=== PATIENT | female | born 1970 | race Caucasian/White ===

== ENCOUNTER 2020-01-29 09:20 | Emergency (ER) | payer MEDICAID, SELFPAY ==
--- NOTE | 2020-01-29 | US_ITS ---
EXAMINATION: US ABDOMEN LIMITED CLINICAL INFORMATION: Right upper quadrant and epigastric pain, rule out cholelithiasis. COMPARISON: Abdominal ultrasound dated 01/20/2019. TECHNIQUE: Real-time imaging of the right upper quadrant abdominal viscera. FINDINGS: PANCREAS: Visualized portions unremarkable. The tail is partially obscured by bowel gas shadowing. LIVER: Diffuse decreased attenuation without focal abnormality. GALLBLADDER: Normal. The gallbladder is physiologically distended without evidence of stones, sludge, polyps, wall thickening or pericholecystic fluid. COMMON BILE DUCT: Normal in caliber measuring 0.2 cm in diameter. RIGHT KIDNEY: 10.7 cm. FREE FLUID: None. IMPRESSION: Hepatic steatosis without focal abnormality or change.
[2020-01-29 09:31] VITALS: BP 114/56; PULSE 78; RESP 16; TEMP 36.6; O2SAT 97; BMI 37.8
[2020-01-29 10:28] LABS: MANUAL DIFF FLAG NO
[2020-01-29 10:29] LABS: Basophils Absolute Auto 0.1 X10*3/uL (0.0-0.2); Basophils Percent Auto 0.7 % (0-2); Eosinophils Absolute Auto 0.1 X10*3/uL (0.0-0.4); Eosinophils Percent Auto 1.3 % (0-4); Hematocrit 43.6 % (37-47); Hemoglobin 13.9 g/dl (12.0-16.0); Imm Gran Abs Auto 0.02 X10*3/uL (0.00-0.03); Imm Gran Pct Auto 0.3 % (0.0-0.4); Lymphocytes Absolute Auto 2.1 X10*3/uL (1.2-4.9); Lymphocytes Percent Auto 29.8 % (20-40); Mean Corpuscular HGB Conc 31.9 g/dl (31.0-35.0); Mean Corpuscular Hemoglobin 30.2 pg (27.0-33.0); Mean Corpuscular Volume 94.8 fL (80-98); Mean Platelet Volume 11.7 fL (9.4-12.3); Monocytes Absolute Auto 0.5 X10*3/uL (0.1-1.2); Monocytes Percent Auto 7.6 % (2-11); Neutrophils Absolute Auto 4.3 X10*3/uL (2.0-8.3); Neutrophils Percent Auto 60.3 % (45-73); Platelet Count 247 X10*3/uL (160-400); Red Cell Distribution Width 13.2 % (11.0-16.0); White Blood Count 7.2 X10*3/uL (4.8-10.8)
--- NOTE | 2020-01-29 10:43 | ED.ABDPAIN ---
HPI - Abdominal Pain General Chief Complaint: Abdominal Pain Stated Complaint: stomach pain Time Seen by Provider: 01/29/20 10:43 Source: patient Mode of arrival: ambulatory Limitations: no limitations History of Present Illness HPI narrative: patient with no significant abdominal history complaining of nausea vomiting for last 3 days with epigastric pain radiating to right upper quadrant no diarrhea no fever no other family member is sick MD elicited complaint: abdominal pain Pertinent past history: none Onset (ago): day(s) (3) Pain Consistency: intermittent Location: epigastric and RUQ Severity: moderate Quality: dull Radiation: RUQ Exacerbating factors: eating Relieving factors: nothing Associated symptoms: nausea and vomiting Related Data Previous Rx's Medication Instructions Recorded ondansetron 4 mg PO Q6-8H PRN #10 tab 01/29/20 pantoprazole [Protonix] 20 mg PO DAILY #20 tab 01/29/20 Allergies Allergy/AdvReac Type Severity Reaction Status Date / Time Penicillins [PENICILLINS] Allergy Unknown Unknown Unverified 01/29/20 10:00 Review of Systems Review of Systems Constitutional : No Weight loss, No Fever, No Chills, No Night Sweats, No Fatigue, No Malaise ENT/Mouth : No Hearing loss, No Ear Pain, No Nasal Congestion, No Sinus Pain, No Hoarseness, No sore throat, No Rhinorrhea, No Swallowing Difficulty Eyes: No Eye Pain, No Swelling, No Redness, No Foreign Body, No Discharge, No Vision Changes Cardiovascular : No Chest Pain, No SOB, No Dyspnea on Exertion, No Orthopnea, No Edema, No Palpitations Respiratory : No Cough, No Sputum, No Wheezing, No Smoke Exposure, No Dyspnea Gastrointestinal : Positive Nausea, Positive Vomiting, neg Diarrhea, positive abdominal Pain, No Hematochezia, No Melena Genitourinary : no irregular bleeding, No Dysuria, No Urinary Frequency, No Hematuria, No Urinary Incontinence, No Urgency, No Flank Pain, No Urinary Flow Changes, No Hesitancy Musculoskeletal : No joint pain, No Myalgias, No Joint Swelling Skin : No Skin Lesions, No rash Neuro : No Weakness, No Numbness, No Paresthesias, No Loss of Consciousness, No Dizziness, No Headache Psych : No Anxiety/Panic, No Depression, No SI/HI/AH/VH, No Social Issues, Heme/Lymph: No Bruising, No Bleeding,No Lymphadenopathy Endocrine : No Polyuria, No Polydipsia, No Temperature Intolerance Yes all other systems are reviewed and are negative Physical Exam Vital Signs and I&O and Narrative: Vital Signs and I&O: Vital Signs Temp 97.7 F 01/29/20 12:00 Pulse 68 01/29/20 12:00 Resp 18 01/29/20 12:00 BP 115/38 L 01/29/20 12:00 Pulse Ox 97 01/29/20 12:00 Intake & Output 01/28/20 01/29/20 01/29/20 18:59 06:59 18:59 Intake Total 1000 / 1000 Balance 1000 / 1000 Weight 96.88 kg Intake: Intake, IV Amoun t 1000 / 1000 0.9 % Sodium C hloride 1,000 ml 1000 / 1000 @ 999 mls/hr I VCONT .Q1H1M [facility] Rx#:[id number] Body Mass Index 37.8 Const: General: cooperative and healthy appearing Nutritional Appearance: average body habitus Orientation/consciousness: oriented to person, oriented to place and oriented to time Limitations: no limitations HENMT: Head: Yes normal to inspection Face and sinus: Yes normal facial exam Eyes: Conjunctivae: conjunctivae normal Sclerae: sclerae normal Resp: Effort & Inspection: normal respiratory effort and able to speak in complete sentences Auscultation: clear to auscultation bilaterally Percussion: percussion normal Cardio: Palpation: normal PMI Rate: regular rate Rhythm: regular rhythm Heart sounds: S1 normal heart sound present and S2 normal heart sound present GI: Inspection: Yes normal to inspection Palpation (GI): Soft to palpation and Tenderness to palpation present (GI) in the epigastrum and in the RUQ Percussion: Yes normal to percussion Auscultation: normal bowel sounds : General: No CVA tenderness Back/Spine/Pelvis: Back: No CVA tenderness Neuro: General: oriented to person, oriented to place and oriented to time Course Course Course Narrative: patient's labs are stable ultrasound is negative for any cholelithiasis. Urine is negative likely gastroenteritis viral will discharge patient home on Zofran MDM - Abdominal Pain Lab Data Result diagrams: 01/29/20 10:24 01/29/20 10:24 Labs: Lab Results 01/29/20 01/29/20 01/29/20 Range/Units 10:24 10:24 10:24 WBC 7.2 (4.8-10.8) X10*3/uL RBC 4.60 (4.20-5.50) X10*6/uL Hgb 13.9 (12.0-16.0) g/dl Hct 43.6 (37-47) % MCV 94.8 (80-98) fL MCH 30.2 (27.0-33.0) pg MCHC 31.9 (31.0-35.0) g/dl RDW 13.2 (11.0-16.0) % Plt Count 247 (160-400) X10*3/uL MPV 11.7 (9.4-12.3) fL Immature Gran % (Auto) 0.3 (0.0-0.4) % Neut % (Auto) 60.3 (45-73) % Lymph % (Auto) 29.8 (20-40) % [place] % (Auto) 7.6 (2-11) % Eos % (Auto) 1.3 (0-4) % Baso % (Auto) 0.7 (0-2) % Neut # (Auto) 4.3 (2.0-8.3) X10*3/uL Lymph # (Auto) 2.1 (1.2-4.9) X10*3/uL [place] # (Auto) 0.5 (0.1-1.2) X10*3/uL Eos # (Auto) 0.1 (0.0-0.4) X10*3/uL Baso # (Auto) 0.1 (0.0-0.2) X10*3/uL Abs Immat Gran (auto) 0.02 (0.00-0.03) X10*3/uL Absolute Nucleated RBC 0.000 (0.0-0.012) X10*3/uL Nucleated RBC % (auto) 0.0 (0.0-0.2) /100WBC Hold Blue Top SEE NOTE Sodium 138 (135-145) mmol/L Potassium 4.8 (3.3-5.1) mmol/l Chloride 103 (96-108) mmol/L Carbon Dioxide 29 (22-29) mmol/L Anion Gap 11 L (12-20) BUN 19 H (9-16) mg/dL Creatinine 1.03 (0.5-1.4) mg/dL Estim Creat Clear Calc 74.8 Estimated GFR 57 Random Glucose 92 (60-115) mg/dL Calcium 9.2 (8.4-10.2) mg/dL Total Bilirubin 0.3 (0.0-1.0) mg/dL Direct Bilirubin < 0.2 (0.0-0.5) mg/dL AST 18 (5-31) U/L ALT 26 (0-31) U/L Alkaline Phosphatase 85 (39-117) U/L Total Protein 7.4 (6.5-8.0) g/dL Albumin 4.4 (3.5-5.0) g/dL Lipase 30 (8-78) U/L Urine Color Urine Appearance Urine pH (5.0-8.0) Ur Specific [place] (1.005-1.025) Urine Protein (NEG-TRACE) MG/DL Urine Glucose (UA) (NEG) MG/DL Urine Ketones (NEG) MG/DL Urine Blood (NEG) Urine Nitrite (NEG) Ur Leukocyte Esterase (NEG) Urine Test (NEGATIVE) 01/29/20 Range/Units 12:45 WBC (4.8-10.8) X10*3/uL RBC (4.20-5.50) X10*6/uL Hgb (12.0-16.0) g/dl Hct (37-47) % MCV (80-98) fL MCH (27.0-33.0) pg MCHC (31.0-35.0) g/dl RDW (11.0-16.0) % Plt Count (160-400) X10*3/uL MPV (9.4-12.3) fL Immature Gran % (Auto) (0.0-0.4) % Neut % (Auto) (45-73) % Lymph % (Auto) (20-40) % [place] % (Auto) (2-11) % Eos % (Auto) (0-4) % Baso % (Auto) (0-2) % Neut # (Auto) (2.0-8.3) X10*3/uL Lymph # (Auto) (1.2-4.9) X10*3/uL [place] # (Auto) (0.1-1.2) X10*3/uL Eos # (Auto) (0.0-0.4) X10*3/uL Baso # (Auto) (0.0-0.2) X10*3/uL Abs Immat Gran (auto) (0.00-0.03) X10*3/uL Absolute Nucleated RBC (0.0-0.012) X10*3/uL Nucleated RBC % (auto) (0.0-0.2) /100WBC Hold Blue Top Sodium (135-145) mmol/L Potassium (3.3-5.1) mmol/l Chloride (96-108) mmol/L Carbon Dioxide (22-29) mmol/L Anion Gap (12-20) BUN (9-16) mg/dL Creatinine (0.5-1.4) mg/dL Estim Creat Clear Calc Estimated GFR Random Glucose (60-115) mg/dL Calcium (8.4-10.2) mg/dL Total Bilirubin (0.0-1.0) mg/dL Direct Bilirubin (0.0-0.5) mg/dL AST (5-31) U/L ALT (0-31) U/L Alkaline Phosphatase (39-117) U/L Total Protein (6.5-8.0) g/dL Albumin (3.5-5.0) g/dL Lipase (8-78) U/L Urine Color YELLOW Urine Appearance CLEAR Urine pH 6.0 (5.0-8.0) Ur Specific [place] >= 1.030 H (1.005-1.025) Urine Protein NEG (NEG-TRACE) MG/DL Urine Glucose (UA) NEG (NEG) MG/DL Urine Ketones NEG (NEG) MG/DL Urine Blood NEG (NEG) Urine Nitrite NEG (NEG) Ur Leukocyte Esterase NEG (NEG) Urine Test NEGATIVE (NEGATIVE) Discharge Plan Discharge Clinical Impression: Gastroenteritis Patient Disposition: Home, Self-Care Instructions: Acute Nausea and Vomiting (ED) Additional Instructions: drink plenty of fluids Prescriptions: New ondansetron 4 mg tablet,disintegrating 4 mg PO Q6-8H PRN (Reason: nausea and vomiting) Qty: 10 RF: 0 pantoprazole [Protonix] 20 mg tablet,delayed release (DR/EC) 20 mg PO DAILY Qty: 20 RF: 0 PMFSH Past Medical History Medical History delivery delivered HTN (hypertension) Migraine Social History Social History Alcohol intake: never Smoking Status: Never smoker Use of substances other than those prescribed or required for medical reasons: No Advance Directives: No Advance Directives Information Provided: Yes
[2020-01-29 10:57] LABS: Alanine Aminotransferase 26 U/L (0-31); Albumin Level 4.4 g/dL (3.5-5.0); Alkaline Phosphatase 85 U/L (39-117); Anion Gap 11 (12-20); Aspartate Amino Transferase 18 U/L (5-31); Bilirubin Direct < 0.2 mg/dL (0.0-0.5); Bilirubin Total 0.3 mg/dL (0.0-1.0); Blood Urea Nitrogen 19 mg/dL (9-16); Calcium 9.2 mg/dL (8.4-10.2); Carbon Dioxide 29 mmol/L (22-29); Chloride 103 mmol/L (96-108); Creatinine Clr Calc Pharmacy 74.8; Estimated Glomerular Filt Rate 57; Glucose Random 92 mg/dL (60-115); Lipase 30 U/L (8-78); Potassium 4.8 mmol/l (3.3-5.1); Sodium 138 mmol/L (135-145); Total Protein 7.4 g/dL (6.5-8.0)
[2020-01-29] MEDS: Morphine Sulfate 4 MG/ML CARTRIDGE IVPUSH (11:06)
[2020-01-29] MEDS: 0.9 % Sodium Chloride 1,000 ML 999 ML IVCONT (11:06)
[2020-01-29] MEDS: ondansetron HCL 4 MG/2 ML VIAL IVPUSH (11:06)
--- NOTE | 2020-01-29 11:31 | PC.NURSE ---
PATIENT A&OX3, C/O 12/03 UPPER ABDOMINAL PAIN, IV FLUIDS STARTED, PT MEDICATED PER ORDER, PT AWARE SHE NEEDS TO PROVIDE URINE SAMPLE AND WILL RING WHEN SHE IS ABLE TO PROVIDE IT, WILL CONTINUE TO MONTIOR
--- NOTE | 2020-01-29 11:33 | PC.NURSE ---
PT TRANSPORTED TO RADIOLOGY FOR US
[2020-01-29 12:00] VITALS: BP 115/38; PULSE 68; RESP 18; TEMP 36.5; O2SAT 97
--- NOTE | 2020-01-29 12:47 | PC.NURSE ---
patient a&ox3, vss, urine obtained, pt reports 11/02 continued abd pain, will continue to monitor
[2020-01-29 13:24] LABS: Glucose Urine UA NEG (NEG); Leukocyte Esterase Urine NEG (NEG); Nitrite Urine NEG (NEG); Specific Gravity - Urine >= 1.030 (1.005-1.025); Urine Blood NEG (NEG); Urine Ketones NEG (NEG); Urine Protein NEG (NEG-TRACE)
[2020-01-29 13:26] LABS: Appearance Urine CLEAR; Color Urine YELLOW
[2020-01-29 13:29] LABS: UPreg QC Valid YES; Urine Pregnancy NEGATIVE (NEGATIVE)
[2020-01-29 14:10] VITALS: BP 117/42; PULSE 66; RESP 18; O2SAT 98
== END 2020-01-29 14:45 | disposition home or self-care (01) ==
PROVIDERS: Emergency Provider Internal Medicine; PCP Family Medicine
DX: K52.9 Noninfective gastroenteritis and colitis, unspecified (principal); I10 Essential (primary) hypertension; Z79.899 Other long term (current) drug therapy
CPT/HCPCS: 36415; 76705; 80053; 80076; 81003; 81025; 83690; 85025; 96361; 96374; 96375; 99284; J2270; J2405

== ENCOUNTER 2020-05-06 08:48 | Emergency (ER) | payer MEDICAID, SELFPAY ==
--- NOTE | 2020-05-06 09:15 | ED_ITS ---
HPI - URI/Sore Throat General Chief Complaint: Upper Respiratory Symptoms Stated Complaint: covid symptoms Time Seen by Provider: 05/06/20 09:00 Source: patient Mode of arrival: ambulatory Limitations: no limitations History of Present Illness HPI Narrative: Two days of nasal congestion/facial pressure and myalgias. No recent travel or sick contacts. States symptoms feel like her seasonal allergies except for the myalgias. No chest pain or shortness of breath. 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 MD elicited complaint: rhinorrhea and nasal congestion Onset (ago): day(s) (2) Description of mucous: clear Exacerbating factors: nothing Relieving factors: nothing Associated symptoms: denies other symptoms Treatments prior to arrival: none Related Data Previous Rx's Medication Instructions Recorded ondansetron 4 mg PO Q6-8H PRN #10 tab 01/29/20 pantoprazole [Protonix] 20 mg PO DAILY #20 tab 01/29/20 cetirizine [Zyrtec] 10 mg PO DAILY PRN #30 tab 05/06/20 Allergies Allergy/AdvReac Type Severity Reaction Status Date / Time Penicillins [PENICILLINS] Allergy Unknown Unknown Unverified 01/29/20 10:00 Review of Systems Review of Systems: Constitutional: No Weight loss, No Fever, No Chills, No Night Sweats, No Fatigue, No Malaise ENT/Mouth: No Hearing loss, No Ear Pain, + Nasal Congestion, No Sinus Pain, No Hoarseness, No sore throat, + Rhinorrhea, No Swallowing Difficulty Eyes: No Eye Pain, No Swelling, No Redness, No Foreign Body, No Discharge, No Vision Changes Cardiovascular: No Chest Pain, No SOB, No Dyspnea on Exertion, No Orthopnea, No Edema, No Palpitations Respiratory: No Cough, No Sputum, No Wheezing, No Smoke Exposure, No Dyspnea Gastrointestinal: No Nausea, No Vomiting, No Diarrhea, No Constipation, No abdominal Pain, No Hematochezia, No Melena Genitourinary: no irregular bleeding, No Dysuria, No Urinary Frequency, No Hematuria, No Urinary Incontinence, No Urgency, No Flank Pain Musculoskeletal: No joint pain, No Myalgias, No Joint Swelling Skin: No Skin Lesions, No rash Neuro: No Weakness, No Numbness, No Paresthesias, No Loss of Consciousness, No Dizziness, No Headache Psych: No Social Issues Heme/Lymph: No Bruising, No Bleeding,No Lymphadenopathy Endocrine: No Polyuria, No Polydipsia, No Temperature Intolerance Yes all other systems are reviewed and are negative [facility] Past Medical History Medical History delivery delivered HTN (hypertension) Migraine Social History Social History Alcohol intake: never Smoking Status: Never smoker Advance Directives: No Advance Directives Information Provided: No Physical Exam Vital Signs: Vital Signs: Reviewed Const: General: cooperative and healthy appearing; No acute distress or intoxicated appearing Nutritional Appearance: average body habitus Orientation/consciousness: patient oriented x3 HENMT: Head: Yes normal to inspection Ears: hearing grossly normal bilaterally General nose exam: Nasal discharge present clear Eyes: General: appearance normal, both eyes and all related structures Visual [place]: normal visual [place] by confrontation Neck: Neck: Yes normal visual inspection, No positive Brudzinski's sign, No positive Kernig's sign and No tender Thyroid: Thyroid normal Chest: Chest palpation & inspection: normal inspection of the chest Resp: Effort & Inspection: normal respiratory effort Cardio: Jugular venous distension: no JVD GI: Inspection: Yes normal to inspection Percussion: Yes normal to percussion Auscultation: normal bowel sounds : General: Yes no CVA tenderness Back/Spine/Pelvis: Back: no CVA tenderness Skin: General skin exam: no rashes or lesions noted Neuro: General: patient oriented x3 Extrem: General: Yes normal to inspection Course Course Course Narrative: Well nontoxic appearing. Cdc/state guidelines provided. Discharge Plan Discharge Clinical Impression: Acute viral syndrome Patient Disposition: Home, Self-Care Instructions: Viral Syndrome (ED) Additional Instructions: Based on your symptoms and history we have sent a COVID-19. Although your RESULT IS PENDING at this time. RESULTS should return within 72 hours. At this time you will be contacted with either NEGATIVE OR POSITIVE results. -Please wait until we contact you for your results. At this time you will be okay for discharge. Please plan for self quarantine for up to 14 days. Do not expose yourself to others. You may not go to work. If testing does come back negative you may return to activities as long as you are no longer having any symptoms for at least 3 days. Please continue to follow cold instructions and wash your hands frequently. You may take Tylenol as directed on the bottle for pain or fever. Patient seen in the emergency department on 05/06/2020 and should be excused from work until negative test results AND until 72 hours without any symptoms AND at least 10 days have passed since symptoms first appeared or since last exposure to COVID-19 positive patient CDC Guidelines for home isolation: - Stay away from others - WEAR A MASK if you are sick AND STAY HOME - Cover your mouth and nose with a tissue when you cough or sneeze. Dispose of tissues in a lined trash can and wash your hands immediately with soap and water for at least 20 seconds. If soap and water are not available, clean hands with alcohol-based hand printing mechanist that contains at least 60% alcohol. - Clean your hands often with soap and water for at least 20 seconds - Avoid touching your eyes, nose and mouth with unwashed hands - Do not share dishes, drinking glasses, cups, eating utensils, towels, or bedding with other people in your home. After using these items, wash them thoroughly with soap and water or put in the swinging cut off saw operator. - Clean high-touch surfaces in your isolation area ( sick room and bathroom) every day; let a caregiver clean and disinfect high-touch surfaces in other areas of the home. Clean the area or item with soap and water or another detergent if it is dirty. Then, use a household disinfectant. - Limit contact with pets and animals: If you must care for a pet, wash your hands before and after interacting with them Prescriptions: New cetirizine [Zyrtec] 10 mg tablet 10 mg PO DAILY PRN (Reason: allergy symptoms) Qty: 30 RF: 0 No Action ondansetron 4 mg tablet,disintegrating 4 mg PO Q6-8H PRN (Reason: nausea and vomiting) Qty: 10 RF: 0 pantoprazole [Protonix] 20 mg tablet,delayed release (DR/EC) 20 mg PO DAILY Qty: 20 RF: 0 Referrals: Halley Hill DO [Primary Care Provider] - 2 weeks (PHONE VISIT ) Stand Alone Forms: Work/School Release
[2020-05-06 09:16] VITALS: BP 133/88; PULSE 106; RESP 16; TEMP 37.7; O2SAT 96; BMI 36.6
== END 2020-05-06 09:36 | disposition home or self-care (01) ==
PROVIDERS: Nurse Practitioner Primary Care; Emergency Provider Emergency Medicine; PCP Family Medicine
DX: U07.1 COVID-19 (principal); I10 Essential (primary) hypertension
CPT/HCPCS: 36415; 99283; U0003

== ENCOUNTER 2020-05-20 16:07 | Outpatient (REF) | payer MEDICAID, SELFPAY ==
--- NOTE | 2020-05-20 16:17 | XR_ITS ---
EXAMINATION: XR CHEST CLINICAL INFORMATION: Dyspnea. History COVID-19. COMPARISON: Chest radiographs 09/02/2013 TECHNIQUE: 2 views of the chest were obtained. FINDINGS: The lungs are clear. There is no hyperinflation, pneumothorax, airspace consolidation, or groundglass opacity. The costophrenic sulci are well-defined. The heart is normal in size. The hilar and mediastinal contours and visualized bony structures are unremarkable. XR/XR chest 2V IMPRESSION: Unremarkable examination.
== END 2020-05-20 16:08 | disposition home or self-care (01) ==
LOC: HO.XRAY 16:07
PROVIDERS: Absent Provider Family Medicine; PCP Family Medicine; Visit Provider Emergency Medicine
DX: R06.00 Dyspnea, unspecified (principal); Z86.16 Personal history of COVID-19
CPT/HCPCS: 71046

== ENCOUNTER 2020-06-01 09:24 | Outpatient (REF) | payer MEDICAID, SELFPAY ==
[2020-06-01 10:25] LABS: Hemoglobin 13.5 g/dl (12.0-16.0); Mean Corpuscular HGB Conc 32.1 g/dl (31.0-35.0); Mean Corpuscular Volume 93.3 fL (80-98); Mean Platelet Volume 12.2 fL (9.4-12.3); Platelet Count 258 X10*3/uL (160-400); White Blood Count 6.6 X10*3/uL (4.8-10.8)
[2020-06-01 10:44] LABS: Anion Gap 14 (12-20); Blood Urea Nitrogen 12 mg/dL (9-16); Calcium 8.8 mg/dL (8.4-10.2); Carbon Dioxide 28 mmol/L (22-29); Chloride 102 mmol/L (96-108); Cholesterol 266 mg/dL; Estimated Glomerular Filt Rate > 60; Glucose Random 99 mg/dL (60-115); HDL Cholesterol 33 mg/dL; LDL Cholesterol Calculated 182 mg/dl; Potassium 4.5 mmol/L (3.3-5.1); Sodium 139 mmol/L (135-145); Triglycerides 255 mg/dL
[2020-06-01 11:07] LABS: Vitamin D 25-OH Total 11.4 ng/mL (>30)
== END 2020-06-01 09:25 | disposition home or self-care (01) ==
LOC: HO.LAB 09:24
PROVIDERS: PCP Family Medicine; Visit Provider Registered Nurse Community Health
DX: Z00.00 Encounter for general adult medical examination without abnormal findings (principal); I10 Essential (primary) hypertension; E78.5 Hyperlipidemia, unspecified; Z86.39 Personal history of other endocrine, nutritional and metabolic disease
CPT/HCPCS: 36415; 80048; 80061; 82306; 85027

== ENCOUNTER 2020-08-15 14:29 | Outpatient (REF) | payer MEDICAID, SELFPAY ==
--- NOTE | ~2020-08-15 | MM_ITS ---
EXAMINATION: MM SCREENING DIGITAL BREAST TOMOSYNTHESIS, BILATERAL CLINICAL INFORMATION: Screening. Asymptomatic. The lifetime risk of breast cancer based on the Tyrer-Cuzick Model is 8%. COMPARISON: Mammography: 01/17/2019, 03/26/2017, 10/25/2015 TECHNIQUE: Digital breast tomosynthesis is performed in both the craniocaudal and mediolateral oblique views along with computer-aided detection (CAD). Synthesized 2D images are generated from the tomosynthesis. FINDINGS: There are scattered areas of fibroglandular density (ACR BI-RADS breast composition Category b). Breast tissue composition borders on predominantly fatty. There are no significant masses, abnormal calcifications, or other abnormalities. The axilla and skin contours are unremarkable. No significant changes. MM/MM tomosynthesis screening BI IMPRESSION: No mammographic evidence of malignancy. ASSESSMENT: BI-RADS 1: Negative RECOMMENDATION: Routine annual mammography screening. This patient's information was entered into a reminder system with a target due date for their next mammogram.
== END 2020-08-15 14:30 | disposition home or self-care (01) ==
LOC: HO.MAMMO 14:29
PROVIDERS: Visit Provider Family Medicine
DX: Z12.31 Encounter for screening mammogram for malignant neoplasm of breast (principal)
CPT/HCPCS: 77063; 77067

== ENCOUNTER 2020-09-05 12:48 | Emergency (ER) | payer MEDICAID, SELFPAY ==
[2020-09-05 12:49] VITALS: BP 142/69; PULSE 80; RESP 16; TEMP 36.2; O2SAT 96; BMI 36.6
--- NOTE | 2020-09-05 13:46 | ED_ITS ---
HPI - General Adult General Chief complaint: Back Pain/Injury Stated complaint: back pain Time Seen by Provider: 09/05/20 13:46 History of Present Illness HPI narrative: Patient complains of 3 days of left-sided back pain radiating to both gluteal areas, no injury no numbness weakness or tingling no incontinence no changes to bowel or bladder Related Data Previous Rx's Medication Instructions Recorded ondansetron 4 mg PO Q6-8H PRN #10 tab 01/29/20 pantoprazole [Protonix] 20 mg PO DAILY #20 tab 01/29/20 cetirizine [Zyrtec] 10 mg PO DAILY PRN #30 tab 05/06/20 cyclobenzaprine 5 mg PO TID PRN #10 tab 09/05/20 ibuprofen 600 mg PO Q6H PRN #20 tab 09/05/20 oxycodone 5 mg PO Q6H PRN #10 tab 09/05/20 Allergies Allergy/AdvReac Type Severity Reaction Status Date / Time Penicillins [PENICILLINS] Allergy Unknown Unknown Unverified 01/29/20 10:00 Review of Systems Review of Systems: Positive for left-sided back pain Negatives are no fever no chills no dizziness no weakness no headache no neck pain no numbness weakness or tingling, no radiation of pain no chest pain no shortness of breath no abdominal pain no nausea or vomiting no incontinence no changes to bowel or bladder nor rash Yes all other systems are reviewed and are negative PMFSH Past Medical History Source: nursing notes reviewed Medical History delivery delivered HTN (hypertension) Migraine Social History Social History Alcohol intake: never Advance Directives: No Advance Directives Information Provided: Yes Patient : No Physical Exam Vital Signs: Vital Signs: Last Vital Signs Temp 97.2 F 09/05/20 12:49 Pulse 80 09/05/20 12:49 Resp 16 09/05/20 12:49 BP 142/69 H 09/05/20 12:49 Pulse Ox 96 09/05/20 12:49 Body Mass Index 36.6 General appearance no acute distress Head is normocephalic atraumatic Neck is supple and nontender Respiratory no acute distress Abdomen is soft nontender The back head left-sided paraspinal tenderness no midline tenderness no CVA tenderness no wounds no redness no deformities no rash on the back The extremities are full range of motion x4 Neuro no gross motor or sensory deficit Course Course Course Narrative: Patient is treated for musculoskeletal back pain and will follow with primary doctor no evidence of any neurologic deficit Medical Decision Making Lab Data Labs: Lab Results 09/05/20 09/05/20 Range/Units 14:51 14:51 Urine Color YELLOW Urine Appearance HAZY Urine pH 5.5 (5.0-8.0) Ur Specific [place] >= 1.030 H (1.005-1.025) Urine Protein NEG (NEG-TRACE) MG/DL Urine Glucose (UA) NEG (NEG) MG/DL Urine Ketones NEG (NEG) MG/DL Urine Blood NEG (NEG) Urine Nitrite NEG (NEG) Ur Leukocyte Esterase NEG (NEG) Urine Test NEGATIVE (NEGATIVE) Discharge Plan Discharge Clinical Impression: Back pain Patient Disposition: Home, Self-Care Additional Instructions: Urine test did not show any infection Pain is probably from inflamed muscles in her back Follow with primary doctor Return any concerns Prescriptions: New oxycodone 5 mg tablet 5 mg PO Q6H PRN (Reason: pain) Qty: 10 RF: 0 cyclobenzaprine 5 mg tablet 5 mg PO TID PRN (Reason: muscle spasm) Qty: 10 RF: 0 ibuprofen 600 mg tablet 600 mg PO Q6H PRN (Reason: pain) Qty: 20 RF: 0 No Action ondansetron 4 mg tablet,disintegrating 4 mg PO Q6-8H PRN (Reason: nausea and vomiting) Qty: 10 RF: 0 pantoprazole [Protonix] 20 mg tablet,delayed release (DR/EC) 20 mg PO DAILY Qty: 20 RF: 0 cetirizine [Zyrtec] 10 mg tablet 10 mg PO DAILY PRN (Reason: allergy symptoms) Qty: 30 RF: 0 Stand Alone Forms: Work/School Release Interventions: ED Discharge Assessment Last Done: 09/05/20 16:10 Discharge Date/Time: 09/05/20 16:10
[2020-09-05 15:26] LABS: Glucose Urine UA NEG (NEG); Leukocyte Esterase Urine NEG (NEG); Nitrite Urine NEG (NEG); PH 5.5 (5.0-8.0); Specific Gravity - Urine >= 1.030 (1.005-1.025); Urine Blood NEG (NEG); Urine Ketones NEG (NEG); Urine Protein NEG (NEG-TRACE)
[2020-09-05 15:29] LABS: Appearance Urine HAZY; Color Urine YELLOW
[2020-09-05 15:31] LABS: UPreg QC Valid YES; Urine Pregnancy NEGATIVE (NEGATIVE)
[2020-09-05] MEDS: Ketorolac Tromethamine 30 MG/ML VIAL IM (16:03)
== END 2020-09-05 16:10 | disposition home or self-care (01) ==
PROVIDERS: Physician Assistant Medical; Emergency Provider Emergency Medicine; PCP Family Medicine
DX: M54.9 Dorsalgia, unspecified (principal); I10 Essential (primary) hypertension
CPT/HCPCS: 81003; 81025; 96372; 99284; J1885

== ENCOUNTER 2020-09-26 09:52 | Outpatient (REF) | payer MEDICAID, SELFPAY ==
--- NOTE | ~2020-09-26 | XR_ITS ---
EXAMINATION: XR LUMBOSACRAL SPINE CLINICAL INFORMATION: Low back pain. COMPARISON: CT scan of the abdomen and pelvis dated 12/17/2011 TECHNIQUE: Three views of the lumbosacral spine. FINDINGS: There is normal lumbar lordosis and spinal alignment. Mild marginal osteophyte formation is seen at L3-4 and L5-S1. There is minimal grade 1 retrolisthesis of L5 relative S1 without interval change. No acute fracture. The soft tissues are unremarkable. XR/XR lumbar spine 2-3V IMPRESSION: Mild degenerative marginal osteophyte formation as detailed above. Minimal grade 1 retrolisthesis at L5-S1 is similar to the 2012 CT scan. No acute abnormality.
--- NOTE | ~2020-09-26 | XR_ITS ---
EXAMINATION: XR HIP, LEFT CLINICAL INFORMATION: Left hip pain. COMPARISON: None TECHNIQUE: Two views of the left hip. FINDINGS: Mild degenerative joint changes are seen with periarticular sclerosis. Pincer femoroacetabular impingement is noted. There is no acute fracture or dislocation. The visualized left hemipelvis is intact. XR/XR hip LT min 2V IMPRESSION: Mild left hip degenerative joint changes and pincer femoroacetabular impingement. No acute abnormality.
--- NOTE | ~2020-09-26 | XR_ITS ---
EXAMINATION: CR X-RAY HAND BILATERAL 3 VIEW CLINICAL INFORMATION: Hand pain. COMPARISON: None TECHNIQUE: 3 views each of the bilateral hands were obtained. FINDINGS: Right: Severe distal interphalangeal degenerative joint changes are seen in the fourth digit with severe joint space narrowing, periarticular sclerosis and subcortical cystic changes. Mild degenerative changes are seen in the remainder the distal interphalangeal joints. There is no acute fracture or dislocation. The soft tissues are unremarkable. Left: Severe distal interphalangeal degenerative joint changes are seen in the fourth and fifth digits with severe joint space narrowing, periarticular sclerosis and subcortical cystic changes. Mild distal interphalangeal degenerative joint changes are seen. There is no acute fracture or dislocation. The soft tissues are unremarkable. XR/XR hand LT min 3V IMPRESSION: Distal interphalangeal degenerative joint changes most consistent with osteoarthritis. The severely affected joints detailed above demonstrate erosive components. No acute abnormality.
--- NOTE | ~2020-09-26 | XR_ITS ---
EXAMINATION: CR X-RAY HAND BILATERAL 3 VIEW CLINICAL INFORMATION: Hand pain. COMPARISON: None TECHNIQUE: 3 views each of the bilateral hands were obtained. FINDINGS: Right: Severe distal interphalangeal degenerative joint changes are seen in the fourth digit with severe joint space narrowing, periarticular sclerosis and subcortical cystic changes. Mild degenerative changes are seen in the remainder the distal interphalangeal joints. There is no acute fracture or dislocation. The soft tissues are unremarkable. Left: Severe distal interphalangeal degenerative joint changes are seen in the fourth and fifth digits with severe joint space narrowing, periarticular sclerosis and subcortical cystic changes. Mild distal interphalangeal degenerative joint changes are seen. There is no acute fracture or dislocation. The soft tissues are unremarkable. XR/XR hand RT min 3V IMPRESSION: Distal interphalangeal degenerative joint changes most consistent with osteoarthritis. The severely affected joints detailed above demonstrate erosive components. No acute abnormality.
== END 2020-09-26 09:53 | disposition home or self-care (01) ==
LOC: HO.XRAY 09:52
PROVIDERS: PCP Family Medicine; Visit Provider Family Medicine
DX: M54.5 Low back pain (principal); M79.644 Pain in right finger(s); M79.645 Pain in left finger(s)
CPT/HCPCS: 72100; 73130; 73502

== ENCOUNTER 2020-12-18 09:31 | Emergency (ER) | payer MEDICAID, SELFPAY ==
[2020-12-18 09:46] VITALS: BP 145/62; PULSE 71; RESP 16; TEMP 36.8; O2SAT 99; BMI 33.3
--- NOTE | 2020-12-18 09:49 | ED_ITS ---
HPI - Eye Problem General Chief complaint: Eye Problems Stated complaint: red itchy eye Time Seen by Provider: 12/18/20 09:49 Source: patient Mode of arrival: ambulatory Limitations: no limitations History of Present Illness HPI Narrative: 50-year-old female is here today for complaining of left eye itchy and burning. Patient reports that she woke up this morning with redness and burning to her left eye. Patient denies any injury. Denies any other symptoms. Patient denies any allergies, not wearing contact lenses. chief complaint: eye pain and eye redness Onset (ago): hour(s) Onset description: awoke with symptoms Duration: intermittent Location: left eye Eye Symptoms: burning and redness Place: home Mechanism: none Severity: mild Related Data Previous Rx's Medication Instructions Recorded ondansetron 4 mg disintegrating 4 mg PO Q6-8H PRN #10 tab 01/29/20 tablet pantoprazole 20 mg tablet,delayed 20 mg PO DAILY #20 tab 01/29/20 release (Protonix) cetirizine 10 mg tablet (Zyrtec) 10 mg PO DAILY PRN #30 tab 05/06/20 cyclobenzaprine 5 mg tablet 5 mg PO TID PRN #10 tab 09/05/20 ibuprofen 600 mg tablet 600 mg PO Q6H PRN #20 tab 09/05/20 oxycodone 5 mg tablet 5 mg PO Q6H PRN #10 tab 09/05/20 cetirizine 10 mg capsule (Zyrtec) 10 mg PO DAILY PRN #20 cap 12/18/20 erythromycin 5 mg/gram (0.5 %) eye 0.5 inch OPHTHALMIC (EYE) QID #1 g 12/18/20 ointment fluticasone propionate 50 1 spray INTRANASAL DAILY #16 g 12/18/20 mcg/actuation nasal spray,suspension (Flonase Allergy Relief) Allergies Allergy/AdvReac Type Severity Reaction Status Date / Time Penicillins [PENICILLINS] Allergy Unknown Unknown Verified 12/18/20 09:46 Review of Systems Review of Systems: Constitutional : No Weight loss, No Fever, No Chills, No Night Sweats, No Fatigue, No Malaise ENT/Mouth : No Hearing loss, No Ear Pain, No Nasal Congestion, No Sinus Pain, No Hoarseness, No sore throat, No Rhinorrhea, No Swallowing Difficulty Eyes: Eye Pain, burning No Swelling, Redness, No Foreign Body, No Discharge, No Vision Changes Cardiovascular : No Chest Pain, No SOB, No Dyspnea on Exertion, No Orthopnea, No Edema, No Palpitations Respiratory : No Cough, No Sputum, No Wheezing, No Smoke Exposure, No Dyspnea Gastrointestinal : No Nausea, No Vomiting, No Diarrhea, No Constipation, No abdominal Pain, No Hematochezia, No Melena Genitourinary : no irregular bleeding, No Dysuria, No Urinary Frequency, No Hematuria, No Urinary Incontinence, No Urgency, No Flank Pain, No Urinary Flow Changes, No Hesitancy Musculoskeletal : No joint pain, No Myalgias, No Joint Swelling Skin : No Skin Lesions, No rash Neuro : No Weakness, No Numbness, No Paresthesias, No Loss of Consciousness, No Dizziness, No Headache Psych : No Anxiety/Panic, No Depression, No SI/HI/AH/VH, No Social Issues, Yes all other systems are reviewed and are negative Eyes: Eyes: Denies photophobia PMFSH Past Medical History Medical History delivery delivered HTN (hypertension) Migraine Social History Social History Alcohol intake: never Advance Directives: No Advance Directives Information Provided: No Physical Exam Vital Signs: Vital Signs: Last Vital Signs Temp 98.2 F 12/18/20 09:46 Pulse 71 12/18/20 09:46 Resp 16 12/18/20 09:46 BP 145/62 H 12/18/20 09:46 Pulse Ox 99 12/18/20 09:46 Body Mass Index 33.3 Const: General: healthy appearing, no acute distress and well developed Nutritional Appearance: well nourished Orientation/consciousness: patient oriented x3 Eyes: General: appearance normal, both eyes and all related structures Alignment and Position: alignment normal Periorbital: periorbital findings normal Eyelids: Yes eyelids normal Conjunctivae: conjunctivae normal (Redness to left) Pupils: Equal, round and reactive pupils present EOM: EOMs intact bilaterally Direct Ophthalmoscopy: normal light reflex, no photophobia, no papilledema and No photophobia Neck: Neck: Yes normal visual inspection, Yes full ROM and Yes trachea midline Thyroid: Thyroid normal Resp: Auscultation: clear to auscultation bilaterally Cardio: Rate: regular rate Rhythm: regular rhythm GI: Inspection: Yes normal to inspection and No distended Palpation (GI): No hepatosplenomegaly present Auscultation: normal bowel sounds Skin: General skin exam: elasticity normal, turgor normal and dry skin Neuro: General: patient oriented x3 Cranial nerves: Yes Equal, round and reactive pupils present Course Course Course Narrative: 50-year-old female woke up this morning with left eye burning and pain. She was rubbing her eye and now her lateral sclera red. Patient denies any vision changes. Denies having any object in her eyes before going to bed last night. Patient is not wearing contact lenses. Will do visual acuity and check for abrasion. Most likely allergic response. Reevaluation(s) Reevaluation #1: Visual acuity 20/20. Left I checked with Wood's lamp, no abrasion will send patient home with erythromycin eye ointment for conjunctivitis. I will send her home with Flonase and Zyrtec. She will follow- up with her PCP. Patient is agreeable to this plan. Discharge Plan Discharge Clinical Impression: Bacterial conjunctivitis Allergic rhinitis Qualifiers: Allergic rhinitis trigger: unspecified Allergic rhinitis seasonality: unspecified Qualified Code(s): J30.9 - Allergic rhinitis, unspecified Patient Disposition: Home, Self-Care Instructions: Allergies (ED), Conjunctivitis (ED) Additional Instructions: You were seen here today for left eye redness itchiness. You have no corneal abrasion. You were giving antibiotic ointment the left on eye. Please follow- up with your PCP in 2-3 days. If your symptoms will get worse or if you experience any additional concerning symptoms he may return to emergency department Prescriptions: New Zyrtec 10 mg capsule 10 mg PO DAILY PRN (Reason: allergy symptoms) Qty: 20 RF: 0 fluticasone propionate [Flonase Allergy Relief] 50 mcg/actuation spray,suspension 1 spray intranasal DAILY Qty: 16 RF: 0 erythromycin 5 mg/gram (0.5 %) ointment 0.5 inch ophthalmic (eye) QID Qty: 1 RF: 0 No Action ondansetron 4 mg tablet,disintegrating 4 mg PO Q6-8H PRN (Reason: nausea and vomiting) Qty: 10 RF: 0 pantoprazole [Protonix] 20 mg tablet,delayed release (DR/EC) 20 mg PO DAILY Qty: 20 RF: 0 oxycodone 5 mg tablet 5 mg PO Q6H PRN (Reason: pain) Qty: 10 RF: 0 cyclobenzaprine 5 mg tablet 5 mg PO TID PRN (Reason: muscle spasm) Qty: 10 RF: 0 ibuprofen 600 mg tablet 600 mg PO Q6H PRN (Reason: pain) Qty: 20 RF: 0 cetirizine [Zyrtec] 10 mg tablet 10 mg PO DAILY PRN (Reason: allergy symptoms) Qty: 30 RF: 0 Referrals: Halley Hill DO [Primary Care Provider] - 2 days Stand Alone Forms: Work/School Release Interventions: ED Discharge Assessment Last Done: 12/18/20 11:10 Discharge Date/Time: 12/18/20 11:10
[2020-12-18] MEDS: Fluorescein Sodium STRIP 1 STRIP EYE-LEFT (09:58)
[2020-12-18] MEDS: Tetracaine HCl/PF 0.5% Oph Sol 4 ML DROPS 1 DROP EYE-LEFT (09:58)
[2020-12-18] MEDS: Erythromycin Base 0.5% Oph Oin 1 GM TUBE 1 CM EYE-LEFT (10:45)
== END 2020-12-18 11:10 | disposition home or self-care (01) ==
PROVIDERS: Emergency Provider Emergency Medicine; PCP Family Medicine
DX: H10.89 Other conjunctivitis (principal); J30.9 Allergic rhinitis, unspecified; H57.12 Ocular pain, left eye; I10 Essential (primary) hypertension; Z79.899 Other long term (current) drug therapy
CPT/HCPCS: 99283; 99284

== ENCOUNTER 2021-11-15 08:47 | Outpatient (REF) | payer MEDICAID, SELFPAY ==
[2021-11-15 09:39] LABS: MANUAL DIFF FLAG NO
[2021-11-15 10:17] LABS: Basophils Absolute Auto 0.1 X10*3/uL (0.0-0.2); Eosinophils Absolute Auto 0.2 X10*3/uL (0.0-0.4); Eosinophils Percent Auto 2.9 % (0-4); Hematocrit 44.7 % (37.0-47.0); Hemoglobin 14.3 g/dl (12.0-16.0); Imm Gran Abs Auto 0.01 X10*3/uL (0.00-0.03); Imm Gran Pct Auto 0.2 % (0.0-0.4); Lymphocytes Absolute Auto 2.2 X10*3/uL (1.2-4.9); Lymphocytes Percent Auto 35.7 % (20-40); Mean Corpuscular Hemoglobin 29.8 pg (27.0-33.0); Mean Corpuscular Volume 93.1 fL (80.0-98.0); Mean Platelet Volume 11.6 fL (9.4-12.3); Monocytes Absolute Auto 0.6 X10*3/uL (0.1-1.2); Monocytes Percent Auto 8.9 % (2-11); Neutrophils Absolute Auto 3.2 x10*3/uL (2.0-8.3); Neutrophils Percent Auto 51.3 % (45-73); Platelet Count 252 X10*3/uL (160-400); Red Cell Distribution Width 14.2 % (11.0-16.0); White Blood Count 6.2 X10*3/uL (4.8-10.8)
[2021-11-15 10:47] LABS: Alanine Aminotransferase 34 U/L (0-31); Albumin Level 4.7 g/dL (3.5-5.0); Alkaline Phosphatase 95 U/L (39-117); Anion Gap 12 (12-20); Aspartate Amino Transferase 22 U/L (5-31); Bilirubin Direct 0.2 mg/dL (0.0-0.5); Bilirubin Total 0.3 mg/dL (0.0-1.0); Blood Urea Nitrogen 15 mg/dL (9-16); Calcium 8.9 mg/dL (8.4-10.2); Carbon Dioxide 29 mmol/L (22-29); Chloride 101 mmol/L (96-108); Cholesterol 265 mg/dL; Estimated Glomerular Filt Rate > 60; Glucose Random 105 mg/dL (60-115); HDL Cholesterol 38 mg/dL; LDL Cholesterol Calculated 180 mg/dl; Potassium 4.7 mmol/L (3.3-5.1); Sodium 137 mmol/L (135-145); Triglycerides 238 mg/dL
[2021-11-15 11:08] LABS: Free T4 (Free Thyroxine) 0.99 ng/dL (0.71-1.85); Thyroid Stimulating Hormone 1.87 uIU/mL (0.32-4.0); Vitamin D 25-OH Total 13.3 ng/mL (>30)
[2021-11-15 11:10] LABS: Estimated Average Glucose 126 mg/dL
[2021-11-17 07:59] LABS: HBsAGNum1 0.22 S/CO (0.00-0.99); Hepatitis B Surface Antigen Negative (Negative)
[2021-11-17 08:00] LABS: ~HepC Num1 0.14 S/CO (0.00-0.79); ~Hepatitis C Antibody Nonreactive (Nonreactive)
[2021-11-18 12:36] LABS: Alpha Fetoprotein 1.5 ng/mL
[2021-11-21 13:13] LABS: RPR Quantitative Non-Reactive (Nonreactive); T.Pallidum Particle Agg Test Non-Reactive (Nonreactive)
== END 2021-11-15 08:48 | disposition home or self-care (01) ==
LOC: HO.LAB 08:47
PROVIDERS: PCP Family Medicine; Visit Provider Family Medicine
DX: Z11.4 Encounter for screening for human immunodeficiency virus [HIV] (principal); Z68.41 Body mass index [BMI] 40.0-44.9, adult
CPT/HCPCS: 36415; 80048; 80061; 80076; 82105; 82306; 83036; 84439; 84443; 85025; 86592; 86701; 86702; 86780; 86803; 87340; 87491; 87591

== ENCOUNTER 2022-01-19 14:03 | Outpatient (REF) | payer MEDICAID, SELFPAY ==
[2022-01-20 06:05] LABS: CT PCR NOT DETECTED (Not Detect.); NG PCR NOT DETECTED (Not Detect.)
[2022-01-20 11:11] LABS: BV Int Neg Control Negative (Negative); BV Int Pos Control Positive (Positive)
== END 2022-01-19 14:04 | disposition home or self-care (01) ==
LOC: HO.LNP 14:03
PROVIDERS: Visit Provider Advanced Practice Midwife
DX: Z11.3 Encounter for screening for infections with a predominantly sexual mode of transmission (principal); N93.9 Abnormal uterine and vaginal bleeding, unspecified; T83.32XA Displacement of intrauterine contraceptive device, initial encounter
CPT/HCPCS: 87480; 87491; 87510; 87591; 87660; 99202

== ENCOUNTER 2022-02-10 10:28 | Emergency (ER) | payer MEDICAID, SELFPAY ==
[2022-02-10 10:34] VITALS: BP 154/89; PULSE 84; RESP 18; TEMP 36.6; O2SAT 98; BMI 38.9
[2022-02-10 11:26] LABS: COVID-19 Test Negative (Negative)
[2022-02-10 11:36] LABS: Strep A Nucleic Acid Negative (Negative)
--- NOTE | 2022-02-10 12:33 | ED_ITS ---
HPI - URI/Sore Throat General Chief Complaint: Upper Respiratory Symptoms Stated Complaint: sore throat, body aches Time Seen by Provider: 02/10/22 11:43 Source: patient Mode of arrival: ambulatory Limitations: no limitations History of Present Illness HPI Narrative: 51-year-old female presents to the emergency department with cough, body aches and pains, sore throat, headache (feels like typical, atraumatic, dull, diffuse 7/10), slight shortness of breath secondary to cough x3 days. Patient tells me that this came on suddenly and has been progressively worsening. She tells me she feels like he has no energy. She reports her daughter at home is sick with similar symptoms. She tells me her throat is burning and her eyes are watering. She denies any difficulties with speech, difficulties controlling secretions. Patient denies chest pain, nausea, vomiting, abdominal pain, dizziness, vision changes, fevers and chills. Related Data Home Medications Medication Instructions Recorded Confirmed lisinopril 5 mg tablet 5 mg PO DAILY 01/19/22 Previous Rx's Medication Instructions Recorded pantoprazole 20 mg tablet,delayed 20 mg PO DAILY #20 tabs 01/29/20 release (Protonix) cyclobenzaprine 5 mg tablet 5 mg PO TID PRN muscle spasm #10 09/05/20 tabs ibuprofen 600 mg tablet 600 mg PO Q6H PRN pain #20 tabs 09/05/20 oxycodone 5 mg tablet 5 mg PO Q6H PRN pain #10 tabs 09/05/20 cetirizine 10 mg capsule (Zyrtec) 10 mg PO DAILY PRN allergy 12/18/20 symptoms #20 caps fluticasone propionate 50 1 spray intranasal DAILY #16 grams 12/18/20 mcg/actuation nasal spray,suspension (Flonase Allergy Relief) prednisone 20 mg tablet 20 mg PO DAILY 5 days #5 tabs 02/10/22 Allergies Allergy/AdvReac Type Severity Reaction Status Date / Time Penicillins [PENICILLINS] Allergy Unknown Unknown Verified 01/19/22 13:24 Review of Systems Review of Systems: Constitutional : No Weight loss, No Fever, No Chills, + Fatigue, + Malaise ENT/Mouth : No sore throat, No Rhinorrhea Eyes: No Eye Pain, No Swelling, No Redness Cardiovascular : No Chest Pain, + SOB, No Dyspnea on Exertion, No Orthopnea, No Edema, No Palpitations Respiratory : + Cough, No Sputum, No Wheezing Gastrointestinal : No Nausea, No Vomiting, No Diarrhea, No Constipation, No abdominal Pain, No Hematochezia, No Melena Genitourinary : No Dysuria, No Urinary Frequency, No Hematuria, Musculoskeletal : No joint pain, + Myalgias, No Joint Swelling Skin : No Skin Lesions, No rash Neuro : No Weakness, No Numbness, No Dizziness, + Headache Psych : No Anxiety/Panic, No Depression All other systems reviewed and are negative Yes all other systems are reviewed and are negative [facility] Past Medical History Attestation statement: The following information was validated with the patient. Source: old records reviewed Medical History delivery delivered HTN (hypertension) Migraine Surgical History Hx of section Social History Social History Alcohol intake: never Patient Tobacco Use Status: Never used Tobacco Advance Directives: No Advance Directives Information Provided: No Physical Exam Vital Signs: Vital Signs: Last Vital Signs Temp 98 F 02/10/22 10:34 Pulse 84 02/10/22 10:34 Resp 18 02/10/22 10:34 BP 154/89 H 02/10/22 10:34 Pulse Ox 98 02/10/22 10:34 O2 Del Method 02/10/22 10:34 BMI result Body Mass Index 38.9 Vital signs stable Appearance: Alert.? Oriented X3.? No acute distress.? Patient speaking in full sentences, no acute distress, controlling secretions well Head: Normocephalic, atraumatic, no step-offs or deformities Eyes: Pupils equal, round and reactive to light.? ENT: Pharynx with slight swelling to bilateral tonsils with overlying erythema, no exudates. Uvula midline. No palpable lymphadenopathy. Bilateral tympanic membranes, ear canals within normal limits. Neck: Normal inspection.? Neck supple.? CVS: Normal heart rate and rhythm.? Pulses normal.? Respiratory: No respiratory distress.? Breath sounds normal.? Abdomen: Soft and nontender.? Skin: Skin warm and dry.? Normal skin color.? Normal skin turgor.? Extremities: No lower extremity edema.? No calf ttp, negative Al[place] Rosa. 5/5 strength to bilateral upper and lower extremities Neuro: Oriented X 3.? No motor deficit.? No sensory deficit. CN 2-12 intact Course Reevaluation(s) Reevaluation #1: COVID and pharyngitis swabs negative. Time: 12:39 Reevaluation #2: Influenza negative. Likely viral infection. At this time patient will be discharged home with syndrome with prednisone for tonsillar swelling. This time comfortable with discharge. Time: 13:15 MDM - URI/Sore Throat MDM Narrative Medical decision making narrative: 1225 51-year-old female presents with upper respiratory symptoms x3 days. Reports recent sick contacts. Physical examination benign History of physical examination likely viral infection. Unlikely PE, pneumonia, stroke, posterior stroke, ICH, peritonsillar abscess, epiglottitis Plan at this time is to give Decadron for swelling of tonsils. Will give Toradol for symptoms. Will obtain viral swabs for COVID, pharyngitis and flu.. Medical Records Attestation: I reviewed the patient's medical records. Lab Data Attestation: I reviewed the patient's lab results. Labs: Lab Results 02/10/22 1022 10 Range/Units 10:39 10:39 12:36 COVID-19 (CLEMENT) Negative (Negative) COVID-19 Clin Com See Note Influenza Type A (GAYATHRI) Negative (Negative) Influenza Type B (GAYATHRI) Negative (Negative) Influenza A & B Note See Note S. pyogenes GrpA GAYATHRI Negative (Negative) Critical Care Time Critical Care Time Critical Care Time: No Discharge Plan Discharge Clinical Impression: Viral infection Patient Disposition: Home, Self-Care Instructions: Viral Syndrome (ED) Additional Instructions: Take your medications as prescribed. If you were prescribed antibiotics today, it is important that you take your medication to their entirety, do not skip any doses, do not finish them early. Follow-up with your primary care provider this week. Return to the emergency department with new or worsening symptoms. Such as fevers, chills, chest pain, shortness of breath, nausea, vomiting, dizziness, headache, vision changes, lethargy In case of emergency call 911 You can take ibuprofen every 6 hours, Tylenol every 4 as needed for pain or discomfort Your flu, COVID, strep were negative. Prescriptions: New prednisone 20 mg tablet 20 mg PO DAILY 5 Days Qty: 5 0RF No Action pantoprazole [Protonix] 20 mg tablet,delayed release (DR/EC) 20 mg PO DAILY Qty: 20 0RF oxycodone 5 mg tablet 5 mg PO Q6H PRN (Reason: pain) Qty: 10 0RF Rx Instructions: Narcotic, no driving for 6 hours after taking, may cause drowsiness cyclobenzaprine 5 mg tablet 5 mg PO TID PRN (Reason: muscle spasm) Qty: 10 0RF Rx Instructions: This medication may cause drowsiness, no driving for 8 hours after taking ibuprofen 600 mg tablet 600 mg PO Q6H PRN (Reason: pain) Qty: 20 0RF Zyrtec 10 mg capsule 10 mg PO DAILY PRN (Reason: allergy symptoms) Qty: 20 0RF fluticasone propionate [Flonase Allergy Relief] 50 mcg/actuation spray,suspension 1 spray intranasal DAILY Qty: 16 0RF Rx Instructions: administer into each nostril lisinopril 5 mg tablet 5 mg PO DAILY Referrals: Halley Hill DO [Primary Care Provider] - 2 days Stand Alone Forms: Work/School Release
[2022-02-10] MEDS: dexAMETHasone sod phosphate 10 MG/ML VIAL IVPUSH (12:46)
[2022-02-10] MEDS: Ketorolac Tromethamine 15 MG/ML VIAL 30 MG IM (12:50)
[2022-02-10 13:08] LABS: Influenza A Negative (Negative); Influenza B2 Negative (Negative)
== END 2022-02-10 13:44 | disposition home or self-care (01) ==
PROVIDERS: Physician Assistant; Emergency Provider Emergency Medicine; PCP Family Medicine
DX: B34.9 Viral infection, unspecified (principal); M79.10 Myalgia, unspecified site; R51.9 Headache, unspecified; R06.02 Shortness of breath; Z20.822 Contact with and (suspected) exposure to COVID-19; Z79.899 Other long term (current) drug therapy
CPT/HCPCS: 87502; 87635; 87651; 96372; 99283; 99284; J1100; J1885

== ENCOUNTER 2022-03-04 15:17 | Outpatient (REF) | payer MEDICAID, SELFPAY ==
--- NOTE | ~2022-03-04 | US_ITS ---
EXAMINATION: US PELVIS CLINICAL INFORMATION: Abnormal uterine bleeding. COMPARISON: 02/17/2016 TECHNIQUE: Ultrasound of the pelvis is performed using both transabdominal and transvaginal transducers along with Doppler. Transvaginal imaging is performed due to inadequate visualization transabdominally. FINDINGS: Uterus: The uterus is anteverted and measures 9.8 x 5.1 x 6.0 cm. The double wall endometrial thickness obscured by IUD which appears centered within the endometrial canal. The uterus is smooth in contour and has normal myometrial echogenicity. Intramural 9 mm fibroid. Adnexa: There is a possible hydrosalpinx versus loculated fluid collection in the left adnexa. Right ovary is not visualized. No large right adnexal mass. Left ovary measures 3.6 x 2.8 x 3.0 cm. 2.5 x 1.9 x 1.9 cm cyst with low level internal echoes. US/US pelvic and transvaginal IMPRESSION: 1. Possible left hydrosalpinx versus loculated fluid collection in the left adnexa. Recommend further evaluation with pelvic MRI. 2. Left ovarian 2.5 cm cyst with low level internal echoes may reflect a hemorrhagic cyst. Recommend follow-up in 6-12 weeks to assess for resolution.
== END 2022-03-04 15:18 | disposition home or self-care (01) ==
LOC: HO.US 15:17
PROVIDERS: Visit Provider Advanced Practice Midwife
DX: N93.9 Abnormal uterine and vaginal bleeding, unspecified (principal)
CPT/HCPCS: 76830; 76856

== ENCOUNTER 2022-04-22 10:17 | Emergency (ER) | payer MEDICAID, SELFPAY ==
[2022-04-22 10:20] VITALS: BP 150/80; PULSE 97; RESP 16; TEMP 37.2; O2SAT 95; BMI 37.9
[2022-04-22 11:03] LABS: MANUAL DIFF FLAG NO
[2022-04-22 11:07] VITALS: BP 145/94; PULSE 96; RESP 20; TEMP 36.9; O2SAT 94
[2022-04-22 11:13] LABS: Appearance Urine Clear; Color Urine Yellow; Glucose Urine UA Negative (Negative); Leukocyte Esterase Urine Negative (Negative); Nitrite Urine Negative (Negative); PH 5.5 (5.0-9.0); Specific Gravity - Urine 1.025 (1.005-1.025); UMIC TRIGGER UACC YES; Urine Blood Small (1+) (Negative); Urine Ketones Negative (Negative); Urine Protein Negative (Neg-Trace)
[2022-04-22 11:14] LABS: Basophils Percent Auto 0.1 % (0-2); Eosinophils Absolute Auto 0.1 X10*3/uL (0.0-0.4); Eosinophils Percent Auto 1.3 % (0-4); Hematocrit 46.8 % (37.0-47.0); Hemoglobin 14.9 g/dl (12.0-16.0); Imm Gran Abs Auto 0.02 X10*3/uL (0.00-0.03); Imm Gran Pct Auto 0.2 % (0.0-0.4); Lymphocytes Absolute Auto 0.8 X10*3/uL (1.2-4.9); Lymphocytes Percent Auto 8.8 % (20-40); Mean Corpuscular HGB Conc 31.8 g/dl (31.0-35.0); Mean Corpuscular Hemoglobin 29.7 pg (27.0-33.0); Mean Corpuscular Volume 93.2 fL (80.0-98.0); Mean Platelet Volume 11.9 fL (9.4-12.3); Monocytes Absolute Auto 0.3 X10*3/uL (0.1-1.2); Monocytes Percent Auto 3.9 % (2-11); Neutrophils Absolute Auto 7.3 x10*3/uL (2.0-8.3); Neutrophils Percent Auto 85.7 % (45-73); Platelet Count 215 X10*3/uL (160-400); Red Blood Count 5.02 X10*6/uL (4.20-5.50); Red Cell Distribution Width 13.6 % (11.0-16.0); White Blood Count 8.6 X10*3/uL (4.8-10.8)
[2022-04-22 11:21] LABS: Bacteria Urine 1+ (None Seen); Hyaline Casts Urine 0-2 /LPF (0-2); WBC Urine 0-5 /HPF (0-5)
[2022-04-22 11:28] LABS: COVID-19 Test Negative (Negative); IDNOW Serial# 16C4AD1C; IDNOW Serial# BCCEAD1C; Influenza A Negative (Negative); Influenza B2 Negative (Negative)
[2022-04-22 11:37] LABS: Alanine Aminotransferase 36 U/L (0-31); Albumin Level 4.6 g/dL (3.5-5.0); Alkaline Phosphatase 96 U/L (39-117); Anion Gap 12 (12-20); Aspartate Amino Transferase 23 U/L (5-31); Bilirubin Total 0.5 mg/dL (0.0-1.0); Blood Urea Nitrogen 17 mg/dL (9-16); Calcium 8.8 mg/dL (8.4-10.2); Carbon Dioxide 29 mmol/L (22-29); Chloride 102 mmol/L (96-108); Creatinine Clr Calc Pharmacy 83.6; Estimated Glomerular Filt Rate > 60; Glucose Random 105 mg/dL (60-115); Lipase 23 U/L (8-78); Potassium 4.5 mmol/L (3.3-5.1); Sodium 138 mmol/L (135-145); Total Protein 7.5 g/dL (6.5-8.0)
--- NOTE | 2022-04-22 11:50 | ED.GENADULT ---
HPI - General Adult General Chief complaint: General Medical Stated complaint: abd pain, headache, body ache Time Seen by Provider: 04/22/22 10:27 Source: patient Mode of arrival: ambulatory History of Present Illness HPI narrative: 51-year-old female who has had chronic epigastric discomfort and states that she has GERD but has run out of omeprazole. She otherwise denies any fever chills, denies any shortness of breath or chest pain and has been able to eat and drink normally and denies any urinary symptoms. Related Data Home Medications Medication Instructions Recorded Confirmed lisinopril 5 mg tablet 5 mg PO DAILY 01/19/22 Previous Rx's Medication Instructions Recorded pantoprazole 20 mg tablet,delayed 20 mg PO DAILY #20 tabs 01/29/20 release (Protonix) cyclobenzaprine 5 mg tablet 5 mg PO TID PRN muscle spasm #10 09/05/20 tabs ibuprofen 600 mg tablet 600 mg PO Q6H PRN pain #20 tabs 09/05/20 oxycodone 5 mg tablet 5 mg PO Q6H PRN pain #10 tabs 09/05/20 cetirizine 10 mg capsule (Zyrtec) 10 mg PO DAILY PRN allergy 12/18/20 symptoms #20 caps fluticasone propionate 50 1 spray intranasal DAILY #16 grams 12/18/20 mcg/actuation nasal spray,suspension (Flonase Allergy Relief) prednisone 20 mg tablet 20 mg PO DAILY 5 days #5 tabs 02/10/22 omeprazole 40 mg capsule,delayed 40 mg PO DAILY #30 caps 04/22/22 release Allergies Allergy/AdvReac Type Severity Reaction Status Date / Time Penicillins [PENICILLINS] Allergy Unknown Unknown Verified 01/19/22 13:24 Review of Systems Review of Systems: Pertinent positives and negatives as stated in HPI. [facility] Past Medical History Source: nursing notes reviewed Medical History delivery delivered HTN (hypertension) Migraine Surgical History Hx of section Social History Social History Alcohol intake: never Patient Tobacco Use Status: Never used Tobacco Advance Directives: No Advance Directives Information Provided: Yes Physical Exam ED Vital Signs: Vital Signs - 24 hr 04/22/22 10:20 04/22/22 11:07 Temperature 99.0 F 98.4 F Pulse Rate 97 96 Respiratory Rate 16 20 Blood Pressure 150/80 H 145/94 H Pulse Oximetry 95 94 Oxygen Delivery Method Room Air Room Air BMI result Body Mass Index 37.9 VITAL SIGNS: Reviewed. GENERAL: Well developed, well nourished, in no acute distress. HEAD: Normocephalic/atraumatic EYES: PERRLA, EOMI EARS: Ext canals without abnormality OROPHARYNX: no oral lesions noted, posterior pharynx clear LUNGS: Normal breath sounds. No adventitious sounds or accessory muscle use. SpO2<94> CARDIOVASCULAR: Regular rate and rhythm without noted murmurs ABDOMEN: Soft, epigastric discomfort without rebound, non-distended with bowel sounds. MUSCULOSKELETAL: No tenderness, deformities, or effusions noted on gross inspection. EXTREMITIES: No cyanosis, clubbing or edema. SKIN: Inspection of the skin reveals no rashes NEUROLOGIC: Alert and oriented x 4. Strength and sensation to light touch were grossly intact x 4. Course Course Course Narrative: On review of investigations, there is no leukocytosis, anemia, chemistries are not significant for renal dysfunction, lipase is within normal limits and viral serology is negative. Patient received a GI cocktail as well as Carafate for symptom improvement, she then asked me for work note and is otherwise discharged home in stable condition with presumptive gastritis and will receive a prescription for omeprazole which she states she has run out of. Medical Decision Making Medical Decision Making [facility] Narrative: 51-year-old female with history of GERD, and presents with epigastric discomfort, headache, body aches started yesterday states that she has had some mild diarrhea that is nonbloody in nature but otherwise reports that her daughter has the flu. Differential Diagnosis Differential Diagnoses: The differential diagnosis associated with the presentation includes Gastritis, GERD, pancreatitis, less likely cholecystitis Lab Data [facility] Lab Attestation statement: I reviewed the patient's lab results. Please see the course Section for discussion. Result Diagrams: 04/22/22 10:58 04/22/22 10:58 Labs: Lab Results 04/22/22 04/22/22 04/22/22 Range/Units 10:58 10:58 10:58 WBC 8.6 (4.8-10.8) X10*3/uL RBC 5.02 (4.20-5.50) X10*6/uL Hgb 14.9 (12.0-16.0) g/dl Hct 46.8 (37.0-47.0) % MCV 93.2 (80.0-98.0) fL MCH 29.7 (27.0-33.0) pg MCHC 31.8 (31.0-35.0) g/dl RDW 13.6 (11.0-16.0) % Plt Count 215 (160-400) X10*3/uL MPV 11.9 (9.4-12.3) fL Immature Gran % (Auto) 0.2 (0.0-0.4) % Neut % (Auto) 85.7 H (45-73) % Lymph % (Auto) 8.8 L (20-40) % Wolfe % (Auto) 3.9 (2-11) % Eos % (Auto) 1.3 (0-4) % Baso % (Auto) 0.1 (0-2) % Lymph # (Auto) 0.8 L (1.2-4.9) X10*3/uL Wolfe # (Auto) 0.3 (0.1-1.2) X10*3/uL Eos # (Auto) 0.1 (0.0-0.4) X10*3/uL Baso # (Auto) 0.0 (0.0-0.2) X10*3/uL Abs Immat Gran (auto) 0.02 (0.00-0.03) X10*3/uL Absolute Neuts (auto) 7.3 (2.0-8.3) x10*3/uL Absolute Nucleated RBC 0.000 (0.0-0.012) X10*3/uL Nucleated RBC % (auto) 0.0 (0.0-0.2) /100WBC Sodium 138 (135-145) mmol/L Potassium 4.5 (3.3-5.1) mmol/L Chloride 102 (96-108) mmol/L Carbon Dioxide 29 (22-29) mmol/L Anion Gap 12 (12-20) BUN 17 H (9-16) mg/dL Creatinine 0.97 (0.5-1.4) mg/dL Estim Creat Clear Calc 83.6 Estimated GFR > 60 Random Glucose 105 (60-115) mg/dL Calcium 8.8 (8.4-10.2) mg/dL Total Bilirubin 0.5 (0.0-1.0) mg/dL AST 23 (5-31) U/L ALT 36 H (0-31) U/L Alkaline Phosphatase 96 (39-117) U/L Total Protein 7.5 (6.5-8.0) g/dL Albumin 4.6 (3.5-5.0) g/dL Lipase 23 (8-78) U/L Urine Color Urine Appearance Urine pH (5.0-9.0) Ur Specific [place] (1.005-1.025) Urine Protein (Neg-Trace) mg/dL Urine Glucose (UA) (Negative) mg/dL Urine Ketones (Negative) mg/dL Urine Blood (Negative) Urine Nitrite (Negative) Ur Leukocyte Esterase (Negative) Urine RBC (0-2) /HPF Urine WBC (0-5) /HPF Ur Squamous Epith Cells (0-2) /HPF Urine Bacteria (None Seen) Hyaline Casts (0-2) /LPF COVID-19 (CLEMENT) (Negative) COVID-19 Clin Com Influenza Type A (GAYATHRI) Negative (Negative) Influenza Type B (GAYATHRI) Negative (Negative) Influenza A & B Note See Note 04/22/22 04/22/22 Range/Units 10:58 10:58 WBC (4.8-10.8) X10*3/uL RBC (4.20-5.50) X10*6/uL Hgb (12.0-16.0) g/dl Hct (37.0-47.0) % MCV (80.0-98.0) fL MCH (27.0-33.0) pg MCHC (31.0-35.0) g/dl RDW (11.0-16.0) % Plt Count (160-400) X10*3/uL MPV (9.4-12.3) fL Immature Gran % (Auto) (0.0-0.4) % Neut % (Auto) (45-73) % Lymph % (Auto) (20-40) % Wolfe % (Auto) (2-11) % Eos % (Auto) (0-4) % Baso % (Auto) (0-2) % Lymph # (Auto) (1.2-4.9) X10*3/uL Wolfe # (Auto) (0.1-1.2) X10*3/uL Eos # (Auto) (0.0-0.4) X10*3/uL Baso # (Auto) (0.0-0.2) X10*3/uL Abs Immat Gran (auto) (0.00-0.03) X10*3/uL Absolute Neuts (auto) (2.0-8.3) x10*3/uL Absolute Nucleated RBC (0.0-0.012) X10*3/uL Nucleated RBC % (auto) (0.0-0.2) /100WBC Sodium (135-145) mmol/L Potassium (3.3-5.1) mmol/L Chloride (96-108) mmol/L Carbon Dioxide (22-29) mmol/L Anion Gap (12-20) BUN (9-16) mg/dL Creatinine (0.5-1.4) mg/dL Estim Creat Clear Calc Estimated GFR Random Glucose (60-115) mg/dL Calcium (8.4-10.2) mg/dL Total Bilirubin (0.0-1.0) mg/dL AST (5-31) U/L ALT (0-31) U/L Alkaline Phosphatase (39-117) U/L Total Protein (6.5-8.0) g/dL Albumin (3.5-5.0) g/dL Lipase (8-78) U/L Urine Color Yellow Urine Appearance Clear Urine pH 5.5 (5.0-9.0) Ur Specific [place] 1.025 (1.005-1.025) Urine Protein Negative (Neg-Trace) mg/dL Urine Glucose (UA) Negative (Negative) mg/dL Urine Ketones Negative (Negative) mg/dL Urine Blood Small (1+) H (Negative) Urine Nitrite Negative (Negative) Ur Leukocyte Esterase Negative (Negative) Urine RBC 3-5 H (0-2) /HPF Urine WBC 0-5 (0-5) /HPF Ur Squamous Epith Cells 6-10 (0-2) /HPF Urine Bacteria 1+ (None Seen) Hyaline Casts 0-2 (0-2) /LPF COVID-19 (CLEMENT) Negative (Negative) COVID-19 Clin Com See Note Influenza Type A (GAYATHRI) (Negative) Influenza Type B (GAYATHRI) (Negative) Influenza A & B Note External Record Review External record reviewed: Prior outpatient labs Chronic Conditions Patient?s care impacted by: Hypertension Discharge Plan Discharge Clinical Impression: Gastritis Patient Disposition: Home, Self-Care Instructions: Gastritis (ED), Diet for Stomach Ulcers and Gastritis (ED), Gastroesophageal Reflux Disease (ED) Additional Instructions: 1. Reanudar todos los medicamentos caseros seg?n lo prescrito. Le recomendamos que limite la cantidad de ibuprofeno/Motrin que usa, ya que esto puede contribuir a yobani s?ntomas actuales. 2. Vesta la nueva receta y derek un seguimiento con saha proveedor de atenci?n primaria en los pr?ximos 2 a 3 d?as. Regrese a la jeny de emergencias si los s?ntomas empeoran. 1. Resume all home medications as prescribed. Recommend that you limit the amount of ibuprofen/Motrin that you use as this may contribute to your current symptoms. 2. Take the new prescription and follow-up with your primary care provider in the next 2-3 days. Return to the ER for worsening symptoms. Prescriptions: New omeprazole 40 mg capsule,delayed release(DR/EC) 40 mg PO DAILY Qty: 30 0RF No Action pantoprazole [Protonix] 20 mg tablet,delayed release (DR/EC) 20 mg PO DAILY Qty: 20 0RF oxycodone 5 mg tablet 5 mg PO Q6H PRN (Reason: pain) Qty: 10 0RF Rx Instructions: Narcotic, no driving for 6 hours after taking, may cause drowsiness cyclobenzaprine 5 mg tablet 5 mg PO TID PRN (Reason: muscle spasm) Qty: 10 0RF Rx Instructions: This medication may cause drowsiness, no driving for 8 hours after taking ibuprofen 600 mg tablet 600 mg PO Q6H PRN (Reason: pain) Qty: 20 0RF Zyrtec 10 mg capsule 10 mg PO DAILY PRN (Reason: allergy symptoms) Qty: 20 0RF fluticasone propionate [Flonase Allergy Relief] 50 mcg/actuation spray,suspension 1 spray intranasal DAILY Qty: 16 0RF Rx Instructions: administer into each nostril prednisone 20 mg tablet 20 mg PO DAILY 5 Days Qty: 5 0RF lisinopril 5 mg tablet 5 mg PO DAILY Referrals: Tita Collier PA [Primary Care Provider] - Stand Alone Forms: Work/School Release Print Language: Mohawk
[2022-04-22] MEDS: Lidocaine HCl Viscous 2 % 15 ML SOLUTION 10 ML MUCOUS MEM (11:58)
[2022-04-22] MEDS: Sucralfate Oral Suspension 1 GM/10 ML ORAL.SUSP PO (11:59)
[2022-04-22] MEDS: Magnesium Hydrox/Alum Hydrox 30 ML ORAL.SUSP PO (11:59)
[2022-04-22 12:00] VITALS: PULSE 90; RESP 18; O2SAT 98
== END 2022-04-22 12:17 | disposition home or self-care (01) ==
PROVIDERS: Emergency Provider Student in an Organized Health Care Education/Training Program; PCP Physician Assistant
DX: K29.70 Gastritis, unspecified, without bleeding (principal); R51.9 Headache, unspecified; M79.10 Myalgia, unspecified site; Z20.822 Contact with and (suspected) exposure to COVID-19; Z79.899 Other long term (current) drug therapy
CPT/HCPCS: 80053; 81001; 83690; 85025; 87502; 87635; 99283

== ENCOUNTER 2022-05-21 12:27 | Outpatient (REF) | payer MEDICAID, SELFPAY ==
--- NOTE | ~2022-05-21 | US_ITS ---
EXAMINATION: US PELVIS CLINICAL INFORMATION: Left ovarian cyst. COMPARISON: 03/04/2022 and 02/17/2016. TECHNIQUE: Ultrasound of the pelvis is performed using both transabdominal and transvaginal transducers along with Doppler. Transvaginal imaging is performed due to inadequate visualization transabdominally. FINDINGS: UTERUS: The uterus is anteverted and measures 11.2 x 4.9 x 5.8 cm. Nabothian cysts are present. IUD is in place. The uterus is smooth in contour and has normal myometrial echogenicity. There is an anterior heterogeneous and hypoechoic circumscribed structure in the body of the uterus representing intramural fibroid measuring 1.0 x 0.5 x 0.8 cm in size and without significant change from prior study. ADNEXA: The right ovary is not identified. There is no pelvic ascites or fluid collection. Left ovary measures 2.7 x 1.7 x 2.5 cm. Volume of 6 mL. Previously noted cyst is not identified. US/US pelvic and transvaginal IMPRESSION: No ovarian cyst or mass appreciated. Stable uterine fibroid. IUD in place.
== END 2022-05-21 12:28 | disposition home or self-care (01) ==
LOC: HO.US 12:27
PROVIDERS: PCP Physician Assistant; Visit Provider Advanced Practice Midwife
DX: N70.11 Chronic salpingitis (principal); N83.202 Unspecified ovarian cyst, left side
CPT/HCPCS: 76830; 76856

== ENCOUNTER 2022-06-04 07:14 | Emergency (ER) | payer MEDICAID, SELFPAY ==
[2022-06-04 07:28] VITALS: BP 142/68; PULSE 102; RESP 18; TEMP 36.9; O2SAT 97
[2022-06-04 07:31] VITALS: BMI 33.3
--- NOTE | 2022-06-04 07:50 | ED.GENADULT ---
HPI - General Adult General Chief complaint: General Medical Stated complaint: pain all over Time Seen by Provider: 06/04/22 07:26 Source: patient Mode of arrival: ambulatory Limitations: no limitations History of Present Illness HPI narrative: With 52-year-old female with history of hypertension presents with total body aches. Symptoms started last night. She describes symptoms as severe. Symptoms are worse with movement. There have been no fevers or chills. However, she has had cough and congestion. She denies any sick contacts. She did take ibuprofen last night but nothing this morning. She did have mild short lived relief. Patient denies any rashes, injuries, falls. Unclear if patient has any sick contacts. Related Data Home Medications Medication Instructions Recorded Confirmed lisinopril 5 mg tablet 5 mg PO DAILY 01/19/22 Previous Rx's Medication Instructions Recorded pantoprazole 20 mg tablet,delayed 20 mg PO DAILY #20 tabs 01/29/20 release (Protonix) cyclobenzaprine 5 mg tablet 5 mg PO TID PRN muscle spasm #10 09/05/20 tabs ibuprofen 600 mg tablet 600 mg PO Q6H PRN pain #20 tabs 09/05/20 oxycodone 5 mg tablet 5 mg PO Q6H PRN pain #10 tabs 09/05/20 cetirizine 10 mg capsule (Zyrtec) 10 mg PO DAILY PRN allergy 12/18/20 symptoms #20 caps fluticasone propionate 50 1 spray intranasal DAILY #16 grams 12/18/20 mcg/actuation nasal spray,suspension (Flonase Allergy Relief) prednisone 20 mg tablet 20 mg PO DAILY 5 days #5 tabs 02/10/22 omeprazole 40 mg capsule,delayed 40 mg PO DAILY #30 caps 04/22/22 release nirmatrelvir 300 mg (150 mg See Rx Instructions PO .COMPLEX 06/04/22 x2)-ritonavir 100 mg tablet,dose #30 ea pack(EUA) (Paxlovid) Allergies Allergy/AdvReac Type Severity Reaction Status Date / Time Penicillins [PENICILLINS] Allergy Unknown Unknown Verified 01/19/22 13:24 Review of Systems Review of Systems: CONSTITUTIONAL: Denies weight loss, fever and chills. HEENT: Denies changes in vision and hearing. RESPIRATORY: Denies SOB + cough. CV: Denies palpitations no CP. GI: Denies abdominal pain, nausea, vomiting and diarrhea. : Denies dysuria and urinary frequency. MSK: + myalgia and no joint pain. SKIN: Denies rash and pruritus. NEUROLOGICAL: Denies headache and syncope. PSYCHIATRIC: Denies recent changes in mood. Denies anxiety and depression. All other ROS are negative unless in HPI PMFSH Past Medical History Medical History delivery delivered HTN (hypertension) Migraine Surgical History Hx of section Social History Social History Alcohol intake: never Patient Tobacco Use Status: Never used Tobacco Smoked in Last 30 Days: No Use of substances other than those prescribed or required for medical reasons: No Advance Directives: No Advance Directives Information Provided: Yes Physical Exam ED Vital Signs: Vital Signs - 24 hr 06/04/22 07:28 Temperature 98.4 F Pulse Rate 102 H Respiratory Rate 18 Blood Pressure 142/68 H Pulse Oximetry 97 Oxygen Delivery Method Room Air BMI result Body Mass Index 33.3 GEN: Well developed, no acute distress, alert, oriented HEENT: Normocephalic, atraumatic, normal external ears, nose appears normal, no oropharyngeal edema or exudates Eyes: Normal to appearance Neck: Supple, no lymphadenopathy Respiratory: Talks in complete sentences, no respiratory distress, clear to auscultation bilaterally Cardiovascular: Regular rate and rhythm, no murmurs rubs or gallops Abdomen: Soft, nontender, nondistended, no guarding, no rebound Back: No CVA tenderness Extremities: No clubbing cyanosis or edema Neurologic: No focal neurologic deficits, cranial nerves 2-12 intact, strength is 5/5 bilaterally, gait normal Skin: No rash Course Course Course Narrative: 52-year-old female presents with total body aches, cough and congestion. Symptoms started last night. Examination, patient was well-appearing. Pulmonary exam is unremarkable. There is no rash or joint swelling. Suspect viral illness. Will provide patient with Toradol intramuscularly. Also will screen for viral serologies. Will re-evaluate patient and likely discharge home. Reevaluation(s) Reevaluation #1: Patient test positive for COVID. Discussed results with the patient. She understands the reasoning for isolation. Will provide a prescription for paxlovid Time: 09:36 Medications Administered Discontinued Medications Generic Name Dose Route Start Last Admin Trade Name Freq PRN Reason Stop Dose Admin Ketorolac Tromethamine 30 mg 06/04/22 07:49 06/04/22 08:20 Ketorolac Tromethamine 30 Mg/Ml Vial IM 06/04/22 07:50 30 mg ONCE ONE Administration Medical Decision Making Medical Decision Making [facility] Narrative: 52-year-old female with total body aches, cough and congestion. Suspect viral illness. Will check for COVID, influenza. Will provide patient with inset analgesics. Will re-evaluate patient. Differential Diagnosis Differential Diagnoses: The differential diagnosis associated with the presentation includes (Viral illness, myalgias, myositis, musculoskeletal pain) Myalgia, COVID Admission/Observation Consideration of admission/observation: Escalation of care including admission/observation considered (Patient well-appearing. Doubt patient will require hospitalization) Lab Data [facility] Lab Attestation statement: I reviewed the patient's lab results. Labs: Lab Results 06/04/22 Range/Units 07:57 Influenza Type A (PCR) NEGATIVE (Negative) Influenza Type B (PCR) NEGATIVE (Negative) RSV RNA Qual (PCR) NEGATIVE (Negative) SARS-CoV-2 RNA (RT-PCR) POSITIVE A (Negative) External Record Review Emergency department visit from 04/22/2022 Chronic Conditions Patient?s care impacted by: Hypertension Discharge Plan Discharge Clinical Impression: Myalgia, COVID Patient Disposition: Home, Self-Care Instructions: Musculoskeletal Pain (ED) Prescriptions: New Paxlovid (EUA) 300 mg (150 mg x 2)-100 mg tablets,dose pack See Rx Instructions .ROUTE .COMPLEX Qty: 30 0RF Rx Instructions: take TWO 150 mg tablets of nirmatrelvir with ONE 100 mg tablet of ritonavir twice daily for 5 days No Action pantoprazole [Protonix] 20 mg tablet,delayed release (DR/EC) 20 mg PO DAILY Qty: 20 0RF oxycodone 5 mg tablet 5 mg PO Q6H PRN (Reason: pain) Qty: 10 0RF Rx Instructions: Narcotic, no driving for 6 hours after taking, may cause drowsiness cyclobenzaprine 5 mg tablet 5 mg PO TID PRN (Reason: muscle spasm) Qty: 10 0RF Rx Instructions: This medication may cause drowsiness, no driving for 8 hours after taking ibuprofen 600 mg tablet 600 mg PO Q6H PRN (Reason: pain) Qty: 20 0RF Zyrtec 10 mg capsule 10 mg PO DAILY PRN (Reason: allergy symptoms) Qty: 20 0RF fluticasone propionate [Flonase Allergy Relief] 50 mcg/actuation spray,suspension 1 spray intranasal DAILY Qty: 16 0RF Rx Instructions: administer into each nostril prednisone 20 mg tablet 20 mg PO DAILY 5 Days Qty: 5 0RF omeprazole 40 mg capsule,delayed release(DR/EC) 40 mg PO DAILY Qty: 30 0RF lisinopril 5 mg tablet 5 mg PO DAILY Referrals: Halley Hill DO [Primary Care Provider] - 5 days Stand Alone Forms: Work/School Release Print Language: Italian
[2022-06-04] MEDS: Ketorolac Tromethamine 30 MG/ML VIAL IM (08:20)
[2022-06-04 08:38] LABS: Influenza A PCR NEGATIVE (Negative); Influenza B PCR NEGATIVE (Negative); Resp Syncy Virus RNA Qual PCR NEGATIVE (Negative); SARS COV2 PCR INHOUSE POSITIVE (Negative)
== END 2022-06-04 10:02 | disposition home or self-care (01) ==
PROVIDERS: Emergency Provider Emergency Medicine; PCP Family Medicine
DX: U07.1 COVID-19 (principal); M79.10 Myalgia, unspecified site; I10 Essential (primary) hypertension; Z79.899 Other long term (current) drug therapy
CPT/HCPCS: 0241U; 96372; 99284; J1885

== ENCOUNTER 2022-06-11 13:38 | Outpatient (REF) | payer MEDICAID, SELFPAY ==
[2022-06-12 21:58] LABS: Follicle Stimulating Hormone 34.2 mIU/mL
== END 2022-06-11 13:39 | disposition home or self-care (01) ==
LOC: HO.LAB 13:38
PROVIDERS: PCP Family Medicine; Visit Provider Advanced Practice Midwife
DX: R23.2 Flushing (principal); Z71.2 Person consulting for explanation of examination or test findings
CPT/HCPCS: 36415; 83001; 99212

== ENCOUNTER → 2022-06-26 13:56 | Outpatient (BNVA) | payer MEDICAID, SELFPAY | PROVIDERS: Visit Provider Advanced Practice Midwife | DX: Z13.89 Encounter for screening for other disorder (principal) ==

== ENCOUNTER → 2022-07-14 12:16 | Outpatient (BNVA) | payer MEDICAID, SELFPAY | PROVIDERS: Visit Provider Advanced Practice Midwife | DX: Z30.432 Encounter for removal of intrauterine contraceptive device (principal); N95.0 Postmenopausal bleeding | CPT/HCPCS: 58100; 58301; 81025; 99212 ==

== ENCOUNTER 2022-08-03 11:03 | Emergency (ER) | payer MEDICAID, SELFPAY ==
--- NOTE | ~2022-08-03 | XR_ITS ---
EXAMINATION: XR CHEST CLINICAL INFORMATION: Right-sided chest pain COMPARISON: Previous chest x-ray most recent April 2020 TECHNIQUE: 2 views of the chest were obtained. FINDINGS: The cardiac and mediastinal contours are stable. The right hemidiaphragm is slightly elevated unchanged from prior exam. The lungs are clear. There is no pleural effusion or pneumothorax. Mild degenerative changes of the spine. XR/XR chest 2V IMPRESSION: No evidence for acute disease in the chest. Slightly elevated right hemidiaphragm similar to previous exams.
--- NOTE | 2022-08-03 11:05 | ECG_ITS ---
Test Reason : chest pain Blood Pressure : / mmHG Vent. Rate : 076 BPM Atrial Rate : 076 BPM P-R Int : 152 ms QRS Dur : 100 ms QT Int : 384 ms P-R-T Axes : 044 042 050 degrees QTc Int : 432 ms Normal sinus rhythm Normal ECG No previous ECGs available Referred By: Ángel Mojica Electronically Signed By:MELINA QUIJANO MD
[2022-08-03 11:28] VITALS: BP 144/81; PULSE 82; RESP 18; TEMP 36.8; O2SAT 97; BMI 36.6
--- NOTE | 2022-08-03 11:33 | ED_ITS ---
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 Patient states that the chest pain radiates into her right arm/shoulder and right neck. Patient denies any dizziness, lightheadedness, abdominal pain, nausea, vomiting, fever, chills, blurry vision, double vision, loss of vision, difficulty breathing, shortness of breath, back pain, night sweats, pain with urination, increased urinary frequency, increased urinary urgency, blood in her urine or stool, syncope or a near syncopal episode, recent trauma or falls, bowel incontinence, bladder incontinence, bowel retention, bladder retention, or any other complaints at this time. <ROGELIO Mcconnell - Last Filed: 08/03/22 14:18> Related Data Home Medications: Home Medications Medication Instructions Recorded Confirmed lisinopril 5 mg tablet 5 mg PO DAILY 01/19/22 levonorgestrel 21 mcg/24 hours (8 intrauterine 06/11/22 yrs) 52 mg intrauterine device (Mirena) Previous Rx's Medication Instructions Recorded pantoprazole 20 mg tablet,delayed 20 mg PO DAILY #20 tabs 01/29/20 release (Protonix) cyclobenzaprine 5 mg tablet 5 mg PO TID PRN muscle spasm #10 09/05/20 tabs ibuprofen 600 mg tablet 600 mg PO Q6H PRN pain #20 tabs 09/05/20 oxycodone 5 mg tablet 5 mg PO Q6H PRN pain #10 tabs 09/05/20 cetirizine 10 mg capsule (Zyrtec) 10 mg PO DAILY PRN allergy 12/18/20 symptoms #20 caps fluticasone propionate 50 1 spray intranasal DAILY #16 grams 12/18/20 mcg/actuation nasal spray,suspension (Flonase Allergy Relief) prednisone 20 mg tablet 20 mg PO DAILY 5 days #5 tabs 02/10/22 omeprazole 40 mg capsule,delayed 40 mg PO DAILY #30 caps 04/22/22 release nirmatrelvir 300 mg (150 mg See Rx Instructions PO .COMPLEX 06/04/22 x2)-ritonavir 100 mg tablet,dose #30 ea pack(EUA) (Paxlovid) cyclobenzaprine 5 mg tablet 5 mg PO TID PRN muscle pain 7 days 08/03/22 #21 tabs <ROGELIO Chávez - Last Filed: 08/03/22 15:54> Allergies/Adverse Reactions: Allergies Allergy/AdvReac Type Severity Reaction Status Date / Time Penicillins [PENICILLINS] Allergy Unknown Unknown Verified 07/14/22 13:21 <ROGELIO Chávez - Last Filed: 08/03/22 15:54> Review of Systems Constitutional: Constitutional: Reports no additional constitutional complaints, Denies chills, Denies fever(s) and Denies night sweats <ROGELIO Mcconnell Last Filed: 08/03/22 14:18> Eyes: Eyes: Reports no additional eye complaints, Denies blurry vision, Denies change in vision, Denies diplopia, Denies eye discharge, Denies loss of vision and Denies eye pain <ROGELIO Mcconnell Last Filed: 08/03/22 14:18> ENT: Denies dizziness and Reports neck pain <ROGELIO Mcconnell Last Filed: 08/03/22 14:18> Cardiovascular: Cardiovascular: Reports no additional cardiovascular complaints, Reports chest pain, Denies lightheadedness, Denies Loss of Consciousness and Denies dyspnea <ROGELIO Mcconnell Last Filed: 08/03/22 14:18> Respiratory: Respiratory: Reports no additional respiratory complaints and Denies dyspnea <ROGELIO Mcconnell Last Filed: 08/03/22 14:18> Gastrointestinal: Gastrointestinal: Reports no additional gastrointestinal complaints, Denies abdominal pain, Denies melena, Denies hematochezia, Denies change in bowel habits and Denies change in stool character <ROGELIO Mcconnell - Last Filed: 08/03/22 14:18> Genitourinary: Genitourinary: Denies hematuria, Denies urinary frequency, Denies dysuria, Denies urinary incontinence, Denies urinary hesitancy and Denies urinary urgency <ROGELIO Mcconnell - Last Filed: 08/03/22 14:18> Musculoskeletal: Musculoskeletal: Reports no additional musculoskeletal complaints, Reports neck pain, Denies numbness and Denies tingling <ROGELIO Mcconnell - Last Filed: 08/03/22 14:18> Neurologic: Denies dizziness, Denies loss of vision, Denies numbness and Denies tingling <ROGELIO Mcconnell - Last Filed: 08/03/22 14:18> Psychiatric: Psychiatric: Reports no additional psychiatric complaints <ROGELIO Mcconnell - Last Filed: 08/03/22 14:18> Endocrine: Endocrine: Reports no additional endocrine complaints <ROGELIO Mcconnell - Last Filed: 08/03/22 14:18> Hematologic/Lymphatic: Hematologic/Lymphatic: Reports no additional hematologic/lymphatic complaints <ROGELIO Mcconnell - Last Filed: 08/03/22 14:18> Allergic/Immunologic: Allergic/Immunologic: Reports no additional allergic/immunologic complaints <ROGELIO Mcconnell - Last Filed: 08/03/22 14:18> PMFSH Past Medical History Attestation statement: The following information was validated with the patient. <ROGELIO Mcconnell - Last Filed: 08/03/22 14:18> Source: old records reviewed and nursing notes reviewed <ROGELIO Mcconnell - Last Filed: 08/03/22 14:18> Medical History: Medical History delivery delivered HTN (hypertension) Migraine <ROGELIO Chávez - Last Filed: 08/03/22 15:54> Surgical History: Surgical History Hx of section <ROGELIO Chávez - Last Filed: 08/03/22 15:54> Social History Social History: Social History Alcohol intake: never Patient Tobacco Use Status: Never used Tobacco Advance Directives: No Advance Directives Information Provided: Yes <ROGELIO Chávez - Last Filed: 08/03/22 15:54> Physical Exam Vital Signs: Vital Signs: Last Vital Signs Temp 98.3 F 08/03/22 11:28 Pulse 82 08/03/22 11:28 Resp 18 08/03/22 11:28 BP 144/81 H 08/03/22 11:28 Pulse Ox 97 08/03/22 11:28 O2 Del Method Room Air 08/03/22 11:28 BMI result Body Mass Index 36.6 <ROGELIO Chávez - Last Filed: 08/03/22 15:54> Vital Signs: Last Vital Signs Temp 98.3 F 08/03/22 11:28 Pulse 82 08/03/22 11:28 Resp 18 08/03/22 11:28 BP 144/81 H 08/03/22 11:28 Pulse Ox 97 08/03/22 11:28 O2 Del Method Room Air 08/03/22 11:28 BMI result Body Mass Index 36.6 <ROGELIO Mcconnell - Last Filed: 08/03/22 14:18> Const: General: cooperative, no acute distress, alert and awake <ROGELIO Mcconnell - Last Filed: 08/03/22 14:18> Nutritional Appearance: well nourished <ROGELIO Mcconnell - Last Filed: 08/03/22 14:18> Orientation/consciousness: patient oriented x3 <ROGELIO Mcconnell - Last Filed: 08/03/22 14:18> Limitations: no limitations <ROGELIO Mcconnell - Last Filed: 08/03/22 14:18> HEENT: Head: Yes normal to inspection and Yes atraumatic <ROGELIO Mcconnell - Last Filed: 08/03/22 14:18> Ears: hearing grossly normal bilaterally and external ears normal <ROGELIO Mcconnell - Last Filed: 08/03/22 14:18> General nose exam: Normal external nose present, no nasal discharge noted and no epistaxis <ROGELIO Mcconnell - Last Filed: 08/03/22 14:18> Face and sinus: Yes normal facial exam, No abrasion and No laceration <An Gradysophie RI - Last Filed: 08/03/22 14:18> Mouth: Normal oral and palatal mucosa present, no drooling and no muffled voice <An Gradysophie [facility] Last Filed: 08/03/22 14:18> Eyes: General: appearance normal, both eyes and all related structures <An Gradysophie RI - Last Filed: 08/03/22 14:18> Periorbital: periorbital findings normal <An Gradysophie [facility] Last Filed: 08/03/22 14:18> Eyelids: Yes eyelids normal <An Gradysophie RI - Last Filed: 08/03/22 14:18> Conjunctivae: conjunctivae normal <An Gradysophie RI - Last Filed: 08/03/22 14:18> Pupils: Equal, round and reactive pupils present <An Gradysophie [facility] Last Filed: 08/03/22 14:18> EOM: EOMs intact bilaterally <An Gradysophie RI - Last Filed: 08/03/22 14:18> Neck: Neck: Yes normal visual inspection, Yes full ROM and Yes no lymphadenopathy <An Gradysophie [facility] Last Filed: 08/03/22 14:18> Chest: Chest palpation & inspection: normal inspection of the chest <An Karla [facility] Last Filed: 08/03/22 14:18> Resp: Effort & Inspection: normal respiratory effort and able to speak in complete sentences <An Karla [facility] Last Filed: 08/03/22 14:18> Auscultation: clear to auscultation bilaterally <An Gradysophie [facility] Last Filed: 08/03/22 14:18> Cardio: Rate: regular rate <An Karla [facility] Last Filed: 08/03/22 14:18> Rhythm: regular rhythm <Andk Gradysophie [facility] Last Filed: 08/03/22 14:18> GI: Inspection: Yes normal to inspection <An Karla [facility] Last Filed: 08/03/22 14:18> Neuro: General: patient oriented x3 and moves all extremities <An Acosta RI - Last Filed: 08/03/22 14:18> Cranial nerves: Yes Equal, round and reactive pupils present <An Acosta RI - Last Filed: 08/03/22 14:18> Cognition (Neuro): normal cognition <An Acosta RI - Last Filed: 08/03/22 14:18> Motor exam (neuro): 5/5 motor strength present throughout <An Acosta RI - Last Filed: 08/03/22 14:18> Sensory Exam: Normal double simultaneous stimulation for sensation <An Acosta RI - Last Filed: 08/03/22 14:18> Coordination: [id number] test normal <An Acosta RI - Last Filed: 08/03/22 14:18> Extrem: General: Yes normal to inspection, Yes full ROM and Yes capillary refill normal <An Acosta RI - Last Filed: 08/03/22 14:18> Psych: Appearance: grossly normal <An Acosta RI - Last Filed: 08/03/22 14:18> Mental Status: mental status grossly normal <An Acosta RI - Last Filed: 08/03/22 14:18> Affect: normal affect <An Acosta RI - Last Filed: 08/03/22 14:18> Attitude: cooperative <An Acosta RI - Last Filed: 08/03/22 14:18> Thought process: Normal thought process present <An Acosta RI - Last Filed: 08/03/22 14:18> Thought content: Normal thought content present <An Acosta RI - Last Filed: 08/03/22 14:18> Insight: Good insight present (Psych) <An Acosta RI - Last Filed: 08/03/22 14:18> Course Course Course Narrative: RME: 52 yoesvin pinto presents to the ED for right sided chest pain with pleurisy since last night. no leg sweling, pitting edema, recent long travel, or recent surgery. Vital signs stable. Labs, EKG, and chest xray ordered <Ángel Mojica RI - Last Filed: 08/03/22 15:54> Medications Administered Discontinued Medications Generic Name Dose Route Start Last Admin Trade Name Freq PRN Reason Stop Dose Admin Cyclobenzaprine HCl 5 mg 08/03/22 13:08 08/03/22 14:16 Cyclobenzaprine Hcl 5 Mg Tablet PO 08/03/22 13:09 5 mg ONCE ONE Administration Ketorolac Tromethamine 15 mg 08/03/22 13:08 08/03/22 14:16 Ketorolac Tromethamine 15 Mg/Ml Vial IM 08/03/22 13:09 15 mg ONCE ONE Administration <ROGELIO Chávez - Last Filed: 08/03/22 15:54> Medications Administered Discontinued Medications Generic Name Dose Route Start Last Admin Trade Name Freq PRN Reason Stop Dose Admin Cyclobenzaprine HCl 5 mg 08/03/22 13:08 08/03/22 14:16 Cyclobenzaprine Hcl 5 Mg Tablet PO 08/03/22 13:09 5 mg ONCE ONE Administration Ketorolac Tromethamine 15 mg 08/03/22 13:08 08/03/22 14:16 Ketorolac Tromethamine 15 Mg/Ml Vial IM 08/03/22 13:09 15 mg ONCE ONE Administration <ROGELIO Mcconnell - Last Filed: 08/03/22 14:18> Medical Decision Making Medical Decision Making MDM Narrative: Patient is a 52 year old assigned female at with no reported medical history presenting to the emergency department today with right sided chest, shoulder, and neck pain. Patient's physical exam was unremarkable. Patient's blood work was unremarkable. Patient's EKG was unremarkable. Patient's chest x- ray showed no acute process. I explained my physical exam findings as well as all test results to the patient. I answered all questions asked by the patient. Patient received IM Toradol and PO Flexeril which she stated helped her symptoms significantly. I stressed the importance of the patient taking her medication as prescribed. I stressed the importance of the patient following up with her primary care provider. I stressed the importance of the patient r eturning to the emergency department immediately if her symptoms were to worsen or if she were to develop any dizziness, shortness of breath, difficulty breathing, chest pain, blurry vision, loss of vision, nausea, vomiting, abdominal pain, fever, chills, back pain, or any other complaints. Patient verbalized agreement and understanding with this treatment plan and discharge. <ROGELIO Mcconnell - Last Filed: 08/03/22 14:18> Differential Diagnosis Differential Diagnoses: The differential diagnosis associated with the presentation includes <ROGELIO Mcconnell - Last Filed: 08/03/22 14:18> musculoskeletal pain <ROGELIO Mcconnell - Last Filed: 08/03/22 14:18> Lab Data MDM Lab Attestation statement: I reviewed the patient's lab results. <ROGELIO Mcconnell - Last Filed: 08/03/22 14:18> Result Diagrams: 08/03/22 12:05 08/03/22 12:05 <ROGELIO Chávez - Last Filed: 08/03/22 15:54> Labs: Lab Results 08/03/22 08/03/22 08/03/22 Range/Units 12:05 12:05 12:05 WBC 6.7 (4.8-10.8) X10*3/uL RBC 4.63 (4.20-5.50) X10*6/uL Hgb 13.8 (12.0-16.0) g/dl Hct 42.7 (37.0-47.0) % MCV 92.2 (80.0-98.0) fL MCH 29.8 (27.0-33.0) pg MCHC 32.3 (31.0-35.0) g/dl RDW 13.7 (11.0-16.0) % Plt Count 231 (160-400) X10*3/uL MPV 11.4 (9.4-12.3) fL Immature Gran % (Auto) 0.3 (0.0-0.4) % Neut % (Auto) 58.9 (45-73) % Lymph % (Auto) 31.5 (20-40) % [place] % (Auto) 7.3 (2-11) % Eos % (Auto) 1.3 (0-4) % Baso % (Auto) 0.7 (0-2) % Lymph # (Auto) 2.1 (1.2-4.9) X10*3/uL [place] # (Auto) 0.5 (0.1-1.2) X10*3/uL Eos # (Auto) 0.1 (0.0-0.4) X10*3/uL Baso # (Auto) 0.1 (0.0-0.2) X10*3/uL Abs Immat Gran (auto) 0.02 (0.00-0.03) X10*3/uL Absolute Neuts (auto) 3.9 (2.0-8.3) x10*3/uL Absolute Nucleated RBC 0.000 (0.0-0.012) X10*3/uL Nucleated RBC % (auto) 0.0 (0.0-0.2) /100WBC PT (10.0-13.1) SEC INR (0.9-1.1) APTT (26.0-36.4) SEC D-Dimer High Sensitivty < 150 NG/ML Sodium 141 (135-145) mmol/L Potassium 4.4 (3.3-5.1) mmol/L Chloride 107 (96-108) mmol/L Carbon Dioxide 28 (22-29) mmol/L Anion Gap 10 L (12-20) BUN 20 H (9-16) mg/dL Creatinine 1.14 (0.5-1.4) mg/dL Estim Creat Clear Calc 69.0 Estimated GFR 50 Random Glucose 92 (60-115) mg/dL Calcium 9.2 (8.4-10.2) mg/dL Total Bilirubin 0.3 (0.0-1.0) mg/dL AST 21 (5-31) U/L ALT 33 H (0-31) U/L Alkaline Phosphatase 96 (39-117) U/L Troponin I High Sens (<3.5-17.0) ng/L Total Protein 7.2 (6.5-8.0) g/dL Albumin 4.5 (3.5-5.0) g/dL Lipase 75 (8-78) U/L 08/03/22 08/03/22 Range/Units 12:05 12:05 WBC (4.8-10.8) X10*3/uL RBC (4.20-5.50) X10*6/uL Hgb (12.0-16.0) g/dl Hct (37.0-47.0) % MCV (80.0-98.0) fL MCH (27.0-33.0) pg MCHC (31.0-35.0) g/dl RDW (11.0-16.0) % Plt Count (160-400) X10*3/uL MPV (9.4-12.3) fL Immature Gran % (Auto) (0.0-0.4) % Neut % (Auto) (45-73) % Lymph % (Auto) (20-40) % [place] % (Auto) (2-11) % Eos % (Auto) (0-4) % Baso % (Auto) (0-2) % Lymph # (Auto) (1.2-4.9) X10*3/uL [place] # (Auto) (0.1-1.2) X10*3/uL Eos # (Auto) (0.0-0.4) X10*3/uL Baso # (Auto) (0.0-0.2) X10*3/uL Abs Immat Gran (auto) (0.00-0.03) X10*3/uL Absolute Neuts (auto) (2.0-8.3) x10*3/uL Absolute Nucleated RBC (0.0-0.012) X10*3/uL Nucleated RBC % (auto) (0.0-0.2) /100WBC PT 11.0 (10.0-13.1) SEC INR 1.0 (0.9-1.1) APTT 30.9 (26.0-36.4) SEC D-Dimer High Sensitivty NG/ML Sodium (135-145) mmol/L Potassium (3.3-5.1) mmol/L Chloride (96-108) mmol/L Carbon Dioxide (22-29) mmol/L Anion Gap (12-20) BUN (9-16) mg/dL Creatinine (0.5-1.4) mg/dL Estim Creat Clear Calc Estimated GFR Random Glucose (60-115) mg/dL Calcium (8.4-10.2) mg/dL Total Bilirubin (0.0-1.0) mg/dL AST (5-31) U/L ALT (0-31) U/L Alkaline Phosphatase (39-117) U/L Troponin I High Sens < 2.7 (<3.5-17.0) ng/L Total Protein (6.5-8.0) g/dL Albumin (3.5-5.0) g/dL Lipase (8-78) U/L <ROGELIO Chávez - Last Filed: 08/03/22 15:54> Lab Results 08/03/22 08/03/22 08/03/22 Range/Units 12:05 12:05 12:05 WBC 6.7 (4.8-10.8) X10*3/uL RBC 4.63 (4.20-5.50) X10*6/uL Hgb 13.8 (12.0-16.0) g/dl Hct 42.7 (37.0-47.0) % MCV 92.2 (80.0-98.0) fL MCH 29.8 (27.0-33.0) pg MCHC 32.3 (31.0-35.0) g/dl RDW 13.7 (11.0-16.0) % Plt Count 231 (160-400) X10*3/uL MPV 11.4 (9.4-12.3) fL Immature Gran % (Auto) 0.3 (0.0-0.4) % Neut % (Auto) 58.9 (45-73) % Lymph % (Auto) 31.5 (20-40) % [place] % (Auto) 7.3 (2-11) % Eos % (Auto) 1.3 (0-4) % Baso % (Auto) 0.7 (0-2) % Lymph # (Auto) 2.1 (1.2-4.9) X10*3/uL [place] # (Auto) 0.5 (0.1-1.2) X10*3/uL Eos # (Auto) 0.1 (0.0-0.4) X10*3/uL Baso # (Auto) 0.1 (0.0-0.2) X10*3/uL Abs Immat Gran (auto) 0.02 (0.00-0.03) X10*3/uL Absolute Neuts (auto) 3.9 (2.0-8.3) x10*3/uL Absolute Nucleated RBC 0.000 (0.0-0.012) X10*3/uL Nucleated RBC % (auto) 0.0 (0.0-0.2) /100WBC PT (10.0-13.1) SEC INR (0.9-1.1) APTT (26.0-36.4) SEC D-Dimer High Sensitivty < 150 NG/ML Sodium 141 (135-145) mmol/L Potassium 4.4 (3.3-5.1) mmol/L Chloride 107 (96-108) mmol/L Carbon Dioxide 28 (22-29) mmol/L Anion Gap 10 L (12-20) BUN 20 H (9-16) mg/dL Creatinine 1.14 (0.5-1.4) mg/dL Estim Creat Clear Calc 69.0 Estimated GFR 50 Random Glucose 92 (60-115) mg/dL Calcium 9.2 (8.4-10.2) mg/dL Total Bilirubin 0.3 (0.0-1.0) mg/dL AST 21 (5-31) U/L ALT 33 H (0-31) U/L Alkaline Phosphatase 96 (39-117) U/L Troponin I High Sens (<3.5-17.0) ng/L Total Protein 7.2 (6.5-8.0) g/dL Albumin 4.5 (3.5-5.0) g/dL Lipase 75 (8-78) U/L 08/03/22 08/03/22 Range/Units 12:05 12:05 WBC (4.8-10.8) X10*3/uL RBC (4.20-5.50) X10*6/uL Hgb (12.0-16.0) g/dl Hct (37.0-47.0) % MCV (80.0-98.0) fL MCH (27.0-33.0) pg MCHC (31.0-35.0) g/dl RDW (11.0-16.0) % Plt Count (160-400) X10*3/uL MPV (9.4-12.3) fL Immature Gran % (Auto) (0.0-0.4) % Neut % (Auto) (45-73) % Lymph % (Auto) (20-40) % [place] % (Auto) (2-11) % Eos % (Auto) (0-4) % Baso % (Auto) (0-2) % Lymph # (Auto) (1.2-4.9) X10*3/uL [place] # (Auto) (0.1-1.2) X10*3/uL Eos # (Auto) (0.0-0.4) X10*3/uL Baso # (Auto) (0.0-0.2) X10*3/uL Abs Immat Gran (auto) (0.00-0.03) X10*3/uL Absolute Neuts (auto) (2.0-8.3) x10*3/uL Absolute Nucleated RBC (0.0-0.012) X10*3/uL Nucleated RBC % (auto) (0.0-0.2) /100WBC PT 11.0 (10.0-13.1) SEC INR 1.0 (0.9-1.1) APTT 30.9 (26.0-36.4) SEC D-Dimer High Sensitivty NG/ML Sodium (135-145) mmol/L Potassium (3.3-5.1) mmol/L Chloride (96-108) mmol/L Carbon Dioxide (22-29) mmol/L Anion Gap (12-20) BUN (9-16) mg/dL Creatinine (0.5-1.4) mg/dL Estim Creat Clear Calc Estimated GFR Random Glucose (60-115) mg/dL Calcium (8.4-10.2) mg/dL Total Bilirubin (0.0-1.0) mg/dL AST (5-31) U/L ALT (0-31) U/L Alkaline Phosphatase (39-117) U/L Troponin I High Sens < 2.7 (<3.5-17.0) ng/L Total Protein (6.5-8.0) g/dL Albumin (3.5-5.0) g/dL Lipase (8-78) U/L <ROGELIO Mcconnell - Last Filed: 08/03/22 14:18> Independent Interpretation I performed an independent interpretation of an: EKG <ROGELIO Mcconnell - Last Filed: 08/03/22 14:18> Interpretation: Vent. Rate: 076 BPM ? ? Atrial Rate: 076 BPM P-R Int: 152 ms? QRS Dur: 100 ms QT Int: 384 ms ? ? ? P-R-T Axes: 044 042 050 degrees QTc Int: 432 ms ? Normal sinus rhythm Normal ECG No previous ECGs available DD/ 1115 <ROGELIO Mcconnell - Last Filed: 08/03/22 14:18> Radiology Impression Radiologist Impression: My interpretation is in agreement with the radiologist's impression of this imaging study. EXAMINATION: XR CHEST CLINICAL INFORMATION: Right-sided chest pain COMPARISON: Previous chest x-ray most recent April 2020 TECHNIQUE: 2 views of the chest were obtained. FINDINGS: The cardiac and mediastinal contours are stable. The right hemidiaphragm is slightly elevated unchanged from prior exam. The lungs are clear. There is no pleural effusion or pneumothorax. Mild degenerative changes of the spine. XR/XR chest 2V IMPRESSION: No evidence for acute disease in the chest. Slightly elevated right hemidiaphragm similar to previous exams. Dictated By: Valentina Lackey MD Signed By: Electronically signed by Valentina Lackey MD 08/03/22 1222 <ROGELIO Mcconnell - Last Filed: 08/03/22 14:18> Discharge Plan Discharge Clinical Impression: Muscle pain <ROGELIO Chávez Last Filed: 08/03/22 15:54> Patient Disposition: Home, Self-Care <ROGELIO Chávez Last Filed: 08/03/22 15:54> Instructions: Musculoskeletal Pain (ED) <ROGELIO Chávez Last Filed: 08/03/22 15:54> Additional Instructions: Follow up with your primary care provider. Return to the emergency department immediately if your symptoms worsen or if you develop any dizziness, shortness of breath, difficulty breathing, chest pain, blurry vision, loss of vision, nausea, vomiting, abdominal pain, fever, chills, back pain, or any other complaints. Alesha un seguimiento con saha proveedor de atenci?n primaria. Regrese al departame nto de emergencias de inmediato si yobani s?ntomas empeoran o si presenta mareos, falta de aire, dificultad para respirar, dolor de pecho, visi?n borrosa, p?rdida de la visi?n, n?useas, v?mitos, dolor abdominal, fiebre, escalofr?os, dolor de espalda o cualquier otras quejas. <ROGELIO Chávez - Last Filed: 08/03/22 15:54> Prescriptions: New cyclobenzaprine 5 mg tablet 5 mg PO TID PRN (Reason: muscle pain) 7 Days Qty: 21 0RF No Action pantoprazole [Protonix] 20 mg tablet,delayed release (DR/EC) 20 mg PO DAILY Qty: 20 0RF oxycodone 5 mg tablet 5 mg PO Q6H PRN (Reason: pain) Qty: 10 0RF Rx Instructions: Narcotic, no driving for 6 hours after taking, may cause drowsiness cyclobenzaprine 5 mg tablet 5 mg PO TID PRN (Reason: muscle spasm) Qty: 10 0RF Rx Instructions: This medication may cause drowsiness, no driving for 8 hours after taking ibuprofen 600 mg tablet 600 mg PO Q6H PRN (Reason: pain) Qty: 20 0RF Zyrtec 10 mg capsule 10 mg PO DAILY PRN (Reason: allergy symptoms) Qty: 20 0RF fluticasone propionate [Flonase Allergy Relief] 50 mcg/actuation spray,suspen cecilia 1 spray intranasal DAILY Qty: 16 0RF Rx Instructions: administer into each nostril prednisone 20 mg tablet 20 mg PO DAILY 5 Days Qty: 5 0RF omeprazole 40 mg capsule,delayed release(DR/EC) 40 mg PO DAILY Qty: 30 0RF Paxlovid (EUA) 300 mg (150 mg x 2)-100 mg tablets,dose pack See Rx Instructions .ROUTE .COMPLEX Qty: 30 0RF Rx Instructions: take TWO 150 mg tablets of nirmatrelvir with ONE 100 mg tablet of ritonavir twice daily for 5 days lisinopril 5 mg tablet 5 mg PO DAILY Mirena 20 mcg/24 hours (8 yrs) 52 mg intrauterine device intrauterine <ROGELIO Chávez - Last Filed: 08/03/22 15:54> Referrals: Halley Hill DO [Primary Care Provider] - <ROGELIO Chávez - Last Filed: 08/03/22 15:54> Stand Alone Forms: Work/School Release <ROGELIO Chávez - Last Filed: 08/03/22 15:54> Interventions: ED Discharge Assessment Last Done: 08/03/22 14:11 <ROGELIO Chávez - Last Filed: 08/03/22 15:54> Discharge Date/Time: 08/03/22 14:20 <ROGELIO Chávez - Last Filed: 08/03/22 15:54> Print Language: Guyanese <ROGELIO Chávez - Last Filed: 08/03/22 15:54>
[2022-08-03 12:08] LABS: MANUAL DIFF FLAG NO
[2022-08-03 12:09] LABS: Basophils Absolute Auto 0.1 X10*3/uL (0.0-0.2); Basophils Percent Auto 0.7 % (0-2); Eosinophils Absolute Auto 0.1 X10*3/uL (0.0-0.4); Eosinophils Percent Auto 1.3 % (0-4); Hematocrit 42.7 % (37.0-47.0); Hemoglobin 13.8 g/dl (12.0-16.0); Imm Gran Abs Auto 0.02 X10*3/uL (0.00-0.03); Imm Gran Pct Auto 0.3 % (0.0-0.4); Lymphocytes Absolute Auto 2.1 X10*3/uL (1.2-4.9); Lymphocytes Percent Auto 31.5 % (20-40); Mean Corpuscular HGB Conc 32.3 g/dl (31.0-35.0); Mean Corpuscular Hemoglobin 29.8 pg (27.0-33.0); Mean Corpuscular Volume 92.2 fL (80.0-98.0); Mean Platelet Volume 11.4 fL (9.4-12.3); Monocytes Absolute Auto 0.5 X10*3/uL (0.1-1.2); Monocytes Percent Auto 7.3 % (2-11); Neutrophils Absolute Auto 3.9 x10*3/uL (2.0-8.3); Neutrophils Percent Auto 58.9 % (45-73); Platelet Count 231 X10*3/uL (160-400); Red Blood Count 4.63 X10*6/uL (4.20-5.50); Red Cell Distribution Width 13.7 % (11.0-16.0); White Blood Count 6.7 X10*3/uL (4.8-10.8)
[2022-08-03 12:18] LABS: D Dimer High Sensitivity < 150 NG/ML; Partial Thromboplastin Time 30.9 SEC (26.0-36.4)
[2022-08-03 12:24] LABS: Alanine Aminotransferase 33 U/L (0-31); Albumin Level 4.5 g/dL (3.5-5.0); Alkaline Phosphatase 96 U/L (39-117); Anion Gap 10 (12-20); Aspartate Amino Transferase 21 U/L (5-31); Bilirubin Total 0.3 mg/dL (0.0-1.0); Blood Urea Nitrogen 20 mg/dL (9-16); Calcium 9.2 mg/dL (8.4-10.2); Carbon Dioxide 28 mmol/L (22-29); Chloride 107 mmol/L (96-108); Estimated Glomerular Filt Rate 50; Glucose Random 92 mg/dL (60-115); Lipase 75 U/L (8-78); Potassium 4.4 mmol/L (3.3-5.1); Sodium 141 mmol/L (135-145); Total Protein 7.2 g/dL (6.5-8.0)
[2022-08-03 12:33] LABS: Troponin-I High Sensitivity < 2.7 ng/L (<3.5-17.0)
[2022-08-03] MEDS: Cyclobenzaprine HCl 5 MG TABLET PO (14:16)
[2022-08-03] MEDS: Ketorolac Tromethamine 15 MG/ML VIAL IM (14:16)
== END 2022-08-03 14:20 | disposition home or self-care (01) ==
PROVIDERS: Physician Assistant; Emergency Provider Emergency Medicine; PCP Family Medicine
DX: R07.89 Other chest pain (principal); M79.10 Myalgia, unspecified site; M79.601 Pain in right arm; Z79.899 Other long term (current) drug therapy
CPT/HCPCS: 36415; 71046; 80053; 83690; 84484; 85025; 85379; 85610; 85730; 93005; 96372; 99283; 99284; J1885

== ENCOUNTER 2022-08-11 12:50 | Outpatient (REF) | payer MEDICAID, SELFPAY ==
--- NOTE | ~2022-08-11 | MM_ITS ---
EXAMINATION: MM SCREENING DIGITAL BREAST TOMOSYNTHESIS, BILATERAL CLINICAL INFORMATION: Screening. Asymptomatic. The lifetime risk of breast cancer based on the Tyrer-Cuzick Model is 7.5%. COMPARISON: Mammography: August 15, 2020 and studies dating back to September 12, 2013 TECHNIQUE: Digital breast tomosynthesis is performed in both the craniocaudal and mediolateral oblique views along with computer-aided detection (CAD). Synthesized 2D images are generated from the tomosynthesis. FINDINGS: There are scattered areas of fibroglandular density (ACR BI-RADS breast composition Category b). There are no significant masses, abnormal calcifications, or other abnormalities. MM/MM tomosynthesis screening BI IMPRESSION: No significant changes from prior exam. ASSESSMENT: BI-RADS 1: Negative RECOMMENDATION: Routine annual mammography screening. This patient's information was entered into a reminder system with a target due date for their next mammogram.
== END 2022-08-11 12:51 | disposition home or self-care (01) ==
LOC: HO.MAMMO 12:50
PROVIDERS: PCP Family Medicine; Visit Provider Advanced Practice Midwife
DX: Z12.31 Encounter for screening mammogram for malignant neoplasm of breast (principal)
CPT/HCPCS: 77063; 77067

== ENCOUNTER 2022-10-07 07:26 | Outpatient (REF) | payer OTHER, SELFPAY ==
--- NOTE | ~2022-10-07 | US_ITS ---
EXAMINATION: US ABDOMEN COMPLETE CLINICAL INFORMATION: Fatty liver. COMPARISON: Ultrasound abdomen limited 01/29/2020. Ultrasound abdomen complete 01/20/2019. TECHNIQUE: Real-time imaging of the abdominal viscera. FINDINGS: PANCREAS: The pancreas appears unremarkable, without masses or ductal dilatation, with the exception of the tail which is obscured by bowel gas. ABDOMINAL AORTA: The proximal, mid, and distal segments are normal in caliber. INFERIOR VENA CAVA: Visualized portions are normal. LIVER: Liver measurements were not obtained; however, it is probably enlarged. The liver contour is normal. There is diffuse increased liver parenchymal echogenicity, consistent with hepatic steatosis. Focal fatty sparing seen adjacent to the gallbladder. No focal hepatic lesion. There is no intrahepatic biliary duct dilatation seen. GALLBLADDER: Normal. The gallbladder is physiologically distended without evidence of stones, sludge, polyps, wall thickening or pericholecystic fluid. COMMON BILE DUCT: Normal in caliber measuring 0.4 cm in diameter. RIGHT KIDNEY: Normal. No hydronephrosis. No renal calculi or focal parenchymal lesions. The kidney measures 10.8 cm in maximum dimension. LEFT KIDNEY: Normal. No hydronephrosis. No renal calculi or focal parenchymal lesions. The kidney measures 10.9 cm in maximum dimension. SPLEEN: Normal. The spleen measures 9.3 cm in maximum dimension. FREE FLUID: None. US/US abdomen complete IMPRESSION: Hepatic steatosis.
== END 2022-10-07 07:27 | disposition home or self-care (01) ==
LOC: HO.US 07:26
PROVIDERS: Visit Provider Family Medicine
DX: K76.0 Fatty (change of) liver, not elsewhere classified (principal)
CPT/HCPCS: 76700

== ENCOUNTER 2022-10-07 08:43 | Outpatient (REF) | payer OTHER, SELFPAY ==
[2022-10-07 09:24] LABS: MANUAL DIFF FLAG NO
[2022-10-07 09:39] LABS: Basophils Absolute Auto 0.1 X10*3/uL (0.0-0.2); Basophils Percent Auto 0.8 % (0-2); Eosinophils Absolute Auto 0.1 X10*3/uL (0.0-0.4); Hematocrit 44.6 % (37.0-47.0); Imm Gran Abs Auto 0.01 X10*3/uL (0.00-0.03); Imm Gran Pct Auto 0.2 % (0.0-0.4); Lymphocytes Absolute Auto 2.1 X10*3/uL (1.2-4.9); Lymphocytes Percent Auto 32.4 % (20-40); Mean Corpuscular HGB Conc 31.4 g/dl (31.0-35.0); Mean Corpuscular Hemoglobin 29.9 pg (27.0-33.0); Mean Corpuscular Volume 95.3 fL (80.0-98.0); Mean Platelet Volume 11.7 fL (9.4-12.3); Monocytes Absolute Auto 0.5 X10*3/uL (0.1-1.2); Monocytes Percent Auto 7.7 % (2-11); Neutrophils Absolute Auto 3.7 x10*3/uL (2.0-8.3); Neutrophils Percent Auto 56.9 % (45-73); Platelet Count 239 X10*3/uL (160-400); Red Blood Count 4.68 X10*6/uL (4.20-5.50); Red Cell Distribution Width 13.9 % (11.0-16.0); White Blood Count 6.5 X10*3/uL (4.8-10.8)
[2022-10-07 09:49] LABS: Estimated Average Glucose 123 mg/dL; Hemoglobin A1c % 5.9 %
[2022-10-07 10:03] LABS: Creatinine Urine 98.48 mg/dL; Microalbum/Creatinine Ratio Ur 10.1 ug/mg cr
[2022-10-07 10:07] LABS: Rheumatoid Factor < 13.0 IU/mL (<15.0)
[2022-10-07 10:15] LABS: Alanine Aminotransferase 33 U/L (0-31); Albumin Level 4.4 g/dL (3.5-5.0); Alkaline Phosphatase 105 U/L (39-117); Anion Gap 11 (12-20); Aspartate Amino Transferase 21 U/L (5-31); Bilirubin Direct 0.1 mg/dL (0.0-0.5); Bilirubin Total 0.3 mg/dL (0.0-1.0); Blood Urea Nitrogen 19 mg/dL (9-16); C Reactive Protein 0.33 mg/dL (< or = 0.50); Carbon Dioxide 28 mmol/L (22-29); Chloride 107 mmol/L (96-108); Cholesterol 233 mg/dL; Estimated Glomerular Filt Rate > 60; Glucose Random 93 mg/dL (60-115); HDL Cholesterol 36 mg/dL; LDL Cholesterol Calculated 158 mg/dl; Potassium 4.8 mmol/L (3.3-5.1); Sodium 141 mmol/L (135-145); Triglycerides 197 mg/dL
[2022-10-07 10:17] LABS: Erythrocyte Sedimentation Rate 7 MM/HR (0-20)
[2022-10-07 10:25] LABS: ~HepC Num1 0.17 S/CO (0.00-0.79); ~Hepatitis C Antibody Nonreactive (Nonreactive)
[2022-10-07 10:30] LABS: Syphilis Screen Nonreactive (Nonreactive)
[2022-10-07 10:33] LABS: Free T4 (Free Thyroxine) 0.86 ng/dL (0.71-1.85); Thyroid Stimulating Hormone 2.62 uIU/mL (0.32-4.0); Vitamin D 25-OH Total 14.9 ng/mL (>30)
[2022-10-07 11:31] LABS: HIV AB/AG Nonreactive (Nonreactive); HIV Num 1 0.06 S/CO (0.00-0.99)
[2022-10-07 12:28] LABS: CT PCR NOT DETECTED (Not Detect.); NG PCR NOT DETECTED (Not Detect.)
[2022-10-13 15:18] LABS: ANA Titer 2 1:40 titer; Anti Nuclear Antibody Pattern Nuclear, Nucleolar; Anti Nuclear Antibody Screen POSITIVE (NEGATIVE); Anti Nuclear Antibody Titer 1:40 titer
[2022-10-15 02:19] LABS: Lyme Abs Screen <0.90 index
== END 2022-10-07 08:44 | disposition home or self-care (01) ==
LOC: HO.LAB 08:43
PROVIDERS: PCP Family Medicine; Visit Provider Family Medicine
DX: I10 Essential (primary) hypertension (principal); M25.50 Pain in unspecified joint
CPT/HCPCS: 0353U; 80048; 80061; 80076; 82043; 82306; 83036; 84439; 84443; 85025; 85652; 86038; 86039; 86140; 86431; 86617; 86618; 86780; 86803; 87389; 87536; 87900

== ENCOUNTER 2022-11-05 13:31 | Outpatient (AMB) | payer OTHER, MEDICAID, SELFPAY ==
[2022-11-05 13:57] VITALS: BP 110/74; BMI 36.3
--- NOTE | 2022-11-05 13:57 | MHC.OFFVIS ---
Intake Vital Signs 11/05/22 13:57 Height 5 ft 5 in Weight 218 lb 4.122 oz BMI 36.3 BP 110/74 Intake Visit Reasons: EMB/IUD Removal/30 min Health Services Manager Required: Yes Channeling Machine Runner Language: Health Services Manager Name: Nila ZAMORANO Information Interpreted: non-clinical & clinical Registered Dental Assistant: Registered Dental Assistant Present (Nila ZAMORANO) Accompanied by: Self / Same As Patient Allergies Penicillins [PENICILLINS] Allergy (Unknown, Verified 11/05/22 13:58) Unknown Is last menstrual period known: Yes Last menstrual period: 02/22/20 Post menopausal: No Patient : No Do you need a note to return to daycare/school/sports/work: Yes (for surgery on wednesday) HPI HPI Comments History of Present Illness Details Presenting referred from [facility] CNM regarding IUD removal an EMB. The patient has been having irregular menstrual cycles and has a Mirena IUD beyond its expiration date. PFSH Medical History delivery delivered HTN (hypertension) Migraine Surgical History Hx of section Social History Alcohol intake: never Patient Tobacco Use Status: Never used Tobacco Female Reproductive History Menstrual Date of last menstrual period: 02/22/20 Total pregnancies: 2 Full term: 2 Review of Systems Card Reports as per HPI and Reports no additional complaints Resp Reports as per HPI and Reports no additional complaints GI Reports as per HPI and Reports no additional complaints Reports as per HPI Physical Exam Vital Signs: Last Vital Signs BP 110/74 11/05/22 13:57 BMI result Body Mass Index 36.3 Const General: cooperative, healthy appearing and comfortable Chest Chest palpation & inspection: normal inspection of the chest and normal palpation of entire chest wall Breast/axilla inspection: normal inspection of the breasts and normal inspection of the axillae Breast/axilla palpation: normal palpation of the breasts, normal palpation of the axillae and no axillary lymphadenopathy Resp Effort & Inspection: normal respiratory effort Auscultation: clear to auscultation bilaterally Percussion: percussion normal Cardio Palpation: normal PMI Rate: regular rate Rhythm: regular rhythm Heart sounds: no murmurs and no rubs Peripheral pulses: Peripheral pulses 2+ throughout GI Inspection: Yes normal to inspection Palpation (GI): Soft to palpation, nontender, no guarding, not rigid and No hepatosplenomegaly present Percussion: Yes normal to percussion Auscultation: normal bowel sounds Rectal Exam - Female: deferred Results AMB Test Urine AMB Test Urine Negative Last Edit by Nila Saldivar CMA on 11/05/22 14:18 Assessment & Plan Assessment & Plan (1) Attempted IUD removal, unsuccessful: Comment: With abnormal uterine bleeding Code(s): Z53.8 - Procedure and treatment not carried out for other reasons; Z97.5 - Presence of (intrauterine) contraceptive device Plan: Attempted IUD removal was unsuccessful, recommended hysteroscopic IUD removal with D&C possible polypectomy/myomectomy. Discussed with the patient the procedure , all benefits and risks including but not limited to inability to complete the procedure , bleeding, infection, possible need for blood transfusion with all its risk ( HIV,syphilis, Hepatitis, anaphylaxis shock, others..), injury to bladder, rectum, possible need for laparoscopy/laparotomy or hysterectomy. The patient verbalized understanding and signed the consent. Instructions given the patient to schedule a 2 week postoperative appointment (2) Abnormal uterine bleeding: Code(s): N93.9 - Abnormal uterine and vaginal bleeding, unspecified Plan: Hysteroscopy IUD removal, D&C possible polypectomy/myomectomy Orders: Orders AMB HCG Urine Test Today Z32.02 - Encounter for test, result negative Coding Level of Care Code Est Pt Level 3 (47258) Diagnoses Attempted IUD removal, unsuccessful Z53.8; Z97.5 Abnormal uterine bleeding N93.9
== END 2022-11-05 14:30 | disposition home or self-care (01) ==
LOC: HO.HWS 13:31
PROVIDERS: PCP Family Medicine; Visit Provider Obstetrics & Gynecology
DX: Z53.8 Procedure and treatment not carried out for other reasons (principal); Z97.5 Presence of (intrauterine) contraceptive device; N93.9 Abnormal uterine and vaginal bleeding, unspecified; Z32.02 Encounter for pregnancy test, result negative
CPT/HCPCS: 99213

== ENCOUNTER → 2022-11-05 13:31 | Outpatient (BNVA) | payer OTHER, SELFPAY | PROVIDERS: PCP Family Medicine; Visit Provider Obstetrics & Gynecology | DX: N93.9 Abnormal uterine and vaginal bleeding, unspecified (principal); Z32.02 Encounter for pregnancy test, result negative; Z97.5 Presence of (intrauterine) contraceptive device | CPT/HCPCS: 81025; 99212 ==

== ENCOUNTER 2022-12-04 06:48 | Day surgery (SDC) | payer OTHER, SELFPAY ==
[2022-12-01 13:44] VITALS: BMI 36.3
--- NOTE | 2022-12-03 08:26 | HO.ANESPROP2 ---
Documented by User: Teresa Brizuela NP 12/03/22 08:26 HPI - Anesthesia Eval Consult details Narrative: 52yo F for D&C Hysteroscopy,poss myomectomy,poss polypectomy,and IUD Removal PMFSH Active Problems Active Problems: All Active Problems (Updated 12/01/22 @ 13:38 by Valarie Zuniga RN) COVID (Acute) Attempted IUD removal, unsuccessful (Acute) Abnormal uterine bleeding (Acute) Past Medical History Medical History delivery delivered History of COVID-19 HTN (hypertension) Migraine Surgical History Surgical History (Updated 12/04/22 @ 08:09 by Bryanna Yee MD) H/O colonoscopy Hx of section Social History Social History Alcohol intake: never Patient Tobacco Use Status: Never used Tobacco Second Hand Smoke Exposure: No Use of substances other than those prescribed or required for medical reasons: No Are you DNR?: No Advance Directives: No Advance Directives Information Provided: Yes Advance Directives on File: No Meds Allergies Allergy/AdvReac Type Severity Reaction Status Date / Time Penicillins [PENICILLINS] Allergy Unknown Unknown Verified 11/05/22 13:58 Home Medications Medication Instructions Recorded Confirmed Last Taken Type lisinopril 5 mg tablet 5 mg PO DAILY 01/19/22 12/01/22 Unknown History levonorgestrel 21 mcg/24 hours (8 intrauterine 06/11/22 Unknown History yrs) 52 mg intrauterine device (Mirena) Exam Exam Date and Time: December 03, 2022 0826 Height,Weight and Vital Signs: Height 5 ft 5 in Weight 98.883 kg Assessment and Plan Assessment Anesthesia Assessment: Chart Reviewed Documented by User: Bryanna Yee MD 12/04/22 08:12 PMFSH Active Problems Active Problems: All Active Problems (Updated 12/01/22 @ 13:38 by Valarie Zuniga RN) COVID (Acute) Attempted IUD removal, unsuccessful (Acute) Abnormal uterine bleeding (Acute) Increased BMI Snores but never tested fir TRAVIS GERD Past Medical History Medical History delivery delivered History of COVID-19 HTN (hypertension) Migraine Family History Family history of problems with anesthesia: No Surgical History Surgical History (Updated 12/04/22 @ 08:09 by Bryanna Yee MD) H/O colonoscopy Hx of section History of Problems with Anesthesia: No Social History Social History Alcohol intake: never Patient Tobacco Use Status: Never used Tobacco Second Hand Smoke Exposure: No Use of substances other than those prescribed or required for medical reasons: No Are you DNR?: No Advance Directives: No Advance Directives Information Provided: Yes Advance Directives on File: No Meds Allergies Allergy/AdvReac Type Severity Reaction Status Date / Time Penicillins [PENICILLINS] Allergy Unknown Unknown Verified 11/05/22 13:58 Home Medications Medication Instructions Recorded Confirmed Last Taken Type lisinopril 5 mg tablet 5 mg PO DAILY 01/19/22 12/01/22 Unknown History levonorgestrel 21 mcg/24 hours (8 intrauterine 06/11/22 Unknown History yrs) 52 mg intrauterine device (Mirena) Exam Height,Weight and Vital Signs: Height 5 ft 5 in Weight 98.883 kg Vital Signs Temp Pulse Resp BP Pulse Ox O2 Del Method 12/04/22 07:22 97.9 F 80 18 136/66 94 Room Air Pertinent Lab Results Pertinent Lab Results: Lab Results 12/04/22 Range/Units 07:00 Urine Test NEGATIVE (NEGATIVE) Airway Mallampati Class: III TM Dist: >3cm Neck ROM: Full Loose/Missing/Broken Teeth: No (Denies broken, loose, missing teeth) Heart: RRR Lungs: CTAB Assessment and Plan Assessment Anesthesia Assessment: Anesthesia Plan Discussed Final Anesthetic Review Family History of Problems with Anesthesia: No History of Problems with Anesthesia: No NPO: Yes ASA Class: III Final Preanesthetic Review: No Changes in Pt Med Stat, Meds/Allgs Chart Reviewed, Consent Obtained/Reviewed and Anes Risks/Benef Reviewed Patient Risk: Intermediate Procedure Risk: Low Assessment/Block/Sedation in SS: Assess/Block/Sedation-SS Anesthetic Plan Anesthetic Plan: GA Disposition: Standard PACU
[2022-12-04 07:16] LABS: UPreg QC Valid YES; Urine Pregnancy NEGATIVE (NEGATIVE)
[2022-12-04 07:22] VITALS: BP 136/66; PULSE 80; RESP 18; TEMP 36.6; O2SAT 94
[2022-12-04] MEDS: Lactated Ringers 1,000 ML 100 ML IVCONT (07:23)
--- NOTE | 2022-12-04 08:55 | P.BOP_ITS ---
Brief Operative Note Date of Service: 12/04/22 Pre-op diagnosis: Lost IUD string Abnormal uterine bleeding Post-op diagnosis: same (IUD in utero, normal endometrial /endocervical cavity) Procedure: Hysteroscopy D&C, Polypectomy, IUD removal Surgeon: Orlando Wilson MD Anesthesia: GLMA Was an Embalmer Assistant used for this Procedure?: No Estimated blood loss (mL): 0 Pathology: other (Endometrial Scrapping. Polyp) Condition: stable Disposition: PACU
--- NOTE | 2022-12-04 08:55 | W.PM.OPN ---
Operative Note Operative Note Date of Service: 12/04/22 Narrative: Preop Diagnosis: Lost IUD string, Abnormal uterine bleeding Operation: Diagnostic Hysteroscopy, Dilataion & Curettage , IUD removal Post Op Diagnosis: IUD in utero, Normal endometrial and endocervical cavity, no evidence of pathology QBL: Minimal Anesthesia: GLMA Surgeon: Orlando Wilson MD Distance Education Director: None Complication: None Pathology: Endometrial Scrapings Procedure: The patient was put in the dorsal lithotomy position, scrubbed, and draped in the usual manner. A sterile speculum was inserted in the patient's vagina. The anterior lip of the cervix was grasped with a single tooth tenaculum. The cervix was dilated up to 5 mm, then the scope was inserted in the patient's uterus. Inspection revealed IUD in utero and normal endocervical & endometrial cavity with no evidence of pathology. Using a hysteroscopic grasper, the IUD was removed with no complication. The scope was then taken out of the uterine cavity , then sharp curetting was carried on with no complications. At the end of the procedure, all instruments were taken out of the patient uterine and vaginal cavity. The single tooth tenaculum was removed and homeostasis was assured using pressure. The patient tolerated the procedure well and was transferred to the PACU in a stable condition.
[2022-12-04 09:04] VITALS: BP 124/73; PULSE 97; RESP 20; TEMP 36.4; O2SAT 95
[2022-12-04 09:09] VITALS: BP 126/70; PULSE 87; RESP 20; O2SAT 96
[2022-12-04 09:14] VITALS: BP 127/70; PULSE 82; RESP 22; O2SAT 95
[2022-12-04 09:19] VITALS: BP 125/68; PULSE 84; RESP 20; O2SAT 97
[2022-12-04 09:34] VITALS: BP 114/67; PULSE 75; RESP 20; TEMP 36.2; O2SAT 93
== END 2022-12-04 10:14 | disposition home or self-care (01) ==
PROVIDERS: PCP Family Medicine; Visit Provider Obstetrics & Gynecology
PROC: 0UDB8ZZ Extraction of Endometrium, Via Natural or Artificial Opening Endoscopic (ICD-10-PCS; CPT 58558; principal; 2022-12-04 08:30)
DX: T83.32XA Displacement of intrauterine contraceptive device, initial encounter (principal); N93.9 Abnormal uterine and vaginal bleeding, unspecified; Y76.8 Miscellaneous obstetric and gynecological devices associated with adverse incidents, not elsewhere classified; Y92.9 Unspecified place or not applicable; I10 Essential (primary) hypertension; G43.909 Migraine, unspecified, not intractable, without status migrainosus; Z79.899 Other long term (current) drug therapy; Z88.0 Allergy status to penicillin
CPT/HCPCS: 58558; 58301; 81025; 88305; J1100; J1885; J2250; J2405; J2765

== ENCOUNTER → 2022-12-04 06:48 | Outpatient (BNV) | payer OTHER, SELFPAY | PROVIDERS: PCP Family Medicine; Visit Provider Obstetrics & Gynecology | DX: T83.32XA Displacement of intrauterine contraceptive device, initial encounter (principal); N93.9 Abnormal uterine and vaginal bleeding, unspecified | CPT/HCPCS: 58301; 58558 ==

== ENCOUNTER 2022-12-15 13:33 | Outpatient (AMB) | payer OTHER, SELFPAY ==
--- NOTE | 2022-12-15 13:05 | A.OFFVIS_ITS ---
Intake Intake Visit Reasons: post op/pls call 2pm Overlock Sewing Machine Operator Required: Yes Overlock Sewing Machine Operator Language: Rubber Compounder Mixer Name: Nila ZAMORANO Information Interpreted: non-clinical & clinical Allergies Penicillins [PENICILLINS] Allergy (Unknown, Verified 12/15/22 13:34) Unknown HPI HPI Comments History of Present Illness Details The patient is presenting post hysteroscopy, IUD removal, D&C no complaints minimal vaginal bleeding no feverishness chills or abdominal pain. The pathology showed the following: Endometrium, curettage: Fragments of endometrium with pseudodecidual change and dystrophic calcifications; few fragments of normal appearing squamous epithelium; no atypia identified. The following workup was done.: H&H= 14/44.6 TSH, free T4, GC and chlamydia were negative. FSH elevated in the menopausal range Co testing was done was negative. Mammogram was BI-RADS 1. Pelvic ultrasound showed the following: UTERUS: The uterus is anteverted and measures 11.2 x 4.9 x 5.8 cm.? Nabothian cysts are present. IUD is in place. The uterus is smooth in contour and has normal myometrial echogenicity. There is an anterior heterogeneous and hypoechoic circumscribed structure in the body of the uterus representing intramural fibroid measuring 1.0 x 0.5 x 0.8 cm in size and without significant change from prior study. ADNEXA: The right ovary is not identified. There is no pelvic ascites or fluid collection. Left ovary measures 2.7 x 1.7 x 2.5 cm. Volume of 6 mL. Previously noted cyst is not identified. [facility] Medical History delivery delivered History of COVID-19 HTN (hypertension) Migraine Surgical History H/O colonoscopy Hx of section Social History Alcohol intake: never Patient Tobacco Use Status: Never used Tobacco Second Hand Smoke Exposure: No Review of Systems Const All systems reviewed & are unremarkable except as noted in HPI and below Reports as per HPI and Reports no additional complaints GI Reports no additional complaints Reports no additional complaints Assessment & Plan Assessment & Plan (1) Abnormal uterine bleeding: Comment: With lost IUD string status post hysteroscopic IUD removal Elevated FSH Code(s): N93.9 - Abnormal uterine and vaginal bleeding, unspecified Plan: Discussed with the patient intraoperative findings, IUD removal hysteroscopically, normal endometrial cavity with no evidence of any pathology. Discussed with the patient the results of the work up done and options of treatment including Lysteda, BCP's, Mirena IUD, endometrial ablation and hysterectomy. All pros, cons, risks and benefits if each option was discussed with the patient and the patient decided to think about it and get back to us. All questions answered the patient verbalized understanding. (2) Uterine myoma: Code(s): D25.9 - Leiomyoma of uterus, unspecified Plan: Discussed with the patient the findings on pelvic ultrasound & the risk of myosarcoma; discussed with the patient the options of treatment including expectant management versus hysterectomy; the pros and cons, risks benefits of each approach were discussed with the patient including the fact that in cases of myosarcoma, surgical treatment can lead to early diagnosis and positively affects the prognosis; after further discussion, the patient decided to proceed with expectant management. Will repeat pelvic ultrasound periodically. Instructions given to patient to call in case any of the following occurs: pressure symptoms, abnormal uterine bleeding, pelvic pain; and to schedule a future office follow-up appointment for reassessment and to order a repeat ultrasound . All questions answered, the patient verbalized understanding and agreed with the plan . I spent a total of 20 minutes reviewing the chart, talking to the patient via video and documenting in the medical record. The Communication with the patient was through Nila Saldivar MA, certified garden center manager. Telehealth Telehealth Location of provider rendering services: practice address Location of patient: other (work) Patient Identification confirmed using: Name, : Yes Telehealth method: video Patient verbally consented to treatment: Yes Patient verbally consented to billing insurance company: Yes Patient informed of any privacy concerns related to visit: Yes Coding Level of Care Code Tele Est Pt Level 3 (93181) Diagnoses Abnormal uterine bleeding N93.9 Uterine myoma D25.9
== END 2022-12-15 15:02 | disposition home or self-care (01) ==
LOC: HO.HWS 13:33
PROVIDERS: PCP Family Medicine; Visit Provider Obstetrics & Gynecology
DX: N93.9 Abnormal uterine and vaginal bleeding, unspecified (principal); D25.9 Leiomyoma of uterus, unspecified
CPT/HCPCS: 99213

== ENCOUNTER → 2022-12-15 13:33 | Outpatient (BNVA) | payer OTHER, SELFPAY | PROVIDERS: PCP Family Medicine; Visit Provider Obstetrics & Gynecology ==

== ENCOUNTER 2023-04-15 11:35 | Outpatient (AMB) | payer OTHER, SELFPAY ==
--- NOTE | 2023-04-15 11:37 | MHC.OFFVIS ---
Intake Vital Signs 04/15/23 11:39 Height 5 ft 5 in Weight 232 lb BMI 38.6 BP 120/70 Intake Visit Reasons: Annual Intake Note: no concerns Revenue Cycle Analyst Required: Yes Revenue Cycle Analyst Language: Steam Bone Press Tender Name: Nila ZAMORANO Information Interpreted: non-clinical & clinical Software Product Specialist: Software Product Specialist Present (Nila ZAMORANO) Accompanied by: Self / Same As Patient Allergies Penicillins [PENICILLINS] Allergy (Unknown, Verified 04/15/23 11:41) Unknown Post menopausal: Yes HPI HPI Comments History of Present Illness Details Presenting for annual exam. No complaints. Last Pap/HPV was negative in 02/11 Last Mammogram was BI-RADS 1 in 08/16 No previous screen Colonoscopy PFSH Medical History History of COVID-19 delivery delivered Migraine HTN (hypertension) Surgical History H/O colonoscopy Hx of section Social History Household Members Other:: daughter Housing: Apartment Alcohol intake: never Patient Tobacco Use Status: Never used Tobacco Second Hand Smoke Exposure: No Current occupational status: employed Current occupation: [employer] Sexually active: No Sexual orientation: Straight/Heterosexual Gender identity: Female Female Reproductive History Menstrual Menopause type: natural Total pregnancies: 3 Full term: 3 Number of Living Children: 3 Date of Mammogram: 08/11/22 Review of Systems Const All systems reviewed & are unremarkable except as noted in HPI and below Card Reports as per HPI Resp Reports as per HPI GI Reports as per HPI and Reports no additional complaints Reports as per HPI Physical Exam Vital Signs: Last Vital Signs BP 120/70 04/15/23 11:39 BMI result Body Mass Index 38.6 Const General: cooperative, healthy appearing and comfortable Chest Chest palpation & inspection: normal inspection of the chest and normal palpation of entire chest wall Breast/axilla inspection: normal inspection of the breasts and normal inspection of the axillae Breast/axilla palpation: normal palpation of the breasts, normal palpation of the axillae and no axillary lymphadenopathy Resp Effort & Inspection: normal respiratory effort Auscultation: clear to auscultation bilaterally Percussion: percussion normal Cardio Palpation: normal PMI Rate: regular rate Rhythm: regular rhythm Heart sounds: no murmurs and no rubs Peripheral pulses: Peripheral pulses 2+ throughout GI Inspection: Yes normal to inspection Palpation (GI): Soft to palpation, nontender, no guarding, not rigid and No hepatosplenomegaly present Percussion: Yes normal to percussion Auscultation: normal bowel sounds Rectal Exam - Female: deferred General: Yes bladder normal to palpation External Female Exam: No lesion Speculum Exam - Vagina: normal appearance of the vagina, normal palpation, normal vaginal discharge and not erythematous Speculum Exam - Cervix: normal appearance of the cervix and normal palpation Bimanual exam- vagina & uterus: normal bimanual exam, normal palpation, uterine size normal, bladder normal to palpation, consistency normal and normal palpation Bimanual Exam- Adnexa, other: normal adnexae, no masses and no tenderness Assessment & Plan Assessment & Plan (1) Well woman exam: Code(s): Z01.419 - Encounter for gynecological examination (general) (routine) without abnormal findings Plan: Co testing not indicated this year. Counseled the patient about the recommended dietary allowance of 1200 mg of Calcium & 600 IU of vitamin D. Instructions given the patient to schedule next screen Mammogram in 08/17. The patient was referred to GI for screening colonoscopy . The patient was instructed to perform monthly self-breast exams and schedule annual exam in a year. All questions answered and the patient verbalized understanding. Orders: Referrals Gastroenterology Referral Z12.11 - Encounter for screening for malignant neoplasm of colon Coding Level of Care Code Est Pt Prev Care 40-64y(37476) Diagnoses Well woman exam Z01.419
[2023-04-15 11:39] VITALS: BP 120/70; BMI 38.6
== END 2023-04-15 11:58 | disposition home or self-care (01) ==
LOC: HO.HWS 11:36
PROVIDERS: PCP Family Medicine; Visit Provider Obstetrics & Gynecology
DX: Z01.419 Encounter for gynecological examination (general) (routine) without abnormal findings (principal)
CPT/HCPCS: 99396

== ENCOUNTER → 2023-04-15 11:35 | Outpatient (BNVA) | payer OTHER, SELFPAY | PROVIDERS: PCP Family Medicine; Visit Provider Obstetrics & Gynecology | DX: Z01.419 Encounter for gynecological examination (general) (routine) without abnormal findings (principal) | CPT/HCPCS: 99396 ==

== ENCOUNTER 2023-04-30 16:25 | Outpatient (REF) | payer SELFPAY ==
[2023-05-03 15:08] LABS: Anti Nuclear Antibody Screen NEGATIVE (NEGATIVE)
== END 2023-04-30 16:26 | disposition home or self-care (01) ==
LOC: HO.LAB 16:25
PROVIDERS: PCP Family Medicine; Visit Provider Family Medicine
DX: M25.50 Pain in unspecified joint (principal)
CPT/HCPCS: 36415; 86038

== ENCOUNTER 2023-05-28 08:26 | Outpatient (REF) | payer OTHER, SELFPAY ==
[2023-05-28 12:26] LABS: Alanine Aminotransferase 47 U/L (0-31); Albumin Level 4.3 g/dL (3.5-5.0); Alkaline Phosphatase 105 U/L (39-117); Anion Gap 12 (12-20); Aspartate Amino Transferase 25 U/L (5-31); Bilirubin Total 0.4 mg/dL (0.0-1.0); Blood Urea Nitrogen 13 mg/dL (9-16); Calcium 8.9 mg/dL (8.4-10.2); Carbon Dioxide 27 mmol/L (22-29); Chloride 103 mmol/L (96-108); Estimated Glomerular Filt Rate > 60; Glucose Random 131 mg/dL (60-115); Lipase 26 U/L (8-78); Potassium 4.2 mmol/L (3.3-5.1); Sodium 138 mmol/L (135-145); Total Protein 7.6 g/dL (6.5-8.0)
== END 2023-05-28 08:27 | disposition home or self-care (01) ==
LOC: HO.HHCL 08:26
PROVIDERS: Visit Provider Student in an Organized Health Care Education/Training Program
DX: R10.13 Epigastric pain (principal); K21.9 Gastro-esophageal reflux disease without esophagitis; K59.1 Functional diarrhea; K59.01 Slow transit constipation; R14.0 Abdominal distension (gaseous)
CPT/HCPCS: 36415; 80053; 83690; 99202

== ENCOUNTER 2023-05-28 13:05 | Outpatient (AMB) | payer OTHER, SELFPAY ==
[2023-05-28 13:15] VITALS: BP 135/62; PULSE 72; BMI 39.3
--- NOTE | 2023-05-28 13:15 | MHC.OFFVIS ---
Intake Vital Signs 05/28/23 13:15 Height 5 ft 5 in Weight 235 lb 14.314 oz BMI 39.3 BP 135/62 Blood Pressure Location Lt brachial Position Sitting Pulse 72 Intake Visit Reasons: Colonoscopy screening Intake Note: Patient presents to in office visit today as a new patient for colonoscopy screening. CC: Patient c/o epigastric pain worst for the last 3 weeks, nausea, vomiting, acid reflux, and heartburn. She sates she had a colonoscopy done in the past but does not recalls when or where. 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 Patient reports symptoms of abdominal bloating, occasional diarrhea then constipation. Nausea and occasional vomiting for almost year or so. Currently taking PPI and H2 rolando. Ultrasound from 2022 did not show any acute processes except for hepatic steatosis. Liver enzymes and lipase normal, however minimally elevated ALT. Patient was sent by PCP for evaluation of symptoms and by her OBGYN for colonoscopy. Patient had diagnostic colonoscopy in 2011 for right lower quadrant pain that was normal. Patient is due to go for colorectal screening due to her age. Denies any melena, hematochezia, unintentional weight loss or ribbon like stools. Denies any family history of CRC. Patient does admit to family history of gastric CA. patient reports postprandial abdominal bloating. Reports that she will have frequent loose stools throughout the day and then will be constipated for couple days. Patient reports occasional epigastric pain with dyspepsia without dysphagia or odynophagia. Currently taking omeprazole in the morning and famotidine twice a day. [facility] Medical History (Updated 05/28/23 @ 14:12 by DEBBIE Vila) GERD (gastroesophageal reflux disease) History of COVID-19 delivery delivered Migraine HTN (hypertension) Surgical History H/O colonoscopy Hx of section Family History Maternal Grandfather Stomach cancer Social History Household Members Other:: daughter Housing: Apartment Alcohol intake: never Patient Tobacco Use Status: Never used Tobacco Second Hand Smoke Exposure: No Current occupational status: employed Current occupation: [employer] Sexual orientation: Straight/Heterosexual Gender identity: Female Review of Systems Const Denies weight gain and Denies weight loss ENT Reports no additional complaints, Denies dysphagia and Denies odynophagia Card Reports no additional complaints Resp Reports no additional complaints GI Reports abdominal pain (Epigastric), Denies belching, Denies melena, Reports bloating, Denies change in bowel habits, Denies dysphagia, Denies excessive flatus, Reports dyspepsia, Reports heartburn, Denies diarrhea, Reports loose stools, Reports nausea, Denies odynophagia and Reports vomiting Reports no additional complaints Musc Reports no additional complaints Neuro Reports no additional complaints Psych Reports no additional complaints Endo Reports no additional complaints Physical Exam Vital Signs: Last Vital Signs Pulse 72 05/28/23 13:15 BP 135/62 05/28/23 13:15 BMI result Body Mass Index 39.3 Const General: healthy appearing, no acute distress and well developed Nutritional Appearance: obese Orientation/consciousness: patient oriented x3 Resp Effort & Inspection: normal respiratory effort, able to speak in complete sentences, no tracheal deviation and symmetric chest movement Auscultation: clear to auscultation bilaterally Cardio Rate: regular rate GI Inspection: Yes normal to inspection, No distended and Yes obesity Palpation (GI): Soft to palpation, not firm, nontender and No hepatosplenomegaly present Auscultation: normal bowel sounds General: Yes no CVA tenderness Back/Spine/Pelvis Back: no CVA tenderness Skin General skin exam: elasticity normal, turgor normal and dry skin Neuro General: patient oriented x3 Psych Appearance: grossly normal Mental Status: mental status grossly normal Assessment & Plan Assessment & Plan (1) GERD (gastroesophageal reflux disease): Code(s): K21.9 - Gastro-esophageal reflux disease without esophagitis Qualifiers: Esophagitis presence: esophagitis presence not specified Qualified Code(s): K21.9 - Gastro-esophageal reflux disease without esophagitis (2) Diarrhea: Code(s): R19.7 - Diarrhea, unspecified Qualifiers: Diarrhea type: functional diarrhea Qualified Code(s): K59.1 - Functional diarrhea (3) Constipation: Code(s): K59.00 - Constipation, unspecified Qualifiers: Constipation type: slow transit constipation Qualified Code(s): K59.01 - Slow transit constipation (4) Postprandial epigastric pain: Code(s): R10.13 - Epigastric pain (5) Abdominal bloating: Code(s): R14.0 - Abdominal distension (gaseous) (6) Dyspepsia: Code(s): R10.13 - Epigastric pain Plan Patient will continue current treatment with H 2 rolando and PPI as she reports that it has been helpful. Discussed with patient avoiding dietary triggers and late night snacking. Staying upright for minimum 3 hours after meals discussed with patient. Will send patient for H pylori testing and will treat empirically if positive. Patient will be sent for upper endoscopy in your future. Patient is currently constipated with occasional loose stools postprandially most likely due to constipation. Incomplete emptying. Will help her bulk stools with fiber and she can use senna in the evening to help her eliminate her bowels better. Will send for vitamin B12, folate, vitamin-D level. Will check CRP, will hold off on ordering fecal calprotectin for now. I believe that her symptoms of postprandial loose stools are related to the food that she eats. We discussed trying low FODMAP diet. List of food recommended as well as list of food to avoid given to patient. I will see patient in 2 months to re-evaluate. We will discuss then upper endoscopy and colonoscopy. Patient is agreeable to this plan and verbalizes understanding of instructions. She was given the opportunity to ask questions and all questions answered. Thank you for allowing me to participate in her care Orders: Orders H pylori Ag Stool Today K21.9 - Gastro-esophageal reflux disease without esophagitis Pancreatic Elastase-1 Today R10.9 - Unspecified abdominal pain Vitamin D 25-OH (D2 and D3) Today E55.9 - Vitamin D deficiency, unspecified TSH reflex Free T4 Today K59.00 - Constipation, unspecified Complete Blood Count no Diff Today K21.9 - Gastro-esophageal reflux disease without esophagitis Vitamin B12 and Folate Today R19.7 - Diarrhea, unspecified Hemoglobin A1c Today E11.9 - Type 2 diabetes mellitus without complications C Reactive Protein Today K58.9 - Irritable bowel syndrome without diarrhea Medications: New methylcellulose (laxative) (Citrucel) 500 mg PO DAILY 30 tabs 2RF K59.00 - Constipation, unspecified sennosides (Natural Senna Laxative) 17.2 mg (2 x 8.6 mg) PO BEDTIME 60 tabs 3RF constipation K59.00 - Constipation, unspecified Coding Level of Care Code New Pt Level 4 (26335) Diagnoses Gastroesophageal reflux disease, unspecified whether esophagitis present K21.9 Esophagitis presence: esophagitis presence not specified Functional diarrhea K59.1 Diarrhea type: functional diarrhea Slow transit constipation K59.01 Constipation type: slow transit constipation Postprandial epigastric pain R10.13 Abdominal bloating R14.0 Dyspepsia R10.13 Time Spent (min) 45 Comment 30 minutes spent with patient and additional 15 minutes spent reviewing her records
== END 2023-05-28 14:23 | disposition home or self-care (01) ==
PROVIDERS: PCP Family Medicine; Visit Provider Nurse Practitioner Family
DX: K21.9 Gastro-esophageal reflux disease without esophagitis (principal); K59.1 Functional diarrhea; K59.01 Slow transit constipation; R10.13 Epigastric pain; R14.0 Abdominal distension (gaseous)
CPT/HCPCS: 99204

== ENCOUNTER 2023-05-28 14:07 | Outpatient (REF) | payer OTHER, SELFPAY ==
[2023-05-28 15:12] LABS: Hematocrit 43.6 % (37.0-47.0); Hemoglobin 14.1 g/dl (12.0-16.0); Mean Corpuscular HGB Conc 32.3 g/dl (31.0-35.0); Mean Corpuscular Hemoglobin 30.6 pg (27.0-33.0); Mean Corpuscular Volume 94.6 fL (80.0-98.0); Mean Platelet Volume 11.9 fL (9.4-12.3); Platelet Count 231 X10*3/uL (160-400); Red Blood Count 4.61 X10*6/uL (4.20-5.50); Red Cell Distribution Width 13.9 % (11.0-16.0); White Blood Count 7.8 X10*3/uL (4.8-10.8)
[2023-05-28 16:03] LABS: Estimated Average Glucose 131 mg/dL; Hemoglobin A1c % 6.2 % (<6.0)
[2023-05-28 16:08] LABS: C Reactive Protein 0.26 mg/dL (< or = 0.50)
[2023-05-28 16:39] LABS: Vitamin B12 306 pg/mL (200-900)
[2023-06-01 14:02] LABS: Vitamin D 25-OH, D2 <4 ng/mL; Vitamin D 25-OH, D3 7 ng/mL; Vitamin D 25-OH, Total 7 ng/mL (30-100)
== END 2023-05-28 14:08 | disposition home or self-care (01) ==
LOC: HO.LAB 14:07
PROVIDERS: PCP Family Medicine; Visit Provider Nurse Practitioner Family
DX: K21.9 Gastro-esophageal reflux disease without esophagitis (principal); R10.13 Epigastric pain; E11.9 Type 2 diabetes mellitus without complications; E55.9 Vitamin D deficiency, unspecified; K58.0 Irritable bowel syndrome with diarrhea; K58.1 Irritable bowel syndrome with constipation
CPT/HCPCS: 36415; 82306; 82607; 82746; 83036; 84443; 85027; 86140

== ENCOUNTER 2023-07-23 12:01 | Outpatient (REF) | payer OTHER, SELFPAY ==
--- NOTE | ~2023-07-23 | XR_ITS ---
EXAMINATION: XR HAND, RIGHT CLINICAL INFORMATION: Polyarthralgia. COMPARISON: Radiographs dated 09/26/2020. TECHNIQUE: PA, lateral, and oblique views of the right hand. FINDINGS: Bony alignment and mineralization are normal. There is moderately severe arthrosis of the interphalangeal joint of the thumb. There is narrowing of the second through fifth distal interphalangeal joints, with peripheral osteophyte formation. There are central erosions of the second and fourth distal interphalangeal joints. There is mild degenerative change of the fifth proximal interphalangeal joint. Minimal degenerative change is seen of the second through fourth metacarpophalangeal joints. There is mild degenerative change of the first carpometacarpal joint. The proximal and distal carpal rows are intact. No fracture or dislocation is seen. There is no focal soft tissue swelling, gas or foreign body. XR/XR hand RT min 3V IMPRESSION: There are arthritic changes of the fingers and first carpometacarpal joint, as detailed. Central erosions of the second and fourth distal interphalangeal joints raise the possibility of erosive osteoarthritis, rheumatoid arthritis, psoriasis, Zelda's syndrome and gout. No fracture or dislocation is seen EXAMINATION: XR HAND, LEFT CLINICAL INFORMATION: Polyarthralgia. COMPARISON: Radiographs dated 09/26/2020. TECHNIQUE: PA, lateral, and oblique views of the left hand. FINDINGS: Bony alignment and mineralization are normal. There is moderate arthrosis of the interphalangeal joint of the thumb. There is moderate to marked arthritic change of the second through fifth distal interphalangeal joints, with central erosions of the second and fifth distal interphalangeal joints. No fracture or dislocation is seen. The proximal and distal carpal rows are intact. No focal soft tissue swelling, gas or foreign body is seen. IMPRESSION: There are arthritic changes of the fingers, as detailed. As with the contralateral side, central erosions of the fourth and fifth distal interphalangeal joints raises the possibility of erosive osteoarthritis, rheumatoid arthritis, psoriasis, Zelda's syndrome and gout. No fracture or dislocation is seen.
--- NOTE | ~2023-07-23 | XR_ITS ---
EXAMINATION: XR FOOT, RIGHT CLINICAL INFORMATION: Heel pain. COMPARISON: None available. TECHNIQUE: AP, lateral, and oblique views of the right foot. FINDINGS: Bony alignment and mineralization are normal. No fracture, dislocation or right ankle joint effusion is seen. Boehler's angle is normal. There are large posterior and plantar calcaneal spurs. There is mild bunionette formation of the fifth metatarsal head. No focal soft tissue swelling, gas or foreign body is seen. XR/XR foot LT min 3V IMPRESSION: 1. No fracture, dislocation or right ankle joint effusion is seen. 2. There are large posterior and plantar calcaneal spurs. EXAMINATION: XR FOOT, LEFT CLINICAL INFORMATION: Heel pain COMPARISON: None available. TECHNIQUE: AP, lateral, and oblique views of the left foot. FINDINGS: Bony alignment and mineralization are normal. No fracture, dislocation or left ankle joint effusion is seen. Boehler's angle is normal. There are large posterior and plantar calcaneal spurs. There is mild bunionette formation of the fifth metatarsal head. No focal soft tissue swelling, gas or foreign body is seen. IMPRESSION: 1. No fracture, dislocation or left ankle joint effusion is seen. 2. There are large posterior and plantar calcaneal spurs. 3. There is mild bunionette formation.
--- NOTE | ~2023-07-23 | XR_ITS ---
EXAMINATION: XR SHOULDER, RIGHT CLINICAL INFORMATION: Pain. COMPARISON: None available. TECHNIQUE: AP external rotation, Grashey, scapular Y, and axillary views of the right shoulder. FINDINGS: The bones and soft tissues are normal. No fracture. Glenohumeral and acromioclavicular alignment is anatomic with normal joint space. No abnormal soft tissue calcifications. XR/XR shoulder RT min 2V IMPRESSION: Normal right shoulder. EXAMINATION: XR SHOULDER, LEFT CLINICAL INFORMATION: Pain. COMPARISON: None available. TECHNIQUE: AP external rotation, Grashey, scapular Y, and axillary views of the left shoulder. FINDINGS: The bones and soft tissues are normal. No fracture. Glenohumeral and acromioclavicular alignment is anatomic with normal joint space. No abnormal soft tissue calcifications. IMPRESSION: Normal left shoulder.
--- NOTE | ~2023-07-23 | XR_ITS ---
EXAMINATION: XR SHOULDER, RIGHT CLINICAL INFORMATION: Pain. COMPARISON: None available. TECHNIQUE: AP external rotation, Grashey, scapular Y, and axillary views of the right shoulder. FINDINGS: The bones and soft tissues are normal. No fracture. Glenohumeral and acromioclavicular alignment is anatomic with normal joint space. No abnormal soft tissue calcifications. XR/XR shoulder LT min 2V IMPRESSION: Normal right shoulder. EXAMINATION: XR SHOULDER, LEFT CLINICAL INFORMATION: Pain. COMPARISON: None available. TECHNIQUE: AP external rotation, Grashey, scapular Y, and axillary views of the left shoulder. FINDINGS: The bones and soft tissues are normal. No fracture. Glenohumeral and acromioclavicular alignment is anatomic with normal joint space. No abnormal soft tissue calcifications. IMPRESSION: Normal left shoulder.
--- NOTE | ~2023-07-23 | XR_ITS ---
EXAMINATION: XR FOOT, RIGHT CLINICAL INFORMATION: Heel pain. COMPARISON: None available. TECHNIQUE: AP, lateral, and oblique views of the right foot. FINDINGS: Bony alignment and mineralization are normal. No fracture, dislocation or right ankle joint effusion is seen. Boehler's angle is normal. There are large posterior and plantar calcaneal spurs. There is mild bunionette formation of the fifth metatarsal head. No focal soft tissue swelling, gas or foreign body is seen. XR/XR foot RT min 3V IMPRESSION: 1. No fracture, dislocation or right ankle joint effusion is seen. 2. There are large posterior and plantar calcaneal spurs. EXAMINATION: XR FOOT, LEFT CLINICAL INFORMATION: Heel pain COMPARISON: None available. TECHNIQUE: AP, lateral, and oblique views of the left foot. FINDINGS: Bony alignment and mineralization are normal. No fracture, dislocation or left ankle joint effusion is seen. Boehler's angle is normal. There are large posterior and plantar calcaneal spurs. There is mild bunionette formation of the fifth metatarsal head. No focal soft tissue swelling, gas or foreign body is seen. IMPRESSION: 1. No fracture, dislocation or left ankle joint effusion is seen. 2. There are large posterior and plantar calcaneal spurs. 3. There is mild bunionette formation.
== END 2023-07-23 12:02 | disposition home or self-care (01) ==
LOC: HO.HHCX 12:01
PROVIDERS: Visit Provider Family Medicine
DX: M25.50 Pain in unspecified joint (principal); M79.671 Pain in right foot; M79.672 Pain in left foot
CPT/HCPCS: 73030; 73130; 73630

== ENCOUNTER 2023-07-28 16:14 | Outpatient (AMB) | payer OTHER, SELFPAY ==
[2023-07-28 16:20] VITALS: BP 131/61; PULSE 84; BMI 39.4
--- NOTE | 2023-07-28 16:20 | MHC.OFFVIS ---
Intake Vital Signs 07/28/23 16:20 Height 5 ft 5 in Weight 237 lb BMI 39.4 BP 131/61 Blood Pressure Location Lt brachial Position Sitting Pulse 84 Intake Visit Reasons: 2 month follow up discuss EGD / Elizabeth Intake Note: Patient returns in 2 month follow up of labs and to discuss EGD and colonoscopy. CC: Patient reports that she was not able to do stool test because she had to go to [place] and forgot to do it. She states that since the Omeprazole was increased to 40 mg epigastric pain has improved. 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 Discussed with patient avoiding dietary triggers and late night snacking. Staying upright for minimum 3 hours after meals discussed with patient. Will send patient for H pylori testing and will treat empirically if positive. Patient will be sent for upper endoscopy in your future. Patient is currently constipated with occasional loose stools postprandially most likely due to constipation. Incomplete emptying. Will help her bulk stools with fiber and she can use senna in the evening to help her eliminate her bowels better. Will send for vitamin B12, folate, vitamin-D level. Will check CRP, will hold off on ordering fecal calprotectin for now. I believe that her symptoms of postprandial loose stools are related to the food that she eats. We discussed trying low FODMAP diet. List of food recommended as well as list of food to avoid given to patient. I will see patient in 2 months to re-evaluate. We will discuss then upper endoscopy and colonoscopy. Patient is agreeable to this plan and verbalizes understanding of instructions. She was given the opportunity to ask questions and all questions answered. ? Thank you for allowing me to participate in her care Orders Orders H pylori Ag Stool Today K21.9 Pancreatic Elastase-1 Today R10.9 Vitamin D 25-OH (D2 and D3) Today E55.9 TSH reflex Free T4 Today K59.00 Complete Blood Count no Diff Today K21.9 Vitamin B12 and Folate Today R19.7 Hemoglobin A1c Today E11.9 C Reactive Protein Today K58.9 Medications New methylcellulose (laxative) (Citrucel) 500 mg PO DAILY 30 tabs 2RF K59.00 sennosides (Natural Senna Laxative) 17.2 mg (2 x 8.6 mg) PO BEDTIME 60 tabs 3RF constipation K59.00 TODAY'S VISIT Patient is here today for follow-up and to discuss lab results. Patient was unable to do stool study as she went to [place] and when she got back she forgot. Patient will do it within the next couple weeks. Patient's lab work was all normal except for very low vitamin-D level. Patient was given weekly regimen for the next 3 months and we will recheck levels again. Patient reports that she has been doing well since she started taking higher dose of omeprazole. Patient reports that she is moving her bowels better. Is taking Citrucel and senna and no longer has constipation or diarrhea. Patient denies melena, hematochezia, unintentional weight loss or ribbon like stools. Patient denies dyspepsia, dysphagia or odynophagia. Patient denies any other GI concerning symptoms. [facility] Medical History GERD (gastroesophageal reflux disease) History of COVID-19 delivery delivered Migraine HTN (hypertension) Surgical History H/O colonoscopy Hx of section Family History Maternal Grandfather Stomach cancer Social History Household Members Other:: daughter Housing: Apartment Alcohol intake: never Patient Tobacco Use Status: Never used Tobacco Second Hand Smoke Exposure: No Current occupational status: employed Current occupation: [employer] Sexual orientation: Straight/Heterosexual Gender identity: Female Review of Systems Const Denies weight gain and Denies weight loss ENT Reports no additional complaints, Denies dysphagia and Denies odynophagia Card Reports no additional complaints Resp Reports no additional complaints GI Denies abdominal pain, Denies belching, Denies melena, Denies bloating, Denies change in bowel habits, Denies dysphagia, Denies excessive flatus, Denies dyspepsia, Denies heartburn, Denies diarrhea, Denies loose stools, Denies nausea, Denies odynophagia and Denies vomiting Reports no additional complaints Musc Reports no additional complaints Neuro Reports no additional complaints Psych Reports no additional complaints Endo Reports no additional complaints Physical Exam Vital Signs: Last Vital Signs Pulse 84 07/28/23 16:20 BP 131/61 07/28/23 16:20 BMI result Body Mass Index 39.4 Const General: healthy appearing and no acute distress Nutritional Appearance: obese Orientation/consciousness: patient oriented x3 Resp Effort & Inspection: normal respiratory effort, able to speak in complete sentences, no tracheal deviation and symmetric chest movement Auscultation: clear to auscultation bilaterally Cardio Rate: regular rate GI Inspection: Yes normal to inspection, No distended and Yes obesity Palpation (GI): Soft to palpation, not firm, nontender and No hepatosplenomegaly present Auscultation: normal bowel sounds General: Yes no CVA tenderness Back/Spine/Pelvis Back: no CVA tenderness Skin General skin exam: elasticity normal, turgor normal and dry skin Neuro General: patient oriented x3 Psych Appearance: grossly normal Mental Status: mental status grossly normal Assessment & Plan Assessment & Plan (1) GERD (gastroesophageal reflux disease): Code(s): K21.9 - Gastro-esophageal reflux disease without esophagitis Qualifiers: Esophagitis presence: esophagitis presence not specified Qualified Code(s): K21.9 - Gastro-esophageal reflux disease without esophagitis (2) Diarrhea: Code(s): R19.7 - Diarrhea, unspecified (3) Constipation: Code(s): K59.00 - Constipation, unspecified (4) Postprandial epigastric pain: Code(s): R10.13 - Epigastric pain (5) Abdominal bloating: Code(s): R14.0 - Abdominal distension (gaseous) (6) Dyspepsia: Code(s): R10.13 - Epigastric pain (7) Hepatic steatosis: Code(s): K76.0 - Fatty (change of) liver, not elsewhere classified (8) Transaminitis: Code(s): R74.01 - Elevation of levels of liver transaminase levels Plan Patient can continue taking omeprazole in the morning and take famotidine at bedtime. Patient can continue taking Citrucel and senna. Transaminitis found on labs from May. Upon reviewing her records ultrasound from September of 2022 show increase echogenicity of the liver possible hepatic steatosis. Will send patient for liver ultrasound with elastography. Discussed with patient low-fat, high-protein diet. Discussed with patient avoiding dietary triggers and late night snacking. Staying upright for minimum 3 hours after meals discussed with patient. Patient will return in 6 weeks so we can discuss going for colonoscopy and possible upper endoscopy. Patient is agreeable to this plan and verbalizes understanding of instructions. She was given the opportunity to ask questions and all questions answered. Thank you for allowing me to participate in her care Orders: Orders US abdomen verdugo w elastography 07/28/23 R74.01 - Elevation of levels of liver transaminase levels Medications: Changed From famotidine 20 mg PO BID To famotidine 20 mg PO BEDTIME 30 tabs 3RF Refilled omeprazole 40 mg PO DAILY 30 caps 3RF methylcellulose (laxative) (Citrucel) 500 mg PO DAILY 30 tabs 2RF K59.00 - Constipation, unspecified Coding Level of Care Code Est Pt Level 4 (38151) Diagnoses Gastroesophageal reflux disease, unspecified whether esophagitis present K21.9 Esophagitis presence: esophagitis presence not specified Diarrhea R19.7 Constipation K59.00 Postprandial epigastric pain R10.13 Abdominal bloating R14.0 Dyspepsia R10.13 Hepatic steatosis K76.0 Transaminitis R74.01 Time Spent (min) 35 Comment 20 minutes spent with patient and additional 15 minutes spent reviewing her records
== END 2023-07-28 16:44 | disposition home or self-care (01) ==
PROVIDERS: PCP Family Medicine; Visit Provider Nurse Practitioner Family
DX: K21.9 Gastro-esophageal reflux disease without esophagitis (principal); R19.7 Diarrhea, unspecified; K59.00 Constipation, unspecified; R10.13 Epigastric pain; R14.0 Abdominal distension (gaseous); K76.0 Fatty (change of) liver, not elsewhere classified; R74.01 Elevation of levels of liver transaminase levels
CPT/HCPCS: 99214

== ENCOUNTER → 2023-07-28 16:14 | Outpatient (BNVA) | payer OTHER, SELFPAY | PROVIDERS: PCP Family Medicine; Visit Provider Nurse Practitioner Family | DX: K21.9 Gastro-esophageal reflux disease without esophagitis (principal); R19.7 Diarrhea, unspecified; K59.00 Constipation, unspecified; R10.13 Epigastric pain; R14.0 Abdominal distension (gaseous); K76.0 Fatty (change of) liver, not elsewhere classified; R74.01 Elevation of levels of liver transaminase levels | CPT/HCPCS: 99212 ==

== ENCOUNTER 2023-08-16 | Outpatient (REF) | payer OTHER, SELFPAY ==
[2023-08-24 15:08] LABS: Pancreatic Elastase-1 >500 mcg/g
== END 2023-08-16 00:01 | disposition home or self-care (01) ==
LOC: HO.LNP
PROVIDERS: Visit Provider Nurse Practitioner Family
DX: R10.9 Unspecified abdominal pain (principal); K21.9 Gastro-esophageal reflux disease without esophagitis
CPT/HCPCS: 82656; 87338

== ENCOUNTER 2023-08-17 09:01 | Outpatient (REF) | payer OTHER, SELFPAY ==
--- NOTE | ~2023-08-17 | US_ITS ---
EXAMINATION: US ABDOMEN LIMITED WITH LIVER ELASTOGRAPHY CLINICAL INFORMATION: Elevated liver transaminases. COMPARISON: None available. TECHNIQUE: Real-time imaging of the abdominal viscera. Noninvasive ultrasound liver fibrosis assessment is performed using Raphael ElastPQ point quantification shear wave elastography (2D-SWE) with a C5-2 MHz transducer. Multiple elastography samples are obtained. FINDINGS: PANCREAS: Normal. The visualized pancreatic head and body are normal in appearance. The remainder of the pancreas is obscured from visualization by the overlying bowel gas. LIVER: The liver is enlarged and hyperechoic, consistent with hepatic steatosis. No focal lesion or intrahepatic biliary duct dilatation. The right lobe measures 20.7 cm in length. The left lobe measures 12.2 cm in length. Portal flow is towards the liver (hepatopetal). Shear wave liver elastography median stiffness is 1.3 m/s (reference: normal median stiffness is 1.3 m/s or less). IQR/median stiffness to assess sampling precision is 0.08 (reference: good quality data set is IQR/median stiffness of 0.15 or less). GALLBLADDER: Normal. The gallbladder is physiologically distended without evidence of stones, sludge, polyps, wall thickening or pericholecystic fluid. COMMON BILE DUCT: Normal in caliber measuring 0.4 cm in diameter. RIGHT KIDNEY: Normal. No hydronephrosis. No renal calculi or focal parenchymal lesions. The kidney measures 10.4 cm in maximum dimension. FREE FLUID: None. US/US abdomen verdugo w elastography IMPRESSION: Liver elastography: In the absence of other known clinical signs, measurements rule out compensated advanced chronic liver disease. If there are known clinical signs, further testing may be needed for confirmation. REFERENCE: Society of Radiologists in Ultrasound Liver Stiffness Thresholds (2020): LIVER STIFFNESS THRESHOLDS: *Liver Stiffness equal or less than 1.3 m/s: High probability of being normal. *Liver Stiffness less than 1.7 m/s: In the absence of other known clinical signs, rules out compensated advanced chronic liver disease. *Liver Stiffness 1.7-2.1 m/s: Suggestive of compensated advanced chronic liver disease but need further test for confirmation. *Liver Stiffness over 2.1 m/s: Rules in compensated advanced chronic liver disease. *Liver Stiffness over 2.4 m/s: Suggestive of clinically significant portal hypertension. QUALITY OF DATA SET: *IQR/Median value equal or less than 0.15 implies a quality data set. *IQR/Median value over 0.15 implies a poor quality data set. SIGNIFICANT CHANGE FROM PRIOR EXAM: Significant change if liver stiffness measurement is 10% or greater from prior exam. OTHER CONSIDERATIONS: The stage of liver fibrosis may be overestimated in the setting of acute hepatitis, liver inflammation, elevated liver function tests, hepatic vascular congestion, obstructive cholestasis, non-fasting state, and infiltrative diseases such as amyloidosis and lymphoma. In some patients with NAFLD, the liver stiffness thresholds for compensated advanced chronic liver disease may be lower. In causes other than viral hepatitis and NAFLD, liver stiffness thresholds are not well established.
== END 2023-08-17 09:02 | disposition home or self-care (01) ==
LOC: HO.US 09:01
PROVIDERS: PCP Family Medicine; Visit Provider Nurse Practitioner Family
DX: R74.01 Elevation of levels of liver transaminase levels (principal); R10.9 Unspecified abdominal pain; K21.9 Gastro-esophageal reflux disease without esophagitis; Z12.31 Encounter for screening mammogram for malignant neoplasm of breast
CPT/HCPCS: 76705; 76981; 77063; 77067

== ENCOUNTER → 2023-08-17 16:15 | Outpatient (BNV) | payer OTHER, SELFPAY | PROVIDERS: PCP Family Medicine; Visit Provider Radiology Diagnostic Radiology | DX: Z12.31 Encounter for screening mammogram for malignant neoplasm of breast (principal) | CPT/HCPCS: 77063; 77067 ==

== ENCOUNTER 2023-09-08 15:02 | Outpatient (AMB) | payer OTHER, SELFPAY ==
--- NOTE | 2023-09-08 15:09 | MHC.OFFVIS ---
Vital Signs 09/08/23 15:11 Height 5 ft 5 in Weight 242 lb 8.136 oz BMI 40.4 BP 128/61 Blood Pressure Location Lt brachial Position Sitting Pulse 81 Intake Visit Reasons: 6 week follow up Intake Note: Annabelle presents in the office as a 6 week follow up. 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 Since she has not started medications she feels the same as she did 6 weeks ago. Collections Manager Required: Yes Collections Manager Name: [id number] Allergies Penicillins [PENICILLINS] Allergy (Unknown, Verified 09/08/23 15:10) Unknown HPI HPI 6 week follow up: Details: LAST VISIT: GERD (gastroesophageal reflux disease) Diarrhea Constipation Postprandial epigastric pain Abdominal bloating Dyspepsia Hepatic steatosis Transaminitis Plan Patient can continue taking omeprazole in the morning and take famotidine at bedtime. Patient can continue taking Citrucel and senna. Transaminitis found on labs from May. Upon reviewing her records ultrasound from September of 2022 show increase echogenicity of the liver possible hepatic steatosis. Will send patient for liver ultrasound with elastography. Discussed with patient low-fat, high-protein diet. Discussed with patient avoiding dietary triggers and late night snacking. Staying upright for minimum 3 hours after meals discussed with patient. Patient will return in 6 weeks so we can discuss going for colonoscopy and possible upper endoscopy. Patient is agreeable to this plan and verbalizes understanding of instructions. She was given the opportunity to ask questions and all questions answered. ? Thank you for allowing me to participate in her care Orders Orders US abdomen verdugo w elastography 07/28/23 R74.01 Medications Changed Changed From famotidine 20 mg PO BID Changed To famotidine 20 mg PO BEDTIME 30 tabs 3RF Refilled omeprazole 40 mg PO DAILY 30 caps 3RF methylcellulose (laxative) (Citrucel) 500 mg PO DAILY 30 tabs 2RF K59.00 TODAY'S VISIT Patient is here today for follow-up. Patient reports that famotidine was not approved by insurance and she was not able to get it. Patient states that she is taking omeprazole, however she continues to have reflux. Patient is trying to avoid dietary triggers. Does not eat late at night. Patient does report that her bowels are better. She is no longer constipated or have diarrhea. Patient denies any melena, hematochezia, unintentional weight loss or ribbon like stools. Patient denies any dyspepsia, dysphagia or odynophagia. Last colonoscopy was done in 2011. Patient reports dyspepsia without dysphagia or odynophagia. Patient reports that she is eating better. Liver enzymes improved. Abdominal ultrasound with elastography shows Liver stiffness 1.3, no lesions, increased echogenicity suggesting hepatic steatosis PFSH Medical History GERD (gastroesophageal reflux disease) History of COVID-19 delivery delivered Migraine HTN (hypertension) Surgical History H/O colonoscopy Hx of section Family History Maternal Grandfather Stomach cancer Social History Household Members Other:: daughter Housing: Apartment Alcohol intake: never Patient Tobacco Use Status: Never used Tobacco Second Hand Smoke Exposure: No Current occupational status: employed Current occupation: [employer] Sexual orientation: Straight/Heterosexual Gender identity: Female Review of Systems Const Denies weight gain and Denies weight loss ENT Reports no additional complaints, Denies dysphagia and Denies odynophagia Card Reports no additional complaints Resp Reports no additional complaints GI Reports abdominal pain (Epigastric), Denies belching, Denies melena, Reports bloating, Denies change in bowel habits, Denies dysphagia, Denies excessive flatus, Reports dyspepsia, Reports heartburn, Denies diarrhea, Denies loose stools, Denies nausea, Denies odynophagia and Denies vomiting Reports no additional complaints Musc Reports no additional complaints Neuro Reports no additional complaints Psych Reports no additional complaints Endo Reports no additional complaints Physical Exam Vital Signs: Last Vital Signs Pulse 81 09/08/23 15:11 BP 128/61 09/08/23 15:11 BMI result Body Mass Index 40.4 Const General: healthy appearing and no acute distress Nutritional Appearance: obese Orientation/consciousness: patient oriented x3 Resp Effort & Inspection: normal respiratory effort, able to speak in complete sentences, no tracheal deviation and symmetric chest movement Auscultation: clear to auscultation bilaterally Cardio Rate: regular rate GI Inspection: Yes normal to inspection, No distended and Yes obesity Palpation (GI): Soft to palpation, not firm, nontender and No hepatosplenomegaly present Auscultation: normal bowel sounds General: Yes no CVA tenderness Back/Spine/Pelvis Back: no CVA tenderness Skin General skin exam: elasticity normal, turgor normal and dry skin Neuro General: patient oriented x3 Psych Appearance: grossly normal Mental Status: mental status grossly normal Results Reviewed Results Reviewed: Laboratory Tests 05/28/23 05/28/23 08/16/23 08:30 14:25 16:16 RBC 4.61 Hgb 14.1 Hct 43.6 Estimat Average Glucose 131 Hemoglobin A1c % 6.2 H Total Bilirubin 0.4 AST 25 ALT 47 H Alkaline Phosphatase 105 C-Reactive Protein 0.26 Vitamin B12 306 Folate 8.0 TSH 2.20 Stool Pancreat Elastase >500 LIVER ELASTOGRAPHY 08/17/2023 FINDINGS: PANCREAS: Normal. The visualized pancreatic head and body are normal in appearance. The remainder of the pancreas is obscured from visualization by the overlying bowel gas. LIVER: The liver is enlarged and hyperechoic, consistent with hepatic steatosis. No focal lesion or intrahepatic biliary duct dilatation. The right lobe measures 20.7 cm in length. The left lobe measures 12.2 cm in length. Portal flow is towards the liver (hepatopetal). Shear wave liver elastography median stiffness is 1.3 m/s (reference: normal median stiffness is 1.3 m/s or less). IQR/median stiffness to assess sampling precision is 0.08 (reference: good quality data set is IQR/median stiffness of 0.15 or less). GALLBLADDER: Normal. The gallbladder is physiologically distended without evidence of stones, sludge, polyps, wall thickening or pericholecystic fluid. COMMON BILE DUCT: Normal in caliber measuring 0.4 cm in diameter. RIGHT KIDNEY: Normal. No hydronephrosis. No renal calculi or focal parenchymal lesions. The kidney measures 10.4 cm in maximum dimension. FREE FLUID: None. US/US abdomen verdugo w elastography IMPRESSION: Liver elastography: In the absence of other known clinical signs, measurements rule out compensated advanced chronic liver disease. If there are known clinical signs, further testing may be needed for confirmation. Assessment & Plan Assessment & Plan (1) GERD (gastroesophageal reflux disease): Code(s): K21.9 - Gastro-esophageal reflux disease without esophagitis Category: Medical Qualifiers: Esophagitis presence: esophagitis presence not specified Qualified Code(s): K21.9 - Gastro-esophageal reflux disease without esophagitis (2) Diarrhea: Code(s): R19.7 - Diarrhea, unspecified Qualifiers: Diarrhea type: functional diarrhea Qualified Code(s): K59.1 - Functional diarrhea (3) Constipation: Code(s): K59.00 - Constipation, unspecified Qualifiers: Constipation type: slow transit constipation Qualified Code(s): K59.01 - Slow transit constipation (4) Postprandial epigastric pain: Code(s): R10.13 - Epigastric pain (5) Abdominal bloating: Code(s): R14.0 - Abdominal distension (gaseous) (6) Dyspepsia: Code(s): R10.13 - Epigastric pain (7) Hepatic steatosis: Code(s): K76.0 - Fatty (change of) liver, not elsewhere classified (8) Transaminitis: Code(s): R74.01 - Elevation of levels of liver transaminase levels (9) Screen for colon cancer: Code(s): Z12.11 - Encounter for screening for malignant neoplasm of colon Plan Will change PPI to esomeprazole, Pepcid 40 mg at bedtime. Avoid dietary triggers and late night snacking. Staying upright for minimum 3 hours after meals discussed with patient. Patient will return in 3 months to discuss colonoscopy. Colonoscopy will be booked, message sent to surgical schedulers to book colonoscopy and upper endoscopy. Patient has been dealing with epigastric pain, acid reflux and dyspepsia for a long time. We will need to evaluate for esophagitis, gastritis, duodenitis, gastric or peptic ulcers, Bain's, H pylori. H pylori stool study was negative. Patient is agreeable to plan of care and verbalizes understanding of instructions. She was given the opportunity to ask questions and all questions answered. Thank you for allowing me to participate in her care Medications: New esomeprazole magnesium (Nexium) 40 mg PO DAILY 30 caps 5RF K21.9 - Gastro-esophageal reflux disease without esophagitis famotidine 40 mg PO BEDTIME 30 tabs 3RF K21.9 - Gastro-esophageal reflux disease without esophagitis cetirizine (Zyrtec) 10 mg PO DAILY 30 caps 1RF allergy symptoms Discontinued sennosides (Natural Senna Laxative) Discontinued Reason: Patient no longer taking 17.2 mg (2 x 8.6 mg) PO BEDTIME 60 tabs 3RF constipation K59.00 - Constipation, unspecified famotidine Discontinued Reason: Doctor's Order 20 mg PO BEDTIME 30 tabs 3RF omeprazole Discontinued Reason: Doctor's Order 40 mg PO DAILY 30 caps 3RF methylcellulose (laxative) (Citrucel) Discontinued Reason: Patient no longer taking 500 mg PO DAILY 30 tabs 2RF K59.00 - Constipation, unspecified Coding Level of Care Code Est Pt Level 4 (79250) Diagnoses Gastroesophageal reflux disease, unspecified whether esophagitis present K21.9 Esophagitis presence: esophagitis presence not specified Functional diarrhea K59.1 Diarrhea type: functional diarrhea Slow transit constipation K59.01 Constipation type: slow transit constipation Postprandial epigastric pain R10.13 Abdominal bloating R14.0 Dyspepsia R10.13 Hepatic steatosis K76.0 Transaminitis R74.01 Screen for colon cancer Z12.11 Time Spent (min) 35 Comment 30 minutes spent with patient and additional 10 minutes spent reviewing her records
[2023-09-08 15:11] VITALS: BP 128/61; PULSE 81; BMI 40.4
== END 2023-09-08 16:05 | disposition home or self-care (01) ==
PROVIDERS: PCP Family Medicine; Visit Provider Nurse Practitioner Family
DX: K21.9 Gastro-esophageal reflux disease without esophagitis (principal); K59.1 Functional diarrhea; K59.01 Slow transit constipation; R10.13 Epigastric pain; R14.0 Abdominal distension (gaseous); K76.0 Fatty (change of) liver, not elsewhere classified; R74.01 Elevation of levels of liver transaminase levels; Z12.11 Encounter for screening for malignant neoplasm of colon
CPT/HCPCS: 99214

== ENCOUNTER → 2023-09-08 15:02 | Outpatient (BNVA) | payer OTHER, SELFPAY | PROVIDERS: PCP Family Medicine; Visit Provider Nurse Practitioner Family | DX: K21.9 Gastro-esophageal reflux disease without esophagitis (principal); K59.1 Functional diarrhea; K59.01 Slow transit constipation; K76.0 Fatty (change of) liver, not elsewhere classified; R14.0 Abdominal distension (gaseous); R10.13 Epigastric pain; R74.01 Elevation of levels of liver transaminase levels; Z12.11 Encounter for screening for malignant neoplasm of colon | CPT/HCPCS: 99212 ==

== ENCOUNTER 2023-10-12 10:25 | Outpatient (REF) | payer OTHER, SELFPAY ==
[2023-10-12 12:00] LABS: Hematocrit 44.8 % (37.0-47.0); Hemoglobin 14.6 g/dl (12.0-16.0); Mean Corpuscular HGB Conc 32.6 g/dl (31.0-35.0); Mean Corpuscular Hemoglobin 30.5 pg (27.0-33.0); Mean Corpuscular Volume 93.7 fL (80.0-98.0); Platelet Count 210 X10*3/uL (160-400); Red Blood Count 4.78 X10*6/uL (4.20-5.50); Red Cell Distribution Width 13.8 % (11.0-16.0); White Blood Count 5.8 X10*3/uL (4.8-10.8)
[2023-10-12 12:44] LABS: Estimated Average Glucose 140 mg/dL; Hemoglobin A1c % 6.5 % (<6.0)
[2023-10-12 12:48] LABS: Creatinine Urine 113.26 mg/dL; Microalbum/Creatinine Ratio Ur 27.3 ug/mg cr (<30)
[2023-10-12 12:57] LABS: Hepatitis A Antibody IgG REACTIVE (Nonreactive); ~Hepatitis A Antibody IgG 1.94 S/CO (0.00-0.99)
[2023-10-12 13:29] LABS: CT PCR NOT DETECTED (Not Detect.); NG PCR NOT DETECTED (Not Detect.)
[2023-10-12 13:50] LABS: Alanine Aminotransferase 81 U/L (0-31); Albumin Level 4.6 g/dL (3.5-5.0); Alkaline Phosphatase 100 U/L (39-117); Anion Gap 13 (12-20); Aspartate Amino Transferase 39 U/L (5-31); Bilirubin Direct 0.1 mg/dL (0.0-0.5); Bilirubin Total 0.4 mg/dL (0.0-1.0); Blood Urea Nitrogen 13 mg/dL (9-16); Calcium 9.2 mg/dL (8.4-10.2); Carbon Dioxide 33 mmol/L (22-29); Chloride 101 mmol/L (96-108); Cholesterol 277 mg/dL (<200); Estimated Glomerular Filt Rate > 60; Glucose Random 108 mg/dL (60-115); HDL Cholesterol 39 mg/dL (>40); LDL Cholesterol Calculated 184 mg/dL (<100); Potassium 3.9 mmol/L (3.3-5.1); Sodium 143 mmol/L (135-145); Total Protein 8.1 g/dL (6.5-8.0); Triglycerides 274 mg/dL (<150)
[2023-10-12 14:09] LABS: Free T4 (Free Thyroxine) 0.86 ng/dL (0.71-1.85); Thyroid Stimulating Hormone 2.91 uIU/mL (0.32-4.0); Vitamin D 25-OH Total 59.5 ng/mL (>30)
[2023-10-13 04:21] LABS: HBc Num1 0.19 S/CO (0.00-0.79); HIV AB/AG Nonreactive (Nonreactive); HIV Num 1 0.05 S/CO (0.00-0.99); Hepatitis B Core Antibody Nonreactive (Nonreactive); Hepatitis B Surface Antigen Negative (Negative); ~HepC Num1 0.16 S/CO (0.00-0.79); ~Hepatitis B Surface Antibody REACTIVE (Nonreactive); ~Hepatitis C Antibody Nonreactive (Nonreactive)
[2023-10-13 12:23] LABS: Alpha Fetoprotein 2.5 ng/mL
[2023-10-13 17:34] LABS: RPR Rapid Plasma Reagin NON-REACTIVE (NON-REACTIVE)
== END 2023-10-12 10:26 | disposition home or self-care (01) ==
LOC: HO.HHCL 10:25
PROVIDERS: Visit Provider Family Medicine
DX: Z00.00 Encounter for general adult medical examination without abnormal findings (principal); I10 Essential (primary) hypertension; E78.5 Hyperlipidemia, unspecified; K76.0 Fatty (change of) liver, not elsewhere classified; K21.9 Gastro-esophageal reflux disease without esophagitis; F33.9 Major depressive disorder, recurrent, unspecified; M25.50 Pain in unspecified joint; M79.641 Pain in right hand; G89.29 Other chronic pain; H54.7 Unspecified visual loss
CPT/HCPCS: 0353U; 36415; 80048; 80061; 80076; 82043; 82105; 82306; 82570; 83036; 84439; 84443; 85027; 86592; 86704; 86706; 86708; 86803; 87340; 87389

== ENCOUNTER 2023-11-04 14:39 | Outpatient (AMB) | payer OTHER, SELFPAY ==
--- NOTE | 2023-11-04 14:43 | A.OFFVIS_ITS ---
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 Hand X-ray done 07/23/23. Pt states she has been having on going pain in her right hand for many months and now her left is beginning to have the same symptoms. She is having burning sensation followed by numbness and tingling. These symptoms are located on the dorsal aspect of both her hands and fingers, occasionally on the volar aspect of her thumbs. She express severe pain with grasping and lifting objects. When she makes a closed fist she expresses pain and occasional popping of her bilateral middle fingers. She has tried acetaminophen but found little to no relief. She does not take NSAIDs due to her liver inflammation. Client Technologies Analyst Required: Yes Client Technologies Analyst Language: Client Technologies Specialist Name: [id number] Allergies Penicillins [PENICILLINS] Allergy (Unknown, Verified 11/04/23 14:55) Unknown HPI Comments Details: Hand x-rays have already shown erosions. Positive DEANGELO. Negative RF. She has upcoming appointment with rheumatology 12/08/2023. Pain comes and goes. It has been worse the last 2 months. Right hand mainly. Fingers get swollen, mainly on IP joints 1st-3rd digits. She also has numbness affecting both hands. No EMG yet. She says she's been formally diagnosed with RA but not on medications. Only taking tylenol and topical. Noted she has gastritis and reflux. She says she cannot take medications due to liver. [facility] Medical History GERD (gastroesophageal reflux disease) History of COVID-19 delivery delivered Migraine HTN (hypertension) Surgical History H/O colonoscopy Hx of section Family History Maternal Grandfather Stomach cancer Social History Household Members Other:: daughter Housing: Apartment Alcohol intake: never Patient Tobacco Use Status: Never used Tobacco Second Hand Smoke Exposure: No Current occupational status: employed Current occupation: [employer] Sexual orientation: Straight/Heterosexual Gender identity: Female Review of Systems Const All systems reviewed & are unremarkable except as noted in HPI and below Physical Exam Constitutional: Patient appears to be in no acute distress, well nourished and well developed. MSK: Joint effusion/swelling noted on right 1st to 3rd digits and left 1st to 2nd digits. Difficulty with flexing fingers due to swelling and pain. Neurological: Neurologic examination of the upper and lower extremities was nonfocal with intact sensation, muscle stretch reflexes and without focal motor deficits . Huerta?s negative bilaterally. Gait is non-antalgic without loss of balance. Results Reviewed Results Reviewed: I independently reviewed the results of the following: Hand x-rays reviewed. Question erosions on IP and MCP joints. Erosions mentioned on hand x-rays back in 2020 as well. Ordering Physician: Halley Hill DO Date of Service: 07/23/23 Procedure(s): XR hand RT min 3V Accession Number(s): [id number] cc: Halley Hill DO~ EXAMINATION: XR HAND, RIGHT CLINICAL INFORMATION: Polyarthralgia. COMPARISON: Radiographs dated 09/26/2020. TECHNIQUE: PA, lateral, and oblique views of the right hand. FINDINGS: Bony alignment and mineralization are normal. There is moderately severe arthrosis of the interphalangeal joint of the thumb. There is narrowing of the second through fifth distal interphalangeal joints, with peripheral osteophyte formation. There are central erosions of the second and fourth distal interphalangeal joints. There is mild degenerative change of the fifth proximal interphalangeal joint. Minimal degenerative change is seen of the second through fourth metacarpophalangeal joints. There is mild degenerative change of the first carpometacarpal joint. The proximal and distal carpal rows are intact. No fracture or dislocation is seen. There is no focal soft tissue swelling, gas or foreign body. XR/XR hand RT min 3V IMPRESSION: There are arthritic changes of the fingers and first carpometacarpal joint, as detailed. Central erosions of the second and fourth distal interphalangeal joints raise the possibility of erosive osteoarthritis, rheumatoid arthritis, psoriasis, Zelda's syndrome and gout. No fracture or dislocation is seen EXAMINATION: XR HAND, LEFT CLINICAL INFORMATION: Polyarthralgia. COMPARISON: Radiographs dated 09/26/2020. TECHNIQUE: PA, lateral, and oblique views of the left hand. FINDINGS: Bony alignment and mineralization are normal. There is moderate arthrosis of the interphalangeal joint of the thumb. There is moderate to marked arthritic change of the second through fifth distal interphalangeal joints, with central erosions of the second and fifth distal interphalangeal joints. No fracture or dislocation is seen. The proximal and distal carpal rows are intact. No focal soft tissue swelling, gas or foreign body is seen. IMPRESSION: There are arthritic changes of the fingers, as detailed. As with the contralateral side, central erosions of the fourth and fifth distal interphalangeal joints raises the possibility of erosive osteoarthritis, rheumatoid arthritis, psoriasis, Zelda's syndrome and gout. No fracture or dislocation is seen. Positive DEANGELO. Negative RF. I reviewed records from the following: PCP Assessment & Plan Assessment & Plan (1) Inflammatory arthritis: Code(s): M19.90 - Unspecified osteoarthritis, unspecified site Category: Medical (2) Numbness in both hands: Code(s): R20.0 - Anesthesia of skin Category: Medical Plan Exam, xray and labs suggest inflammatory arthritis. She is seeing Rheumatology in November. In the meantime, advised compression gloves. Showed her how it would look like, which she can get OTC like [facility]. We will also schedule her for EMG to rule out CTS given hand numbness. Continue diclofenac topical gel. Unable to tolerate oral NSAIDs. Assessment and plan discussed with patient, and patient was agreeable. All questions were answered thoroughly. Michelle Feliciano MD, SAMANTHA Board Certified, [place] [employer] and [employer] (ABPMR) Board Certified, [place] [employer] Electro[employer] (ABEM) Orders: Orders NE electromyogram (EMG) Today M19.90 - Unspecified osteoarthritis, unspecified site, R20.0 - Anesthesia of skin NE nerve conduction velocity Today M19.90 - Unspecified osteoarthritis, unspecified site, R20.0 - Anesthesia of skin Coding Level of Care Code New Pt Level 4 (47455) Diagnoses Inflammatory arthritis M19.90 Numbness in both hands R20.0
== END 2023-11-04 15:15 | disposition home or self-care (01) ==
PROVIDERS: PCP Family Medicine; Visit Provider Physical Medicine & Rehabilitation
DX: M19.90 Unspecified osteoarthritis, unspecified site (principal); R20.0 Anesthesia of skin
CPT/HCPCS: 99204

== ENCOUNTER → 2023-11-04 14:39 | Outpatient (BNVA) | payer OTHER, SELFPAY | PROVIDERS: PCP Family Medicine; Visit Provider Physical Medicine & Rehabilitation | DX: M19.90 Unspecified osteoarthritis, unspecified site (principal); R20.0 Anesthesia of skin | CPT/HCPCS: 99202 ==

== ENCOUNTER 2023-12-10 15:02 | Outpatient (AMB) | payer OTHER, SELFPAY ==
--- NOTE | 2023-12-10 15:12 | MHC.OFFVIS ---
Vital Signs 12/10/23 15:17 Height 5 ft 5 in Weight 238 lb 8.642 oz BMI 39.7 BP 118/58 L Blood Pressure Location Rt brachial Position Sitting Pulse 76 Pulse Source Pulse Oximeter Pulse Oximetry (%) 93 Oxygen Delivery Method Room Air Intake Visit Reasons: 3 month follow up Intake Note: Annabelle presents in office today for a scheduled 3 mos FUV. CC; Pt was rx'd famotidine and nexium at their last visit. No lab orders were placed. Pt is not taking the nexium at this time. Pt reports that the pharmacy would not give her the nexium as it is not covered by her insurance. Pt reports that they have remained stable since their last visit. The famotidine seems to be working OK. Geospatial Image Analyst Required: Yes Geospatial Image Analyst Services: Geospatial Image Analyst Present Geospatial Image Analyst Name: [id number] Lanny Seay Allergies Penicillins [PENICILLINS] Allergy (Unknown, Verified 12/10/23 15:17) Unknown HPI HPI 3 month follow up: Details: LAST VISIT GERD (gastroesophageal reflux disease) Diarrhea Constipation Postprandial epigastric pain Abdominal bloating Dyspepsia Hepatic steatosis Transaminitis Screen for colon cancer Plan Will change PPI to esomeprazole, Pepcid 40 mg at bedtime. Avoid dietary triggers and late night snacking. Staying upright for minimum 3 hours after meals discussed with patient. Patient will return in 3 months to discuss colonoscopy. Colonoscopy will be booked, message sent to surgical schedulers to book colonoscopy and upper endoscopy. Patient has been dealing with epigastric pain, acid reflux and dyspepsia for a long time. We will need to evaluate for esophagitis, gastritis, duodenitis, gastric or peptic ulcers, Bain's, H pylori. H pylori stool study was negative. Patient is agreeable to plan of care and verbalizes understanding of instructions. She was given the opportunity to ask questions and all questions answered. ? Thank you for allowing me to participate in her care Medications New esomeprazole magnesium (Nexium) 40 mg PO DAILY 30 caps 5RF K21.9 famotidine 40 mg PO BEDTIME 30 tabs 3RF K21.9 cetirizine (Zyrtec) 10 mg PO DAILY 30 caps 1RF allergy symptoms Discontinued sennosides (Natural Senna Laxative) Discontinued Reason: Patient no longer taking 17.2 mg (2 x 8.6 mg) PO BEDTIME 60 tabs 3RF constipation K59.00 famotidine Discontinued Reason: Doctor's Order 20 mg PO BEDTIME 30 tabs 3RF omeprazole Discontinued Reason: Doctor's Order 40 mg PO DAILY 30 caps 3RF methylcellulose (laxative) (Citrucel) Discontinued Reason: Patient no longer taking 500 mg PO DAILY 30 tabs 2RF K59.00 TODAY'S VISIT Patient is here today for follow-up and to discuss going for colonoscopy and upper endoscopy. Patient was prescribed Nexium last visit and famotidine. Patient states that insurance did not cover Nexium. She is taking famotidine at bedtime. Patient denies any dyspepsia, dysphagia or odynophagia. Occasional epigastric pain postprandially depending on what she eats and acid reflux. Patient reports that she is moving her bowels well without any issues. Patient denies any issues with anesthesia in the past. No history of sleep apnea. Not on any anticoagulation medication. Patient had abnormal liver enzymes in September. Previously drawn in May AST normal slightly elevated ALT. This time both elevated. Patient had ultrasound with liver elastography done July that showed hepatomegaly with increased echogenicity suggesting hepatic steatosis, liver elastography show stiffness of 1.3 m/s that rules out compensated advanced chronic liver disease [facility] Medical History GERD (gastroesophageal reflux disease) History of COVID-19 delivery delivered Migraine HTN (hypertension) Surgical History H/O colonoscopy Hx of section Family History Maternal Grandfather Stomach cancer Social History Household Members Other:: daughter Housing: Apartment Alcohol intake: never Patient Tobacco Use Status: Never used Tobacco Second Hand Smoke Exposure: No Current occupational status: employed Current occupation: [employer] Sexual orientation: Straight/Heterosexual Gender identity: Female Review of Systems Const Denies weight gain and Denies weight loss ENT Reports no additional complaints, Denies dysphagia and Denies odynophagia Card Reports no additional complaints Resp Reports no additional complaints GI Reports abdominal pain (Epigastric), Denies belching, Denies melena, Reports bloating, Denies change in bowel habits, Denies dysphagia, Denies excessive flatus, Reports dyspepsia, Reports heartburn, Denies diarrhea, Denies loose stools, Denies nausea, Denies odynophagia and Denies vomiting Reports no additional complaints Musc Reports no additional complaints Neuro Reports no additional complaints Psych Reports no additional complaints Endo Reports no additional complaints Physical Exam Vital Signs: Last Vital Signs Pulse 76 12/10/23 15:17 BP 118/58 L 12/10/23 15:17 Pulse Ox 93 12/10/23 15:17 Oxygen Delivery Method Room Air 12/10/23 15:17 BMI result Body Mass Index 39.7 Const General: healthy appearing and no acute distress Nutritional Appearance: obese Orientation/consciousness: patient oriented x3 Resp Effort & Inspection: normal respiratory effort, able to speak in complete sentences, no tracheal deviation and symmetric chest movement Auscultation: clear to auscultation bilaterally Cardio Rate: regular rate GI Inspection: Yes normal to inspection, No distended and Yes obesity Palpation (GI): Soft to palpation, not firm, nontender and No hepatosplenomegaly present Auscultation: normal bowel sounds General: Yes no CVA tenderness Back/Spine/Pelvis Back: no CVA tenderness Skin General skin exam: elasticity normal, turgor normal and dry skin Neuro General: patient oriented x3 Psych Appearance: grossly normal Mental Status: mental status grossly normal Results Reviewed Results Reviewed: Laboratory Tests 05/28/23 10/12/23 08:30 10:33 AST 25 39 H ALT 47 H 81 H Assessment & Plan Assessment & Plan (1) GERD (gastroesophageal reflux disease): Code(s): K21.9 - Gastro-esophageal reflux disease without esophagitis Category: Medical Qualifiers: Esophagitis presence: esophagitis presence not specified Qualified Code(s): K21.9 - Gastro-esophageal reflux disease without esophagitis (2) Diarrhea: Code(s): R19.7 - Diarrhea, unspecified Qualifiers: Diarrhea type: functional diarrhea Qualified Code(s): K59.1 - Functional diarrhea (3) Constipation: Code(s): K59.00 - Constipation, unspecified Qualifiers: Constipation type: slow transit constipation Qualified Code(s): K59.01 - Slow transit constipation (4) Postprandial epigastric pain: Code(s): R10.13 - Epigastric pain (5) Abdominal bloating: Code(s): R14.0 - Abdominal distension (gaseous) (6) Dyspepsia: Code(s): R10.13 - Epigastric pain (7) Hepatic steatosis: Code(s): K76.0 - Fatty (change of) liver, not elsewhere classified (8) Transaminitis: Code(s): R74.01 - Elevation of levels of liver transaminase levels (9) Screen for colon cancer: Code(s): Z12.11 - Encounter for screening for malignant neoplasm of colon Plan What to expect before during and after procedure discussed with patient. Patient has colonoscopy scheduled for February 24. Good bowel prep and clear liquid diet day before procedure discussed with patient. Patient will call our office if she will have any symptoms. Will send her script for pantoprazole as Nexium was not covered. Will repeat liver enzymes. Liver elastography showed back in July of 2023 stiffness of 1.3 m/s which rules out compensated advanced chronic liver disease. Patient is agreeable to this plan and verbalizes understanding of instructions. She was given the opportunity to ask questions and all questions answered. Thank you for allowing me to participate in her care Orders: Orders Liver Panel Today R74.01 - Elevation of levels of liver transaminase levels Medications: New pantoprazole take one tablet half an hour before breakfast 40 mg PO DAILY 30 tabs 2RF K21.9 - Gastro-esophageal reflux disease without esophagitis bisacodyl (Dulcolax (bisacodyl)) take 4 tabs at noon the day before your colonoscopy 20 mg (4 x 5 mg) PO ONCE 1 day 4 tabs 0RF Z12.11 - Encounter for screening for malignant neoplasm of colon polyethylene glycol 3350 (Miralax) As directed by gastroenterology department at [facility] 238 grams PO ONCE 238 grams 0RF Z12.11 - Encounter for screening for malignant neoplasm of colon Coding Level of Care Code Est Pt Level 3 (05507) Diagnoses Gastroesophageal reflux disease, unspecified whether esophagitis present K21.9 Esophagitis presence: esophagitis presence not specified Functional diarrhea K59.1 Diarrhea type: functional diarrhea Slow transit constipation K59.01 Constipation type: slow transit constipation Postprandial epigastric pain R10.13 Abdominal bloating R14.0 Dyspepsia R10.13 Hepatic steatosis K76.0 Transaminitis R74.01 Screen for colon cancer Z12.11 Time Spent (min) 30 Comment 20 minutes spent with patient and additional 10 minutes spent reviewing her records
[2023-12-10 15:17] VITALS: BP 118/58; PULSE 76; O2SAT 93; BMI 39.7
== END 2023-12-10 17:09 | disposition home or self-care (01) ==
PROVIDERS: PCP Family Medicine; Visit Provider Nurse Practitioner Family
DX: K21.9 Gastro-esophageal reflux disease without esophagitis (principal); K59.1 Functional diarrhea; K59.01 Slow transit constipation; R10.13 Epigastric pain; R14.0 Abdominal distension (gaseous); K76.0 Fatty (change of) liver, not elsewhere classified; R74.01 Elevation of levels of liver transaminase levels; Z12.11 Encounter for screening for malignant neoplasm of colon
CPT/HCPCS: 99213

== ENCOUNTER → 2023-12-10 15:02 | Outpatient (BNVA) | payer OTHER, SELFPAY | PROVIDERS: PCP Family Medicine; Visit Provider Nurse Practitioner Family | DX: K59.1 Functional diarrhea (principal); K21.9 Gastro-esophageal reflux disease without esophagitis; K59.01 Slow transit constipation; K76.0 Fatty (change of) liver, not elsewhere classified; R10.13 Epigastric pain; R14.0 Abdominal distension (gaseous); R74.01 Elevation of levels of liver transaminase levels; Z79.899 Other long term (current) drug therapy | CPT/HCPCS: 99212 ==

== ENCOUNTER 2023-12-18 09:03 | Outpatient (REF) | payer OTHER, SELFPAY ==
[2023-12-18 10:30] LABS: Alanine Aminotransferase 56 U/L (0-31); Albumin Level 4.4 g/dL (3.5-5.0); Alkaline Phosphatase 111 U/L (39-117); Aspartate Amino Transferase 28 U/L (5-31); Bilirubin Direct 0.1 mg/dL (0.0-0.5); Bilirubin Total 0.4 mg/dL (0.0-1.0); Cholesterol 255 mg/dL (<200); HDL Cholesterol 35 mg/dL (>40); LDL Cholesterol Calculated 183 mg/dL (<100); Total Protein 7.9 g/dL (6.5-8.0); Triglycerides 188 mg/dL (<150)
== END 2023-12-18 09:04 | disposition home or self-care (01) ==
LOC: HO.LAB 09:03
PROVIDERS: PCP Family Medicine; Referring Provider Nurse Practitioner Family; Visit Provider Family Medicine
DX: E11.9 Type 2 diabetes mellitus without complications (principal); E78.49 Other hyperlipidemia
CPT/HCPCS: 36415; 80061; 80076

== ENCOUNTER 2023-12-24 14:49 | Outpatient (REF) | payer OTHER, SELFPAY ==
--- NOTE | 2023-12-24 14:52 | EMG_ITS ---
Chief complaint: Right wrist and thumb pain Reason for referral: Evaluate for Carpal Tunnel Syndrome Procedure done: Right upper extremity NCS/EMG Precautions and/or limitations: None Kuwaiti speaking, seen with air transport professionals. The limb temperature was monitored continuously and remained between 32-36 degrees C during the performance of the NCS. Nerve Conduction Studies Anti Sensory Summary Table ?Stim Site NR Onset (ms) Norm Onset (ms) Peak (ms) Norm Peak (ms) O-P Amp (?V) Norm O-P Amp Site1 Site2 Delta-0 (ms) Dist (cm) Andrea (m/s) Norm Andrea (m/s) Right Median Anti Sensory (2nd Digit) Wrist ? 2.2 3.4 <3.6 46.9 >10 Wrist 2nd Digit 2.2 14.0 64 Right Radial Anti Sensory (Thumb) Forearm ? 1.5 1.9 <3.1 32.2 Forearm Thumb 1.5 0.0 Right Ulnar Anti Sensory (5th Digit) Wrist ? 2.2 2.7 <3.7 7.5 >15.0 Wrist 5th Digit 2.2 14.0 64 Motor Summary Table ?Stim Site NR Onset (ms) Norm Onset (ms) O-P Amp (mV) Norm O-P Amp iAmp (mV) Amp (1st) (%) Site1 Site2 Delta-0 (ms) Dist (cm) Andrea (m/s) Norm Andrea (m/s) Right Median Motor (Abd Poll Brev) Wrist ? 3.9 <3.9 7.5 >4.5 9.0 100.0 Elbow Wrist 3.5 18.5 53 >45 Elbow ? 7.4 9.9 11.9 132.0 Right Ulnar Motor (Abd Dig Minimi) Wrist ? 2.3 <3.0 10.1 >5 12.4 100.0 B Elbow Wrist 3.4 17.5 51 >45 B Elbow ? 5.7 11.2 13.5 110.9 A Elbow B Elbow 2.1 10.0 48 >45 A Elbow ? 7.8 10.8 13.1 106.9 EMG ?Side Muscle Nerve Root Ins Act Fibs Psw Amp Dur Poly Recrt Int Pat Comment Right 1stDorInt Ulnar C8-T1 Nml Nml Nml Nml Nml 0 Nml Complete Right FlexCarRad Median C6-7 Nml Nml Nml Nml Nml 0 Nml Complete Right Biceps Musculocut C5-6 Nml Nml Nml Nml Nml 0 Nml Complete Right Triceps Radial C6-7-8 Nml Nml Nml Nml Nml 0 Nml Complete Right Deltoid Axillary C5-6 Nml Nml Nml Nml Nml 0 Nml Complete FINDINGS: All motor and sensory nerves tested showed normal latencies, amplitudes and conduction velocities. Concentric needle EMG was performed in selected muscles of the right upper extremity. Study did not reveal signs of electric abnormalities as shown in the table above. IMPRESSION: 1. This is a normal study. 2. There is no electrodiagnostic evidence for median neuropathy, ulnar neuropathy, brachial plexopathy, or cervical radiculopathy. CLINICAL COMMENT: Exam, xray and labs suggest inflammatory arthritis. She is seeing Rheumatology in January. Thank you for your kind referral. Michelle Feliciano MD, SAMANTHA Board Certified, [place] [employer] and Rehabilitation (ABPMR) Board Certified, [place] Board [employer] Electrodiagnostic Medicine (ABEM) [place] [id number] [facility] [facility]
== END 2023-12-24 14:50 | disposition home or self-care (01) ==
LOC: HO.NEURO 14:49
PROVIDERS: PCP Family Medicine; Visit Provider Physical Medicine & Rehabilitation
DX: R20.0 Anesthesia of skin (principal); M19.90 Unspecified osteoarthritis, unspecified site
CPT/HCPCS: 95886; 95909

== ENCOUNTER → 2023-12-24 14:52 | Outpatient (BNV) | payer OTHER, SELFPAY | PROVIDERS: PCP Family Medicine; Visit Provider Physical Medicine & Rehabilitation | DX: M25.531 Pain in right wrist (principal); R20.0 Anesthesia of skin | CPT/HCPCS: 95886; 95909 ==

== ENCOUNTER 2024-05-10 10:33 | Outpatient (AMB) | payer OTHER, SELFPAY ==
--- NOTE | 2024-05-10 10:47 | A.OFFVIS_ITS ---
Vital Signs 05/10/24 10:52 Height 5 ft 5 in Weight 238 lb 12.17 oz BMI 39.7 BP 142/80 H Blood Pressure Location Lt brachial Position Sitting Pulse 83 Pulse Source Pulse Oximeter Pulse Oximetry (%) 94 Oxygen Delivery Method Room Air Intake Visit Reasons: oa Intake Note: Patient presents for OA. Field Installation Technician Required: Yes Field Installation Technician Language: [facility] Counselor Services: Field Installation Technician Present Field Installation Technician Name: Isabella [id number] Information Interpreted: non-clinical & clinical Allergies Penicillins [PENICILLINS] Allergy (Unknown, Verified 05/10/24 10:51) Unknown Medication List - Last Reconciled 05/10/24 by Karen Anne MD acetaminophen ER 650 mg PO Q12H alcohol swabs (Alcohol Prep Pads) 1 pad topical TID atorvastatin 10 mg PO DAILY bisacodyl (Dulcolax (bisacodyl)) 20 mg (4 x 5 mg) PO ONCE 1 day blood sugar diagnostic (FreeStyle Lite Strips) As directed blood-glucose meter (FreeStyle [place] Lite kit) As directed cetirizine (Zyrtec) 10 mg PO DAILY cholecalciferol (vitamin D3) 1,250 mcg PO QWEEK empagliflozin (Jardiance) 10 mg PO DAILY famotidine 40 mg PO BEDTIME fluticasone propionate 50 mcg/actuation (Flonase Allergy Relief) 1 spray intranasal DAILY lancets (TRUEplus Lancets) As directed lisinopril 5 mg PO DAILY pantoprazole 40 mg PO DAILY polyethylene glycol 3350 (Miralax) 238 grams PO ONCE HPI Comments Details: Patient is a 53-year-old morbidly obese female with hyperlipidemia, diabetes and hypertension who presents for evaluation of polyarthralgias. Patient states that for the past 3+ years she has been having pain in her joints. Joints involved: Hands - pain is all day, but worse in the afternoon - associated with swelling, again mostly in the afternoon Other joints affected: Shoulders, Back, Knees, Heel No known family history PFSH Medical History Erosive osteoarthritis of both hands Diabetes Inflammatory arthritis GERD (gastroesophageal reflux disease) Migraine HTN (hypertension) Surgical History Hx of dilation and curettage H/O colonoscopy Hx of section Family History Maternal Grandfather Stomach cancer Social History Household Members Other:: daughter Housing: Apartment Alcohol intake: never Patient Tobacco Use Status: Never used Tobacco Second Hand Smoke Exposure: No Current occupational status: employed Current occupation: [employer] Sexual orientation: Straight/Heterosexual Gender identity: Female Review of Systems Const Details: Review of Systems Constitutional: Denies fever, chills, weight loss ENT: Denies vision changes, eye pain or eye redness, dental caries, dry mouth GI: Denies nausea, vomiting, diarrhea, abdominal pain, change in BM Pulm: Denies SOB, DAWKINS, hemoptysis, wheezing Cards: Denies chest pain, palpitations Skin: Denies Raynaud's, rash, nail changes, photosensitivity, HOSPITAL PHARMACIST: Denies headaches, weakness, paresthesias, recurrent falls MSK: as per HPI All other systems reviewed and are unremarkable except noted above Physical Exam Vital Signs: Last Vital Signs Pulse 83 05/10/24 10:52 BP 142/80 H 05/10/24 10:52 Pulse Ox 94 05/10/24 10:52 Oxygen Delivery Method Room Air 05/10/24 10:52 BMI result Body Mass Index 39.7 Vital signs reviewed Physical Examination CONSTITUITIONAL Patient alert and cooperative. Well appearing and in no apparent painful distress HEENT Conjunctiva and sclera clear. ?Pupils equal round and reactive to light. ?No lymphadenopathy. ? CHEST/RESPIRATORY SYSTEM Normal respiratory effort and able to speak in complete sentences. ?Clear to auscultation bilaterally. ?No crackles, rales, rhonchi, wheezes heard. CARDIAC SYSTEM Regular rate and rhythm. ?S1 and S2 heard no murmurs. ?Radial pulses intact bilaterally MSK Hands: ?Good education faculty member strength bilaterally. Tenderness to palpation of the DIPs. No synovitis noted on examination. Heberden's nodes noted throughout hands. Wrists: ?Full range of motion at the wrists without pain. ?No tenderness to palpation or synovitis noted to the wrists. Elbows: Full range of motion without pain. No tenderness, weakness, swelling, increased warmth or erythema. Shoulders: Slightly decreased active range of motion but full passive range of motion. There was some pain the extreme of her range. No evidence of any swelling. Hips: Full range of motion without pain. Knees: ?Full range of motion. ?No tenderness, swelling, increased warmth or erythema.? Bilateral crepitations. Ankles: Full range of motion. ?No tenderness, swelling, increased warmth or erythema.? Feet: ?Negative squeeze test. ?No tenderness to palpation or swelling of the MTPs. SKIN Skin intact without rashes. Results Reviewed Results Reviewed: Laboratory Tests 10/07/22 04/30/23 10/12/23 09:19 16:34 10:33 WBC 5.8 RBC 4.78 Hgb 14.6 Hct 44.8 ESR 7 Sodium 143 Potassium 3.9 Chloride 101 Carbon Dioxide 33 H BUN 13 Creatinine 0.90 Total Bilirubin Direct Bilirubin AST ALT Alkaline Phosphatase Total Protein 25-OH Vitamin D Total 59.5 DEANGELO Screen NEGATIVE 12/18/23 09:29 WBC RBC Hgb Hct ESR Sodium Potassium Chloride Carbon Dioxide BUN Creatinine Total Bilirubin 0.4 Direct Bilirubin 0.1 AST 28 ALT 56 H Alkaline Phosphatase 111 Total Protein 7.9 25-OH Vitamin D Total DEANGELO Screen XR Right Hand 06/2023 FINDINGS: Bony alignment and mineralization are normal. There is moderately severe arthrosis of the interphalangeal joint of the thumb. There is narrowing of the second through fifth distal interphalangeal joints, with peripheral osteophyte formation. There are central erosions of the second and fourth distal interphalangeal joints. There is mild degenerative change of the fifth proximal interphalangeal joint. Minimal degenerative change is seen of the second through fourth metacarpophalangeal joints. There is mild degenerative change of the first carpometacarpal joint. The proximal and distal carpal rows are intact. No fracture or dislocation is seen. There is no focal soft tissue swelling, gas or foreign body. XR Left Hand 06/2023 FINDINGS: Bony alignment and mineralization are normal. There is moderately severe arthrosis of the interphalangeal joint of the thumb. There is narrowing of the second through fifth distal interphalangeal joints, with peripheral osteophyte formation. There are central erosions of the second and fourth distal interphalangeal joints. There is mild degenerative change of the fifth proximal interphalangeal joint. Minimal degenerative change is seen of the second through fourth metacarpophalangeal joints. There is mild degenerative change of the first carpometacarpal joint. The proximal and distal carpal rows are intact. No fracture or dislocation is seen. There is no focal soft tissue swelling, gas or foreign body. XR Bilateral shoulders 06/2023 FINDINGS: The bones and soft tissues are normal. No fracture. Glenohumeral and acromioclavicular alignment is anatomic with normal joint space. No abnormal soft tissue calcifications. XR Right Foot 06/2023 FINDINGS: Bony alignment and mineralization are normal. No fracture, dislocation or right ankle joint effusion is seen. Boehler's angle is normal. There are large posterior and plantar calcaneal spurs. There is mild bunionette formation of the fifth metatarsal head. No focal soft tissue swelling, gas or foreign body is seen. XR Left Foot 06/2023 FINDINGS: Bony alignment and mineralization are normal. No fracture, dislocation or left ankle joint effusion is seen. Boehler's angle is normal. There are large posterior and plantar calcaneal spurs. There is mild bunionette formation of the fifth metatarsal head. No focal soft tissue swelling, gas or foreign body is seen. Assessment & Plan Assessment & Plan (1) Erosive osteoarthritis of both hands: Code(s): M15.4 - Erosive (osteo)arthritis Category: Medical Plan: #Polyarticular OA with erosive OA of the hands Patient with polyarticular osteoarthritis but most importantly erosive osteoarthritis involving the hands. Erosive osteoarthritis is a very difficult disease to treat as there is no proven therapies to reduce pain and or the destruction. The recommendations are to treat erosive osteoarthritis as regular osteoarthritis and we can consider immunosuppression if things get worse. Because of patient's hypertension and diabetes she is not a good candidate for Prednisone. We will start with topical diclofenac applied to hands and knees up to 4 times a day. There has been data on using Prolia to decrease the erosions in erosive osteoarthritis. I will check a DEXA scan as insurance companies are less likely to approve Prolia (which is currently FDA approved for osteoporosis) without a DEXA scan. I will also start her with Celebrex 200 mg twice a day to see if that will help with her overall pain. Plan - Celebrex 200mg bid - Topical diclofenac gel 4 times a day to knees and hands - DEXA scan looking for osteopenia or osteoporosis - CBC, CMP, ESR, CRP, RF, CCP - RTC 6 months REFERENCES Dia Bobby, Wesley Renteria, Noé Gary?et al.?RANKL blockade for erosive hand osteoarthritis: a randomized placebo-controlled phase 2a trial.?[facility]?30 [phone] (2023). [email or web address] (2) Bilateral shoulder pain: Code(s): M25.511 - Pain in right shoulder; M25.512 - Pain in left shoulder Category: Medical Qualifiers: Chronicity: chronic Qualified Code(s): M25.511 - Pain in right shoulder; M25.512 - Pain in left shoulder; G89.29 - Other chronic pain Plan: #Bilateral shoulder pain No evidence of arthritis involving the shoulder joint or the AC joint on x-rays. Her pain is likely due to rotator cuff tendinopathy. We will send her to physical therapy Plan - PT Plan I spent 45 minutes reviewing the record and labs, taking a history, examining the patient, discussing the treatment plan and documenting in the medical record Orders: Orders Complete Blood Count Auto Diff Today M15.4 - Erosive (osteo)arthritis, M19.90 - Unspecified osteoarthritis, unspecified site Erythrocyte Sedimentation Rate Today M15.4 - Erosive (osteo)arthritis, M19.90 - Unspecified osteoarthritis, unspecified site Cyclic Citrullinated Peptide Today M15.4 - Erosive (osteo)arthritis, M19.90 - Unspecified osteoarthritis, unspecified site Comprehensive Met. Panel Today M15.4 - Erosive (osteo)arthritis, M19.90 - Unspecified osteoarthritis, unspecified site C Reactive Protein Today M15.4 - Erosive (osteo)arthritis, M19.90 - Unspecified osteoarthritis, unspecified site Rheumatoid Factor Today M15.4 - Erosive (osteo)arthritis, M19.90 - Unspecified osteoarthritis, unspecified site XR DEXA axial skeleton Today M81.0 - Age-related osteoporosis without current pathological fracture XR DEXA appendicular skeleton Today M81.0 - Age-related osteoporosis without current pathological fracture PT Evaluation and Treatment Today M25.511 - Pain in right shoulder, M25.512 - Pain in left shoulder Medications: New celecoxib (Celebrex) 200 mg PO BID 90 caps 1RF M15.4 - Erosive (osteo)arthritis diclofenac sodium 1% (Arthritis Pain (diclofenac)) Apply to hands and knees 4 times a day 4 grams topical QID 100 grams 4RF M15.4 - Erosive (osteo)arthritis Coding Level of Care Code New Pt Level 4 (94940) Complex EM visit Add On G2211 Diagnoses Erosive osteoarthritis of both hands M15.4 Chronic pain of both shoulders M25.511; M25.512; G89.29 Chronicity: chronic
[2024-05-10 10:52] VITALS: BP 142/80; PULSE 83; O2SAT 94; BMI 39.7
== END 2024-05-10 11:41 | disposition home or self-care (01) ==
PROVIDERS: PCP Family Medicine; Visit Provider Student in an Organized Health Care Education/Training Program
DX: M15.4 Erosive (osteo)arthritis (principal); M25.511 Pain in right shoulder; M25.512 Pain in left shoulder; G89.29 Other chronic pain
CPT/HCPCS: 99204; G2211

== ENCOUNTER 2024-05-10 11:44 | Outpatient (REF) | payer OTHER, SELFPAY ==
[2024-05-10 12:56] LABS: MANUAL DIFF FLAG NO
[2024-05-10 13:04] LABS: Basophils Absolute Auto 0.1 X10*3/uL (0.0-0.2); Basophils Percent Auto 0.8 % (0-2); Eosinophils Absolute Auto 0.2 X10*3/uL (0.0-0.4); Eosinophils Percent Auto 2.4 % (0-4); Hematocrit 47.5 % (37.0-47.0); Hemoglobin 15.4 g/dl (12.0-16.0); Imm Gran Abs Auto 0.03 X10*3/uL (0.00-0.03); Imm Gran Pct Auto 0.5 % (0.0-0.4); Mean Corpuscular HGB Conc 32.4 g/dl (31.0-35.0); Mean Corpuscular Hemoglobin 30.1 pg (27.0-33.0); Mean Platelet Volume 11.8 fL (9.4-12.3); Monocytes Absolute Auto 0.5 X10*3/uL (0.1-1.2); Monocytes Percent Auto 6.9 % (2-11); Neutrophils Percent Auto 59.4 % (45-73); Platelet Count 204 X10*3/uL (160-400); Red Blood Count 5.11 X10*6/uL (4.20-5.50); Red Cell Distribution Width 13.7 % (11.0-16.0); White Blood Count 6.7 X10*3/uL (4.8-10.8)
[2024-05-10 13:11] LABS: Alanine Aminotransferase 64 U/L (0-31); Albumin Level 4.5 g/dL (3.5-5.0); Alkaline Phosphatase 110 U/L (39-117); Anion Gap 8 (12-20); Aspartate Amino Transferase 33 U/L (5-31); Bilirubin Total 0.3 mg/dL (0.0-1.0); Blood Urea Nitrogen 16 mg/dL (9-16); C Reactive Protein 0.28 mg/dL (< or = 0.50); Calcium 8.5 mg/dL (8.4-10.2); Carbon Dioxide 28 mmol/L (22-29); Chloride 107 mmol/L (96-108); Estimated Glomerular Filt Rate > 60; Glucose Random 111 mg/dL (60-115); Potassium 4.2 mmol/L (3.3-5.1); Sodium 139 mmol/L (135-145); Total Protein 7.8 g/dL (6.5-8.0)
[2024-05-10 13:18] LABS: Rheumatoid Factor < 13.0 IU/mL (<15.0)
[2024-05-10 13:49] LABS: Erythrocyte Sedimentation Rate 5 MM/HR (0-20)
[2024-05-15 15:13] LABS: Cyclic Citrullinated Peptide <16 UNITS
== END 2024-05-10 11:45 | disposition home or self-care (01) ==
LOC: HO.10HDL 11:44
PROVIDERS: Visit Provider Student in an Organized Health Care Education/Training Program
DX: M15.4 Erosive (osteo)arthritis (principal); M19.90 Unspecified osteoarthritis, unspecified site
CPT/HCPCS: 36415; 80053; 85025; 85652; 86140; 86200; 86431; 99202

== ENCOUNTER 2024-06-13 09:54 | Outpatient (REF) | payer OTHER, SELFPAY ==
--- OUTSIDE RECORDS SUMMARY | 2024-06-13 10:40 | XMS_ITS | Clinical Summary ---
Author Organization [employer] Address [address] [facility] [place] [address] Care Team Providers Care Post Office Clerk Name Role Phone Halley Hill DO Primary Care Provider + [phone] Allergies Active Allergy Reactions Criticality Noted Date Comments Penicillins Unknown 09/23/2022 Oxycodone-Acetaminophen Dizziness 09/23/2022 Medications * This document contains information received from the source organization and may not represent a complete record from that organization. cetirizine (ZyrTEC) 10 MG tablet Take 1 tablet (10 mg) by mouth Once per day. 90 tablet 3 024 2024 Active fluticasone (Flonase) 50 MCG/ACT nasal spray SHAKE LIQUID AND USE 2 SPRAYS IN EACH NOSTRIL EVERY DAY 48 g 3 Active naproxen (Naprosyn) 500 MG tablet Take 1 tablet (500 mg) by mouth if needed in the morning and at bedtime for mild pain. 30 tablet 1 024 2024 Active esomeprazole (NexIUM) [address] capsuleIndications: Chronic gastroesophageal reflux disease Take 1 capsule (40 mg) by mouth before breakfast. Do not open capsule. 90 capsule 1 024 2024 Active famotidine (Pepcid) 40 MG tablet Take 1 tablet (40 mg) by mouth at bedtime. 90 tablet 1 024 2024 Active Blood Glucose Monitoring Suppl (MacroSolve [place] Lite) w/Device kit Use to test blood sugar 1 times daily 1 kit Active Alcohol Swabs 70 % pads Use to test blood sugar 1 times daily 100 each Active FREESTYLE LITE test strip Use to test blood sugar 1 times daily 100 each 024 2024 Active Lancets misc Use to test blood sugar 1 times daily 100 each Active empagliflozin (Jardiance) 10 MG Take 1 tablet (10 mg) by mouth Once per day. 90 tablet 3 024 2024 Active atorvastatin (Lipitor) 10 MG tablet Take 1 tablet (10 mg) by mouth at bedtime. 90 tablet 3 024 2024 Active Diclofenac Sodium 1 % gel Apply 2 g topically if needed in the morning, at noon, in the evening, and at bedtime (pain). 150 g 3 Active Blood Pressure Monitoring (Blood Pressure Cuff) misc 1 each Once per day. 1 each Active lisinopril 10 MG tablet Take 1 tablet (10 mg) by mouth Once per day. 30 tablet 025 2025 Active Dulaglutide 0.75 MG/0.5ML solution auto-injectorIndica tions:New onset type 2 diabetes mellitus (CMS/HCC) Inject 0.75 mg under the skin 1 (one) time per week. 2 mL 3 Active acetaminophen (Tylenol 8 Hour) 650 MG ER tablet Take 1 tablet (650 mg) by mouth every 8 (eight) hours if needed for mild pain. Do not crush, chew, or split. 60 tablet 3 Active dulaglutide (Trulicity) 0.75 MG/0.5ML solution pen-injectorIndicat ions:New onset type 2 diabetes mellitus (CMS/HCC) Inject 0.75 mg under the skin 1 (one) time per week. 4 each 024 2024 Discontinued(R eorder (will not trigger notification to Pharmacy)) acetaminophen (Tylenol 8 Hour) 650 MG ER tablet TAKE 1 TABLET BY MOUTH EVERY 8 HOURS NEEDED FOR MILD PAIN, DO NOT BREAK, CRUSH, DISSOLVE OR CHEW 40 tablet 1 024 2024 Discontinued(R eorder (will not trigger notification to Pharmacy)) lisinopril 5 MG tablet Take 2 tablets (10 mg) by mouth Once per day. 180 tablet 3 024 2024 Discontinued(D ose adjustment) Active Problems Problem Noted Date Diagnosed Date Type 2 diabetes mellitus 10/15/2023 Healthcare maintenance 09/22/2023 Assessment & Plan (09/22/2023 1:06 PM EDT): -she declines flu vaccine -she declines COVID vaccine -s/p Tdap Jan 2010 -s/p Td August 2022 -encouraged shingrix vaccine -Hep A/B immune -mammo BIRADS 26 JUL 2023 -pap wnl/HPV neg Jan 2019, repeat scheduled with [facility] -awaiting colonoscopy/EGD with GI -A1c 5.9% September 2022 -STI/HIV screen negative September 2022 Major depression, recurrent, chronic 09/22/2023 Assessment & Plan (09/22/2023 1:06 PM EDT): Mood improved -she denies any SI/HI -she has the number for crisis -she agrees to trial amitriptyline nightly as not yet done -consider addition of SSRI -she declines referral to therapist Polyarthralgia 09/22/2023 Assessment & Plan (03/19/2024 1:15 PM EST): Pt seems appropriate for intermittent FMLA Continue meds as needed for increase in intensity of pain She is aware of other modalities (acupuncture, intra-articular injection), but prefers not to pursue them at this time Assessment & Plan (09/22/2023 1:06 PM EDT): With diffiuse body and joint pain, probable FM -ESR, CRP, RF and Lyme nml September 2022 -DEANGELO positive 1:September, repeat neg APR 2023 -hand XR with arthritic changes with central erosions JUN 2023 -shoulder XR normal JUN 2023 -L-spine XR with mild degenerative changes and minimal grade 1 retrolisthesis September 2020 -hip XR with degenerative joint changes September 2020 -foot XR with large calcaneal spurs JUN 2023 -trial amitriptyline nightly as above, will titrate prn -consider addition of gabapentin -encouraged tylenol and naprosyn prn -encouraged baclofen to help with mm spasm -trial diclofenac gel -strongly encouraged trial acupuncture -she declines referral to PT -will check status of rheum referral Chronic hand pain, right 09/22/2023 Assessment & Plan (09/22/2023 1:06 PM EDT): With persistent discomfort -hand XR with arthritic changes with central erosions JUN 2023 -pain meds as above -referred to ortho for eval Uterine fibroid 06/09/2023 Allergic rhinitis 06/09/2023 Chronic gastroesophageal reflux disease 06/09/19 Assessment & Plan (09/22/2023 1:05 PM EDT): Sx uncontrolled, awaiting EGD -change prilosec to nexium as per GI -inc pepcid to 40 mg nightly -f/u with GI as scheduled, appt NOV 2023 History of COVID-19 09/18/2022 Fatty liver 05/09/2015 Assessment & Plan (09/22/2023 1:05 PM EDT): -abd US with enlarged echogenic liver, no focal lesion JUL 2023 -liver elastography 1.28 JUL 2023 -LFTs stable SEP 2022->repeat with fasting labs -AFP nml OCT 2021->repeat with fasting labs -Hep A/B immune BMI 40.0-44.9, adult 05/09/2015 Irritable bowel syndrome 05/09/2015 Essential hypertension 05/09/2015 Assessment & Plan (09/22/2023 1:05 PM EDT): BP controlled -cont lisinopril daily -Cr, GFR and urine microalbumin nml SEP 2022->repeat prior to next visit -there is nml EKG in chart -referred to optho for eval Assessment & Plan (05/08/2023 7:13 PM EST): Have no take BP med today-advised to be complaint daily w meds and f BP w PCP Elevated fasting glucose 05/09/2015 Dyslipidemia 05/09/2015 Assessment & Plan (09/22/2023 1:05 PM EDT): With low HDL and elevated LDL SEP 2022 -repeat lipids prior to next visit -calculate ASCVD score with next labs Resolved Problems Problem Noted Date Diagnosed Date Resolved Date Epigastric pain 05/08/2023 08/26/2023 Assessment & Plan (05/08/2023 7:11 PM EST): Symptoms are suggestive of gastritis,PUD,gastroenteritis -Abd US 10/07/22 : Hepatic steatosis. The gallbladder is physiologically distended without evidence of stones, sludge, polyps, wall thickening or pericholecystic fluid. -will hold for now on h pylori test given pt is taking PPIs but will fw GI -omeprazole increase to 40 mg in am -30 min before breakfast and famotidine HS prn -trial w peptobismol Q 8 h prn -referred to GI for chronic symptoms -lipase ,chem today -alarm signs and symptoms Acute maxillary sinusitis 09/18/2022 Impacted cerumen 09/24/2017 09/18/2022 Encounters Date Type Department Care Team Description 06/12/2024 Refill [facility] [address] [place] [id number] Halley Hill DO 06/02/2024 11:15 AM EST Office Visit [address] [address] Halley Hill DO Type 2 diabetes mellitus without complication, unspecified whether long term care social worker insulin use (CMS/HCC) (Primary Dx); Other hyperlipidemia; Essential hypertension; Fatty liver; Chronic gastroesophageal reflux disease; Major depression, recurrent, chronic (CMS/HCC); Polyarthralgia; Chronic hand pain, right; Healthcare maintenance; New onset type 2 diabetes mellitus (CMS/HCC) 06/02/2024 Travel 04/25/[address] [address] Halley Hill DO telephone call 03/13/2024 3:30 PM EST Office Visit [address] [id number] Mayra Armando MD Polyarthralgia (Primary Dx) 03/13/2024 Travel from Last 3 Months Immunizations Name Administration Dates Next Due Hep A, Adult 08/19/2010 Hep B, adult 07/18/2012,11/12/2010,08/19/2010 Influenza, IIV3, injectable 01/08/2011, 0 Influenza, Split (incl. nadia fied surface antigen) 01/28/2012 Td (adult), 5 Lf tetanus tox oid, preservative free, adsorbed 09/18/2022 Tdap 02/21/2010 Social History Tobacco Use Types Packs/Day Years Used Date Smoking Tobacco: Never Smokeless Tobacco: Never Tobacco Cessation:Counseling Given: Not Answered Alcohol Use Standard Drinks/Week Comments Never 0 (1 standard drink = 0.6 oz pur e alcohol) Depression Answer Date Recorded Patient Health Questionnaire-9 Score 18 07/23/2023 Patient Health Questionnaire-9 Score 18 07/23/2023 Last PHQ-9: Questionnaire Data Not on file 0 07/23/2023 Housing Stability Answer Date Recorded What is your housing situation today? I have dolores bárbara 09/22/[address] you li ve. Do you have problems with any of the following? Inadequate heat 09/22/2023 Food Insecurity Answer Date Recorded Within the past 12 months, y ou worried that your food would run out before you got money to buy more: Never True 09/22/2023 Within the past 12 months,th e food you bought just didn't last and you didn't have enough money to get more: Never True Transportation Answer Date Recorded In the past 12 months, has l ack of transportation kept you from medical appts, meetings, work or from getting things needed for daily living? No 09/22/2023 Utilities Answer Date Recorded In the past 12 months, has t he electric, gas, oil or water company threatened to shut off services in your home? No 09/22/2023 Depression Answer Date Recorded Patient Health Questionnaire-2 Score 6 07/23/2023 Comments No Sex and Gender Information Value Date Recorded Sex Assigned at Female 02/23/2022 10:21 AM EDT Legal Sex Female 10:21 AM EDT Gender Identity Female 02/23/2022 10:21 AM EDT Sexual Orientation Straight 02/23/2022 10 :21 AM EDT Last Filed Vital Signs Vital Sign Reading Time Taken Comments Blood Pressure 155/82 06/02/2024 12:06 PM EST Pulse 77 06/02/2024 12:06 PM EST Temperature 36.1 ??C (97 ??F) 06/02/2024 12:06 PM EST Respiratory Rate 20 06/02/2024 12:06 PM EST Oxygen Saturation 94% 06/02/2024 12:06 PM EST Inhaled Oxygen Concentration - - Weight 108 kg (237 lb 6.4 oz) 06/02/2024 12:06 P M EST Height 160 cm (5' 3 ) 06/02/2024 12:06 PM EST Body Mass Index 42.05 06/02/2024 12:06 PM EST Plan of Treatment Health Maintenance Due Date Last Done Comments CT Colonography 1972 Colonoscopy 1972 Colorectal Cancer Screening 1972 FIT DNA/Cologuard 1972 FIT 1972 FOBT 1972 Sigmoidoscopy 1972 Diabetes: Foot Exam 1982 Eye Exam 1982 Alcohol/Substance Use Screening 1984 Family Planning (PISQ) 1987 Pneumococcal Vaccine: 50+ Years (1 of 2 - PCV) 1991 Pap Smear 1993 Hepatitis A Vaccines (2 of 2 - Risk 2-dose series) 02/18/2011 08/19/2010 Zoster Vaccines (1 of 2) 2022 COVID-19 Vaccine (3 - season) 2023 10/25/2020, 10/04/2020 Influenza Vaccine (#1) 2023 2, 01/08/2011, 02/21/2010 Depression Monitoring (PHQ-9) 01/23/2024 07/23/2023, 07/23/2023 Cervical Cancer Screening 02/11/2024 HPV/Cotest 02/11/2024 02/10/2019, 02/14/2016 Depression Screening 07/22/2024 07/23/2023, 07/23/19 24 SDOH Screening 09/21/2024 09/22/2023 Diabetes: Urine Protein Screening 10/11/2024 10/12/2023, 10/07/2022 Diabetes: Hemoglobin A1C 11/30/2024 025, 10/12/2023, 05/28/2023, Additional history exists Lipid Panel 12/17/2024 12/18/2023, 09/24, 10/07/2022, Additional history exists Tobacco Screening 06/02/2025 06/02/2024 Mammogram 08/16/2025 08/17/2023, 07/25, 08/15/2020, Additional history exists DTaP/Tdap/Td Vaccines (3 - Td or Tdap) 09/18/2032 09/18/2022, 02/21/2010 RSV Patients and Patients Aged 60 years or older (1 - 1-dose 75+ series) 2047 Hepatitis B Vaccines Completed 07/18/2012, 11/12/2010, 08/19/2010 HIV Screening Completed 10/12/2023, 10/07/2022 Hepatitis C Screening Completed 10/12/2023 , 10/07/2022, 11/15/2021 HIB Vaccines Aged Out No longer eligi ble based on patient's age to complete this topic HPV Vaccines Aged Out No longer eligi ble based on patient's age to complete this topic IPV Vaccines Aged Out No longer eligi ble based on patient's age to complete this topic Meningococcal Vaccine Aged Out No blanche fausto eligible based on patient's age to complete this topic RSV under 20 months Aged Out No longe r eligible based on patient's age to complete this topic Rotavirus Vaccines Aged Out No longer eligible based on patient's age to complete this topic Procedures Procedure Name Priority Date/Time Associated Diagnosis Comments POCT GLYCATED HEMOGLOBIN, TOTAL Routine 06/02/2024 12:08 PM EST Type 2 diabetes mellitus without complication, unspecified whether long term care social worker insulin use ([facility]) POCT GLUCOSE Routine 06/02/2024 12:07 PM EST Type 2 diabetes mellitus without complication, unspecified whether long term care social worker insulin use ([facility]) LIPID PANEL, STANDARD Routine 12/18/2023 9:29 AM EDT New onset type 2 diabetes mellitus (CMS/HCC) Other hyperlipidemia HEPATITIS C AB W/REFL TO HCV RNA, QN, PCR Routine 10/12/2023 10:33 AM EDT Essential hypertension Dyslipidemia Fatty liver Chronic gastroesophageal reflux disease Major depression, recurrent, chronic (CMS/HCC) Polyarthralgia Chronic hand pain, right Decreased visual acuity Healthcare maintenance HIV 1/2 ANTIGEN/ANTIBODY, FOURTH GENERATION W/RFL Routine 10/12/2023 10:33 AM EDT Essential hypertension Dyslipidemia Fatty liver Chronic gastroesophageal reflux disease Major depression, recurrent, chronic (CMS/HCC) Polyarthralgia Chronic hand pain, right Decreased visual acuity Healthcare maintenance ALBUMIN, RANDOM URINE W/CREATININE Routine 10/12/2023 10:03 AM EDT Essential hypertension Dyslipidemia Fatty liver Chronic gastroesophageal reflux disease Major depression, recurrent, chronic (CMS/HCC) Polyarthralgia Chronic hand pain, right Decreased visual acuity Healthcare maintenance BI MAMMOGRAM SCREENING TOMOSYNTHESIS BILATERAL Routine 08/17/2023 3:50 PM EDT ZZZ HISTORICAL HPV E6/E7 RFLX ALESSANDRA 16 / Routine 02/10/2019 12:00 AM EDT from Last 3 Months or Most Recently Relevant to Health Maintenance Results * (ABNORMAL) POCT HGB A1C (06/02/2024 12:08 PM EST) Hemoglobin A1C 6.3(A) 4.0 - 6.0 % QC Media Lot # [id number] Lot# Expiration Date ,026 Blood 06/02/2024 12:0 8 PM EST Halley Hill DO POINT OF CARE TEST ENTER/ANALI T ORDERABLES Final Result * POCT Glucose (06/02/2024 12:07 PM EST) Glucose Blood, POC 85 60 - 200 mg/dL QC Media Lot # [id number] Lot# Expiration Date ,025 Blood Capillary blood specimen / Unknown 06/02/2024 12:07 PM EST Halley Hill DO POINT OF CARE TEST ENTER/ANALI T ORDERABLES Final Result * (ABNORMAL) Lipid Panel, Standard (12/18/2023 9:29 AM EDT) Triglycerides 188(H) <150 mg/dL [facility] Comment:Desirable Triglyceri de: less than 150 mg/dLBorderline High Triglyceride 150-199 mg/dLHigh Triglyceride: 200-499 mg/dLVery High Triglyceride: greater than or equal to 5OO mg/dL Cholesterol 255(H) <200 mg/dL [facility] Comment:Desirable Cholestero l: less than 200 mg/dLBorderline High Cholesterol: 200-239 mg/dLHigh Cholesterol: greater than 239 mg/dL LDL Cholesterol Calculated 183(H) <100 mg/dL [facility] Comment:Desirable LDL: less than 100 mg/dLNear Optimal/Above Optimal LDL: 110- 129 mg/dLBorderline High LDL: 130-159 mg/dLHigh LDL: 160-189 mg/dLVery High LDL: greater than or equal to 190 mg/dL HDL Cholesterol 35(L) >40 mg/dL [facility] Comment:Desirable HDL: great er than 40 mg/dL Note: This HDL assay may give artificially low results in patients with liver disease. Blood Venous blood specimen / Unknown 12/18/2023 9:29 AM EDT 12/18/2023 9:29 AM EDT Halley Hill DO LAB BLOOD ORDERABLES Final R esult [facility] [place] [address] [phone] * Hepatitis C Antibody with Reflex to HCV, RNA, Quantitative, Real-Time PCR (10/12/2023 10:33 AM EDT) Hepatitis C Antibody Nonreactive Nonreactive [facility] Comment:Antibodies to HCV no t detected; does not exclude early acuteHCV infection. Blood Venous blood specimen / Unknown 10/12/2023 10:33 AM EDT 10/12/2023 12:58 PM EDT Halley Hill DO LAB BLOOD ORDERABLES Final R esult Performing Organization Address City/[facility]/ZIP Co de Phone Number [facility] [address] [place] [phone] * HIV-1/2 Antigen and Antibodies, Fourth Generation, with Reflexes (10/12/2023 10:33 AM EDT) HIV AB/AG Nonreactive Nonreactive [facility] Comment:HIV-1 p24 Ag and/or HIV-1/HIV-2 Ab not detected.A test result that is nonreactive does not exclude thepossibility of exposure to or infection with HIV-1 and/orHIV-2. Nonreactive results in this assay for individualswith prior exposure to HIV-1 and/or HIV-2 may be due toantigen and antibody levels that are below the limit ofdetection of this assay.The [facility] HIV Ag/Ab Combo assay result andsupplemental assay results should be interpreted inconjunction with the patient's clinical presentation,history and other laboratory results. If the results areinconsistent with clinical evidence, additional testing issuggested to confirm the result. Blood Venous blood specimen / Unknown 10/12/2023 10:33 AM EDT 10/12/2023 12:58 PM EDT us Halley Jurlance DO LAB BLOOD ORDERABLES Final R esult Performing Organization Address City/[facility]/ZIP Co de Phone Number [facility] [address] [place] [address] [phone] * Albumin, Random Urine W/Creatinine (10/12/2023 10:03 AM EDT) Creatinine, Urine 113.26 mg/dL [facility] Microalbumin Urine 31.0 mg/L H [facility] Microalbum Creatinine Ratio Ur 27.3 <30 ug/mg cr [facility] Comment:Albumin/Creatinine R atio Reference Ranges: Normal: < 30 ug/mg creatinine Microalbuminuria: 30 - 300 ug/mg creatinineClinical Albuminuria: > 300 ug/mg creatinine Urine (Urine, Random) 10/12/2023 10:03 AM EDT 10/12/2023 11:23 AM EDT us Halley Liz DO LAB URINE ORDERABLES Final R esult [facility] [address] [place] [address] [phone] * BI Mammogram Screening Tomosynthesis Bilateral (08/17/2023 3:50 PM EDT) Anatomical Region Laterality Modality Breast Bilateral Mammography 08/17/2023 3:50 PM EDT Narrative 08/28/2023 7:42 AM EDT ? [facility] ?[address] ?[place] [address] ? Mammography Report ? Signed ? Patient: Isaias Esparza,Annabelle I ?MR#: [id number] ?? [id number] ? : 1970 ?Acct:[id number] ? Age/Sex: 53 / F ?ADM Date: 04/23/24 ? Loc: HO.US ? Attending Dr: Angella Arenas HOSPITAL ADMINISTRATOR-BC ? Ordering Physician: Angella Arenas HOSPITAL ADMINISTRATOR-BC ?Results: 1N ?? egative ? Date of Service: 08/17/23 ?Follow Up: 1 Year From Orig ?? inal Mammogram ? Procedure(s): MM tomosynthesis screening BI ?? Accession Number(s): [id number] ? cc: Halley Hill DO; Angella Arenas HOSPITAL ADMINISTRATOR-BC ? EXAMINATION: ?? MM SCREENING DIGITAL BREAST TOMOSYNTHESIS, BILATERAL ? CLINICAL INFORMATION: ? Screening. Asymptomatic. ? COMPARISON: ?? Mammography: This study is compared with prior exams dating back to ?? 2018. ? TECHNIQUE: ?? Digital breast tomosynthesis is performed in both the craniocaudal and ?? mediolateral oblique views along with computer-aided detection (CAD). ?? Synthesized 2D images are generated from the tomosynthesis. ? FINDINGS: ?? There are scattered areas of fibroglandular density (ACR BI-RADS breast ?? composition Category b). ? There are no significant masses, abnormal calcifications, or other ?? abnormalities. ? MM/MM tomosynthesis screening BI ?? IMPRESSION: ?? No mammographic evidence of malignancy. ? ASSESSMENT: ? BI-RADS BI-RADS 1 - Negative ? RECOMMENDATION: ?? Routine annual mammography screening. ? 1 year F/U ? This examination should not preclude the clinical evaluation of a ?? suspicious palpable abnormality. ? This patient's information was entered into a reminder system with a ?? target due date for their next mammogram. ? Dictated By: ?Olga Menendez MD ? Signed By: ?<Electronically signed by Olga Menendez MD in OV> ? 08/28/23737 ? DD/ ? TD/TT: ? Embossing Machine Operator Helper: ? Procedure Note Lyndsey Hernandez - 08/28/[address] [address] Mammography Report Signed Patient: Annabelle Bang [facility]#: [id number] : 1970Acct:[id number] Age/Sex: 53 / FADM Date: 08/17/23 Loc: . Attending Dr: Angella Arenas HOSPITAL ADMINISTRATOR-BC Ordering Physician: Angella Arenas HOSPITAL ADMINISTRATOR-BCResults: 1N egative Date of Service: 08/17/23Follow Up: 1 Year From Orig inal Mammogram Procedure(s): MM tomosynthesis screening BI Accession Number(s): [id number] cc: Halley Hill DO; Angella Arenas HOSPITAL ADMINISTRATOR-BC EXAMINATION: MM SCREENING DIGITAL BREAST TOMOSYNTHESIS, BILATERAL CLINICAL INFORMATION: Screening. Asymptomatic. COMPARISON: Mammography: This study is compared with prior exams dating back to 2019. TECHNIQUE: Digital breast tomosynthesis is performed in both the craniocaudal and mediolateral oblique views along with computer-aided detection (CAD). Synthesized 2D images are generated from the tomosynthesis. FINDINGS: There are scattered areas of fibroglandular density (ACR BI-RADS breast composition Category b). There are no significant masses, abnormal calcifications, or other abnormalities. MM/MM tomosynthesis screening BI IMPRESSION: No mammographic evidence of malignancy. ASSESSMENT: BI-RADS BI-RADS 1 - Negative RECOMMENDATION: Routine annual mammography screening. 1 year F/U This examination should not preclude the clinical evaluation of a suspicious palpable abnormality. This patient's information was entered into a reminder system with a target due date for their next mammogram. Dictated By: Olga Menendez MD Signed By: <Electronically signed by Olga Menendez MD in OV> 08/28/23 0738 DD/ 1550 TD/TT: Embossing Machine Operator Helper: [facility] External Provider IMG BI PROCEDURES Edited Result - Final * HPV E6/E7 RFLX ALESSANDRA 16 18/45 (02/10/2019 12:00 AM EDT) ADDITIONAL TESTING Not indicated () [facility] Comment: Test Performed by Spencer Nunoy, [email or web address] [facility], [address] [place], [place] Tony Abel M.D., Ph.D., Director of Laboratories , [place] [id number] HPV 16 RNA Test not performed [facility] HPV 18/45 RNA Test not performed [facility] HPV mRNA E6/E7 Not Detected NOT DETECTED [facility] Comment: This test was performed using the APTIMA(R) HPV Assay ([employer] This assay detects E6/E7 viral messenger RNA (mRNA) from 14 high-risk HPV types (16,18,31,33,35,39,45,51, 52,56,58,59,66,68). For additional information please refer to: http://education.Process Data Control/faq/GYU582p1 (This link is being provided for informational/ educational purposes only.) The analytical performance characteristics of this assay have been determined by [email or web address] [place], [place]. The modifications have not been cleared or approved by the FDA. This assay has been validated pursuant to the CLIA regulations and is used for clinical purposes. Please note: ??Effective 01/06/2016, HPV testing will be performed using [employer]'s APTIMA test which targets mRNA. Detecting mRNA instead of DNA, as in older methods, offers significant improvements in specificity. 02/10/2019 Halley Hill DO HISTORICAL/NON ORDERABLE LAB S Final Result [facility] [address] from Last 3 Months or Most Recently Relevant to Health Maintenance Insurance [facility] Care Teams Post Office Clerk Relationship Specialty Start Date End Date Halley Hill DO [address] [place] [phone] PCP - General Family Medicine 04/26/18
--- OUTSIDE RECORDS SUMMARY | 2024-06-13 10:40 | XMS_ITS | Encounter Summary ---
Author Organization [employer] Address [address] [facility] 7t [place] [address] Care Team Providers Care System Software Programmer Name Role Phone Halley Hill DO Primary Care Provider + [phone] Reason for Visit * Reason Comments Med Refill Encounter Details Date Type Department Care Team ([facility] st Contact Info) Description 07/26/2023 Refill [facility] [address] [place] [phone] Lillian Dunn MD [address] [place] [address] Epigastric pain Social History Tobacco Use Types Packs/Day Years Used Date Smoking Tobacco: Never Smokeless Tobacco: Never Alcohol Use Standard Drinks/Week Comments Never 0 (1 standard drink = 0.6 oz pur e alcohol) Depression Answer Date Recorded Patient Health Questionnaire-9 Score 18 07/23/2023 Patient Health Questionnaire-9 Score 18 07/23/2023 Last PHQ-9: Questionnaire Data Not on file 0 07/23/2023 Housing Stability Answer Date Recorded What is your housing situation today? I have dolores granger 02/18/[address] you li ve. Do you have problems with any of the following? None of the above 02/18/2023 Food Insecurity Answer Date Recorded Within the past 12 months, y ou worried that your food would run out before you got money to buy more: Never True 02/18/2023 Within the past 12 months,th e food you bought just didn't last and you didn't have enough money to get more: Never True Transportation Answer Date Recorded In the past 12 months, has l ack of transportation kept you from medical appts, meetings, work or from getting things needed for daily living? No 02/18/2023 Utilities Answer Date Recorded In the past 12 months, has t he electric, gas, oil or water company threatened to shut off services in your home? No 02/18/2023 Depression Answer Date Recorded Patient Health Questionnaire-2 Score 6 07/23/2023 Comments Unknown Sex and Gender Information Value Date Recorded Sex Assigned at Female 02/23/2022 10:21 AM EDT Legal Sex Female 10:21 AM EDT Gender Identity Female 02/23/2022 10:21 AM EDT Sexual Orientation Straight 02/23/2022 10 :21 AM EDT documented as of this encounter Plan of Treatment Not on file documented as of this encounter Visit Diagnoses Diagnosis Epigastric pain Abdominal pain, epigastric documented in this encounter Additional Health Concerns Assessment Noted Time PHQ-9 Depression Total Score: 18 024 10:21 AM EDT documented as of this encounter Care Teams System Software Programmer Relationship Specialty Start Date End Date Halley Hill DO [address] [place] [address] PCP - General Family Medicine 04/26/18 documented as of this encounter
--- OUTSIDE RECORDS SUMMARY | 2024-06-13 10:40 | XMS_ITS | Encounter Summary ---
Author Organization [employer] Address [address] [facility] 7t [place] [address] Care Team Providers Care Echocardiographer Name Role Phone Amy Hillfer Primary Care Provider + [phone] Encounter Details Date Type Department Care Team (Latest Contact Info) Description 06/02/2024 Travel Social History Tobacco Use Types Packs/Day Years [...] housing situation today? I have dolores granger 09/22/[address] you li [...] documented as of this encounter Visit Diagnoses Not on filedocumented in this encounter Additional Health Concerns Assessment Noted Time PHQ-9 Depression Total Score: 18 024 10:21 AM EDT documented as of this encounter Care Teams Echocardiographer Relationship Specialty Start Date End Date Halley Hill DO [address] [place] [address] PCP - General Family Medicine 04/26/18 documented as of this encounter
--- OUTSIDE RECORDS SUMMARY | 2024-06-13 10:40 | XMS_ITS | Encounter Summary ---
Author Organization [employer] Address [address] [place] [address] 7 [place] [address] Care Team Providers Care Filenet Architect Name Role Phone Halley Hill DO Primary Care Provider + [phone] Reason for Referral * Medications - Closed Specialty Diagnoses / Procedures Referred By Juvenal t Referred To Contact Diagnoses New onset type 2 diabetes mellitus (CMS/HCC) Halley Hill DO [address] [place] [address] Phone: tel: fax: Referral ID Status Reason Start Date Expiration Date Visits Re quested Visits Authorized [id number] Closed 06/02/2024 06/02/2025 1 1 Reason for Visit * Reason Comments Follow-up A1C/GLU Encounter Details Date Type Department Care Team (Latest Contact Info) Description 06/02/2024 11:15 AM EST Office Visit [facility] [address] [place] [phone] Halley Hill DO [address] [place], [place] [phone] Type 2 diabetes mellitus without complication, unspecified whether long term care administrator insulin use (CMS/HCC) (Primary Dx); Other hyperlipidemia; Essential hypertension; Fatty liver; Chronic gastroesophageal reflux disease; Major depression, recurrent, chronic (CMS/HCC); Polyarthralgia; Chronic hand pain, right; Healthcare maintenance; New onset type 2 diabetes mellitus (CMS/HCC) Social History Tobacco Use Types Packs/Day Years [...] AM EDT documented as of this encounter Last Filed Vital Signs Vital Sign Reading [...] Mass Index 42.05 06/02/2024 12:06 PM EST documented in this encounter Plan of Treatment Not on file documented as of this encounter Procedures Procedure Name Priority Date/Time Associated Diagnosis Comments POCT GLYCATED HEMOGLOBIN, TOTAL Routine 06/02/2024 12:08 PM EST Type 2 diabetes mellitus without complication, unspecified whether long term care administrator insulin use (CMS/[facility]) POCT GLUCOSE Routine 06/02/2024 12:07 PM EST Type 2 diabetes mellitus without complication, unspecified whether senior care insulin use (CMS/[facility]) documented in this encounter Results * (ABNORMAL) POCT HGB A1C (06/02/2024 12:08 PM EST) Hemoglobin A1C 6.3(A) 4.0 - 6.0 % [employer] Lot # [id number] Lot# Expiration Date Blood 06/02/2024 12:0 8 PM EST Halley Hill DO POINT OF CARE TEST ENTER/ANALI T ORDERABLES Final Result * POCT Glucose (06/02/2024 12:07 PM EST) Glucose Blood, POC 85 60 - 200 mg/dL [employer] Lot # [id number] Lot# Expiration Date Blood Capillary blood specimen / Unknown 06/02/2024 12:07 PM EST Halley Hill DO POINT OF CARE TEST ENTER/ANALI T ORDERABLES Final Result documented in this encounter Visit Diagnoses Diagnosis Type 2 diabetes mellitus without complication, unspecified whether long term care administrator insulin use (CMS/HCC)- Primary Other hyperlipidemia Essential hypertension Unspecified essential hypertension Fatty liver Other chronic nonalcoholic liver disease Chronic gastroesophageal reflux disease Major depression, recurrent, chronic (CMS/HCC) Polyarthralgia Pain in joint, multiple sites Chronic hand pain, right Healthcare maintenance New onset type 2 diabetes mellitus (CMS/HCC) documented in this encounter Additional Health Concerns Assessment Noted Time PHQ-9 Depression Total Score: 18 024 10:21 AM EDT documented as of this encounter Care Teams Filenet Architect Relationship Specialty Start Date End Date Halley Hill DO [address] [place] [address] PCP - General Family Medicine 04/26/18 documented as of this encounter
--- OUTSIDE RECORDS SUMMARY | 2024-06-13 10:40 | XMS_ITS | Encounter Summary ---
Author Organization [employer] Address [address] [facility] 7t [place] [address] Care Team Providers Care Cremator Name Role Phone Halley Hill DO Primary Care Provider + [phone] Reason for Visit * Reason Comments Med Refill Encounter Details Date Type Department Care Team ([facility] st Contact Info) Description 06/12/2024 Refill [facility] [address] [place] [address] Halley Hill DO [address] [place], [place] [phone] Social History Tobacco Use Types Packs/Day Years [...] documented as of this encounter Care Teams Cremator Relationship Specialty Start Date End Date Halley Hill DO [address] [place] [id number] PCP - General Family Medicine 04/26/18 documented as of this encounter
--- OUTSIDE RECORDS SUMMARY | 2024-06-13 10:40 | XMS_ITS | Encounter Summary ---
Author Organization [employer] Address [address] [facility] 7t [place] [address] Care Team Providers Care Site Surveyor Name Role Phone Halley Hill DO Primary Care Provider + [phone] Reason for Visit * Reason Comments Med Refill Encounter Details Date Type Department Care Team ([facility] st Contact Info) Description 05/07/[address] [facility] [address] [place] [address] Lillian Dunn MD [address] [place] [address] Epigastric pain Social History Tobacco Use Types Packs/Day Years Used Date Smoking Tobacco: Never Smokeless Tobacco: Never Alcohol Use Standard Drinks/Week Comments Never 0 (1 standard drink = 0.6 oz pur e alcohol) Depression Answer Date Recorded Patient Health Questionnaire-9 Score 16 09/18/2022 Housing Stability Answer Date Recorded What is [...] Date Recorded Patient Health Questionnaire-2 Score 6 09/18/2022 Comments Unknown Sex and Gender Information Value [...] Assessment Noted Time PHQ-9 Depression Total Score: 16 023 10:45 AM EDT documented as of this encounter Care Teams Site Surveyor Relationship Specialty Start Date End Date Halley Hill DO [address] [place] [address] PCP - General Family Medicine 04/26/18 documented as of this encounter
== END 2024-06-13 09:55 | disposition home or self-care (01) ==
LOC: HO.MAMMO 09:54
PROVIDERS: PCP Family Medicine; Visit Provider Student in an Organized Health Care Education/Training Program
DX: M81.0 Age-related osteoporosis without current pathological fracture (principal)
CPT/HCPCS: 77080

== ENCOUNTER → 2024-06-13 10:30 | Outpatient (BNV) | payer OTHER, SELFPAY | PROVIDERS: PCP Family Medicine; Visit Provider Radiology Diagnostic Radiology | DX: E28.39 Other primary ovarian failure (principal) | CPT/HCPCS: 77080 ==

== ENCOUNTER 2024-07-04 14:20 | Outpatient (AMB) | payer OTHER, SELFPAY ==
--- NOTE | 2024-07-04 14:26 | A.OFFVIS_ITS ---
Vital Signs 07/04/24 14:34 Height 5 ft 5 in Weight 240 lb 4.862 oz BMI 40.0 BP 122/56 L Blood Pressure Location Rt brachial Position Sitting Pulse 74 Pulse Source Pulse Oximeter Pulse Oximetry (%) 92 Oxygen Delivery Method Room Air Intake Visit Reasons: 3 month follow R/S from 03/17/24 R/S 06/20/24 Intake Note: ESTABLISHED PATIENT for abd bloating mgmt. LVM via park interpreter regarding labs 06/15. Chief Complaint; Pt denies any GI concerns at this time. Pt is here to discuss upcoming procedures and medications involved. Railroad Construction Director Required: Yes Railroad Construction Director Services: Railroad Construction Director Present Railroad Construction Director Name: Lalo [id number] + GI LM Information Interpreted: clinical only Accompanied by: Self / Same As Patient Allergies Penicillins [PENICILLINS] Allergy (Unknown, Verified 07/04/24 14:34) Unknown HPI HPI 3 month follow R/S from 03/17/24 R/S 06/20/24: Details: LAST VISIT: GERD (gastroesophageal reflux disease) Diarrhea Constipation Postprandial epigastric pain Abdominal bloating Dyspepsia Hepatic steatosis Transaminitis Screen for colon cancer Plan What to expect before during and after procedure discussed with patient. Patient has colonoscopy scheduled for February 24. Good bowel prep and clear liquid diet day before procedure discussed with patient. Patient will call our office if she will have any symptoms. Will send her script for pantoprazole as Nexium was not covered. Will repeat liver enzymes. Liver elastography showed back in July of 2023 stiffness of 1.3 m/s which rules out compensated advanced chronic liver disease. Patient is agreeable to this plan and verbalizes understanding of instructions. She was given the opportunity to ask questions and all questions answered. ? Thank you for allowing me to participate in her care Orders Orders Liver Panel Today R74.01 Medications New pantoprazole take one tablet half an hour before breakfast 40 mg PO DAILY 30 tabs 2RF K21.9 bisacodyl (Dulcolax (bisacodyl)) take 4 tabs at noon the day before your colonoscopy 20 mg (4 x 5 mg) PO ONCE 1 day 4 tabs 0RF Z12.11 polyethylene glycol 3350 (Miralax) As directed by gastroenterology department at [facility] 238 grams PO ONCE 238 grams 0RF Z12.11 TODAY'S VISIT: Patient is here today for follow-up and to discuss going for colonoscopy. Patient reports that she has been feeling better now. She is no longer taking pantoprazole. Occasional acid reflux, however patient reports that that is depending on what she eats. Patient reports that she is trying to eat healthy. Patient no longer is taking any medications except for her blood pressure medication, lisinopril that was increased to 10 mg. Patient denies any dyspepsia, dysphagia or odynophagia. Denies melena, hematochezia, unintentional weight loss or ribbon like stools. Patient reports that she is moving her bowels without any issues. Denies any GI concerning symptoms. [facility] Medical History Bilateral shoulder pain Erosive osteoarthritis of both hands Diabetes Inflammatory arthritis GERD (gastroesophageal reflux disease) Migraine HTN (hypertension) Surgical History Hx of dilation and curettage H/O colonoscopy Hx of section Family History Maternal Grandfather Stomach cancer Social History Household Members Other:: daughter Housing: Apartment Alcohol intake: never Patient Tobacco Use Status: Never used Tobacco Second Hand Smoke Exposure: No Current occupational status: employed Current occupation: [employer] Sexual orientation: Straight/Heterosexual Gender identity: Female Review of Systems Const Denies weight gain and Denies weight loss ENT Reports no additional complaints, Denies dysphagia and Denies odynophagia Card Reports no additional complaints Resp Reports no additional complaints GI Reports abdominal pain (Epigastric, occasional), Denies belching, Denies melena, Reports bloating (occasional), Denies change in bowel habits, Denies dysphagia, Denies excessive flatus, Reports dyspepsia, Denies heartburn, Denies diarrhea, Denies loose stools, Denies nausea, Denies odynophagia and Denies vomiting Reports no additional complaints Musc Reports no additional complaints Neuro Reports no additional complaints Psych Reports no additional complaints Endo Reports no additional complaints Physical Exam Vital Signs: Last Vital Signs Pulse 74 07/04/24 14:34 BP 122/56 L 07/04/24 14:34 Pulse Ox 92 07/04/24 14:34 Oxygen Delivery Method Room Air 07/04/24 14:34 BMI result Body Mass Index 40.0 Const General: healthy appearing and no acute distress Nutritional Appearance: obese Orientation/consciousness: patient oriented x3 Resp Effort & Inspection: normal respiratory effort, able to speak in complete sentences, no tracheal deviation and symmetric chest movement Auscultation: clear to auscultation bilaterally Cardio Rate: regular rate GI Inspection: Yes normal to inspection, No distended and Yes obesity Palpation (GI): Soft to palpation, not firm, nontender and No hepatosplenomegaly present Auscultation: normal bowel sounds General: Yes no CVA tenderness Back/Spine/Pelvis Back: no CVA tenderness Skin General skin exam: elasticity normal, turgor normal and dry skin Neuro General: patient oriented x3 Psych Appearance: grossly normal Mental Status: mental status grossly normal Assessment & Plan Assessment & Plan (1) GERD (gastroesophageal reflux disease): Code(s): K21.9 - Gastro-esophageal reflux disease without esophagitis Category: Medical Qualifiers: Esophagitis presence: esophagitis presence not specified Qualified Code(s): K21.9 - Gastro-esophageal reflux disease without esophagitis (2) Diarrhea: Code(s): R19.7 - Diarrhea, unspecified Qualifiers: Diarrhea type: functional diarrhea Qualified Code(s): K59.1 - Functional diarrhea (3) Constipation: Code(s): K59.00 - Constipation, unspecified Qualifiers: Constipation type: slow transit constipation Qualified Code(s): K59.01 - Slow transit constipation (4) Postprandial epigastric pain: Code(s): R10.13 - Epigastric pain (5) Abdominal bloating: Code(s): R14.0 - Abdominal distension (gaseous) (6) Dyspepsia: Code(s): R10.13 - Epigastric pain (7) Hepatic steatosis: Code(s): K76.0 - Fatty (change of) liver, not elsewhere classified (8) Transaminitis: Code(s): R74.01 - Elevation of levels of liver transaminase levels (9) Screen for colon cancer: Code(s): Z12.11 - Encounter for screening for malignant neoplasm of colon Plan Patient no longer is taking any medications except for occasional Celebrex for pain and lisinopril daily. Patient is not taking Jardiance or anything for cholesterol. She will be following up with her PCP in the next couple weeks and will address her diabetes. Patient is confused she thinks that medication is what caused her liver enzymes to go up. Long discussion with patient about dietary changes and actually keeping her A1c low. Recommend for patient to take Mounjaro. Patient does not have any family or personal history of thyroid disease or thyroid cancer. Discussed with patient the importance of losing weight. What to expect before during and after procedure discussed with patient. Stressed the importance of clear liquid diet and good bowel prep. Patient has an appointment with me after the procedure. Procedure scheduled for July 28. Patient is agreeable to current plan of care and verbalizes understanding of instructions. She was given the opportunity to ask questions and all questions answered. Thank you for allowing me to participate in her care Medications: New bisacodyl (Dulcolax (bisacodyl)) take 4 tabs at noon the day before your colonoscopy 20 mg (4 x 5 mg) PO ONCE 1 day 4 tabs 0RF Z12.11 - Encounter for screening for malignant neoplasm of colon polyethylene glycol 3350 (Miralax) As directed by gastroenterology department at [facility] 238 grams PO ONCE 238 grams 0RF Z12.11 - Encounter for screening for malignant neoplasm of colon Coding Level of Care Code Est Pt Level 4 (68573) Complex EM visit Add On G2211 Diagnoses Gastroesophageal reflux disease, unspecified whether esophagitis present K21.9 Esophagitis presence: esophagitis presence not specified Functional diarrhea K59.1 Diarrhea type: functional diarrhea Slow transit constipation K59.01 Constipation type: slow transit constipation Postprandial epigastric pain R10.13 Abdominal bloating R14.0 Dyspepsia R10.13 Hepatic steatosis K76.0 Transaminitis R74.01 Screen for colon cancer Z12.11 Time Spent (min) 35 Comment 25 minutes spent with patient and additional 10 minutes spent reviewing her records
[2024-07-04 14:34] VITALS: BP 122/56; PULSE 74; O2SAT 92; BMI 40.0
--- OUTSIDE RECORDS SUMMARY | 2024-07-04 17:35 | XMS_ITS | Encounter Summary ---
Author Organization [employer] Address [address] [facility] 7t [place] [address] Care Team Providers Care Bi Developer Name Role Phone Halley Hill DO Primary Care Provider + [phone] Reason for Visit * Reason Comments Med Refill Encounter Details Date Type Department Care Team ([facility] st Contact Info) Description 05/07/2023 Refill [facility] [address] [place] [phone] Lillian Dunn MD [address] [place] [address] Epigastric pain Social History Tobacco Use Types [...] documented as of this encounter Care Teams Bi Developer Relationship Specialty Start Date End Date Halley Hill DO [address] [place] [id number] PCP - General Family Medicine 04/26/18 documented as of this encounter
--- OUTSIDE RECORDS SUMMARY | 2024-07-04 17:35 | XMS_ITS | Clinical Summary ---
Author Organization [employer] Address [address] [facility] 7t [place] [address] Care Team Providers Care Lactation Nurse Name Role Phone Halely Hill DO Primary Care Provider + [phone] Allergies Active Allergy Reactions Criticality Noted Date [...] capsule. 90 capsule 1 024 2024 Active Blood Glucose Monitoring Suppl (FreeStyle [place] Lite) w/Device kit Use to test blood sugar 1 times daily 1 kit Active Alcohol Swabs 70 % pads Use to test blood sugar 1 times daily 100 each 11 Active FREESTYLE LITE test strip Use to test blood sugar 1 times daily 100 each 11 024 2024 Active Lancets misc Use to [...] by mouth Once per day. 30 tablet 11 025 2025 Active Dulaglutide 0.75 MG/0.5ML solution [...] chew, or split. 60 tablet 3 Active famotidine (Pepcid) 40 MG tablet TAKE 1 TABLET BY MOUTH EVERY DAY AT BEDTIME 90 tablet 1 025 Active famotidine (Pepcid) 40 MG tablet Take 1 tablet (40 mg) by mouth at bedtime. 90 tablet 1 024 2024 Discontinued Active Problems Problem Noted Date Diagnosed Date Type 2 diabetes mellitus 10/15/2023 Healthcare maintenance 09/22/2023 Assessment & Plan (09/22/2023 1:06 PM EDT): -she declines flu vaccine -she declines COVID vaccine -s/p Tdap Jan 2010 -s/p Td August 2022 -encouraged shingrix vaccine -Hep A/B immune -mammo BIRADS 26 JUL 2023 -pap wnl/HPV neg Jan 2019, repeat scheduled with [facility] SCIENTIFIC ADVISOR -awaiting colonoscopy/EGD with GI -A1c 5.9% September [...] rhinitis 06/09/2023 Chronic gastroesophageal reflux disease 06/09/19 24 Assessment & Plan (09/22/2023 1:05 PM EDT): [...] is nml EKG in chart -referred to [facility] for eval Assessment & Plan (05/08/2023 7:13 [...] Encounters Date Type Department Care Team Description 06/13/2024 Orders Only [facility] External Provider, [facility] 06/12/2024 Refill [facility] [address] [place], [place] [phone] Halley Hill DO 06/02/2024 11:15 AM EST Office Visit [facility] [address] [place] [address] Halley Hill DO Type 2 diabetes mellitus without complication, unspecified whether emt intermediate insulin use (CMS/[facility]) (Primary Dx); Other hyperlipidemia; Essential hypertension; Fatty liver; Chronic gastroesophageal reflux disease; Major depression, recurrent, chronic (CMS/HCC); Polyarthralgia; Chronic hand pain, right; Healthcare maintenance; New onset type 2 diabetes mellitus (CMS/HCC) 06/02/2024 Travel 04/25/2024 Telephone [facility] [address] [place] [address] Halley Hill DO telephone call from Last 3 Months Immunizations Name Administration [...] Vaccines (1 of 2) 2022 COVID-19 Vaccine ( season) 2023 10/25/2020, 10/04/2020 Influenza Vaccine (#1) 2023 2, 01/08/2011, 02/21/2010 Depression Monitoring (PHQ-9) 01/23/2024 07/23/2023, 07/23/2023 Cervical Cancer Screening 02/11/2024 HPV/Cotest 02/11/2024 02/10/2019, 02/14/2016 Depression Screening 07/22/2024 07/23/2023, 07/23/19 24 SDOH Screening 09/21/2024 09/22/2023 Diabetes: Urine Protein Screening 10/11/2024 10/12/2023, 10/07/2022 Diabetes: Hemoglobin A1C 11/30/202406/02/ 025, 10/12/2023, 05/28/2023, Additional history exists Lipid [...] Procedure Name Priority Date/Time Associated Diagnosis Comments BD DEXA AXIAL Routine 06/13/2024 10:30 AM EST POCT GLYCATED HEMOGLOBIN, TOTAL Routine 06/02/2024 12:08 PM EST Type 2 diabetes mellitus without complication, unspecified whether emt intermediate insulin use (CMS/HCC) POCT GLUCOSE Routine 06/02/2024 12:07 PM EST Type 2 diabetes mellitus without complication, unspecified whether emt intermediate insulin use (CMS/HCC) LIPID PANEL, STANDARD Routine 12/18/2023 9:29 AM [...] ZZZ HISTORICAL HPV E6/E7 RFLX ALESSANDRA 16 18/45 Routine 02/10/2019 12:00 AM EDT from Last 3 Months or Most Recently Relevant to Health Maintenance Results * BD DEXA Axial (06/13/2024 10:30 AM EST) Anatomical Region Laterality Modality Body Radiographic Michelle ging 06/13/2024 10:3 0 AM EST Narrative 06/19/2024 7:04 AM EST ? [facility] [place] ? [address] ?[place] [address] ? Mammography Report ? Signed ? Patient: Beti,Annabelle I ?MR#: [id number] ?? [id number] ? : 1970 ?Acct:[id number] ? Age/Sex: 54 / F ?ADM Date: 02/18/25 ? Loc: HO.MAMMO ? Attending Dr: Karen Anne MD ? Ordering Physician: Karen Anne MD ?Results: ? Date of Service: 02/18/25 ?Follow Up: ? Procedure(s): XR DEXA axial skeleton ?? Accession Number(s): [id number] ? cc: Karen Anne MD; Halley Hill DO ? EXAMINATION: ??DXA BONE DENSITY AXIAL ? HISTORY: ??Estrogen deficiency ? TECHNIQUE: Total-trax Dual energy absorptiometry (DEXA) ?? of the lumbar spine, total left hip, and femoral neck was performed. ? COMPARISON: ??There are no prior studies for comparison. ? FINDINGS: ? The bone mineral density of the lumbar spine is 1.283 with a T-score of ?? 0.9, and a Z-score of 0.2. ? The bone mineral density of the left total hip is 1.233 with a T-score ?? of 1.8, and a Z-score of 1.5. ? The bone mineral density of the left femoral neck is 1.122 with a ?? T-score of 0.6, and a Z-score of 0.7. ? FRACTURE RISK: ?? The FRAX index suggests a risk of major osteoporotic fracture of 1.9%, ?? and of hip fracture 0.0%. ? MM/XR DEXA axial skeleton ?? IMPRESSION: ?? Based on bone mineral density, and according to World Health ?? Organization (WHO) criteria, the diagnosis is consistent with normal ?? bone mineral density. ? All bone density values are in grams per centimeter squared (g/cm2). ?? Statistically, 68% of repeat scans fall within 1 SD (+/- 0.010 g/cm2 ?? for AP spine L1-L4) and 1 SD (+/- 0.012 g/cm2 for femur total) ?? FRAX is a trademark of the [employer]'s ?? [place] for Metabolic Bone Disease, a World Health Organization (WHO) ?? Collaborating Center. ? Electronically signed by: ??Gene Rodriguez MD ??06/19/2024 07:01 AM EST ?? RP ? Dictated By: ?Gene Rodriguez MD ? Signed By: ?<Electronically signed by Gene Rodriguez MD in OV> ?06/19/24 07 ? DD/ 1030 ? TD/TT: 06/13/24 1100 ? Lieutenant Colonel: ? Procedure Note Donotuseinterpreter, Image - 06/19/2024 [place] [facility]'s [address] [place] [address] Mammography Report Signed Patient: Annabelle Bang IMR#: [id number] : 1970Acct:[id number] Age/Sex: 54 / FADM Date: 06/13/24 Loc: HO.MAMMO Attending Dr: Karen Anne MD Ordering Physician: Karen Anneesults: Date of Service: 06/13/24Follow Up: Procedure(s): XR DEXA axial skeleton Accession Number(s): [id number] cc: Karen Anne MD; Halley Hill DO EXAMINATION: DXA BONE DENSITY AXIAL HISTORY: Estrogen deficiency TECHNIQUE: Total-trax Dual energy absorptiometry (DEXA) of the lumbar spine, total left hip, and femoral neck was performed. COMPARISON: There are no prior studies for comparison. FINDINGS: The bone mineral density of the lumbar spine is 1.283 with a T-score of 0.9, and a Z-score of 0.2. The bone mineral density of the left total hip is 1.233 with a T-score of 1.8, and a Z-score of 1.5. The bone mineral density of the left femoral neck is 1.122 with a T-score of 0.6, and a Z-score of 0.7. FRACTURE RISK: The FRAX index suggests a risk of major osteoporotic fracture of 1.9%, and of hip fracture 0.0%. MM/XR DEXA axial skeleton IMPRESSION: Based on bone mineral density, and according to World Health Organization (WHO) criteria, the diagnosis is consistent with normal bone mineral density. All bone density values are in grams per centimeter squared (g/cm2). Statistically, 68% of repeat scans fall within 1 SD (+/- 0.010 g/cm2 for AP spine L1-L4) and 1 SD (+/- 0.012 g/cm2 for femur total) FRAX is a trademark of the [employer]'s [place] for Metabolic Bone Disease, a World Health Organization (WHO) Collaborating Center. Electronically signed by: Gene Rodriguez MD 06/19/2024 07:01 AM EST RP Dictated By: Gene Rodriguez MD Signed By: <Electronically signed by Geen Rodriguez MD in OV> 06/19/24 0701 DD/ 1030 TD/TT: 06/13/24 1100 Lieutenant Colonel: [facility] External Provider IMG DXA PROCEDURES Final Result * (ABNORMAL) POCT HGB A1C (06/02/2024 12:08 PM EST) [facility] Hemoglobin A1C 6.3(A) 4.0 - 6.0 % QC Media Lot # [id number] Lot# Expiration Date , Blood 06/02/2024 12:0 8 PM EST [facility] [place] Kasandrazaki DO POINT OF CARE TEST ENTER/ANALI T ORDERABLES Final Result * POCT Glucose (06/02/2024 12:07 PM EST) [facility] Glucose Blood, POC 85 60 - 200 mg/dL QC Media Lot # [id number] Lot# Expiration Date ,025 Blood Capillary blood specimen / Unknown 06/02/2024 12:07 PM EST [facility] kajeetlance DO POINT OF CARE TEST ENTER/ANALI T ORDERABLES Final Result * (ABNORMAL) Lipid Panel, Standard (12/18/2023 9:29 AM EDT) Triglycerides 188(H) <150 mg/dL [facility] Comment:Desirable Triglyceri de: less than 150 mg/dLBorderline High Triglyceride 150-199 mg/dLHigh Triglyceride: 200-499 mg/dLVery High Triglyceride: greater than or equal to 5OO mg/dL Cholesterol 255(H) <200 mg/dL [facility] Comment:Desirable Cholestero l: less than 200 mg/dLBorderline High Cholesterol: 200-239 mg/dLHigh Cholesterol: greater than 239 mg/dL LDL Cholesterol Calculated 183(H) <100 mg/dL [facility] Comment:Desirable LDL: less than 100 mg/dLNear Optimal/Above Optimal LDL: 110- 129 mg/dLBorderline High LDL: 130-159 mg/dLHigh LDL: 160-189 mg/dLVery High LDL: greater than or equal to 190 mg/dL HDL Cholesterol 35(L) >40 mg/dL [facility] Comment:Desirable HDL: great er than 40 mg/dL Note: This HDL assay may give artificially low results in patients with liver disease. Blood Venous blood specimen / Unknown 12/18/2023 9:29 AM EDT 12/18/2023 9:29 AM EDT Halley Hill DO LAB BLOOD ORDERABLES Final R esult Performing Organization Address City/[facility]/ZIP Co de Phone Number [facility] [address] [place] [phone] * Hepatitis C Antibody with Reflex to HCV, RNA, Quantitative, Real-Time PCR (10/12/2023 10:33 AM EDT) Hepatitis C Antibody Nonreactive Nonreactive [facility] Comment:Antibodies to HCV no t detected; does not exclude early acuteHCV infection. Blood Venous blood specimen / Unknown 10/12/2023 10:33 AM EDT 10/12/2023 12:58 PM EDT Halley Hill DO LAB BLOOD ORDERABLES Final R esult [facility] [address] [place] [phone] * HIV-1/2 Antigen and Antibodies, Fourth Generation, with Reflexes (10/12/2023 10:33 AM EDT) HIV AB/AG Nonreactive Nonreactive [facility] Comment:HIV-1 p24 Ag and/or HIV-1/HIV-2 Ab not detected.A test result that is nonreactive does not exclude thepossibility of exposure to or infection with HIV-1 and/orHIV-2. Nonreactive results in this assay for individualswith prior exposure to HIV-1 and/or HIV-2 may be due toantigen and antibody levels that are below the limit ofdetection of this assay.The [employer] ([employer] HIV Ag/Ab Combo assay result andsupplemental assay results should be interpreted inconjunction with the patient's clinical presentation,history and other laboratory results. If the results areinconsistent with clinical evidence, additional testing issuggested to confirm the result. Blood Venous blood specimen / Unknown 10/12/2023 10:33 AM EDT 10/12/2023 12:58 PM EDT us Halley Hill DO LAB BLOOD ORDERABLES Final R esult [facility] [address] [place] [phone] * Albumin, Random Urine W/Creatinine (10/12/2023 10:03 AM EDT) Creatinine, Urine 113.26 mg/dL [facility] Microalbumin Urine 31.0 mg/L [facility] Microalbum Creatinine Ratio Ur 27.3 <30 ug/mg cr [facility] Comment:Albumin/Creatinine R atio Reference Ranges: Normal: < 30 ug/mg creatinine Microalbuminuria: 30 - 300 ug/mg creatinineClinical Albuminuria: > 300 ug/mg creatinine Urine (Urine, Random) 10/12/2023 10:03 AM EDT 10/12/2023 11:23 AM EDT us Halley Hill DO LAB URINE ORDERABLES Final R esult [facility] [address] [place] [address] [phone] * BI Mammogram Screening Tomosynthesis Bilateral (08/17/2023 3:50 PM EDT) Anatomical Region Laterality Modality Breast Bilateral Mammography 08/17/2023 3:50 PM EDT Narrative 08/28/2023 7:42 AM EDT ? [facility] ?[address] ?[place] [address] ? Mammography Report ? Signed ? Patient: Isaias Esparza,Annabelle I ?MR#: [id number] ?? [id number] ? : 1970 ?Acct:[id number] ? Age/Sex: 53 / F ?ADM Date: 08/17/23 ? Loc: HO.US ? Attending Dr: Angella Arenas MARKETING SALES CONSULTANT-BC ? Ordering Physician: Angella Arenas MARKETING SALES CONSULTANT-BC ?Results: 1N ?? egative ? Date of Service: 08/17/23 ?Follow Up: 1 Year From Orig ?? inal Mammogram ? Procedure(s): MM tomosynthesis screening BI ?? Accession Number(s): [id number] ? cc: Halley Hill DO; Angella Arenas MARKETING SALES CONSULTANT-BC ? EXAMINATION: ?? MM SCREENING DIGITAL BREAST TOMOSYNTHESIS, BILATERAL ? CLINICAL INFORMATION: ? Screening. Asymptomatic. ? COMPARISON: ?? Mammography: This study is compared with prior exams dating back to ?? 2019. ? TECHNIQUE: ?? Digital breast tomosynthesis is [...] by Olga Menendez MD in OV> ? 08/28/23 0738 ? DD/ 1550 ? TD/TT: ? Lieutenant Colonel: ? Procedure Note Mary, Image - 08/28/[address] [address] Mammography Report Signed Patient: Annabelle Bang [facility]#: [id number] : 1970Acct:[id number] Age/Sex: 53 / FADM Date: 08/17/23 Loc: HO. Attending Dr: Angella GOMES-BC Ordering Physician: Angella Arenas-KATHesults: 1N egative Date of Service: 08/17/23Follow Up: 1 Year From Orig ina Mammogram Procedure(s): MM tomosynthesis screening BI Accession Number(s): [id number] cc: Halley Hill DO; Angella Arenas MARKETING SALES CONSULTANT-BC EXAMINATION: MM SCREENING DIGITAL BREAST TOMOSYNTHESIS, BILATERAL [...] in OV> 08/28/23 0738 DD/ 1550 TD/TT: Lieutenant Colonel: [facility] External Provider IMG BI PROCEDURES Edited Result - Final * HPV E6/E7 RFLX ALESSANDRA 16 18/45 (02/10/2019 12:00 AM EDT) ADDITIONAL TESTING Not indicated () [facility] Comment: Test Performed by [facility], [facility], [address] [place] [id number] Tony Abel M.D., Ph.D., Director of Laboratories , [place] [id number] HPV 16 RNA Test not performed [facility] HPV 18/45 RNA Test not performed [facility] HPV mRNA E6/E7 Not Detected NOT DETECTED [facility] Comment: This test was performed using the APTIMA(R) HPV Assay ([employer] This assay detects E6/E7 viral messenger RNA (mRNA) from 14 high-risk HPV types (16,18,31,33,35,39,45,51, 52,56,58,59,66,68). For additional information please refer to: http://AllPlayers.com.[employer]/faq/NVN846s9 (This link is being provided for informational/ educational purposes only.) The analytical performance characteristics of this assay have been determined by [employer] [place], [place]. The modifications have not been cleared or approved by the FDA. This assay has been validated pursuant to the CLIA regulations and is used for clinical purposes. Please note: ??Effective 01/06/2016, HPV testing will be performed using [employer] APTIMA test which targets mRNA. Detecting mRNA instead of DNA, as in older methods, offers significant improvements in specificity. 02/10/2019 us Halley Hill DO HISTORICAL/NON ORDERABLE LAB S Final Result [facility] [address] from Last 3 Months or Most Recently Relevant to Health Maintenance Insurance [facility] Care Teams Lactation Nurse Relationship Specialty Start Date End Date Halley Hill DO [address] [place] [phone] PCP - General Family Medicine 04/26/18
--- OUTSIDE RECORDS SUMMARY | 2024-07-04 17:36 | XMS_ITS | Encounter Summary ---
Author Organization [employer] Address [address] [facility] 7t [place] [address] Care Team Providers Care Fairground Operator Name Role Phone Halley Hill DO Primary Care Provider + [phone] Reason for Visit * Reason Comments Med Refill Encounter Details Date Type Department Care Team ([facility] st Contact Info) Description 06/12/2024 Refill [facility] [address] [place] [address] Halley Hill DO [address] [place], [place] [phone] Social History Tobacco Use Types Packs/Day Years [...] documented as of this encounter Care Teams Fairground Operator Relationship Specialty Start Date End Date Halley Hill DO [address] [place] [phone] PCP - General Family Medicine 04/26/18 documented as of this encounter
--- OUTSIDE RECORDS SUMMARY | 2024-07-04 17:36 | XMS_ITS | Encounter Summary ---
Author Organization [employer] Address [address] [facility] 7t [place] [address] Care Team Providers Care Parquet Floor Layer'S Helper Name Role Phone Halley Hill DO Primary Care Provider + [phone] Reason for Visit * Reason Comments Med Refill Encounter Details Date Type Department Care Team ([facility] st Contact Info) Description 07/26/[address] [facility] [address] [place] [phone] Lillian Dunn MD [address] [place] [address] Epigastric pain Social History Tobacco Use Types [...] documented as of this encounter Care Teams Parquet Floor Layer'S Helper Relationship Specialty Start Date End Date Halley Hill DO [address] [place] [address] PCP - General Family Medicine 04/26/18 documented as of this encounter
--- OUTSIDE RECORDS SUMMARY | 2024-07-04 17:36 | XMS_ITS | Encounter Summary ---
Demographics Address [address] [place] [address] Mobile Phone Home Phone Email Address Preferred Language es Marital Status Single Orthodoxy Affiliation Unknown Race Other Race Ethnic Group or Author Organization [employer] Address [address] [place] [address] Care Team Providers Care Geographic Information Scientist Name Role Phone Halley Hill DO Primary Care Provider + [phone] Encounter Details Date Type Department Care Team (Late st Contact Info) Description 06/13/2024 Orders Only [facility] External Provider, [facility] Social History Tobacco Use Types Packs/Day Years [...] DEXA AXIAL Routine 06/13/2024 10:30 AM EST documented in this encounter Results * BD DEXA Axial (06/13/2024 10:30 AM EST) Anatomical Region Laterality Modality Body Radiographic Michelle ging 06/13/2024 10:3 0 AM EST Narrative 06/19/2024 7:04 AM EST ? [facility] [place] ? [address] ?[place] [address] ? Mammography Report ? Signed ? Patient: Beti,Annabelle I ?MR#: [id number] ?? [id number] ? : 1970 ?Acct:[id number] ? Age/Sex: 54 / F ?ADM Date: 02/18/25 ? Loc: HO.MAMMO ? Attending Dr: Karen Anne MD ? Ordering Physician: Karen Anne MD ?Results: ? Date of Service: 02/18/25 ?Follow Up: ? Procedure(s): XR DEXA axial skeleton ?? Accession Number(s): [id number] ? cc: Karen Anne MD; Halley Hill DO ? EXAMINATION: ??DXA BONE DENSITY AXIAL ? HISTORY: ??Estrogen deficiency ? TECHNIQUE: [email or web address] Dual energy absorptiometry (DEXA) ?? of the [...] the [employer]'s ?? [place] for Metabolic Bone Disease, a World Health Organization (WHO) ?? Collaborating Center. ? Electronically signed by: ??Gene Rodriguez MD ??06/19/2024 07:01 AM EST ?? RP ? Dictated By: ?Gene Rodriguez MD ? Signed By: ?<Electronically signed by Gene Rodriguez MD in OV> ?06/19/24 0701 ? DD/ 1030 ? TD/TT: 06/13/24 1100 ? Charge Account Authorizer: ? Procedure Note Donotuseinterpreter, Image - 06/19/2024 [place] [facility]'s [address] [place], [place] [address] Mammography Report Signed Patient: Annabelle Bang IMR#: [id number] : 1970Acct:[id number] Age/Sex: 54 / FADM Date: 06/13/24 Loc: AURELIO Attending Dr: Karen Anne MD Ordering Physician: Karen Anneesults: Date of Service: 06/13/24Follow Up: Procedure(s): XR DEXA axial skeleton Accession Number(s): [id number] cc: Karen Anne MD; Halley Hill DO EXAMINATION: DXA BONE DENSITY AXIAL HISTORY: Estrogen deficiency TECHNIQUE: [email or web address] Dual energy absorptiometry (DEXA) of the lumbar [...] is a trademark of the [employer]'s [place] for Metabolic Bone Disease, a World Health Organization (WHO) Collaborating Center. Electronically signed by: Gene Rodriguez MD 06/19/2024 07:01 AM EST Dictated By: Gene Rodriguez MD Signed By: <Electronically signed by Gene Rodriguez MD in OV> 06/19/24 0701 DD/ 1030 TD/TT: 06/13/24 1100 Charge Account Authorizer: [facility] External Provider IMG DXA PROCEDURES Final Result documented in this encounter Visit Diagnoses Not on filedocumented in this encounter Additional Health Concerns Assessment Noted Time PHQ-9 Depression Total Score: 18 07/22/ 024 10:21 AM EDT documented as of this encounter Care Teams Geographic Information Scientist Relationship Specialty Start Date End Date Halley Hill DO [address] [place] [phone] PCP - General Family Medicine 04/26/18 documented as of this encounter
== END 2024-07-04 17:19 | disposition home or self-care (01) ==
PROVIDERS: PCP Family Medicine; Visit Provider Nurse Practitioner Family
DX: K21.9 Gastro-esophageal reflux disease without esophagitis (principal); K59.1 Functional diarrhea; K59.01 Slow transit constipation; K76.0 Fatty (change of) liver, not elsewhere classified; R74.01 Elevation of levels of liver transaminase levels; Z12.11 Encounter for screening for malignant neoplasm of colon
CPT/HCPCS: 99214; G2211

== ENCOUNTER → 2024-07-04 14:20 | Outpatient (BNVA) | payer OTHER, SELFPAY | PROVIDERS: PCP Family Medicine; Visit Provider Nurse Practitioner Family | DX: K21.9 Gastro-esophageal reflux disease without esophagitis (principal); K59.1 Functional diarrhea; K59.01 Slow transit constipation; R10.13 Epigastric pain; R14.0 Abdominal distension (gaseous); K76.0 Fatty (change of) liver, not elsewhere classified; R74.01 Elevation of levels of liver transaminase levels; Z12.11 Encounter for screening for malignant neoplasm of colon | CPT/HCPCS: 99212 ==

== ENCOUNTER 2024-07-28 08:10 | Day surgery (SDC) | payer OTHER, SELFPAY ==
[2024-02-23 11:43] VITALS: BMI 39.8
--- NOTE | 2024-07-27 10:19 | P.CONAN_ITS ---
Documented by User: Teresa Brizuela NP 07/27/24 10:20 HPI - Anesthesia Eval Consult details Narrative: 54yo F for Upper Endoscopy and Colonoscopy Anesthesia Pre-Procedure Meds Is the patient on any of the following meds?: GLP1/DPP4 PMFSH Active Problems Active Problems: All Active Problems Bilateral shoulder pain (Acute) Erosive osteoarthritis of both hands (Acute) Numbness in both hands (Acute) Inflammatory arthritis (Acute) Well woman exam (Acute) Uterine myoma (Acute) Abnormal uterine bleeding (Acute) Attempted IUD removal, unsuccessful (Acute) COVID (Acute) GERD (gastroesophageal reflux disease) (Acute) Past Medical History Medical History Bilateral shoulder pain Erosive osteoarthritis of both hands Diabetes Inflammatory arthritis GERD (gastroesophageal reflux disease) Migraine HTN (hypertension) Family History Family History Maternal Grandfather Stomach cancer Family history of problems with anesthesia: No Surgical History Surgical History Hx of dilation and curettage H/O colonoscopy Hx of section History of Problems with Anesthesia: No Social History Social History Household Members Other:: daughter Housing: Apartment Alcohol intake: never Patient Tobacco Use Status: Never used Tobacco Second Hand Smoke Exposure: No Advance Directives: No Advance Directives Information Provided: Yes Current occupational status: employed Current occupation: [employer] Sexual orientation: Straight/Heterosexual Gender identity: Female Meds Allergies Allergy/AdvReac Type Severity Reaction Status Date / Time Penicillins [PENICILLINS] Allergy Unknown Unknown Verified 07/04/24 14:34 Home Medications ?Medication ?Instructions ?Recorded ?Confirmed ?Last Taken ?Type alcohol swabs (Alcohol Prep Pads) 1 pad topical TID 12/10/23 05/10/24 Unknown History blood sugar diagnostic (FreeStyle #10 ea 12/10/23 05/10/24 Unknown History Lite Strips) blood-glucose meter (FreeStyle #1 ea 12/10/23 05/10/24 Unknown History [place] Lite kit) lancets 33 gauge (TRUEplus Lancets) #100 ea 12/10/23 05/10/24 Unknown History celecoxib 200 mg capsule (Celebrex) 200 mg PO BID PRN 07/04/24 Unknown History lisinopril 5 mg tablet 10 mg PO DAILY 07/04/24 Unknown History empagliflozin 10 mg tablet 10 mg PO DAILY 07/27/24 Unknown History (Jardiance) Exam Height,Weight and Vital Signs: Height 5 ft 5 in Weight 108.409 kg Assessment and Plan Assessment Anesthesia Assessment: Chart Reviewed Final Anesthetic Review Family History of Problems with Anesthesia: No History of Problems with Anesthesia: No Documented by User: Bryanna Yee MD 07/28/24 10:15 HPI - Anesthesia Eval Anesthesia Pre-Procedure Meds Is the patient on any of the following meds?: GLP1/DPP4 (Last dose of Jardiance 3 months ago) PMFSH Active Problems Active Problems: All Active Problems Bilateral shoulder pain (Acute) Erosive osteoarthritis of both hands (Acute) Numbness in both hands (Acute) Inflammatory arthritis (Acute) Well woman exam (Acute) Uterine myoma (Acute) Abnormal uterine bleeding (Acute) Attempted IUD removal, unsuccessful (Acute) GERD (gastroesophageal reflux disease) (Acute) Denies TRAVIS Increased BMI 39.2 Breathing heavy- audible. Oatidnt states that she always breathes like this . Sats 92-95% (RA) Past Medical History Medical History Bilateral shoulder pain Erosive osteoarthritis of both hands Diabetes Inflammatory arthritis GERD (gastroesophageal reflux disease) Migraine HTN (hypertension) Family History Family History Maternal Grandfather Stomach cancer Family history of problems with anesthesia: No Surgical History Surgical History Hx of dilation and curettage H/O colonoscopy Hx of section History of Problems with Anesthesia: No Social History Social History Household Members Other:: daughter Housing: Apartment Alcohol intake: never Patient Tobacco Use Status: Never used Tobacco Second Hand Smoke Exposure: No Advance Directives: No Advance Directives Information Provided: Yes Current occupational status: employed Current occupation: [employer] Sexual orientation: Straight/Heterosexual Gender identity: Female Meds Allergies Allergy/AdvReac Type Severity Reaction Status Date / Time Penicillins [PENICILLINS] Allergy Unknown Unknown Verified 07/04/24 14:34 Home Medications ?Medication ?Instructions ?Recorded ?Confirmed ?Last Taken ?Type alcohol swabs (Alcohol Prep Pads) 1 pad topical TID 12/10/23 05/10/24 Unknown History blood sugar diagnostic (FreeStyle #10 ea 12/10/23 05/10/24 Unknown History Lite Strips) blood-glucose meter (FreeStyle #1 ea 12/10/23 05/10/24 Unknown History [place] Lite kit) lancets 33 gauge (TRUEplus Lancets) #100 ea 12/10/23 05/10/24 Unknown History celecoxib 200 mg capsule (Celebrex) 200 mg PO BID PRN 07/04/24 Unknown History lisinopril 5 mg tablet 10 mg PO DAILY 07/04/24 Unknown History empagliflozin 10 mg tablet 10 mg PO DAILY 07/27/24 Unknown History (Jardiance) Exam Height,Weight and Vital Signs: Height 5 ft 5 in Weight 108.409 kg Vital Signs Temp Pulse Resp BP Pulse Ox O2 Del Method 07/28/24 09:32 74 130/83 07/28/24 09:10 97.4 F 79 18 179/80 H 92 Room Air Pertinent Lab Results Pertinent Lab Results: Lab Results 07/28/24 Range/Units 09:36 POC Glucose 103 (60-115) mg/dL Airway Mallampati Class: III TM Dist: >3cm Neck ROM: Full Loose/Missing/Broken Teeth: No (Denies broken, loose, missing teeth) Heart: RRR Lungs: CTAB Assessment and Plan Assessment Anesthesia Assessment: Anesthesia Plan Discussed and Chart Reviewed Final Anesthetic Review Family History of Problems with Anesthesia: No History of Problems with Anesthesia: No NPO: Yes ASA Class: III Final Preanesthetic Review: No Changes in Pt Med Stat, Meds/Allgs Chart Reviewed, Consent Obtained/Reviewed and Anes Risks/Benef Reviewed Patient Risk: Intermediate Procedure Risk: Low Assessment/Block/Sedation in SS: Assess/Block/Sedation-SS Anesthetic Plan Anesthetic Plan: GA and TIVA Disposition: Standard PACU
[2024-07-28 09:02] VITALS: BMI 39.2
[2024-07-28 09:10] VITALS: BP 179/80; PULSE 79; RESP 18; TEMP 36.3; O2SAT 92
[2024-07-28 09:32] VITALS: BP 130/83; PULSE 74
--- NOTE | 2024-07-28 09:38 | MHC.SHP ---
Pre-Procedural Eval Section A - 24 Hr Update-Section A only Date of Service: 07/28/24 Section B - Complete if H&P > 30 days Chief Complaint: screening, gerd,diarrhea,constipation Relevant Family History (Specify if Yes): Yes Relevant Social History: None Present Medications: see Short Stay Collaborative assessment Medical History: Significant History (Bilateral shoulder pain Erosive osteoarthritis of both hands Diabetes Inflammatory arthritis GERD (gastroesophageal reflux disease) Migraine HTN (hypertension)) History of Previous Operations: Relevant previous surgery/procedure and date(s) (Hx of dilation and curettage H/O colonoscopy Hx of section) Allergies: Allergies Allergy/AdvReac Type Severity Reaction Status Date / Time Penicillins [PENICILLINS] Allergy Unknown Unknown Verified 07/04/24 14:34 Review of Systems Sugical H&P ROS: Negative: Constitution, Cardiovascular, Respiratory and Gastrointestinal Exam Surgical H&P Exam: Normal: Heart, Normal: Lungs, Normal: Extremities and Normal: Abdomen Plan Diagnosis/Plan: Unchanged I have reviewed the history and physical and performed a pertinent physical examination on my patient. No changes have occurred unless specified. Time Spent With Patient Time: Total time managing care of this patient today ____ minutes.
[2024-07-28] MEDS: Lactated Ringers 1,000 ML 100 ML IVCONT (09:45)
[2024-07-28 09:52] LABS: Glucose, Whole Blood 103 mg/dL (60-115)
--- NOTE | 2024-07-28 11:51 | HO.OPN-COLON ---
Colonoscopy Operative Note Operative Note Date of Service: 07/28/24 Narrative: FLEXIBLE TRANSORAL UPPER GASTROINTESTINAL ENDOSCOPY WITH BIOPSIES AND COLONOSCOPY TILL ILEOCECAL VALVE WITH BIOPSIES AND SNARE POLYPECTOMY Pre-op diagnosis: Colon cancer screening, GERD Post-op diagnosis: GERD, Gastritis, Gastric erosions, Colon Polyps, Diverticulosis, hemorrhoids Endoscopist:? Isela Henry MD Anesthesia:?MAC UPPER ENDOSCOPY Consent: Indications for the procedure and potential complications of bleeding, perforation, reaction to medications and missed diagnosis were discussed with the patient and informed consent was obtained. Instrument: Olympus GIF H 190 mid size upper endoscope Monitoring: Vital signs and clinical assessment, continuous EKG monitoring, Pulse oximetry, Carbon Dioxide monitoring and blood pressure monitoring were done throughout the procedure. Procedure: The patient was placed in the left lateral decubitis position and pre-procedure medications were administered and a bite block was placed. The endoscope was inserted into the mouth and advanced under direct vision to the third part of duodenum. A careful inspection was made as the upper endoscope was withdrawn including a retroflexed examination of the proximal stomach; Findings and interventions are described below. Findings: Larynx: Normal Esophagus: GE junction at 40 cms. Two 1 cms tongues of possible Bian's - biopsied No esophagitis. Stomach: Moderate diffuse gastric antral erythema - biopsies were obtained from the antrum. Two 1.5 cms erosions (?Healing ulcers) in the antrum - biopsies were obtained Grade 2 flap valve on retroflexed examination of the cardia. Duodenum: Normal bulb and descending duodenum Biopsies were obtained from descending duodenum to check for celiac sprue Intervention: Biopsies as noted above COLONOSCOPY PROCEDURE NOTE Instrument: Olympus PCF H 190 L variable stiffness pediatric colonoscope Monitoring: Vital signs and clinical assessment, intermittent blood pressure monitoring, continuous EKG monitoring, Pulse oximetry and Carbon Dioxide monitoring were done throughout the procedure. Please see anesthesia flowsheet. Colon withdrawl time was 22 minutes. Procedure: The patient was placed in the left lateral decubitis position and pre-procedure medications were administered. After a digital rectal examination of the ano-rectum, the video colonoscope was inserted into the rectum and advanced through the colon to the cecum. The colonoscope was slowly withdrawn in a retrograde panoramic fashion and the colon mucosa was carefully examined including a retroflexed view of the rectum. Findings and interventions are described below. Procedure Difficulty: Colon was long and tortuous and there was spasm and loop formation. Patient was placed in the supine position and LLQ pressure was applied to intubate the ascending colon Cecum was partially visulaized acoss the ICV and appeared normal Findings: Terminal Ileum: Not evaluated Cecum: Partially visualized Ascending Colon: Two 5-6 mm sessile polyps - removed with a cold snare and a cold biopsy. Transverse Colon: Two 7-8 mm sessile polyps - removed with a cold snare Descending Colon: A 3-4 mm sessile polyp - removed with a cold biopsy Moderate diverticulosis Sigmoid Colon: A 6-7 mm sessile polyp - removed with a cold snare. Moderate diverticulosis Rectum: Normal Ano-rectum: Small internal hemorrhoids Colon preparation: Good after some irrigation. Nicolaus Bowel Preparation Scale Right colon; 2 Transverse colon: 2 Left colon; 2 (0 = Unprepared colon segment with mucosa not seen due to solid stool that cannot be cleared. 1 = Portion of mucosa of the colon segment seen, but other areas of the colon segment not well seen due to staining, residual stool and/or opaque liquid. 2 = Minor amount of residual staining, small fragments of stool and/or opaque liquid, but mucosa of colon segment seen well. 3 = Entire mucosa of colon segment seen well with no residual staining, small fragments of stool or opaque liquid) Impression and Post Procedure Diagnosis: Endoscopy Findings: ESOPHAGUS: Two 1 cms tongues of possible Bain's - biopsied STOMACH: Diffuse gastritis and gastric erosions DUODENUM: Normal - biopsied to check for celiac sprue Colonoscopy Findings: Six small polyps were removed Moderate diverticulosis seen in the left colon small hemorrhoids on retroflexed exam. Plan: Pt has a FU appointment on 08/11/24 with Trini Arenas NP Repeat Colonoscopy in 2-3 years if polyps are adenomatous and 10 year if polyps are hyperplastic. (Adult colonoscope and an abdominal binder for future colonoscopies) Above findings were reviewed with the patient and relevant handouts were given and the discharge area. BIOPSIES SHOWED: A. Small bowel, biopsy: Duodenal mucosa with preserved villi and no specific change; no evidence of celiac disease. B. Gastric antrum, biopsy: Gastric antral mucosa with minimal chronic inactive gastritis; negative for intestinal metaplasia and dysplasia. C. Gastric erosion, biopsy: Gastric antral mucosa with minimal chronic inactive gastritis; negative for intestinal metaplasia and dysplasia D. Esophagogastric junction, biopsy: Squamocolumnar mucosa with mild chronic inflammation; no intestinal metaplasia seen on initial levels; negative for dysplasia. E. Colon, ascending, polyps: Sessile serrated lesion/polyp without dysplasia (1 piece, see comment). F. Colon, right, biopsy: Colonic mucosa with no specific change; no evidence of microscopic colitis. G. Colon, transverse, polyps: Sessile serrated lesion/polyps without dysplasia (5 pieces). H. Colon, descending, polyp: Hyperplastic polyp. I. Colon, left, biopsy: Colonic mucosa with minor crypt distortion, otherwise no specific change; no evidence of microscopic colitis. J. Colon, sigmoid, polyp: Consistent with hyperplastic polyp, and fragment of squamocolumnar mucosa without intestinal metaplasia (consistent with contaminant from part D) Patient was placed on the recall list for repeat colonoscopy in 3 years
[2024-07-28 12:01] VITALS: BP 149/93; PULSE 101; RESP 19; TEMP 36.2; O2SAT 98
[2024-07-28 12:16] VITALS: BP 123/62; PULSE 91; RESP 16; TEMP 36.2; O2SAT 98
== END 2024-07-28 12:45 | disposition home or self-care (01) ==
PROVIDERS: PCP Family Medicine; Visit Provider Internal Medicine Gastroenterology
PROC: (CPT 45385; principal; 2024-07-28 10:20)
DX: Z12.11 Encounter for screening for malignant neoplasm of colon (principal); D12.2 Benign neoplasm of ascending colon; D12.3 Benign neoplasm of transverse colon; K63.5 Polyp of colon; K57.30 Diverticulosis of large intestine without perforation or abscess without bleeding; K64.8 Other hemorrhoids; K59.00 Constipation, unspecified; R19.7 Diarrhea, unspecified; K21.9 Gastro-esophageal reflux disease without esophagitis; K29.50 Unspecified chronic gastritis without bleeding; E11.9 Type 2 diabetes mellitus without complications; I10 Essential (primary) hypertension; G43.909 Migraine, unspecified, not intractable, without status migrainosus; M13.80 Other specified arthritis, unspecified site; Z88.0 Allergy status to penicillin
CPT/HCPCS: 45385; 45380; 43239; 82947; 88305; 88313; 88342; J1596; J2003; J2704

== ENCOUNTER → 2024-07-28 08:10 | Outpatient (BNV) | payer OTHER, SELFPAY | PROVIDERS: PCP Family Medicine; Visit Provider Internal Medicine Gastroenterology | DX: D12.2 Benign neoplasm of ascending colon (principal); D12.3 Benign neoplasm of transverse colon; D12.5 Benign neoplasm of sigmoid colon; D12.4 Benign neoplasm of descending colon; K57.90 Diverticulosis of intestine, part unspecified, without perforation or abscess without bleeding; K21.9 Gastro-esophageal reflux disease without esophagitis; K25.3 Acute gastric ulcer without hemorrhage or perforation; K29.70 Gastritis, unspecified, without bleeding | CPT/HCPCS: 43239; 45380; 45385 ==

== ENCOUNTER 2024-08-11 11:33 | Outpatient (AMB) | payer OTHER, SELFPAY ==
--- NOTE | 2024-08-11 11:58 | A.OFFVIS_ITS ---
Vital Signs 08/11/24 11:59 Height 5 ft 5 in Weight 236 lb BMI 39.3 BP 132/62 Blood Pressure Location Rt brachial Position Sitting Pulse 82 Pulse Source Pulse Oximeter Pulse Oximetry (%) 92 Oxygen Delivery Method Room Air Intake Visit Reasons: s/p egd/colon Intake Note: ESTABLISHED PATIENT for s/p duo w/ RM. Chief Complaint; C/O intermittent RUQ pain and bloating. Pt denies any concerns regarding fecal abn. No additional GI sx mentioned at this time. 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 Chemical Dependency Attendant Required: Yes Chemical Dependency Attendant Services: Chemical Dependency Attendant Present Chemical Dependency Attendant Name: [facility] [place] [id number] Information Interpreted: clinical only Accompanied by: Self / Same As Patient Allergies Penicillins [PENICILLINS] Allergy (Unknown, Verified 08/11/24 11:59) Unknown HPI HPI s/p egd/colon: Details: LAST VISIT GERD (gastroesophageal reflux disease) Diarrhea Constipation Postprandial epigastric pain Abdominal bloating Dyspepsia Hepatic steatosis Transaminitis Screen for colon cancer Plan Patient no longer is taking any medications except for occasional Celebrex for pain and lisinopril daily. Patient is not taking Jardiance or anything for cholesterol. She will be following up with her PCP in the next couple weeks and will address her diabetes. Patient is confused she thinks that medication is what caused her liver enzymes to go up. Long discussion with patient about dietary changes and actually keeping her A1c low. Recommend for patient to take Mounjaro. Patient does not have any family or personal history of thyroid disease or thyroid cancer. Discussed with patient the importance of losing weight. What to expect before during and after procedure discussed with patient. Stressed the importance of clear liquid diet and good bowel prep. Patient has an appointment with me after the procedure. Procedure scheduled for July 28. Patient is agreeable to current plan of care and verbalizes understanding of instructions. She was given the opportunity to ask questions and all questions answered. ? Thank you for allowing me to participate in her care Medications New bisacodyl (Dulcolax (bisacodyl)) take 4 tabs at noon the day before your colonoscopy 20 mg (4 x 5 mg) PO ONCE 1 day 4 tabs 0RF Z12.11 polyethylene glycol 3350 (Miralax) As directed by gastroenterology department at [facility] 238 grams PO ONCE 238 grams 0RF Z12.11 ENDOSCOPY AND COLONOSCOPY Findings: Larynx: Normal Esophagus: GE junction at 40 cms. Two 1 cms tongues of possible Bain's - biopsied No esophagitis. Stomach: Moderate diffuse gastric antral erythema - biopsies were obtained from the antrum. Two 1.5 cms erosions (?Healing ulcers) in the antrum - biopsies were obtained Grade 2 flap valve on retroflexed examination of the cardia. Duodenum: Normal bulb and descending duodenum Biopsies were obtained from descending duodenum to check for celiac sprue Intervention: Biopsies as noted above COLONOSCOPY PROCEDURE NOTE Instrument: Olympus PCF H 190 L variable stiffness pediatric colonoscope Monitoring: Vital signs and clinical assessment, intermittent blood pressure monitoring, continuous EKG monitoring, Pulse oximetry and Carbon Dioxide monitoring were done throughout the procedure. Please see anesthesia flowsheet. Colon withdrawl time was 22 minutes. Procedure: The patient was placed in the left lateral decubitis position and pre-procedure medications were administered. After a digital rectal examination of the ano-rectum, the video colonoscope was inserted into the rectum and advanced through the colon to the cecum. The colonoscope was slowly withdrawn in a retrograde panoramic fashion and the colon mucosa was carefully examined including a retroflexed view of the rectum. Findings and interventions are described below. Procedure Difficulty: Colon was long and tortuous and there was spasm and loop formation. Patient was placed in the supine position and LLQ pressure was applied to intubate the ascending colon Cecum was partially visulaized acoss the ICV and appeared normal Findings: Terminal Ileum: Not evaluated Cecum: Partially visualized Ascending Colon: Two 5-6 mm sessile polyps - removed with a cold snare and a cold biopsy. Transverse Colon: Two 7-8 mm sessile polyps - removed with a cold snare Descending Colon: A 3-4 mm sessile polyp - removed with a cold biopsy Moderate diverticulosis Sigmoid Colon: A 6-7 mm sessile polyp - removed with a cold snare. Moderate diverticulosis Rectum: Normal Ano-rectum: Small internal hemorrhoids Colon preparation: Good after some irrigation. [place] Bowel Preparation Scale Right colon; 2 Transverse colon: 2 Left colon; 2 (0 = Unprepared colon segment with mucosa not seen due to solid stool that cannot be cleared. 1 = Portion of mucosa of the colon segment seen, but other areas of the colon segment not well seen due to staining, residual stool and/or opaque liquid. 2 = Minor amount of residual staining, small fragments of stool and/or opaque liquid, but mucosa of colon segment seen well. 3 = Entire mucosa of colon segment seen well with no residual staining, small fragments of stool or opaque liquid) Impression and Post Procedure Diagnosis: Endoscopy Findings: ESOPHAGUS: STOMACH: DUODENUM: Colonoscopy Findings: Six small polyps were removed Moderate diverticulosis seen in the left colon small hemorrhoids on retroflexed exam. Plan: Repeat Colonoscopy in 2-3 years if polyps are adenomatous and 10 year if polyps are hyperplastic. (Adult colonoscope and an abdominal binder for future colonoscopies) PATHOLOGY ADDENDUM REPORT Addendum Addendum #1 Immunostains for H. pylori on B and C are negative. Additional level with AB/PAS on D is negative for intestinal metaplasia. Controls stain appropriately. Additional tissue levels on E show a single sessile serrated lesion/polyp without dysplasia, and multiple pieces of colonic mucosa with no specific change; no adenomatous dysplasia seen. Electronically Signed By: Susanna Villafana 08/02/24 1810 Diagnosis A. Small bowel, biopsy: Duodenal mucosa with preserved villi and no specific change; no evidence of celiac disease. B. Gastric antrum, biopsy: Gastric antral mucosa with minimal chronic inactive gastritis; negative for intestinal metaplasia and dysplasia. C. Gastric erosion, biopsy: Gastric antral mucosa with minimal chronic inactive gastritis; negative for intestinal metaplasia and dysplasia D. Esophagogastric junction, biopsy: Squamocolumnar mucosa with mild chronic inflammation; no intestinal metaplasia seen on initial levels; negative for dysplasia. E. Colon, ascending, polyps: Sessile serrated lesion/polyp without dysplasia (1 piece, see comment). F. Colon, right, biopsy: Colonic mucosa with no specific change; no evidence of microscopic colitis. G. Colon, transverse, polyps: Sessile serrated lesion/polyps without dysplasia (5 pieces). H. Colon, descending, polyp: Hyperplastic polyp. I. Colon, left, biopsy: Colonic mucosa with minor crypt distortion, otherwise no specific change; no evidence of microscopic colitis. J. Colon, sigmoid, polyp: Consistent with hyperplastic polyp, and fragment of squamocolumnar mucosa without intestinal metaplasia (consistent with contaminant from part D TODAY'S VISIT Patient is here today for follow-up and to discuss upper endoscopy and colonoscopy results. Patient denies any ill effects from the prep, anesthesia or procedure itself. Patient reports that she has been doing fairly well. Occasional postprandial epigastric pain and bloating depending on what she eats. Patient is waiting for PCP to start her on mounjaro. Patient is trying to avoid dietary triggers, trying to eat healthier. Denies dyspepsia, dysphagia or odynophagia. Patient denies melena, hematochezia. Patient otherwise reports to be feeling well. Denies melena, hematochezia, unintentional weight loss or ribbon like stools. Colonoscopy in 2-3 years, sooner on as needed basis. Both colonoscopy and endoscopy results and biopsy results discussed with patient. [facility] Medical History Bilateral shoulder pain Erosive osteoarthritis of both hands Diabetes Inflammatory arthritis GERD (gastroesophageal reflux disease) Migraine HTN (hypertension) Surgical History Hx of dilation and curettage H/O colonoscopy Hx of section Family History Maternal Grandfather Stomach cancer Social History Household Members Other:: daughter Housing: Apartment Alcohol intake: never Patient Tobacco Use Status: Never used Tobacco Second Hand Smoke Exposure: No Current occupational status: employed Current occupation: [employer] Sexual orientation: Straight/Heterosexual Gender identity: Female Review of Systems Const Denies weight gain and Denies weight loss ENT Reports no additional complaints, Denies dysphagia and Denies odynophagia Card Reports no additional complaints Resp Reports no additional complaints GI Reports abdominal pain (Epigastric, occasional), Denies belching, Denies melena, Reports bloating (occasional), Denies change in bowel habits, Denies dysphagia, Denies excessive flatus, Reports dyspepsia, Denies heartburn, Denies diarrhea, Denies loose stools, Denies nausea, Denies odynophagia and Denies vomiting Reports no additional complaints Musc Reports no additional complaints Neuro Reports no additional complaints Psych Reports no additional complaints Endo Reports no additional complaints Physical Exam Vital Signs: Last Vital Signs Pulse 82 08/11/24 11:59 BP 132/62 08/11/24 11:59 Pulse Ox 92 08/11/24 11:59 Oxygen Delivery Method Room Air 08/11/24 11:59 BMI result Body Mass Index 39.3 Const General: healthy appearing and no acute distress Nutritional Appearance: obese Orientation/consciousness: patient oriented x3 Resp Effort & Inspection: normal respiratory effort, able to speak in complete sentences, no tracheal deviation and symmetric chest movement Auscultation: clear to auscultation bilaterally Cardio Rate: regular rate GI Inspection: Yes normal to inspection, No distended and Yes obesity Palpation (GI): Soft to palpation, not firm, nontender and No hepatosplenomegaly present Auscultation: normal bowel sounds General: Yes no CVA tenderness Back/Spine/Pelvis Back: no CVA tenderness Skin General skin exam: elasticity normal, turgor normal and dry skin Neuro General: patient oriented x3 Psych Appearance: grossly normal Mental Status: mental status grossly normal Assessment & Plan Assessment & Plan (1) GERD (gastroesophageal reflux disease): Code(s): K21.9 - Gastro-esophageal reflux disease without esophagitis Category: Medical Qualifiers: Esophagitis presence: esophagitis presence not specified Qualified Code(s): K21.9 - Gastro-esophageal reflux disease without esophagitis (2) Status post colonoscopy: Code(s): Z98.890 - Other specified postprocedural states (3) Diverticulosis: Code(s): K57.90 - Diverticulosis of intestine, part unspecified, without perforation or abscess without bleeding (4) Postprandial abdominal bloating: Code(s): R14.0 - Abdominal distension (gaseous) Plan Currently not on any PPI. Patient would like to avoid and try with food changes. Avoid dietary triggers a late night snacking. Staying upright for min imal 3 hours after meals discussed with patient. Patient was encouraged to increase fiber in her diet. Moderate diverticulosis in the left side of her colon. Colonoscopy in 2-3 years, sooner if clinically necessary. Occasional postprandial abdominal bloating. Patient will take Senokot as needed. Follow- up in the office in 6 months, sooner on as needed basis. She is agreeable to this plan and verbalizes understanding of instructions. She was given the opportunity to ask questions and all questions answered. Thank you for allowing me to participate in her care Medications: New simethicone 125 mg PO BID-QID PRN 120 caps 3RF abdominal distention K21.9 - Gastro-esophageal reflux disease without esophagitis Coding Level of Care Code Est Pt Level 3 (62386) Diagnoses Gastroesophageal reflux disease, unspecified whether esophagitis present K21.9 Esophagitis presence: esophagitis presence not specified Status post colonoscopy Z98.890 Diverticulosis K57.90 Postprandial abdominal bloating R14.0 Time Spent (min) 30 Comment 20 minutes spent with patient and additional 10 minutes spent reviewing her records
[2024-08-11 11:59] VITALS: BP 132/62; PULSE 82; O2SAT 92; BMI 39.3
--- OUTSIDE RECORDS SUMMARY | 2024-08-11 12:41 | XMS_ITS | Clinical Summary ---
Author Organization [employer] Address [address] [facility] [address] [place] [address] Care Team Providers Care Pipelines Manager Name Role Phone Liz Halley AGOSTO Primary Care Provider + [phone] Allergies Active Allergy Reactions Criticality Noted Date Comments Penicillins Unknown 09/23/2022 Oxycodone-Acetaminophen Dizziness 09/23/2022 Medications * This document contains information received from the source organization and may not represent a complete record from that organization. cetirizine (ZyrTEC) 10 MG tablet Take 1 tablet (10 mg) by mouth Once per day. 90 tablet 3 09/22/19 24 025 Active fluticasone (Flonase) 50 MCG/ACT nasal spray SHAKE LIQUID AND USE 2 SPRAYS IN EACH NOSTRIL EVERY DAY 48 g 3 09/22/19 24 Active naproxen (Naprosyn) 500 MG tablet Take 1 tablet (500 mg) by mouth if needed in the morning and at bedtime for mild pain. 30 tablet 1 09/22/19 24 025 Active esomeprazole (NexIUM) [address] capsuleIndications:C hronic gastroesophageal reflux disease Take 1 capsule (40 mg) by mouth before breakfast. Do not open capsule. 90 capsule 1 09/22/19 24 025 Active Blood Glucose Monitoring Suppl (FreeStyle Hart Lite) w/Device kit Use to test blood sugar 1 times daily 1 kit 10/15/19 24 Active Alcohol Swabs 70 % pads Use to test blood sugar 1 times daily 100 each 11 10/15/19 24 Active FREESTYLE LITE test strip Use to test blood sugar 1 times daily 100 each 11 10/15/19 24 025 Active Lancets misc Use to test blood sugar 1 times daily 100 each 10/15/19 24 Active empagliflozin (Jardiance) 10 MG Take 1 tablet (10 mg) by mouth Once per day. 90 tablet 3 03/13/20 24 025 Active atorvastatin (Lipitor) 10 MG tablet Take 1 tablet (10 mg) by mouth at bedtime. 90 tablet 3 03/13/20 24 025 Active Diclofenac Sodium 1 % gel Apply 2 g topically if needed in the morning, at noon, in the evening, and at bedtime (pain). 150 g 3 03/13/20 24 Active Blood Pressure Monitoring (Blood Pressure Cuff) misc 1 each Once per day. 1 each 03/13/20 24 Active lisinopril 10 MG tablet Take 1 tablet (10 mg) by mouth Once per day. 30 tablet 11 06/02/19 25 026 Active Dulaglutide 0.75 MG/0.5ML solution auto-injectorIndicat ions:New onset type 2 diabetes mellitus (CMS/HCC) Inject 0.75 mg under the skin 1 (one) time per week. 2 mL 3 06/02/19 25 Active acetaminophen (Tylenol 8 Hour) 650 MG ER tablet Take 1 tablet (650 mg) by mouth every 8 (eight) hours if needed for mild pain. Do not crush, chew, or split. 60 tablet 3 06/02/19 25 Active famotidine (Pepcid) 40 MG tablet TAKE 1 TABLET BY MOUTH EVERY DAY AT BEDTIME 90 tablet 1 06/13/19 25 Active Active Problems Problem Noted Date Diagnosed Date Type 2 diabetes mellitus 10/15/2023 Healthcare maintenance 09/22/2023 Assessment & Plan (09/22/2023 1:06 PM EDT): -she declines flu vaccine -she declines COVID vaccine -s/p Tdap Jan 2010 -s/p Td August 2022 -encouraged shingrix vaccine -Hep A/B immune -mammo BIRADS 26 JUL 2023 -pap wnl/HPV neg Jan 2019, repeat scheduled with [facility] -awaiting colonoscopy/EGD with GI -A1c 5.9% September [...] is nml EKG in chart -referred to [facility] for eval Assessment & Plan [...] Encounters Date Type Department Care Team Description 07/28/2024 Orders Only GENERIC EXTERNAL DATA DEPARTMENT Provider, Generic External Data 07/21/2024 Telephone [facility] MEDICINE [address] [place] [phone] Halley Hill DO Prior Authorization ([facility] Request: Trjuloi) 06/13/2024 Orders Only [facility] External Provider, [facility] 06/12/2024 Refill [facility] [address] [place] [address] Halley Hill DO 06/02/2024 11:15 AM EST Office Visit [address] [address] Halley Hill DO Type 2 diabetes mellitus without complication, unspecified whether fdc insulin use (CMS/[facility]) (Primary Dx); Other hyperlipidemia; Essential hypertension; Fatty liver; Chronic gastroesophageal reflux disease; Major depression, recurrent, chronic (CMS/HCC); Polyarthralgia; Chronic hand pain, right; Healthcare maintenance; New onset type 2 diabetes mellitus (CMS/HCC) 06/02/2024 Travel from Last 3 Months Immunizations Name [...] 06/02/2024 12:06 PM EST Plan of Treatment Upcoming Encounters Date Type Department Care Team (Late st Contact Info) Description 09/12/2024 3:15 PM EDT Office Visit [facility] OPTOMETRY [address] [place] [address] Sofy Bautista, OD [address] [place] [address] Health Maintenance Due Date Last Done Comments [...] (1 of 2) 2022 COVID-19 Vaccine ( - season) 2023 10/25/2020, 10/04/2020 Influenza Vaccine (#1) 2023 2, 01/08/2011, 02/21/2010 Depression Monitoring 01/23/2024 07/23/2023, 024 Cervical Cancer Screening 02/11/2024 HPV/Cotest 02/11/2024 02/10/2019, [...] topic Meningococcal Vaccine Aged Out No blanche fausot eligible based on patient's age to complete this topic RSV under 20 months Aged Out No longe r eligible based on patient's age to complete this topic Rotavirus Vaccines Aged Out No longer eligible based on patient's age to complete this topic Procedures Procedure Name Priority Date/Time Associated Diagnosis Comments HEMATOXYLIN AND EOSIN STAIN Routine 07/28/2024 11:11 AM EDT GLUCOSE, WHOLE BLOOD Routine 07/28/2024 9:36 AM EDT BD DEXA AXIAL Routine 06/13/2024 10:30 AM EST POCT GLYCATED HEMOGLOBIN, TOTAL Routine 06/02/2024 12:08 PM EST Type 2 diabetes mellitus without complication, unspecified whether fdc insulin use (CMS/HCC) POCT GLUCOSE Routine 06/02/2024 12:07 PM EST Type 2 diabetes mellitus without complication, unspecified whether fdc insulin use (CMS/HCC) LIPID PANEL, STANDARD Routine [...] TOMOSYNTHESIS BILATERAL Routine 08/17/2023 3:50 PM EDT NO HISTORICAL HPV E6/E7 RFLX ALESSANDRA 16 18/45 Routine 02/10/2019 12:00 AM EDT from Last 3 Months or Most Recently Relevant to Health Maintenance Results * Hematoxylin and Eosin Stain (07/28/2024 11:11 AM EDT) 07/28/2024 11:1 1 AM EDT 07/28/2024 12:24 PM EDT [facility] - 08/02/2024 6:46 PM EDT ----- ------- Name: Annabelle Bang I ?Age/Sex: 54/F ? : 1970 Unit#: [id number] ?? Attend Dr: Isela Henry MD ?Re07/28/24 ?Status: DEP SDC ? Location: HO.SSS ?Disch: ? ----- ------- SPEC : [id number] ? RECD: 07/28/24-4 ? STATUS: ??SOUT ? REQ NUM: [id number] ? ANA: 07/28/24-1111 ? SUBM DR: Isela Henry MD ? ENTERED: ??07/28/24-1236 ?SP TYPE: Surgical ? OTHR DR: Halley Hill DO ? ORDERED: ??HE Stain/30, Gross Micro L4/10, IHC/2, Special st. 2, H. pylori/2, AB/PAS ?Addendum Addendum ??1 ?Entered: 08/02/24-4 Immunostains for H. pylori on B and C are negative. ?? Additional level with AB/PAS on D is negative for intestinal metaplasia. ??Controls stain appropriately. ??Additional tissue levels on E show a single sessile serrated lesion/polyp without dysplasia, and multiple pieces of colonic mucosa with no specific change; no adenomatous dysplasia seen. Addendum Signed (signature on file) Susanna Broderick 08/02/24 1846 ? ----- ------- ? Diagnosis ?? A. ??Small bowel, biopsy: ??Duodenal mucosa with preserved villi and no specific change; no ?? evidence of celiac disease. ? B. ??Gastric antrum, biopsy: ??Gastric antral mucosa with minimal chronic inactive ?? gastritis; negative for intestinal metaplasia and dysplasia. ? C. ??Gastric erosion, biopsy: ??Gastric antral mucosa with minimal chronic inactive ?? gastritis; negative for intestinal metaplasia and dysplasia ? D. ??Esophagogastric junction, biopsy: ??Squamocolumnar mucosa with mild chronic ?? inflammation; no intestinal metaplasia seen on initial levels; negative for dysplasia. ? E. ??Colon, ascending, polyps: Sessile serrated lesion/polyp without dysplasia (1 piece, ?? see comment). ? F. ??Colon, right, biopsy: ??Colonic mucosa with no specific change; no evidence of ?? microscopic colitis. ? G. ??Colon, transverse, polyps: ??Sessile serrated lesion/polyps without dysplasia (5 ?? pieces). ? H. ??Colon, descending, polyp: ??Hyperplastic polyp. ? I. ??Colon, left, biopsy: ??Colonic mucosa with minor crypt distortion, otherwise no ?? specific change; no evidence of microscopic colitis. ? J. ??Colon, sigmoid, polyp: ??Consistent with hyperplastic polyp, and fragment of ? CONTINUED ON NEXT PAGE ----- ------- Name: Annabelle Bang I ?Age/Sex: 54/F ? : 1970 Unit#: [id number] ?? Attend Dr: Isela Henry MD ?Re07/28/24 ?Status: DEP SDC ? Location: HO.SSS ?Disch: ? ----- ------- SPEC : [id number] ? RECD: 07/28/24-1223 ? STATUS: ??SOUT ? REQ NUM: [id number] ? ANA: 07/28/24-1111 ? SUBM DR: Isela Henry MD ? ENTERED: ??07/28/24-1236 ?SP TYPE: Surgical ? OTHR DR: Halley Hill DO ? ORDERED: ??HE Stain/30, Gross Micro L4/10, IHC/2, Special st. 2, H. pylori/2, AB/PAS ? Diagnosis ?(Continued) ?? squamocolumnar mucosa without intestinal metaplasia (consistent with contaminant from ?? part D). ? Comment: ?? (B and C): ??Immunostains for H. pylori pending; addendum to follow. ?? (D): ??Additional level with AB/PAS stain pending; addendum to follow. ?? (E): ??Additional tissue levels pending; addendum to follow. ?Clinical History Pre-Op Dx: ??GERD Post-Op Dx: GERD, gastritis, colon polyps, diverticulosis, hemorrhoids ?Microscopic Description Microscopic sections reviewed. ? Material Received ?? A. Small bowel bx's r/o celiac disease ?? B. Gastric antrum r/o h.Pylori ?? C. Gastric erosion bx's ?? D. EG junction r/o Bain's ?? E. Ascending colon polyps ?? F. Right sided colon bx r/o microscopic colitis ?? G. Transverse colon polyps ?? H. Descending colon polyp ?? I. Left colon bx's r/o microscopic colitis ?? J. Sigmoid polyp ? Gross Description Received in 10 parts. A. Received in formalin labeled ?small bowel biopsies R/0 celiac disease? are 2 fragments of pink white soft tissue measuring 0.4 and 0.4 cm in greatest dimension which are wrapped in lens paper and entirely submitted for microscopic examination, 2 pieces in cassette A. B. Received in formalin labeled ?gastric antrum R/0 H pylori? is a fragment of dimas-white soft tissue measuring 0.4 cm in greatest dimension which is wrapped in lens paper and entirely submitted for microscopic examination, 1 piece in cassette B. C. ??Received in formalin labeled ?gastric erosion biopsies? are 2 fragments of pink white ? CONTINUED ON NEXT PAGE ----- ------- Name: Annabelle Bang I ?Age/Sex: 54/F ? : 1970 Unit#: [id number] ?? Attend Dr: Isela Henry MD ?Re07/28/24 ?Status: DEP SDC ? Location: HO.SSS ?Disch: ? ----- ------- SPEC : [id number] ? RECD: 07/28/24-1224 ? STATUS: ??SOUT ? REQ NUM: [id number] ? ANA: 07/28/24-1111 ? SUBM DR: Isela Henry MD ? ENTERED: ??07/28/24-6 ?SP TYPE: Surgical ? OTHR : Halley Hill DO ? ORDERED: ??HE Stain/30, Gross Micro L4/10, IHC/2, Special st. 2, H. pylori/2, AB/PAS ? Gross Description ?(Continued) soft tissue measuring 0.4 and 0.5 cm in greatest dimension which are wrapped in lens paper and entirely submitted for microscopic examination, 2 pieces in cassette C. D. ??Received in formalin labeled ?EG junction biopsies R/0 Bain's? are 3 fragments of pink white soft tissue measuring 0.3-0.4 cm in greatest dimension which are wrapped in lens paper and entirely submitted for microscopic examination, 3 pieces in cassette D. E. Received in formalin labeled ?ascending colon polyps? are 4 fragments of dimas-white soft tissue measuring 0.1-0.5 cm in greatest dimension which are wrapped in lens paper and entirely submitted for microscopic examination, 4 pieces in cassette E. F. Received in formalin labeled ?right sided colon biopsy? are 3 fragments of pink white soft tissue measuring 0.2-0.3 cm in greatest dimension which are wrapped in lens paper and entirely submitted for microscopic examination, 3 pieces in cassette F. G. ??Received in formalin labeled ?transverse colon polyps? are 5 fragments of pink white soft tissue measuring 0.4-0.6 cm in greatest dimension which are wrapped in lens paper and entirely submitted for microscopic examination, 5 pieces in cassette G. H. Received in formalin labeled ?descending colon polyp? are 2 fragments of dimas-white soft tissue measuring 0.2 and 0.3 cm in greatest dimension which are wrapped in lens paper and entirely submitted for microscopic examination, 2 pieces in cassette H. I. Received in formalin labeled ?left colon biopsies R/0 microscopic colitis? are 2 fragments of pink white soft tissue measuring 0.2 and 0.3 cm in greatest dimension which are wrapped in lens paper and entirely submitted for microscopic examination, 2 pieces in cassette eye. J. ??Received in formalin labeled ?sigmoid polyp? is a fragment of red-pink soft tissue measuring 0.6 cm in greatest dimension which is wrapped in lens paper and entirely submitted for microscopic examination, 1 piece in cassette J. ([facility]) Special studies ordered and performed: Immunostain for H. pylori on B1 and C1; AB/PAS stain on D1. Copies To: ?? Halley Hill DO ?? [facility] ?? [address] [facility] ?? [place] [address] ?? [phone] ? CONTINUED ON NEXT PAGE ----- ------- Name: Annabelle Bang I ?Age/Sex: 54/F ? : 1970 Unit#: [id number] ?? Attend Dr: Isela Henry MD ?Re07/28/24 ?Status: DEP SDC ? Location: HO.SSS ?Disch: ? ----- ------- SPEC : [id number] ? RECD: 07/28/24-4 ? STATUS: ??SOUT ? REQ NUM: [id number] ? ANA: 07/28/24-1111 ? SUBM DR: Isela Henry MD ? ENTERED: ??07/28/24-1236 ?SP TYPE: Surgical ? OTHR DR: Halley Hill DO ? ORDERED: ??HE Stain/30, Gross Micro L4/10, IHC/2, Special st. 2, H. pylori/2, AB/PAS ? Copies To: ??(Continued) ?? Isela Henry MD ?? [facility] ?? [address] ?? [place] [address] ?? [phone] ----- ------- Signed (signature on file) Susanna Villafana 07/31/241832 ? ----- ------- ? END OF REPORT ? us Generic External Data Provider LAB BLOOD ORDERAB LES Final Result Performing Organization Address [facility] de Phone Number [facility] [address] [place] [address] [phone] * Glucose, Whole Blood (07/28/2024 9:36 AM EDT) Glucose, Whole Blood 103 60 - 115 mg/dL [facility] Comment:METER #: [id number] 07/28/2024 9:36 AM EDT 07/28/2024 9:51 AM EDT us Generic External Data Provider LAB BLOOD ORDERAB LES Final Result Performing Organization Address [facility] de Phone Number [facility] [address] [place] [address] [phone] * BD DEXA Axial (06/13/2024 10:30 AM EST) Anatomical Region Laterality Modality Body Radiographic Michelle ging 06/13/2024 10:3 0 AM EST Narrative 06/19/2024 7:04 AM EST ? [facility] [place] ? [address] ?[place] [address] ? Mammography Report ? Signed ? Patient: Beti,Annabelle I ?MR#: [id number] ?? [id number] ? : 1970 ?Acct:[id number] ? Age/Sex: 54 / F ?ADM Date: 02/18/25 ? Loc: HO.MAMMO ? Attending Dr: Karen Anne MD ? Ordering Physician: Karen Anne MD ?Results: ? Date of Service: 06/13/24 ?Follow Up: ? Procedure(s): XR DEXA axial skeleton ?? Accession Number(s): [id number] ? cc: Karen Anne MD; Halley Hill DO ? EXAMINATION: ??DXA BONE DENSITY AXIAL ? HISTORY: ??Estrogen deficiency ? TECHNIQUE: RoleStar Dual energy absorptiometry (DEXA) ?? of the [...] is a trademark of the [employer]'s ?? [place] for Metabolic Bone Disease, a World Health Organization (WHO) ?? Collaborating Center. ? Electronically signed by: ??Gene Rodriguez MD ??06/19/2024 07:01 AM EST ?? RP ? Dictated By: ?Gene Rodriguez MD ? Signed By: ?<Electronically signed by Gene Rodriguez MD in OV> ?06/19/24 0701 ? DD/ 1030 ? TD/TT: 06/13/24 1100 ? Spark Plug Tester: ? Procedure Note Donvalente, Image - 06/19/2024 [facility] [address] [place] [address] Mammography Report Signed Patient: Annabelle Bang IMR#: [id number] : 1970Acct:[id number] Age/Sex: 54 / FADM Date: 06/13/24 Loc: JAN.VIOLETAO Attending Dr: Karen Anne MD Ordering Physician: Karen Anneesults: Date of Service: 06/13/24Follow Up: Procedure(s): XR DEXA axial skeleton Accession Number(s): [id number] cc: Karen Anne MD; Halley Hill DO EXAMINATION: DXA BONE DENSITY AXIAL HISTORY: Estrogen deficiency TECHNIQUE: RoleStar Dual energy absorptiometry (DEXA) of the lumbar [...] the [employer] [place] [facility] Metabolic [employer] Disease, a World Health Organization (WHO) Collaborating Center. Electronically signed by: Gene Rodriguez MD 06/19/2024 07:01 AM EST RP Dictated By: Gene Rodriguez MD Signed By: <Electronically signed by Gene Rodriguez MD in OV> 06/19/24 0701 DD/ 1030 TD/TT: 06/13/24 1100 Spark Plug Tester: [facility] External Provider IMG DXA PROCEDURES Final Result * (ABNORMAL) POCT HGB A1C (06/02/2024 12:08 PM EST) [facility] Hemoglobin A1C 6.3(A) 4.0 - 6.0 % QC Media Lot # [id number] Lot# Expiration Date Blood 06/02/2024 12:0 8 PM EST Halley Hill DO POINT OF CARE TEST ENTER/ANALI T ORDERABLES Final Result * POCT Glucose (06/02/2024 12:07 PM EST) Glucose Blood, POC 85 60 - 200 mg/dL QC Media Lot # [id number] Lot# Expiration Date 026,045 Blood Capillary blood specimen / Unknown 06/02/2024 12:07 PM EST Halley Hill DO POINT OF CARE TEST ENTER/ANALI T ORDERABLES Final Result * (ABNORMAL) Lipid Panel, Standard (12/18/2023 9:29 AM EDT) Triglycerides 188(H) <150 mg/dL [facility] Comment:Desirable Triglyceri de: less than 150 mg/dLBorderline High Triglyceride 150-199 mg/dLHigh Triglyceride: 200-499 mg/dLVery High Triglyceride: greater than or equal to 5OO mg/dL Cholesterol 255(H) <200 mg/dL [facility] Comment:Desirable Cholestero l: less than 200 mg/dLBorderline High Cholesterol: 200-239 mg/dLHigh Cholesterol: greater than 239 mg/dL LDL Cholesterol Calculated 183(H) <100 mg/dL [facility] Comment:Desirable LDL: less than 100 mg/dLNear Optimal/Above Optimal LDL: 110- 129 mg/dLBorderline High LDL: 130-159 mg/dLHigh LDL: 160-189 mg/dLVery High LDL: greater than or equal to 190 mg/dL HDL Cholesterol 35(L) >40 mg/dL [facility] Comment:Desirable HDL: great er than 40 mg/dL Note: This HDL assay may give artificially low results in patients with liver disease. Blood Venous blood specimen / Unknown 12/18/2023 9:29 AM EDT 12/18/2023 9:29 AM EDT Halley Hill DO LAB BLOOD ORDERABLES Final R esult [facility] [address] [place] [phone] * Hepatitis C Antibody with Reflex to HCV, RNA, Quantitative, Real-Time PCR (10/12/2023 10:33 AM EDT) Hepatitis C Antibody Nonreactive Nonreactive [facility] Comment:Antibodies to HCV no t detected; does not exclude early acuteHCV infection. Blood Venous blood specimen / Unknown 10/12/2023 10:33 AM EDT 10/12/2023 12:58 PM EDT Halley Hill DO LAB BLOOD ORDERABLES Final R esult Performing Organization Address City/[facility]/ZIP Co de Phone Number [facility] [address] [place] [address] [phone] * HIV-1/2 Antigen and Antibodies, Fourth Generation, with Reflexes (10/12/2023 10:33 AM EDT) HIV AB/AG Nonreactive Nonreactive [facility] Comment:HIV-1 p24 Ag and/or HIV-1/HIV-2 Ab not detected.A test result that is nonreactive does not exclude thepossibility of exposure to or infection with HIV-1 and/orHIV-2. Nonreactive results in this assay for individualswith prior exposure to HIV-1 and/or HIV-2 may be due toantigen and antibody levels that are below the limit ofdetection of this assay.The [employer] HIV Ag/Ab Combo assay result andsupplemental assay results should be interpreted inconjunction with the patient's clinical presentation,history and other laboratory results. If the results areinconsistent with clinical evidence, additional testing issuggested to confirm the result. Blood Venous blood specimen / Unknown 10/12/2023 10:33 AM EDT 10/12/2023 12:58 PM EDT us Halley Hill DO LAB BLOOD ORDERABLES Final R esult Performing Organization Address City/[facility]/ZIP Co de Phone Number [facility] [address] [place] [address] [phone] * Albumin, Random Urine W/Creatinine (10/12/2023 10:03 AM EDT) Creatinine, Urine 113.26 mg/dL [facility] Microalbumin Urine 31.0 mg/L [facility] Microalbum Creatinine Ratio Ur 27.3 <30 ug/mg cr [facility] Comment:Albumin/Creatinine R atio Reference Ranges: Normal: < 30 ug/mg creatinine Microalbuminuria: 30 - 300 ug/mg creatinineClinical Albuminuria: > 300 ug/mg creatinine Urine (Urine, Random) 10/12/2023 10:03 AM EDT 10/12/2023 11:23 AM EDT us Halley Hill DO LAB URINE ORDERABLES Final R esult Performing Organization Address [facility]/State/ZIP Co de Phone Number [facility] [address] [place] [address] [phone] * BI Mammogram Screening Tomosynthesis Bilateral (08/17/2023 3:50 PM EDT) Anatomical Region Laterality Modality Breast Bilateral Mammography 08/17/2023 3:50 PM EDT Narrative 08/28/2023 7:42 AM EDT ? [facility] ?[address] ?[place] [address] ? Mammography Report ? Signed ? Patient: Beti,Annabelle I ?MR#: [id number] ?? [id number] ? : 1970 ?Acct:[id number] ? Age/Sex: 53 / F ?ADM Date: 04/23/24 ? Loc: HO.US ? Attending Dr: Angella Arenas PSYCHOSOCIAL REHABILITATION COUNSELOR-BC ? Ordering Physician: Angella Arenas PSYCHOSOCIAL REHABILITATION COUNSELOR-BC ?Results: 1N ?? egative ? Date of Service: 08/17/23 ?Follow Up: 1 Year From Orig ?? inal Mammogram ? Procedure(s): MM tomosynthesis screening BI ?? Accession Number(s): [id number] ? cc: Halley Hill DO; Angella Arenas PSYCHOSOCIAL REHABILITATION COUNSELOR-BC ? EXAMINATION: ?? MM SCREENING DIGITAL BREAST [...] by Olga Menendez MD in OV> ? 08/28/2338 ? DD/ ? TD/TT: ? Spark Plug Tester: ? Procedure Note Mary, Image - 08/28/[address] [address] Mammography Report Signed Patient: Annabelle Bang IMR#: [id number] : 1970Acct:[id number] Age/Sex: 53 / FADM Date: 08/17/23 Loc: . Attending Dr: Angella Arenas PSYCHOSOCIAL REHABILITATION COUNSELOR-BC Ordering Physician: Angella Arenas PSYCHOSOCIAL REHABILITATION COUNSELOR-BCResults: 1N egative Date of Service: 08/17/23Follow Up: 1 Year From Orig inal Mammogram Procedure(s): MM tomosynthesis screening BI Accession Number(s): [id number] cc: Halley Hill DO; Angella Arenas PSYCHOSOCIAL REHABILITATION COUNSELOR-BC EXAMINATION: MM SCREENING DIGITAL BREAST TOMOSYNTHESIS, BILATERAL [...] in OV> 08/28/23 0738 DD/ 1550 TD/TT: Spark Plug Tester: [facility] External Provider IMG BI PROCEDURES Edited Result - Final * HPV E6/E7 RFLX ALESSANDRA 16 18/45 (02/10/2019 12:00 AM EDT) ADDITIONAL TESTING Not indicated () [facility] Comment: Test Performed by [facility], [facility] [address] [place], [address] [place], [place] Tony Abel M.D., Ph.D., Director of Laboratories , [place] [id number] HPV 16 RNA Test not performed [facility] HPV 18/45 RNA Test not performed [facility] HPV mRNA E6/E7 Not Detected NOT DETECTED [facility] Comment: This test was performed using the APTIMA(R) HPV Assay ([employer] This assay detects E6/E7 viral messenger RNA (mRNA) from 14 high-risk HPV types (16,18,31,33,35,39,45,51, 52,56,58,59,66,68). For additional information please refer to: http://education.ncyclo/faq/OYY463u4 (This link is being provided for informational/ educational purposes only.) The analytical performance characteristics of this assay have been determined by [employer] [place], [place]. The modifications have not been cleared or approved by the FDA. This assay has been validated pursuant to the CLIA regulations and is used for clinical purposes. Please note: ??Effective 01/06/2016, HPV testing will be performed using [employer]'s APTIMA test which targets mRNA. Detecting mRNA instead of DNA, as in older methods, offers significant improvements in specificity. 02/10/2019 us Halley Hill DO HISTORICAL/NON ORDERABLE LAB S Final Result [facility] [address] from Last 3 Months or Most Recently Relevant to Health Maintenance Insurance [facility] Care Teams Pipelines Manager Relationship Specialty Start Date End Date Halley Hill DO [address] [place] [address] PCP - General Family Medicine 04/26/18
--- OUTSIDE RECORDS SUMMARY | 2024-08-11 12:41 | XMS_ITS | Encounter Summary ---
Author Organization [employer] Address 75 [facility] 7t [place] [address] Care Team Providers Care Sugarcane Research Technician Name Role Phone Halley Hill DO Primary Care Provider + [phone] Reason for Visit * Reason Comments Med Refill Encounter Details Date Type Department Care Team ([facility] st Contact Info) Description 07/26/[address] [facility] [address] [place] [phone] Lillian Dunn MD [address] [place] [address] Epigastric pain Social History Tobacco Use Types [...] as of this encounter Plan of Treatment Upcoming Encounters Date Type Department Care Team (Late st Contact Info) Description 09/12/2024 3:15 PM EDT Office Visit [facility] [address] [place], [place] [phone] Sofy Bautista, OD [address] [place] [address] documented as of this encounter Visit Diagnoses Diagnosis Epigastric pain Abdominal pain, epigastric documented in this encounter Additional Health Concerns Assessment Noted Time PHQ-9 Depression Total Score: 18 024 10:21 AM EDT documented as of this encounter Care Teams Sugarcane Research Technician Relationship Specialty Start Date End Date Halley Hill DO [address] [place] [address] PCP - General Family Medicine 04/26/18 documented as of this encounter
--- OUTSIDE RECORDS SUMMARY | 2024-08-11 12:41 | XMS_ITS | Encounter Summary ---
Author Organization [employer] Address 75 [facility] 7t [place] [address] Care Team Providers Care Senior Research Project Manager Name Role Phone Halley Hill DO Primary Care Provider + [phone] Reason for Visit * Reason Comments Med Refill Encounter Details Date Type Department Care Team ([facility] st Contact Info) Description 05/07/2023 Refill [facility] [address] [place] [phone] Lillian Dunn MD [address] [place] [address] Epigastric pain Social History Tobacco Use Types [...] Description 09/12/2024 3:15 PM EDT Office Visit [facility] [address] [place] [address] Sofy Bautista, OD [address] [place] [address] documented as of this encounter Visit Diagnoses Diagnosis Epigastric pain Abdominal pain, epigastric documented in this encounter Additional Health Concerns Assessment Noted Time PHQ-9 Depression Total Score: 16 023 10:45 AM EDT documented as of this encounter Care Teams Senior Research Project Manager Relationship Specialty Start Date End Date Halley Hill DO [address] [place] [phone] PCP - General Family Medicine 04/26/18 documented as of this encounter
== END 2024-08-11 12:32 | disposition home or self-care (01) ==
LOC: HO.HGI 11:34
PROVIDERS: PCP Family Medicine; Visit Provider Nurse Practitioner Family
DX: K21.9 Gastro-esophageal reflux disease without esophagitis (principal); Z98.890 Other specified postprocedural states; K57.90 Diverticulosis of intestine, part unspecified, without perforation or abscess without bleeding; R14.0 Abdominal distension (gaseous)
CPT/HCPCS: 99213

== ENCOUNTER → 2024-08-11 11:33 | Outpatient (BNVA) | payer OTHER, SELFPAY | PROVIDERS: PCP Family Medicine; Visit Provider Nurse Practitioner Family | DX: K21.9 Gastro-esophageal reflux disease without esophagitis (principal); Z98.890 Other specified postprocedural states | CPT/HCPCS: 99212 ==

== ENCOUNTER 2024-08-22 14:56 | Outpatient (REF) | payer OTHER, SELFPAY ==
--- OUTSIDE RECORDS SUMMARY | 2024-08-22 18:09 | XMS_ITS | Encounter Summary ---
Author Organization [employer] Address 75 [facility] 7t [place] [address] Care Team Providers Care Mesh Worker Name Role Phone Halley Hill DO Primary Care Provider + [phone] Reason for Visit * Reason Comments Med Refill Encounter Details Date Type Department Care Team ([facility] st Contact Info) Description 05/07/2023 Refill [facility] [address] [place] [phone] Lillian Dunn MD [address] [place] [address] Epigastric pain Social History Tobacco Use Types [...] Description 09/12/2024 3:15 PM EDT Office Visit [facility] [address] [place] [address] Sofy Bautista, OD [address] [place] [address] documented as of this encounter Visit Diagnoses Diagnosis Epigastric pain Abdominal pain, epigastric documented in this encounter Additional Health Concerns Assessment Noted Time PHQ-9 Depression Total Score: 16 023 10:45 AM EDT documented as of this encounter Care Teams Mesh Worker Relationship Specialty Start Date End Date Halley Hill DO [address] [place] [phone] PCP - General Family Medicine 04/26/18 documented as of this encounter
--- OUTSIDE RECORDS SUMMARY | 2024-08-22 18:09 | XMS_ITS | Encounter Summary ---
Author Organization [employer] Address 75 [facility] 7t [place] [address] Care Team Providers Care Diamond Broker Name Role Phone Halley Hill DO Primary Care Provider + [phone] Reason for Visit * Reason Comments Med Refill Encounter Details Date Type Department Care Team ([facility] st Contact Info) Description 07/26/2023 Refill [facility] [address] [place] [phone] Lillian Dunn MD [address] [place] [address] Epigastric pain Social History Tobacco Use Types [...] Description 09/12/2024 3:15 PM EDT Office Visit [facility] [address] [place], [place] [phone] Sofy Bautista, OD [address] [place] [address] documented as of this encounter Visit Diagnoses Diagnosis Epigastric pain Abdominal pain, epigastric documented in this encounter Additional Health Concerns Assessment Noted Time PHQ-9 Depression Total Score: 18 024 10:21 AM EDT documented as of this encounter Care Teams Diamond Broker Relationship Specialty Start Date End Date Halley Hill DO [address] [place] [address] PCP - General Family Medicine 04/26/18 documented as of this encounter
--- OUTSIDE RECORDS SUMMARY | 2024-08-22 18:09 | XMS_ITS | Clinical Summary ---
Author Organization [employer] Address 75 [facility] 7t [place] [address] Care Team Providers Care Acting Section Chief Name Role Phone Liz Halley AGOSTO Primary Care Provider + [phone] Allergies Active Allergy Reactions Criticality Noted Date [...] 025 Active Blood Glucose Monitoring Suppl (FreeStyle Vernon Lite) w/Device kit Use to test blood [...] wnl/HPV neg Jan 2019, repeat scheduled with [facility] MEDICAL RECORDS COORDINATOR -awaiting colonoscopy/EGD with GI -A1c 5.9% September [...] is nml EKG in chart -ref[facility] to [facility] Assessment & Plan (05/08/2023 7:13 [...] DEPARTMENT Provider, Generic External Data 07/21/2024 Telephone [facility] [address] [place] [phone] Halley Hill DO Prior Authorization [facility] Request: Trjulio) 06/13/2024 Orders Only [facility] External Provider, [facility] 06/12/2024 Refill [facility] [address] [place] [address] Halley Hill DO 06/02/2024 11:15 AM EST Office Visit [address] [address] Halley Hill DO Type 2 diabetes mellitus without complication, unspecified whether usp insulin use (CMS/[facility]) (Primary Dx); Other hyperlipidemia; Essential hypertension; Fatty [...] Description 09/12/2024 3:15 PM EDT Office Visit [facility] [address] [place] [address] Sofy Bautista, OD [address] [place] [address] Health Maintenance Due Date Last Done Comments [...] 2 diabetes mellitus without complication, unspecified whether usp insulin use (CMS/HCC) POCT GLUCOSE Routine 06/02/2024 12:07 PM EST Type 2 diabetes mellitus without complication, unspecified whether usp insulin use (CMS/HCC) LIPID PANEL, STANDARD Routine [...] 1 AM EDT 07/28/2024 12:24 PM EDT [facility] - 08/02/2024 6:46 PM EDT ----- ------- Name: Annabelle Bang I ?Age/Sex: 54/F ? : 1970 Unit#: [id number] ?? Attend Dr: Isela Henry MD ?Re07/28/24 ?Status: DEP SDC ? Location: HO.SSS ?Disch: ? ----- ------- SPEC : [id number] ? RECD: 07/28/24-4 ? STATUS: ??SOUT ? REQ NUM: [id number] ? ANA: 07/28/24-1111 ? SUBM DR: Isela Henry MD ? ENTERED: ??07/28/24-1236 ?SP TYPE: Surgical ? OTHR DR: Halley Hill DO ? ORDERED: ??HE Stain/30, Gross Micro L4/10, IHC/2, Special st. 2, H. pylori/2, AB/PAS ?Addendum Addendum ??1 ?Entered: 08/02/24-9 Immunostains for H. pylori on B and [...] I ?Age/Sex: 54/F ? : 1970 Unit#: [id number] ?? Attend Dr: Isela Henry MD ?Re07/28/24 ?Status: DEP SDC ? Location: HO.SSS ?Disch: ? ----- ------- SPEC : [id number] ? RECD: 07/28/24-1223 ? STATUS: ??SOUT ? REQ NUM: [id number] ? ANA: 07/28/24-1111 ? SUBM DR: Isela Henry MD ? ENTERED: ??07/28/24-1236 ?SP TYPE: Surgical ? OTHR DR: Hlaley Hill DO ? ORDERED: ??HE Stain/30, Gross [...] I ?Age/Sex: 54/F ? : 1970 Unit#: [id number] ?? Attend Dr: Isela Henry MD ?Re07/28/24 ?Status: DEP SDC ? Location: HO.SSS ?Disch: ? ----- ------- SPEC : [id number] ? RECD: 07/28/24-1224 ? STATUS: ??SOUT ? REQ NUM: [id number] ? ANA: 07/28/24-1111 ? SUBM DR: Isela [...] microscopic examination, 1 piece in cassette J. ([facility]) Special studies ordered and performed: Immunostain for H. pylori on B1 and C1; AB/PAS stain on D1. Copies To: ?? Halley Hill DO ?? [facility] ?? [address] [facility] ?? [place] [address] ?? [phone] ? CONTINUED ON NEXT PAGE ----- ------- Name: Annabelle Bang I ?Age/Sex: 54/F ? : 1970 Unit#: [id number] ?? Attend Dr: Isela Henry MD ?Re07/28/24 ?Status: DEP SDC ? Location: HO.SSS ?Disch: ? ----- ------- SPEC : [id number] ? RECD: 07/28/24-4 ? STATUS: ??SOUT ? REQ NUM: [id number] ? ANA: 07/28/24-1111 ? SUBM DR: Isela Henry MD ? ENTERED: ??07/28/24-1236 ?SP TYPE: Surgical ? OTHR DR: Halley Hill DO ? ORDERED: ??HE Stain/30, Gross Micro L4/10, IHC/2, Special st. 2, H. pylori/2, AB/PAS ? Copies To: ??(Continued) ?? Isela Henry MD ?? [facility] ?? [address] ?? [place] [address] ?? [phone] ----- ------- Signed (signature on file) Susanna Villafana 07/31/241832 ? ----- ------- ? END OF REPORT ? us Generic External Data Provider LAB BLOOD ORDERAB LES Final Result Performing Organization Address [facility] de Phone Number [facility] [address] [place] [address] [phone] * Glucose, Whole Blood (07/28/2024 9:36 AM EDT) Glucose, Whole Blood 103 60 - 115 mg/dL [facility] Comment:METER #: [id number] 07/28/2024 9:36 AM EDT 07/28/2024 9:51 AM EDT us Generic External Data Provider LAB BLOOD ORDERAB LES Final Result Performing Organization Address [facility] de Phone Number [facility] [address] [place] [address] [phone] * BD DEXA Axial (06/13/2024 10:30 AM EST) Anatomical Region Laterality Modality Body Radiographic Michelle ging 06/13/2024 10:3 0 AM EST Narrative 06/19/2024 7:04 AM EST ? [facility] ? [address] [facility] ?[place] [address] ? Mammography Report ? Signed ? Patient: Beti,Annabelle I ?MR#: [id number] ?? [id number] ? : 1970 ?Acct:[id number] ? Age/Sex: 54 / F ?ADM Date: 02/18/25 ? Loc: HO.MAMMO ? Attending Dr: Karen Anne MD ? Ordering Physician: Karen Anne MD ?Results: ? Date of Service: 06/13/24 ?Follow Up: ? Procedure(s): XR DEXA axial skeleton ?? Accession Number(s): [id number] ? cc: Karen Anne MD; Halley Hill DO ? EXAMINATION: ??DXA BONE DENSITY AXIAL ? HISTORY: ??Estrogen deficiency ? TECHNIQUE: OpVista Dual energy absorptiometry (DEXA) ?? of the [...] is a trademark of the [employer]'s ?? [place] for Metabolic Bone Disease, a World Health Organization (WHO) ?? Collaborating Center. ? Electronically signed by: ??Gene Rodriguez MD ??06/19/2024 07:01 AM EST ?? RP ? Dictated By: ?Gene Rodriguez MD ? Signed By: ?<Electronically signed by Gene Rodriguez MD in OV> ?06/19/24 0701 ? DD/ 1030 ? TD/TT: 06/13/24 1100 ? Integrated Circuit Ic Layout Designer: ? Procedure Note Donvalente, Image - 06/19/2024 [facility] [address] [place] [address] Mammography Report Signed Patient: Annabelle Bang IMR#: [id number] : 1970Acct:[id number] Age/Sex: 54 / FADM Date: 06/13/24 Loc: JAN.VIOLETAO Attending Dr: Karen Anne MD Ordering Physician: Karen Anneesults: Date of Service: 06/13/24Follow Up: Procedure(s): XR DEXA axial skeleton Accession Number(s): [id number] cc: Karen Anne MD; Halley Hill DO EXAMINATION: DXA BONE DENSITY AXIAL HISTORY: Estrogen deficiency TECHNIQUE: OpVista Dual energy absorptiometry (DEXA) of the lumbar [...] the [employer] [place] for Metabolic Bone Disease, a World Health Organization (WHO) Collaborating Center. Electronically signed by: Gene Rodriguez MD 06/19/2024 07:01 AM EST RP Dictated By: Gene Rodriguez MD Signed By: <Electronically signed by Gene Rodriguez MD in OV> 06/19/24 0701 DD/ 1030 TD/TT: 06/13/24 1100 Integrated Circuit Ic Layout Designer: [facility] External Provider IMG DXA PROCEDURES Final Result * (ABNORMAL) POCT HGB A1C (06/02/2024 12:08 PM EST) [facility] Hemoglobin A1C 6.3(A) 4.0 - 6.0 % QC Media Lot # [id number] Lot# Expiration Date Blood 06/02/2024 12:0 8 PM EST Halley Hill DO POINT OF CARE TEST ENTER/ANALI T ORDERABLES Final Result * POCT Glucose (06/02/2024 12:07 PM EST) Glucose Blood, POC 85 60 - 200 mg/dL QC Media Lot # [id number] Lot# Expiration Date 065,200 Blood Capillary blood specimen / Unknown 06/02/2024 12:07 PM EST Halley Hill DO POINT OF CARE TEST ENTER/ANALI T ORDERABLES Final Result * (ABNORMAL) Lipid Panel, Standard (12/18/2023 9:29 AM EDT) Triglycerides 188(H) <150 mg/dL [facility] Comment:Desirable Triglyceri de: less than 150 mg/dLBorderline High Triglyceride 150-199 mg/dLHigh Triglyceride: 200-499 mg/dLVery High Triglyceride: greater than or equal to 5OO mg/dL Cholesterol 255(H) <200 mg/dL [facility] Comment:Desirable Cholestero l: less than 200 mg/dLBorderline High Cholesterol: 200-239 mg/dLHigh Cholesterol: greater than 239 mg/dL LDL Cholesterol Calculated 183(H) <100 mg/dL [facility] Comment:Desirable LDL: less than 100 mg/dLNear Optimal/Above Optimal LDL: 110- 129 mg/dLBorderline High LDL: 130-159 mg/dLHigh LDL: 160-189 mg/dLVery High LDL: greater than or equal to 190 mg/dL HDL Cholesterol 35(L) >40 mg/dL [facility] Comment:Desirable HDL: great er than 40 mg/dL Note: This HDL assay may give artificially low results in patients with liver disease. Blood Venous blood specimen / Unknown 12/18/2023 9:29 AM EDT 12/18/2023 9:29 AM EDT Halley Hill DO LAB BLOOD ORDERABLES Final R esult [facility] [address] [place] [phone] * Hepatitis C Antibody with Reflex to HCV, RNA, Quantitative, Real-Time PCR (10/12/2023 10:33 AM EDT) Hepatitis C Antibody Nonreactive Nonreactive [facility] Comment:Antibodies to HCV no t detected; does not exclude early acuteHCV infection. Blood Venous blood specimen / Unknown 10/12/2023 10:33 AM EDT 10/12/2023 12:58 PM EDT Halley Hill DO LAB BLOOD ORDERABLES Final R esult Performing Organization Address City/[facility]/ZIP Co de Phone Number [facility] [address] [place] [address] [phone] * HIV-1/2 Antigen and Antibodies, Fourth Generation, with Reflexes (10/12/2023 10:33 AM EDT) HIV AB/AG Nonreactive Nonreactive [facility] Comment:HIV-1 p24 Ag and/or HIV-1/HIV-2 Ab not detected.A test result that is nonreactive does not exclude thepossibility of exposure to or infection with HIV-1 and/orHIV-2. Nonreactive results in this assay for individualswith prior exposure to HIV-1 and/or HIV-2 may be due toantigen and antibody levels that are below the limit ofdetection of this assay.The [employer] HIV Ag/Ab Combo assay result andsupplemental assay results should be interpreted inconjunction with the patient's clinical presentation,history and other laboratory results. If the results areinconsistent with clinical evidence, additional testing issuggested to confirm the result. Blood Venous blood specimen / Unknown 10/12/2023 10:33 AM EDT 10/12/2023 12:58 PM EDT us Halley Hill DO LAB BLOOD ORDERABLES Final R esult Performing Organization Address City/[facility]/ZIP Co de Phone Number [facility] [address] [place] [address] [phone] * Albumin, Random Urine W/Creatinine (10/12/2023 10:03 AM EDT) Creatinine, Urine 113.26 mg/dL [facility] Microalbumin Urine 31.0 mg/L [facility] Microalbum Creatinine Ratio Ur 27.3 <30 ug/mg cr [facility] Comment:Albumin/Creatinine R atio Reference Ranges: Normal: < 30 ug/mg creatinine Microalbuminuria: 30 - 300 ug/mg creatinineClinical Albuminuria: > 300 ug/mg creatinine Urine (Urine, Random) 10/12/2023 10:03 AM EDT 10/12/2023 11:23 AM EDT us Halley Hill DO LAB URINE ORDERABLES Final R esult Performing Organization Address [facility]/State/ZIP Co de Phone Number [facility] [address] [place] [address] [phone] * BI Mammogram Screening Tomosynthesis Bilateral (08/17/2023 3:50 PM EDT) Anatomical Region Laterality Modality Breast Bilateral Mammography 08/17/2023 3:50 PM EDT Narrative 08/28/2023 7:42 AM EDT ? [facility] ?[address] ?[place] [address] ? Mammography Report ? Signed ? Patient: Beti,Annabelle I ?MR#: [id number] ?? [id number] ? : 1970 ?Acct:[id number] ? Age/Sex: 53 / F ?ADM Date: 04/23/24 ? Loc: HO.US ? Attending Dr: Angella Arenas MANUFACTURING ASSEMBLER-BC ? Ordering Physician: Angella Arenas MANUFACTURING ASSEMBLER-BC ?Results: 1N ?? egative ? Date of Service: 08/17/23 ?Follow Up: 1 Year From Orig ?? inal Mammogram ? Procedure(s): MM tomosynthesis screening BI ?? Accession Number(s): [id number] ? cc: Halley Hill DO; Angella Arenas MANUFACTURING ASSEMBLER-BC ? EXAMINATION: ?? MM SCREENING DIGITAL BREAST [...] ? 08/28/2338 ? DD/ ? TD/TT: ? Integrated Circuit Ic Layout Designer: ? Procedure Note Mary, Image - 08/28/[address] [address] Mammography Report Signed Patient: Annabelle Bang IMR#: [id number] : 1970Acct:[id number] Age/Sex: 53 / FADM Date: 08/17/23 Loc: . Attending Dr: Angella Arenas MANUFACTURING ASSEMBLER-BC Ordering Physician: Angella Arenas MANUFACTURING ASSEMBLER-BCResults: 1N egative Date of Service: 08/17/23Follow Up: 1 Year From Orig inal Mammogram Procedure(s): MM tomosynthesis screening BI Accession Number(s): [id number] cc: Halley Hill DO; Angella Arenas MANUFACTURING ASSEMBLER-BC EXAMINATION: MM SCREENING DIGITAL BREAST TOMOSYNTHESIS, BILATERAL [...] in OV> 08/28/23 0738 DD/ 1550 TD/TT: Integrated Circuit Ic Layout Designer: [facility] External Provider IMG BI PROCEDURES Edited Result - Final * HPV E6/E7 RFLX ALESSANDRA 16 18/45 (02/10/2019 12:00 AM EDT) ADDITIONAL TESTING Not indicated () [facility] Comment: Test Performed by [employer] [place], [address] [place], [place] Tony Abel M.D., Ph.D., Director of Laboratories , [place] [id number] HPV 16 RNA Test not performed [facility] HPV 18/45 RNA Test not performed [facility] HPV mRNA E6/E7 Not Detected NOT DETECTED [facility] Comment: This test was performed using the APTIMA(R) HPV Assay ([employer] This assay detects E6/E7 viral messenger RNA (mRNA) from 14 high-risk HPV types (16,18,31,33,35,39,45,51, 52,56,58,59,66,68). For additional information please refer to: http://education.Vaultive/faq/JYE072f1 (This link is being provided for informational/ educational purposes only.) The analytical performance characteristics of this assay have been determined by [employer] [place], [place]. The modifications have not been cleared or approved by the FDA. This assay has been validated pursuant to the CLIA regulations and is used for clinical purposes. Please note: ??Effective 01/06/2016, HPV testing will be performed using [employer] APTIMA test which targets mRNA. Detecting mRNA instead of DNA, as in older methods, offers significant improvements in specificity. 02/10/2019 us Halley Hill DO HISTORICAL/NON ORDERABLE LAB S Final Result [facility] [address] from Last 3 Months or Most Recently Relevant to Health Maintenance Insurance [facility] Care Teams Acting Section Chief Relationship Specialty Start Date End Date Halley Hill DO [address] [place] [address] PCP - General Family Medicine 04/26/18
== END 2024-08-22 14:57 | disposition home or self-care (01) ==
LOC: HO.MAMMO 14:56
PROVIDERS: PCP Family Medicine; Visit Provider Family Medicine
DX: Z12.31 Encounter for screening mammogram for malignant neoplasm of breast (principal)
CPT/HCPCS: 77063; 77067

== ENCOUNTER → 2024-08-22 15:15 | Outpatient (BNV) | payer OTHER, SELFPAY | PROVIDERS: PCP Family Medicine; Visit Provider Internal Medicine | DX: Z12.31 Encounter for screening mammogram for malignant neoplasm of breast (principal) | CPT/HCPCS: 77063; 77067 ==

== ENCOUNTER 2024-09-27 11:09 | Emergency (ER) | payer OTHER, SELFPAY ==
--- NOTE | ~2024-09-27 | XR_ITS ---
EXAMINATION: XR KNEE, RIGHT CLINICAL INFORMATION: atraumatic Right knee pain COMPARISON: None available. TECHNIQUE: Four views of the right knee. FINDINGS: There is no joint effusion. There is mild narrowing of the medial and lateral joint spaces. There are no osteophytes. There are small enthesophytes at superior pole patella. XR/XR knee RT 4V IMPRESSION: Mild degenerative changes with mild narrowing of the medial and lateral joint space. Electronically signed by: William Carrizales MD 09/27/2024 01:00 PM EDT
[2024-09-27 11:17] VITALS: BP 146/79; PULSE 88; RESP 20; TEMP 36.4; O2SAT 91; BMI 42.3
--- NOTE | 2024-09-27 11:18 | ED_ITS ---
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 No blunt injury or trauma. She reports the pain began while ascending stairs 2 days ago, pain worsened yesterday. Does not recall hearing a crack or pop in the knee. Has been trialing Advil at home which temporary relieves the pain. Denies numbness/tingling/weakness of the right lower extremity. Denies any difficulty ambulating. Related Data Home Medications ?Medication ?Instructions ?Recorded ?Confirmed alcohol swabs (Alcohol Prep Pads) 1 pad topical TID 12/10/23 05/10/24 blood sugar diagnostic (FreeStyle #10 ea 12/10/23 05/10/24 Lite Strips) blood-glucose meter (FreeStyle #1 ea 12/10/23 05/10/24 [place] Lite kit) lancets 33 gauge (TRUEplus Lancets) #100 ea 12/10/23 05/10/24 celecoxib 200 mg capsule (Celebrex) 200 mg PO BID PRN 07/04/24 lisinopril 5 mg tablet 10 mg PO DAILY 07/04/24 dulaglutide 0.75 mg/0.5 mL 0.75 mg subcut QWEEK 08/11/24 subcutaneous pen injector ([facility]) Previous Rx's ?Medication ?Instructions ?Recorded cholecalciferol (vitamin D3) 1,250 1,250 mcg PO QWEEK #13 caps 06/01/23 mcg (50,000 unit) capsule diclofenac sodium 1 % topical gel 4 g topical QID #100 grams 05/10/24 (Arthritis Pain (diclofenac)) simethicone 125 mg capsule 125 mg PO BID-QID PRN abdominal 08/11/24 distention #120 caps diclofenac sodium 1 % topical gel 4 g topical QID PRN pain (scale 09/27/24 score 7-10) #100 grams Allergies Allergy/AdvReac Type Severity Reaction Status Date / Time Penicillins [PENICILLINS] Allergy Unknown Unknown Verified 09/27/24 11:18 Review of Systems Review of Systems: Constitutional: No fever, chills, fatigue, night sweats, weight changes ENT/Mouth: No ear pain, hearing loss, nasal congestion, sinus pain, rhinorrhea, sore throat Eyes: No eye pain, swelling, redness, vision changes, discharge Cardio: No chest pain, palpitations, DAWKINS, orthopnea, peripheral edema Pulm: No SOB, cough, sputum, wheezing, dyspnea, hemoptysis GI: No nausea, vomiting, hematemesis, abdominal pain, diarrhea, constipation, hematochezia, melena : No irregular bleeding, dysuria, frequency, urgency, hesitancy, hematuria, flank pain, urinary flow changes, urinary incontinence or retention MSK: No back pain, neck pain, joint pain, myalgias, +R knee pain Skin: No lesions, rashes Neuro: No weakness, numbness, paresthesias, LOC, dizziness, headache Psych: No anxiety/panic, depression, SI/HI, AH/VH All other systems reviewed and are negative. COUNTS INCLUDE 234 BEDS AT THE [facility] Past Medical History Attestation statement: The following information was validated with the patient. Source: old records reviewed and nursing notes reviewed Medical History Bilateral shoulder pain Erosive osteoarthritis of both hands Diabetes Inflammatory arthritis GERD (gastroesophageal reflux disease) Migraine HTN (hypertension) Surgical History Hx of dilation and curettage H/O colonoscopy Hx of section Family History Family History Maternal Grandfather Stomach cancer Social History Social History Household Members Other:: daughter Housing: Apartment Alcohol intake: never Patient Tobacco Use Status: Never used Tobacco Second Hand Smoke Exposure: No Advance Directives: No Advance Directives Information Provided: Yes Current occupational status: employed Current occupation: [employer] Sexual orientation: Straight/Heterosexual Gender identity: Female Physical Exam Vital Signs: Vital Signs: Last Vital Signs Temp 97.8 F 09/27/24 13:36 Pulse 81 09/27/24 13:36 Resp 18 09/27/24 13:36 BP 136/68 09/27/24 13:36 Pulse Ox 93 09/27/24 13:36 O2 Del Method Room Air 09/27/24 13:36 BMI result Body Mass Index 42.3 Hypertensive, vitals otherwise WNL General: Well appearing, in no acute distress. Skin: Warm, dry, intact. No rashes or lesions. Head: Normocephalic, atraumatic. Back: No midline spinous or paraspinal tenderness. No step off deformity. Ext: +no noted swelling or deformity to right knee. No overlying erythema. Full ROM intact to right knee with minimal pain induced on flexion of right knee. Tender to palpation over anterior aspect without palpable deformity, warmth or crepitus. No calf tenderness. 2+DP pulse intact. Ambulating with slight limping gait Neuro: AOx3. Normal speech. Course Course Course Narrative: X-ray right knee showing degenerative changes consistent with osteoarthritis. Treated with Toradol in the ED today. Will send diclofenac cream to pharmacy. I do not feel as though any additional imaging is warranted at this time. Advised to follow up with PCP. Patient has remained stable throughout ED visit today. Discussed worrisome signs and symptoms and when to return to the ED. All questions answered at this time. Patient is agreeable with disposition and stable for discharge. Medications Administered Discontinued Medications Generic Name Dose Route Start Last Admin Trade Name Freq PRN Reason Stop Dose Admin Ketorolac Tromethamine 30 mg 09/27/24 13:10 09/27/24 13:15 Ketorolac Tromethamine 30 Mg/Ml Vial IM 09/27/24 13:11 30 mg ONCE ONE Administration Medical Decision Making Medical Decision Making [facility] Narrative: 54-year-old Amharic-speaking female with PMHX significant for OA, GERD, DM presents to the ED today for evaluation of atraumatic right knee pain x2 days. vital signs stable, afebrile. she is well appearing and in NAD. on exam, no noted swelling or deformity to right knee. No overlying erythema. Full ROM intact to right knee with minimal pain induced on flexion of right knee. Tender to palpation over anterior aspect without palpable deformity, warmth or crepitus. No calf tenderness. 2+DP pulse intact. Ambulating with slight limping gait Differential diagnosis includes MSK sprain/strain, arthritis, fracture, contusion, tendonitis, bursitis. No concern for ligament or tendon injury. Unlik jea-npierre DVT or Larios's cyst. Presentation not consistent with gout, pseudogout. Unlikely neurovascular compromise, threat to limb, compartment syndrome. Plan for x-rays, pain control and re-evaluation. Differential Diagnosis Differential Diagnoses: The differential diagnosis associated with the presentation includes As above Admission/Observation Not indicated Independent Interpretation I performed an independent interpretation of an: Plain X-Ray Interpretation: X-ray right knee without fracture or dislocation Radiology Impression Discussion of test interpretation with radiology: I have reviewed the radiologist's reading. Radiologist Impression: Date of Service: 09/27/24 Procedure(s): XR knee RT 4V Accession Number(s): [id number] cc: Halley Hill DO; Alberta Anne~ EXAMINATION: XR KNEE, RIGHT CLINICAL INFORMATION: atraumatic Right knee pain COMPARISON: None available. TECHNIQUE: Four views of the right knee. FINDINGS: There is no joint effusion. There is mild narrowing of the medial and lateral joint spaces. There are no osteophytes. There are small enthesophytes at superior pole patella. XR/XR knee RT 4V IMPRESSION: Mild degenerative changes with mild narrowing of the medial and lateral joint space. Electronically signed by: William Carrizales MD 09/27/2024 01:00 PM EDT External Record Review External record reviewed: Inpatient record Prescription Management I considered prescription management with: Other (Diclofenac gel) Chronic Conditions Patient?s care impacted by: Diabetes and Other (OA) Social Determinants Patient?s care significantly limited by Social Determinants of Health including: Other Social Determinant of Health Critical Care Time Critical Care Time Critical Care Time: No Discharge Plan Discharge Clinical Impression: Osteoarthritis of right knee Patient Disposition: Home, Self-Care Instructions: Osteoarthritis (ED) Additional Instructions: You were evaluated in the ED todya for right knee pain. Your xray shows findings consistent with osteoarthritis. See home care instructions. I recommend you take 600mg ibuprofen every 6 hours or Tylenol 650mg every 6 hours as needed for pain. If needed, you can alternate these medications so that you take one medication every 3 hours. For example, at noon take ibuprofen, then at 3pm take Tylenol, then at 6pm take ibuprofen. I am sending diclofenac gel to your pharmacy. Apply this to your knee as needed for pain. Follow up with your PCP. Return to the ED with new or worsening symptoms. Prescriptions: New diclofenac sodium 1 % gel 4 g topical QID PRN (Reason: pain (scale score 7-10)) Qty: 100 0RF Rx Instructions: apply to single knee, ankle, foot; for foot includes sole/toes/top of foot No Action cholecalciferol (vitamin D3) 1,250 mcg (50,000 unit) capsule 1,250 mcg PO QWEEK Qty: 13 0RF lisinopril 5 mg tablet 10 mg PO DAILY (DME) lancets [TRUEplus Lancets] 33 gauge misc See Rx Instructions .ROUTE .MEDSUPPLY Qty: 100 Rx Instructions: As directed alcohol swabs [Alcohol Prep Pads] Pads, Medicated 1 pad topical TID (DME) FreeStyle Lite Strips Strip See Rx Instructions .ROUTE .MEDSUPPLY Qty: 10 Rx Instructions: As directed (DME) blood-glucose meter [FreeStyle [place]ite] Kit See Rx Instructions .ROUTE DAILY Qty: 1 Rx Instructions: As directed Trulicity 0.75 mg/0.5 mL pen injector 0.75 mg subcut QWEEK simethicone 125 mg capsule 125 mg PO BID-QID PRN (Reason: abdominal distention) Qty: 120 3RF diclofenac sodium [Arthritis Pain (diclofenac)] 1 % gel 4 g topical QID Qty: 100 4RF Rx Instructions: Apply to hands and knees 4 times a day celecoxib [Celebrex] 200 mg capsule 200 mg PO BID PRN Referrals: Halley Hill DO [Primary Care Provider] - Stand Alone Forms: Work/School Release Interventions: ED Discharge Assessment Last Done: 09/27/24 13:36 Discharge Date/Time: 09/27/24 13:41 Print Language: Amharic
[2024-09-27 12:42] VITALS: BP 136/68; PULSE 81; RESP 18; TEMP 36.6; O2SAT 93
--- OUTSIDE RECORDS SUMMARY | 2024-09-27 12:44 | XMS_ITS | Clinical Summary ---
Author Organization [employer] Address [address] [place] [address] Care Team Providers Care Auto Damage Insurance Appraiser Name Role Phone Halley Hill DO Primary Care Provider + [phone] Allergies Active Allergy Reactions Criticality Noted Date Comments Penicillins Unknown 09/23/2022 Oxycodone-Acetaminophen Dizziness 09/23/2022 Medications * This document contains information received from the source organization and may not represent a complete record from that organization. cetirizine (ZyrTEC) 10 MG tablet Take 1 tablet (10 mg) by mouth Once per day. 90 tablet 3 09/22/19 24 Active fluticasone (Flonase) 50 MCG/ACT nasal spray SHAKE LIQUID AND USE 2 SPRAYS IN EACH NOSTRIL EVERY DAY 48 g 3 09/22/19 24 Active esomeprazole (NexIUM) [address] capsuleIndications:C hronic gastroesophageal reflux disease Take 1 capsule (40 mg) by mouth before breakfast. Do not open capsule. 90 capsule 1 09/22/19 24 Active Blood Glucose Monitoring Suppl (FreeStyle Logan Lite) w/Device kit Use to test blood sugar 1 times daily 1 kit 10/15/19 24 Active Alcohol Swabs 70 % pads Use to test blood sugar 1 times daily 100 each 10/15/19 24 Active FREESTYLE LITE test strip Use to test blood sugar 1 times daily 100 each 10/15/19 24 025 Active Lancets misc Use [...] at bedtime (pain). 150 g 3 03/13/20 Active Blood Pressure Monitoring (Blood Pressure Cuff) [...] BEDTIME 90 tablet 1 06/13/19 25 Active naproxen (Naprosyn) 500 MG tablet Take 1 tablet (500 mg) by mouth if needed in the morning and at bedtime for mild pain. 30 tablet 1 09/22/19 24 025 Active Problems Problem Noted Date Diagnosed Date Type 2 diabetes mellitus 10/15/2023 Healthcare maintenance 09/22/2023 Assessment & Plan (09/22/2023 1:06 PM EDT): -she declines flu vaccine -she declines COVID vaccine -s/p Tdap Jan 2010 -s/p Td August 2022 -encouraged shingrix vaccine -Hep A/B immune -mammo BIRADS 26 JUL 2023 -pap wnl/HPV neg Jan 2019, repeat scheduled with [facility] -awaiting colonoscopy/EGD with GI -A1c 5.9% [...] is nml EKG in chart -referred to [facility] for eval Assessment & Plan (05/08/2023 7:13 [...] Encounters Date Type Department Care Team Description 09/12/2024 3:15 PM EDT Office Visit [facility] OPTOMETRY [address] [place] [address] Sofy Bautista, MARIAJOSE Type 2 diabetes mellitus without ophthalmic manifestations (CMS/HCC) (Primary Dx); Optic nerve atrophy, bilateral; Presbyopia 09/12/2024 Travel 07/28/2024 Orders Only GENERIC EXTERNAL DATA DEPARTMENT Provider, Generic External Data 07/21/2024 Telephone [facility] MEDICINE [address] [place], [place] [phone] Halley Hill DO Prior Authorization ([facility] Request: Trulicity) from Last 3 Months Immunizations Immunization Administration Dates Next Due Hep A, Adult 08/19/2010 Hep B, adult 07/18/2012,11/12/2010,08/19/2010 Influenza, IIV3, injectable 01/08/2011, 0 Influenza, Split (incl. nadia fied surface antigen) 01/28/2012 Td (adult), 5 Lf tetanus tox oid, preservative free, adsorbed 09/18/2022 Tdap 02/21/2010 Family History Medical History Relation Name Comments Diabetes Mother Relation Name Status Comments Mother Social History Tobacco Use Types Packs/Day Years [...] Care Team (Late st Contact Info) Description 11/10/2024 3:30 PM EDT Office Visit [facility] OPTOMETRY [address] [place] [address] Sofy Bautista, OD [address] [place] [address] Health Maintenance Due Date Last Done Comments CT Colonography 1972 Colonoscopy 1972 Colorectal Cancer Screening 1972 FIT DNA/Cologuard 1972 FIT 1972 FOBT 1972 Sigmoidoscopy 1972 Disability Screening 1972 Diabetes: Foot Exam 1982 Alcohol/Substance Use Screening 1984 Family Planning (PISQ) 1987 Pneumococcal Vaccine: 50+ Years (1 of 2 - PCV) 1991 Pap Smear 1993 Hepatitis A Vaccines (2 of 2 - Risk 2-dose series) 02/18/2011 08/19/2010 Zoster Vaccines (1 of 2) 2022 COVID-19 Vaccine ( - season) 2023 10/25/2020, 10/04/2020 Depression Monitoring 01/23/2024 07/23/2023, 024 Cervical Cancer Screening 02/11/2024 HPV/Cotest 02/11/2024 02/10/2019, 02/14/2016 SDOH Screening 09/21/2024 09/22/2023 Diabetes: Urine Protein Screening 10/11/2024 10/12/2023, 10/07/2022 Diabetes: Hemoglobin A1C 11/30/2024 025, 10/12/2023, 05/28/2023, Additional history exists Lipid Panel 12/17/2024 12/18/2023, 09/24, 10/07/2022, Additional history exists Influenza Vaccine (Season Ended) 2024 01/28/2012, 01/08/2011, 02/21/2010 Mammogram 08/22/2025 08/22/2024, 07/26, 08/11/2022, Additional history exists Tobacco Screening 09/12/2025 09/12/2024 Eye Exam 09/12/2026 09/12/2024, 08/25, 09/12/2024, Additional history exists DTaP/Tdap/Td Vaccines (3 - [...] patient's age to complete this topic Meningococcal B Vaccine Aged Out No l onger eligible based on patient's age to complete [...] Procedure Name Priority Date/Time Associated Diagnosis Comments OCT, OPTIC NERVE - OU - BOTH EYES Routine 09/12/2024 3:55 PM EDT Optic nerve atrophy, bilateral BI MAMMOGRAM SCREENING TOMOSYNTHESIS BILATERAL Routine 08/22/2024 3:00 PM EDT HEMATOXYLIN AND EOSIN STAIN Routine 07/28/2024 11:11 AM EDT GLUCOSE, WHOLE BLOOD Routine 07/28/2024 9:36 AM EDT POCT GLYCATED HEMOGLOBIN, TOTAL Routine 06/02/2024 12:08 PM EST Type 2 diabetes mellitus without complication, unspecified whether 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 insulin use (CMS/HCC) LIPID PANEL, STANDARD Routine [...] pain, right Decreased visual acuity Healthcare maintenance ZZZ HISTORICAL HPV E6/E7 RFLX ALESSANDRA 16 18/45 Routine 02/10/2019 12:00 AM EDT from Last 3 Months or Most Recently Relevant to Health Maintenance Results * OCT, Optic Nerve - OU - Both Eyes (09/12/2024 3:55 PM EDT) Ana Yanica, OD - 09/12/2024 3:55 PM EDT OCT RNFL/GCL INTERPRETATION Reliability: OD: SS 54 - good quality image OS: SS 47 - good quality image Measurements RNFL: Avg RNFL thickness OD: ??73 microns OS: ??67 microns Test findings RNFL: RNFL OD: Thin inferior quadrant, borderline thin superior and nasal quadrants. Baseline. RNFL OS: Thin superior and inferior quadrants, borderline thin nasal quadrants. Baseline. Test findings GCL: GCL OD: Diffusely thin especially nasally, inferiorly and temporally. Baseline. GCL OS: Diffusely thin especially superiorly, temporally and inferiorly. Baseline. Impression and Plan: Optic nerve pallor both eyes (OU) with sectoral RNFL thinning and diffuse ganglion cell layer (GCL) thinning. RTC for VF us Sofy Bautista OD OPHTH TOMOGRAPHY Final Result * BI Mammogram Screening Tomosynthesis Bilateral (08/22/2024 3:00 PM EDT) Anatomical Region Laterality Modality Breast Bilateral Mammography 08/22/2024 3:00 PM EDT Narrative 08/27/2024 7:11 PM EDT ? [facility] ? [address] ?[place] [address] ?[phone] ? Mammography Report ? Signed ? Patient: Beti,Annabelle I ?MR#: [id number] ?? [id number] ? : 1970 ?Acct:[id number] ? Age/Sex: 54 / F ?ADM Date: 08/22/24 ? Loc: HO.MAMMO ? Attending Dr: Halley Hill DO ? Ordering Physician: Halley Hill DO ?Results: 1N ?? egative ? Date of Service: 08/22/24 ?Follow Up: 1 Year From Orig ?? inal Mammogram ? Procedure(s): MM tomosynthesis screening BI ?? Accession Number(s): [id number] ? cc: Halley Hill DO ? EXAMINATION: ?? MM SCREENING DIGITAL BREAST TOMOSYNTHESIS, BILATERAL ? CLINICAL INFORMATION: ? Screening. Asymptomatic. ? COMPARISON: ?? Mammography: Comparison is made with available priors ? TECHNIQUE: ?? Digital breast mammography with tomosynthesis is performed in both the ?? craniocaudal and mediolateral oblique views along with computer-aided ?? detection (CAD). ? FINDINGS: ?? There are scattered areas [...] due date for their next mammogram. ? Electronically signed by: ??Chantel Mehta DO ??08/27/2024 07:07 PM EDT ? Dictated By: ?Chantel Mehta DO ? Signed By: ?<Electronically signed by Chantel Mehta, DO in OV> ? 08/27/241906 ? DD/ 1500 ? TD/TT: 08/22/24 1515 ? Elderly Companion: ? Procedure Note Mary, Lyndsey - 08/27/2024 [place] [facility] [address] [place] [address] Mammography Report Signed Patient: Annabelle Bang IMR#: [id number] : 1970Acct:[id number] Age/Sex: 54 / FADM Date: 08/22/24 Loc: HO.MAMMO Attending Dr: Halley Hill DO Ordering Physician: Halley Hillults: 1N egative Date of Service: 08/22/24Follow Up: 1 Year From Orig inal Mammogram Procedure(s): MM tomosynthesis screening BI Accession Number(s): [id number] cc: Halley Hill DO EXAMINATION: MM SCREENING DIGITAL BREAST TOMOSYNTHESIS, BILATERAL CLINICAL INFORMATION: Screening. Asymptomatic. COMPARISON: Mammography: Comparison is made with available priors TECHNIQUE: Digital breast mammography with tomosynthesis is performed in both the craniocaudal and mediolateral oblique views along with computer-aided detection (CAD). FINDINGS: There are scattered areas of fibroglandular [...] target due date for their next mammogram. Electronically signed by: Chantel eMhta DO 08/27/2024 07:07 PM EDT Dictated By: Chantel Mehta DO Signed By: <Electronically signed by Chantel Mehta DO in OV> 08/27/24 1907 DD/ 1500 TD/TT: 08/22/24 1515 Elderly Companion: us Halley Hill DO IMG BI PROCEDURES Edited Res ult - Final * Hematoxylin and Eosin Stain (07/28/2024 11:11 AM EDT) 07/28/2024 11:1 1 AM EDT 07/28/2024 12:24 PM EDT [facility] - 08/02/2024 6:46 PM EDT ----- ------- Name: Annabelle Bang I ?Age/Sex: 54/F ? : 1970 Unit#: [id number] ?? Attend Dr: Isela Henry MD ?Re07/28/24 ?Status: DEP [facility] ? Location: HO.SSS ?Disch: ? ----- ------- SPEC : [id number] ? RECD: 07/28/24-1223 ? STATUS: ??SOUT ? REQ NUM: [id number] ? ANA: 07/28/24-1111 ? SUBM DR: Isela Henry MD ? ENTERED: ??07/28/24-1236 ?SP TYPE: Surgical ? OTHR DR: Halley Hill DO ? ORDERED: ??HE Stain/30, Gross Micro L4/10, IHC/2, Special st. 2, H. pylori/2, AB/PAS ?Addendum Addendum ??1 ?Entered: 08/02/24 Immunostains for H. pylori on B and C are negative. ?? Additional level with AB/PAS on D is negative for intestinal metaplasia. ??Controls stain appropriately. ??Additional tissue levels on E show a single sessile serrated lesion/polyp without dysplasia, and multiple pieces of colonic mucosa with no specific change; no adenomatous dysplasia seen. Addendum Signed (signature on file) Susanna Villafana 08/02/241845 ? ----- ------- ? Diagnosis ?? A. [...] I ?Age/Sex: 54/F ? : 1970 Unit#: [id number] ?? Attend Dr: Isela Henry MD ?Re07/28/24 ?Status: DEP SDC ? Location: HO.SSS ?Disch: ? ----- ------- SPEC : [id number] ? RECD: 07/28/24-1224 ? STATUS: ??SOUT ? REQ NUM: [id number] ? ANA: 07/28/24-1111 ? SUBM DR: Isela [...] I ?Age/Sex: 54/F ? : 1970 Unit#: [id number] ?? Attend Dr: Isela Henry MD ?Re07/28/24 ?Status: DEP SDC ? Location: HO.SSS ?Disch: ? ----- ------- SPEC : [id number] ? RECD: 07/28/24-1224 ? STATUS: ??SOUT ? REQ NUM: [id number] ? ANA: 07/28/24-1111 ? SUBM DR: Isela Henry MD ? ENTERED: ??07/28/24-1236 ?SP TYPE: Surgical ? OTHR DR: aHlley Hill DO ? ORDERED: ??HE Stain/30, Gross [...] microscopic examination, 1 piece in cassette J. ([facility]) Special studies ordered and performed: Immunostain for H. pylori on B1 and C1; AB/PAS stain on D1. Copies To: ?? Halley Hill DO ?? [facility] ?? [address] [facility] ?? [place] [address] ?? [phone] ? CONTINUED ON NEXT PAGE ----- ------- Name: Annabelle Bang I ?Age/Sex: 54/F ? : 1970 Unit#: [id number] ?? Attend Dr: Isela Henry MD ?Re07/28/24 ?Status: DEP SDC ? Location: HO.SSS ?Disch: ? ----- ------- SPEC : [id number] ? RECD: 07/28/24-4 ? STATUS: ??SOUT ? REQ NUM: [id number] ? ANA: 07/28/24-1111 ? SUBM DR: Isela Henry MD ? ENTERED: ??07/28/24-1236 ?SP TYPE: Surgical ? OTHR DR: Halley Hill DO ? ORDERED: ??HE Stain/30, Gross Micro L4/10, IHC/2, Special st. 2, H. pylori/2, AB/PAS ? Copies To: ??(Continued) ?? Isela Henry MD ?? [facility] ?? [address] ?? [place] [address] ?? [phone] ----- ------- Signed (signature on file) Susanna Villafana 07/31/241832 ? ----- ------- ? END OF REPORT ? us Generic External Data Provider LAB BLOOD ORDERAB LES Final Result [facility] [address] [facility] [place] [address] [phone] * Glucose, Whole Blood (07/28/2024 9:36 AM EDT) Glucose, Whole Blood 103 60 - 115 mg/dL [facility] Comment:METER #: [id number] 07/28/2024 9:36 AM EDT 07/28/2024 9:51 AM EDT us Generic External Data Provider LAB BLOOD ORDERAB LES Final Result [facility] [address] [place] [address] [phone] * (ABNORMAL) POCT HGB A1C (06/02/2024 12:08 PM EST) Hemoglobin A1C 6.3(A) 4.0 - 6.0 % QC Media Lot # [id number] Lot# Expiration Date Blood 06/02/2024 12:0 8 PM EST Halley Hill DO POINT OF CARE TEST ENTER/ANALI T ORDERABLES Final Result * (ABNORMAL) Lipid Panel, Standard (12/18/2023 9:29 AM EDT) Triglycerides 188(H) <150 mg/dL [facility] Comment:Desirable Triglyceri de: less than 150 mg/dLBorderline High Triglyceride 150-199 mg/dLHigh Triglyceride: 200-499 mg/dLVery High Triglyceride: greater than or equal to 5OO mg/dL Cholesterol 255(H) <200 mg/dL [facility] Comment:Desirable Cholestero l: less than 200 mg/dLBorderline High Cholesterol: 200-239 mg/dLHigh Cholesterol: greater than 239 mg/dL LDL Cholesterol Calculated 183(H) <100 mg/dL [facility] Comment:Desirable LDL: less than 100 mg/dLNear Optimal/Above Optimal LDL: 110- 129 mg/dLBorderline High LDL: 130-159 mg/dLHigh LDL: 160-189 mg/dLVery High LDL: greater than or equal to 190 mg/dL HDL Cholesterol 35(L) >40 mg/dL [facility] Comment:Desirable HDL: great er than 40 mg/dL Note: This HDL assay may give artificially low results in patients with liver disease. Blood Venous blood specimen / Unknown 12/18/2023 9:29 AM EDT 12/18/2023 9:29 AM EDT Halley Hill LAB BLOOD ORDERABLES Final R esult Performing Organization Address [facility]/ZIP Co de Phone Number [facility] [address] [place] [address] [phone] * Hepatitis C Antibody with Reflex to HCV, RNA, Quantitative, Real-Time PCR (10/12/2023 10:33 AM EDT) Hepatitis C Antibody Nonreactive Nonreactive [facility] Comment:Antibodies to HCV no t detected; does not exclude early acuteHCV infection. Blood Venous blood specimen / Unknown 10/12/2023 10:33 AM EDT 10/12/2023 12:58 PM EDT [facility] BLOOD ORDERABLES Final R esult Performing Organization Address [facility] Co de Phone Number [facility] [address] [place] [phone] * HIV-1/2 Antigen and Antibodies, Fourth Generation, with Reflexes (10/12/2023 10:33 AM EDT) HIV AB/AG Nonreactive Nonreactive [facility] Comment:HIV-1 p24 Ag and/or HIV-1/HIV-2 Ab not detected.A test result that is nonreactive does not exclude thepossibility of exposure to or infection with HIV-1 and/orHIV-2. Nonreactive results in this assay for individualswith prior exposure to HIV-1 and/or HIV-2 may be due toantigen and antibody levels that are below the limit ofdetection of this assay.The [employer] HIV Ag/Ab Combo assay result andsupplemental assay results should be interpreted inconjunction with the patient's clinical presentation,history and other laboratory results. If the results areinconsistent with clinical evidence, additional testing issuggested to confirm the result. Blood Venous blood specimen / Unknown 10/12/2023 10:33 AM EDT 10/12/2023 12:58 PM EDT Halley Hill DO LAB BLOOD ORDERABLES Final R esult Performing Organization Address [facility] Co de Phone Number [facility] [address] [place] [phone] * Albumin, Random Urine W/Creatinine (10/12/2023 10:03 AM EDT) Creatinine, Urine 113.26 mg/dL [facility] Microalbumin Urine 31.0 mg/L [facility] Microalbum Creatinine Ratio Ur 27.3 <30 ug/mg cr [facility] Comment:Albumin/Creatinine R atio Reference Ranges: Normal: < 30 ug/mg creatinine Microalbuminuria: 30 - 300 ug/mg creatinineClinical Albuminuria: > 300 ug/mg creatinine Urine (Urine, Random) 10/12/2023 10:03 AM EDT 10/12/2023 11:23 AM EDT Halley Hill DO LAB URINE ORDERABLES Final R esult Performing Organization Address [facility] Co de Phone Number [facility] [address] [place] [phone] * HPV E6/E7 RFLX ALESSANDRA 16 18/45 (02/10/2019 12:00 AM EDT) ADDITIONAL TESTING Not indicated () [facility] Comment: Test Performed by [employer], [employer] [facility], [address] [place] [address] Tony Abel M.D., Ph.D., Director of Laboratories , [facility] [id number] HPV 16 RNA Test not performed [facility] HPV 18/45 RNA Test not performed [facility] HPV mRNA E6/E7 Not Detected NOT DETECTED [facility] Comment: This test was performed using the APTIMA(R) HPV Assay ([employer] This assay detects E6/E7 viral messenger RNA (mRNA) from 14 high-risk HPV types (16,18,31,33,35,39,45,51, 52,56,58,59,66,68). For additional information please refer to: http://education.Eqiancheng.com.Property Owl/faq/PRH246l9 (This link is being provided for informational/ educational purposes only.) The analytical performance characteristics of this assay have been determined by [employer], [place]. The modifications have not been cleared or approved by the FDA. This assay has been validated pursuant to the CLIA regulations and is used for clinical purposes. Please note: ??Effective 01/06/2016, HPV testing will be performed using [employer]'s APTIMA test which targets mRNA. Detecting mRNA instead of DNA, as in older methods, offers significant improvements in specificity. 02/10/2019 us Halley Hill DO HISTORICAL/NON ORDERABLE LAB S Final Result [facility] [address] from Last 3 Months or Most Recently Relevant to Health Maintenance Insurance [facility] * Guarantor: Annabelle Bang I Account Type Relation to Patient Date of Phone Billing Address Personal/Family Self [address] Care Teams Auto Damage Insurance Appraiser Relationship Specialty Start Date End Date Halley Hill DO [address] [place] [address] PCP - General Family Medicine 04/26/18
[2024-09-27] MEDS: Ketorolac Tromethamine 30 MG/ML VIAL IM (13:15)
[2024-09-27 13:36] VITALS: BP 136/68; PULSE 81; RESP 18; TEMP 36.6; O2SAT 93
== END 2024-09-27 13:41 | disposition home or self-care (01) ==
PROVIDERS: Emergency Provider Emergency Medicine Emergency Medical Services; PCP Family Medicine
DX: M17.11 Unilateral primary osteoarthritis, right knee (principal); M25.561 Pain in right knee; E11.9 Type 2 diabetes mellitus without complications; K21.9 Gastro-esophageal reflux disease without esophagitis; I10 Essential (primary) hypertension; Z79.899 Other long term (current) drug therapy
CPT/HCPCS: 73564; 96372; 99283; 99284; J1885

== ENCOUNTER → 2024-09-27 11:21 | Outpatient (BNV) | payer OTHER, SELFPAY | PROVIDERS: Emergency Provider Emergency Medicine Emergency Medical Services; PCP Family Medicine; Visit Provider Radiology Diagnostic Radiology | DX: M17.11 Unilateral primary osteoarthritis, right knee (principal) | CPT/HCPCS: 73564 ==

== ENCOUNTER 2024-11-08 10:40 | Outpatient (AMB) | payer OTHER, SELFPAY ==
--- OUTSIDE RECORDS SUMMARY | 2024-11-08 11:21 | XMS_ITS | Clinical Summary ---
Author Organization [employer] Address [address] [place] [address] Care Team Providers Care Meter Mechanic Name Role Phone Halley Hill DO Primary Care Provider + [phone] Allergies Active Allergy Reactions Criticality Noted Date Comments Penicillins Unknown 09/23/2022 Oxycodone-Acetaminophen Dizziness 09/23/2022 Medications * This document contains information received from the source organization and may not represent a complete record from that organization. esomeprazole (NexIUM) [address] capsuleIndications: Chronic gastroesophageal reflux disease Take 1 capsule (40 mg) by mouth before breakfast. Do not open capsule. 90 capsule 1 Active Blood Glucose Monitoring Suppl (FreeStyle Bethesda Lite) w/Device kit Use to test blood sugar 1 times daily 1 kit Active Alcohol Swabs 70 % pads Use to test blood sugar 1 times daily 100 each 11 Active Lancets misc Use to test blood sugar 1 times daily 100 each 11 Active empagliflozin (Jardiance) 10 MG Take 1 [...] each Once per day. 1 each Active Dulaglutide 0.75 MG/0.5ML solution auto-injectorIndica tions:New [...] EVERY DAY AT BEDTIME 90 tablet 1 Active fluticasone (Flonase) 50 MCG/ACT nasal spray INSTILL 2 SPRAYS IN EACH NOSTRIL ONCE DAILY, SHAKE GENTLY 48 g Active cetirizine (ZyrTEC) 10 MG tablet TAKE 1 TABLET BY MOUTH EVERY DAY 90 tablet Active lisinopril 5 MG tabletIndications:E ssential hypertension Take 1 tablet (5 mg) by mouth Once per day. Take 1 tab po daily with 2.5mg lisinopril dose for total of 7.5mg 30 tablet 2025 Active lisinopril 2.5 MG tabletIndications:E ssential hypertension Take 1 tab po daily with 5mg lisinopril dose for total of 7.5mg 30 tablet Active cetirizine (ZyrTEC) 10 MG tablet Take 1 tablet (10 mg) by mouth Once per day. 90 tablet 024 2024 Discontinued fluticasone (Flonase) 50 MCG/ACT nasal spray SHAKE LIQUID AND USE 2 SPRAYS IN EACH NOSTRIL EVERY DAY 48 g 2024 Discontinued FREESTYLE LITE test strip Use to test blood sugar 1 times daily 100 each 024 2024 lisinopril 10 MG tablet Take 1 tablet (10 mg) by mouth Once per day. 30 tablet 11 02/07/2 025 07/03/ 2025 Discontinued(D ose adjustment) Active Problems Problem Noted Date Diagnosed Date Type 2 diabetes mellitus 10/15/2023 Healthcare maintenance 09/22/2023 Assessment & Plan (09/22/2023 1:06 PM EDT): -she declines flu vaccine -she declines COVID vaccine -s/p Tdap Jan 2010 -s/p Td August 2022 -encouraged shingrix vaccine -Hep A/B immune -mammo BIRADS 26 JUL 2023 -pap wnl/HPV neg Jan 2019, repeat scheduled with [facility] -awaiting colonoscopy/EGD with GI -A1c 5.9% September [...] 05/09/2015 Essential hypertension 05/09/2015 Assessment & Plan (10/26/2024 2:29 PM EDT): BP at goal in clinic today. On Lisinopril 10mg and reports dizziness. Pt notes hx of elevated BP with 5mg and pt reports dizziness with 10mg. Recommended trying 5mg and additional 2.5mg Lisinopril Daily. Pt agrees to try this. -prescribed 5mg + 2.5mg Lisinopril, daily. 10/25/24 -Referred to [facility] with our [facility] 10/25/24 -ER precautions discussed. -Seek medical attention for worsening symptoms. Orders: lisinopril 5 MG tablet; Take 1 tablet (5 mg) by mouth Once per day. Take 1 tab po daily with 2.5mg lisinopril dose for total of 7.5mg lisinopril 2.5 MG tablet; Take 1 tab po daily with 5mg lisinopril dose for total of 7.5mg Referral to Pharmacy MTM Assessment & Plan (09/22/2023 1:05 PM EDT): BP controlled -cont lisinopril daily -Cr, GFR and urine microalbumin nml SEP 2022->repeat prior to next visit -there is nml EKG in chart -referred to opt for eval Assessment & Plan (05/08/2023 7:13 [...] Encounters Date Type Department Care Team Description 10/26/2024 1:40 PM EDT Office Visit [facility] [address] [place] [phone] Zoya Berg MD Essential hypertension (Primary Dx) 10/26/2024 Telephone [facility] [address] [place] [address] Halley Hill DO Nurse Triage 10/13/2024 Refill [facility] [address] [place] [address] Halley Hill DO 10/03/2024 Telephone [facility] [address] [place] [address] Deepti Addison, RN provider out 10/02/2024 Telephone [facility] [address] [place] [address] Halley Hill, Chart Prep 09/29/2024 Telephone [facility] [address] [place] [address] Halley Hill DO Nurse Triage 09/27/2024 Orders Only [facility] External Provider, [facility] 09/12/2024 3:15 PM EDT Office Visit [facility] [address] [place] [address] Sofy Bautista, OD Type 2 diabetes mellitus without ophthalmic manifestations (CMS/HCC) (Primary Dx); Optic nerve atrophy, bilateral; Presbyopia 09/12/2024 Travel from Last 3 Months Immunizations Immunization Administration [...] Sign Reading Time Taken Comments Blood Pressure 136/63 10/26/2024 2:06 PM EDT Pulse 71 10/26/2024 2:06 PM EDT Temperature 36.9 C (98.5 F) 10/26/2024 2:06 PM EDT Respiratory Rate 18 10/26/2024 2:06 PM EDT Oxygen Saturation 93% 10/26/2024 2:06 PM EDT Inhaled Oxygen Concentration - - Weight 109 kg (240 lb) 10/26/2024 2:06 PM EDT Height 160 cm (5' 3 ) 06/02/2024 12:06 PM EST Body Mass Index 42.51 06/02/2024 12:06 PM EST Plan of Treatment Upcoming Encounters Date Type Department Care Team (Late st Contact Info) Description 11/10/2024 3:30 PM EDT Office Visit [facility] [address] [place] [address] Sofy Bautista, OD [address] [place] [address] Health Maintenance Due Date Last Done Comments [...] COVID-19 Vaccine ( season) 2023 10/25/2020, 10/04/2020 Depression Monitoring 01/23/2024 07/23/2023, 024 Cervical Cancer Screening 02/11/2024 HPV/Cotest 02/11/2024 02/10/2019, 02/14/2016 SDOH Screening 09/21/2024 09/22/2023 Diabetes: Urine Protein Screening 10/11/2024 10/12/2023, 10/07/2022 Diabetes: Hemoglobin A1C 11/30/2024 025, 10/12/2023, 05/28/2023, Additional history exists Lipid Panel 12/17/2024 12/18/2023, 09/24, 10/07/2022, Additional history exists Influenza Vaccine (#1) 2024 2, 01/08/2011, 02/21/2010 Mammogram 08/22/2025 08/22/2024, 07/26, 08/11/2022, Additional history exists Tobacco Screening 10/26/2025 10/26/2024 Eye Exam 09/12/2026 09/12/2024, 08/25, 09/12/2024, Additional [...] Procedure Name Priority Date/Time Associated Diagnosis Comments XR KNEE 4+ VIEWS RIGHT Routine 09/27/2024 11:21 AM EDT OCT, OPTIC NERVE - OU - BOTH EYES Routine 09/12/2024 3:55 PM EDT Optic nerve atrophy, bilateral BI MAMMOGRAM SCREENING TOMOSYNTHESIS BILATERAL Routine 08/22/2024 3:00 PM EDT POCT GLYCATED HEMOGLOBIN, TOTAL Routine 06/02/2024 12:08 PM EST Type 2 diabetes mellitus without complication, unspecified whether mcc insulin use (CMS/HCC) LIPID PANEL, STANDARD Routine [...] ZZZ HISTORICAL HPV E6/E7 RFLX ALESSANDRA 16 Routine 02/10/2019 12:00 AM EDT from Last 3 Months or Most Recently Relevant to Health Maintenance Results * XR Knee 4+ Views Right (09/27/2024 11:21 AM EDT) Anatomical Region Laterality Modality Lower Extremities, Knee Right Radiogra psychiatric Imaging 09/27/2024 11:2 1 AM EDT Narrative 09/27/2024 1:02 PM EDT [place] [address] XRay Report Signed Patient: Annabelle Bang I MR#: [id number] : 1970 Acct:[id number] Age/Sex: 54 / F ADM Date: 09/27/24 Loc: HO.ED Attending Dr: Ordering Physician: Alberta Anne Date of Service: 09/27/24 Procedure(s): XR knee RT 4V Accession Number(s): [id number] cc: Halley Hill DO; Alberta Anne EXAMINATION: XR KNEE, RIGHT CLINICAL INFORMATION: atraumatic Right knee pain COMPARISON: None available. TECHNIQUE: Four views of the right knee. FINDINGS: There is no joint effusion. There is mild narrowing of the medial and lateral joint spaces. There are no osteophytes. There are small enthesophytes at superior pole patella. XR/XR knee RT 4V IMPRESSION: Mild degenerative changes with mild narrowing of the medial and lateral joint space. Electronically signed by: William Carrizales MD 09/27/2024 01:00 PM EDT RP Dictated By: William Carrizales MD Signed By: <Electronically signed by William Carrizales MD in OV> 09/27/24 1300 DD/ 1121 TD/TT: 09/27/24 1132 Gandy Dancer: Procedure Note Donotuseinterpreter, Image - 09/27/2024 [place] [address] XRay Report Signed Patient: Annabelle Bang IMR#: [id number] : 1970Acct:[id number] Age/Sex: 54 / FADM Date: 09/27/24 Loc: .ED Attending Dr: Ordering Physician: Alberta Anne Date of Service: 09/27/24 Procedure(s): XR knee RT 4V Accession Number(s): [id number] cc: Halley Hill DO; Alberta Anne EXAMINATION: XR KNEE, RIGHT CLINICAL INFORMATION: atraumatic Right knee pain COMPARISON: None available. TECHNIQUE: Four views of the right knee. FINDINGS: There is no joint effusion. There is mild narrowing of the medial and lateral joint spaces. There are no osteophytes. There are small enthesophytes at superior pole patella. XR/XR knee RT 4V IMPRESSION: Mild degenerative changes with mild narrowing of the medial and lateral joint space. Electronically signed by: Willaim Carrizales MD 09/27/2024 01:00 PM EDT RP Dictated By: William Carrizales MD Signed By: <Electronically signed by William Carrizales MD in OV> 09/27/24 1300 DD/ 1121 TD/TT: 09/27/24 1132 Gandy Dancer: us [facility] External Provider IMG XR PROCEDURES Final Result * OCT, Optic Nerve - OU - Both Eyes (09/12/2024 3:55 PM EDT) Sofy Yan, OD - 09/12/2024 3:55 PM EDT OCT RNFL/GCL INTERPRETATION Reliability: OD: SS 54 - good quality image OS: SS 47 - good quality image Measurements RNFL: Avg RNFL thickness OD: 73 microns OS: 67 microns Test findings RNFL: RNFL OD: Thin [...] cell layer (GCL) thinning. RTC for VF Sofy Bautista OD OPHTH TOMOGRAPHY Final Result * BI Mammogram Screening Tomosynthesis Bilateral (08/22/2024 3:00 PM EDT) Anatomical Region Laterality Modality Breast Bilateral Mammography 08/22/2024 3:00 PM EDT Narrative 08/27/2024 7:11 PM EDT [address] [place] [address] Mammography Report Signed Patient: Annabelle Bang I MR#: [id number] : 1970 Acct:[id number] Age/Sex: 54 / F ADM Date: 08/22/24 Loc: HO.MAMMO Attending Dr: Halley Hill DO Ordering Physician: Halley Hill DO Results: 1N egative Date of Service: 08/22/24 Follow Up: 1 Year From Orig inal Mammogram Procedure(s): MM tomosynthesis screening BI Accession Number(s): [id number] cc: Halley Hill DO EXAMINATION: MM SCREENING [...] their next mammogram. Electronically signed by: Chantel Mehta DO 08/27/2024 07:07 PM EDT RP Dictated By: Chantel Mehta DO Signed By: <Electronically signed by Chantel Mehta DO in OV> 08/27/24 1907 DD/ 1500 TD/TT: 08/22/24 1515 Gandy Dancer: Procedure Note Donotuseinterpreter, Image - 08/27/20[facility] [address] [place] [address] Mammography Report Signed Patient: Annabelle Bang IMR#: [id number] : 1970Acct:[id number] Age/Sex: 54 / FADM Date: 08/22/24 Loc: MAMMO Attending Dr: Halley Hill DO Ordering Physician: Halley Hill DOResults: 1N egative Date of Service: 08/22/24Follow Up: 1 Year From Orig ina Mammogram Procedure(s): MM tomosynthesis screening BI Accession Number(s): [id number] cc: Halley Hill DO EXAMINATION: MM SCREENING [...] their next mammogram. Electronically signed by: Chantel Mehta DO 08/27/2024 07:07 PM EDT RP Dictated By: Chantel Mehta DO Signed By: <Electronically signed by Chantel Mehta DO in OV> 08/27/24 1907 DD/ 1500 TD/TT: 08/22/24 1515 Gandy Dancer: Halley Hill DO IMG BI PROCEDURES Edited Res ult - Final * (ABNORMAL) POCT HGB A1C (06/02/2024 12:08 PM EST) Hemoglobin A1C 6.3(A) 4.0 - 6.0 % QC Media Lot # [id number] Lot# Expiration Date Blood 06/02/2024 12:0 8 PM EST Halley Hill DO POINT OF CARE TEST ENTER/ANALI T ORDERABLES Final Result * (ABNORMAL) Lipid Panel, Standard (12/18/2023 9:29 AM EDT) Triglycerides 188(H) <150 mg/dL [facility] Comment:Desirable Triglyceri de: less than 150 mg/dLBorderline High Triglyceride 150-199 mg/dLHigh Triglyceride: 200-499 mg/dLVery High Triglyceride: greater than or equal to 5OO mg/dL Cholesterol 255(H) <200 mg/dL [facility] Comment:Desirable Cholestero l: less than 200 mg/dLBorderline High Cholesterol: 200-239 mg/dLHigh Cholesterol: greater than 239 mg/dL LDL Cholesterol Calculated 183(H) <100 mg/dL [facility] Comment:Desirable LDL: less than 100 mg/dLNear Optimal/Above Optimal LDL: 110- 129 mg/dLBorderline High LDL: 130-159 mg/dLHigh LDL: 160-189 mg/dLVery High LDL: greater than or equal to 190 mg/dL HDL Cholesterol 35(L) >40 mg/dL [facility] Comment:Desirable HDL: great er than 40 mg/dL Note: This HDL assay may give artificially low results in patients with liver disease. Blood Venous blood specimen / Unknown 12/18/2023 9:29 AM EDT 12/18/2023 9:29 AM EDT Halley Hill LAB BLOOD ORDERABLES Final R esult Performing Organization Address [facility]/ZIP Co de Phone Number [facility] [address] [place] [phone] * Hepatitis C Antibody with Reflex to HCV, RNA, Quantitative, Real-Time PCR (10/12/2023 10:33 AM EDT) Hepatitis C Antibody Nonreactive Nonreactive [facility] Comment:Antibodies to HCV no t detected; does not exclude early acuteHCV infection. Blood Venous blood specimen / Unknown 10/12/2023 10:33 AM EDT 10/12/2023 12:58 PM EDT Halley Hill LAB BLOOD ORDERABLES Final R esult Performing Organization Address [facility]/ZIP Co de Phone Number [facility] [address] [place] [address] [phone] * HIV-1/2 Antigen and Antibodies, Fourth Generation, with Reflexes (10/12/2023 10:33 AM EDT) HIV AB/AG Nonreactive Nonreactive [facility] Comment:HIV-1 p24 Ag and/or HIV-1/HIV-2 Ab not detected.A test result that is nonreactive does not exclude thepossibility of exposure to or infection with HIV-1 and/orHIV-2. Nonreactive results in this assay for individualswith prior exposure to HIV-1 and/or HIV-2 may be due toantigen and antibody levels that are below the limit ofdetection of this assay.The [employer] HIV Ag/Ab Combo assay result andsupplemental assay results should be interpreted inconjunction with the patient's clinical presentation,history and other laboratory results. If the results areinconsistent with clinical evidence, additional testing issuggested to confirm the result. Blood Venous blood specimen / Unknown 10/12/2023 10:33 AM EDT 10/12/2023 12:58 PM EDT us Halley Hill DO LAB BLOOD ORDERABLES Final R esult Performing Organization Address City/[facility]/ZIP Co de Phone Number [facility] [address] [place] [phone] * Albumin, Random Urine W/Creatinine (10/12/2023 10:03 AM EDT) Creatinine, Urine 113.26 mg/dL [facility] Microalbumin Urine 31.0 mg/L [facility] Microalbum Creatinine Ratio Ur 27.3 <30 ug/mg cr [facility] Comment:Albumin/Creatinine R atio Reference Ranges: Normal: < 30 ug/mg creatinine Microalbuminuria: 30 - 300 ug/mg creatinineClinical Albuminuria: > 300 ug/mg creatinine Urine (Urine, Random) 10/12/2023 10:03 AM EDT 10/12/2023 11:23 AM EDT us Halley Hill DO LAB URINE ORDERABLES Final R esult Performing Organization Address City/[facility]/ZIP Co de Phone Number [facility] [address] [place] [phone] * HPV E6/E7 RFLX ALESSANDRA 16 18/45 (02/10/2019 12:00 AM EDT) ADDITIONAL TESTING Not indicated () [facility] Comment: Test Performed by [facility], [employer] [place], [address] [place], [place] Tony Abel M.D., Ph.D., Director of Laboratories , [place] [id number] HPV 16 RNA Test not performed [facility] HPV 18/45 RNA Test not performed [facility] HPV mRNA E6/E7 Not Detected NOT DETECTED [facility] Comment: This test was performed using the APTIMA(R) HPV Assay ([employer] This assay detects E6/E7 viral messenger RNA (mRNA) from 14 high-risk HPV types (16,18,31,33,35,39,45,51, 52,56,58,59,66,68). For additional information please refer to: http://education.evOLED.[employer]/faq/HPA924p9 (This link is being provided for informational/ educational purposes only.) The analytical performance characteristics of this assay have been determined by [employer] [place], [place]. The modifications have not been cleared or approved by the FDA. This assay has been validated pursuant to the CLIA regulations and is used for clinical purposes. Please note: Effective 01/06/2016, HPV testing will be performed using [employer] APTIMA test which targets mRNA. Detecting mRNA instead of DNA, as in older methods, offers significant improvements in specificity. 02/10/2019 us Halley Hill DO HISTORICAL/NON ORDERABLE LAB S Final Result [facility] [address] from Last 3 Months or Most Recently Relevant to Health Maintenance Insurance [employer] [facility] [place] 2 Care Teams Meter Mechanic Relationship Specialty Start Date End Date Halley Hill DO [address] [place] [address] PCP - General Family Medicine 04/26/18
--- NOTE | 2024-11-08 11:35 | A.OFFVIS_ITS ---
Vital Signs 11/08/24 11:42 Height 5 ft 3 in Weight 236 lb 5.369 oz BMI 41.9 BP 142/100 H Blood Pressure Location Lt brachial Position Sitting Pulse 75 Pulse Source Pulse Oximeter Pulse Oximetry (%) 95 Oxygen Delivery Method Room Air Intake Visit Reasons: oa Intake Note: Patient presents for OA follow up. Clay Structure Builder And Servicer Required: Yes Clay Structure Builder And Servicer Language: Student Success Advisor Services: Clay Structure Builder And Servicer Present Clay Structure Builder And Servicer Name: Preston [id number] Information Interpreted: non-clinical & clinical Allergies Penicillins (PENICILLINS) Allergy (Unknown, Verified 11/08/24 11:39) Unknown Medication List - Last Reconciled 11/08/24 by Karen Anne MD alcohol swabs (Alcohol Prep Pads) 1 pad topical TID blood sugar diagnostic (FreeStyle Lite Strips) As directed blood-glucose meter (FreeStyle [place] Lite kit) As directed celecoxib (Celebrex) 200 mg PO BID PRN cholecalciferol (vitamin D3) 1,250 mcg PO QWEEK diclofenac sodium 1% 4 grams topical QID PRN dulaglutide (Trulicity) 0.75 mg subcut QWEEK lancets (TRUEplus Lancets) As directed lisinopril 7.5 mg PO DAILY simethicone 125 mg PO BID-QID PRN HPI Comments Details: Patient is a 53-year-old morbidly obese female with hyperlipidemia, diabetes and hypertension and erosive OA here today for follow up Interval History: Patient last seen 04/2024 with me. - establishing care for the evaluation and management of polyarticular joint pain - Diagnosed with erosive OA and started on celebrex Since then, - did not start the celebrex out of concern for GI upset - Given another medication from her primary, patient unsure of the name Today - Complaining of bilateral knee pain and bilateral 1st CMC joint pain Rheumatologic History: Erosive OA Initial history: Patient states that for the past 3+ years she has been having pain in her joints. Joints involved: Hands - pain is all day, but worse in the afternoon - associated with swelling, again mostly in the afternoon Other joints affected: Shoulders, Back, Knees, Heel No known family history Current Rheumatology Medication(s): Celebrex 200mg bid (did not start) [facility] Medical History Bilateral shoulder pain Erosive osteoarthritis of both hands Diabetes Inflammatory arthritis GERD (gastroesophageal reflux disease) Migraine HTN (hypertension) Surgical History Hx of dilation and curettage H/O colonoscopy Hx of section Family History Maternal Grandfather Stomach cancer Social History Household Members Other:: daughter Housing: Apartment Alcohol intake: never Patient Tobacco Use Status: Never used Tobacco Second Hand Smoke Exposure: No Current occupational status: employed Current occupation: [employer] Sexual orientation: Straight/Heterosexual Gender identity: Female Review of Systems Const Details: Review of Systems Constitutional: Denies fever, chills, weight loss ENT: Denies vision changes, eye pain or eye redness, dental caries, dry mouth GI: Denies nausea, vomiting, diarrhea, abdominal pain, change in BM Pulm: Denies SOB, DAWKINS, hemoptysis, wheezing Cards: Denies chest pain, palpitations Skin: Denies Raynaud's, rash, nail changes, photosensitivity, CRAFT DEMONSTRATOR: Denies headaches, weakness, paresthesias, recurrent falls MSK: as per HPI All other systems reviewed and are unremarkable except noted above Physical Exam Vital Signs: Last Vital Signs Pulse 75 11/08/24 11:42 BP 142/100 H 11/08/24 11:42 Pulse Ox 95 11/08/24 11:42 Oxygen Delivery Method Room Air 11/08/24 11:42 BMI result Body Mass Index 41.9 Vital signs reviewed Physical Examination CONSTITUITIONAL Patient alert and cooperative. Well appearing and in no apparent painful distress HEENT Conjunctiva and sclera clear. ?Pupils equal round and reactive to light. ?No lymphadenopathy. ? CHEST/RESPIRATORY SYSTEM Normal respiratory effort and able to speak in complete sentences. ?Clear to auscultation bilaterally. ?No crackles, rales, rhonchi, wheezes heard. CARDIAC SYSTEM Regular rate and rhythm. ?S1 and S2 heard no murmurs. ?Radial pulses intact bilaterally MSK Hands: ?Good securities counselor strength bilaterally. Tenderness to palpation of the DIPs. No synovitis noted on examination. Heberden's nodes noted throughout hands. Wrists: ?Full range of motion at the wrists without pain. ?No tenderness to palpation or synovitis noted to the wrists. Elbows: Full range of motion without pain. No tenderness, weakness, swelling, increased warmth or erythema. Shoulders: Slightly decreased active range of motion but full passive range of motion. There was some pain the extreme of her range. No evidence of any swelling. Knees: ?Full range of motion. ?No swelling, increased warmth or erythema.? Bilateral crepitations. TTP of the joint line bilaterally Ankles: Full range of motion. ?No tenderness, swelling, increased warmth or erythema.? Feet: ?Negative squeeze test. ?No tenderness to palpation or swelling of the MTPs. SKIN Skin intact without rashes. Office Procedures AMB Joint Injection/Aspiration Joint Injection/Aspiration Details: Procedure was explained to the patient and informed consent was obtained. ? Risks associated with the procedure were discussed with the patient including but not limited to bleeding, infection, drug reactions and reactions to the topical anesthetic. Patient made aware of signs to look out for infectious complications. The area of interest was identified and confirmed with patient. ?This was subsequently cleaned with chlorhexidine x3. ? The area was then anesthetized using ethyl chloride spray. 40 mg Kenalog with 1 cc 1% lidocaine was injected without issue. ?Minimal to no bleeding. ?Patient tolerated procedure. Primary Site: right knee Prep: site was prepped using aseptic technique and ethochloride spray was applied Injected: 40 mg of, Kenalog, with 1 mL of and 1% plain lidocaine Approach Used: anterior Procedure: The patient tolerated the procedure well Coding 54063 - Large joint Procedure code (CPT) selection complete AMB Joint Injection/Aspiration Joint Injection/Aspiration Details: Procedure was explained to the patient and informed consent was obtained. ? Risks associated with the procedure were discussed with the patient including but not limited to bleeding, infection, drug reactions and reactions to the topical anesthetic. Patient made aware of signs to look out for infectious complications. The area of interest was identified and confirmed with patient. ?This was subsequently cleaned with chlorhexidine x3. ? The area was then anesthetized using ethyl chloride spray. 40 mg Kenalog with 1 cc 1% lidocaine was injected without issue. ?Minimal to no bleeding. ?Patient tolerated procedure. Primary Site: left knee Prep: site was prepped using aseptic technique and ethochloride spray was applied Injected: 40 mg of, Kenalog, with 1 mL of, 1% plain lidocaine and in the joint Approach Used: anterior Procedure: The patient tolerated the procedure well Coding 07252 - Large joint Procedure code (CPT) selection complete Office Meds lidocaine (PF) 10 mg/mL (1 %) injection solution Performing Provider: Karen Anne MD Performing Location: [facility] Administered by: Karen Anne MD on 11/08/24 12:55 Dose Route Admin Location Dispensed Lot Number Expiration Date [facility] [employer] 1 mL Infiltration right knee 2 mL [id number] 08/24/26 95883-533-59 FR [employer] Total Dispensed Waste 2 mL 50 % Kenalog 40 mg/mL suspension for injection Performing Provider: Karen Anne MD Performing Location: [facility] Administered by: Karen Anne MD on 11/08/24 12:55 Dose Route Admin Location Dispensed Lot Number Expiration Date [facility] [employer] 40 mg intra-articular right knee 1 mL [id number] 10/24/25 [address]- 1 [employer] Total Dispensed Waste 1 mL 0 % lidocaine (PF) 10 mg/mL (1 %) injection solution Performing Provider: Karen Anne MD Performing Location: [facility] Administered by: Karen Anne MD on 11/08/24 12:55 Dose Route Admin Location Dispensed Lot Number Expiration Date [place] [employer] 1 mL Infiltration left knee 2 mL [id number] 08/24/26 93807-788-45 [employer] Total Dispensed Waste 2 mL 50 % Kenalog 40 mg/mL suspension for injection Performing Provider: Karen Anne MD Performing Location: [facility] Administered by: Karen Anne MD on 11/08/24 12:55 Dose Route Admin Location Dispensed Lot Number Expiration Date [facility] [employer] 40 mg intra-articular left knee 1 mL [id number] 10/24/25 [address]- 1 [employer] Total Dispensed Waste 1 mL 0 % Results Reviewed Results Reviewed: Laboratory Tests 05/10/24 11:48 WBC 6.7 RBC 5.11 Hgb 15.4 Hct 47.5 H Plt Count 204 ESR 5 Sodium 139 Potassium 4.2 Chloride 107 Carbon Dioxide 28 BUN 16 Creatinine 0.79 AST 33 H ALT 64 H C-Reactive Protein 0.28 XR Right Hand 06/2023 FINDINGS: Bony alignment and mineralization are normal. There is moderately severe arthrosis of the interphalangeal joint of the thumb. There is narrowing of the second through fifth distal interphalangeal joints, with peripheral osteophyte formation. There are central erosions of the second and fourth distal interphalangeal joints. There is mild degenerative change of the fifth proximal interphalangeal joint. Minimal degenerative change is seen of the second through fourth metacarpophalangeal joints. There is mild degenerative change of the first carpometacarpal joint. The proximal and distal carpal rows are intact. No fracture or dislocation is seen. There is no focal soft tissue swelling, gas or foreign body. XR Left Hand 06/2023 FINDINGS: Bony alignment and mineralization are normal. There is moderately severe arthrosis of the interphalangeal joint of the thumb. There is narrowing of the second through fifth distal interphalangeal joints, with peripheral osteophyte formation. There are central erosions of the second and fourth distal interphalangeal joints. There is mild degenerative change of the fifth proximal interphalangeal joint. Minimal degenerative change is seen of the second through fourth metacarpophalangeal joints. There is mild degenerative change of the first carpometacarpal joint. The proximal and distal carpal rows are intact. No fracture or dislocation is seen. There is no focal soft tissue swelling, gas or foreign body. XR Bilateral shoulders 06/2023 FINDINGS: The bones and soft tissues are normal. No fracture. Glenohumeral and acromioclavicular alignment is anatomic with normal joint space. No abnormal soft tissue calcifications. XR Right Foot 06/2023 FINDINGS: Bony alignment and mineralization are normal. No fracture, dislocation or right ankle joint effusion is seen. Boehler's angle is normal. There are large posterior and plantar calcaneal spurs. There is mild bunionette formation of the fifth metatarsal head. No focal soft tissue swelling, gas or foreign body is seen. XR Left Foot 06/2023 FINDINGS: Bony alignment and mineralization are normal. No fracture, dislocation or left ankle joint effusion is seen. Boehler's angle is normal. There are large posterior and plantar calcaneal spurs. There is mild bunionette formation of the fifth metatarsal head. No focal soft tissue swelling, gas or foreign body is seen. Assessment & Plan Assessment & Plan (1) Erosive osteoarthritis of both hands: Code(s): M15.4 - Erosive (osteo)arthritis Category: Medical Plan: #Polyarticular OA with erosive OA of the hands Patient is a 54 y.o. female with polyarticular osteoarthritis but most importantly erosive osteoarthritis involving the hands. Erosive osteoarthritis is a very difficult disease to treat as there is no proven therapies to reduce pain and or the destruction. The recommendations are to treat erosive osteoarthritis as regular osteoarthritis and we can consider immunosuppression if things get worse. Because of patient's hypertension and diabetes she is not a good candidate for Prednisone. DEXA scan normal and so will likely not meet criteria for Prolia Will hold off on further NSAIDs PO given her concern for GI upset Continue topical diclofenac, prescribed by primary Plan - Topical diclofenac 1% qid (prescribed by PCP) - RTC 6 months (2) Primary osteoarthritis of both knees: Code(s): M17.0 - Bilateral primary osteoarthritis of knee Plan: #Bilateral knee OA S/p steroid injection bilaterally Plan I spent 20 minutes reviewing the record and labs, taking a history, examining the patient, discussing the treatment plan and documenting in the medical record Orders: Orders AMB Joint Injection/Aspiration Today M17.0 - Bilateral primary osteoarthritis of knee AMB Joint Injection/Aspiration Today M17.0 - Bilateral primary osteoarthritis of knee Medications: Discontinued diclofenac sodium 1% (Arthritis Pain (diclofenac)) Apply to hands and knees 4 times a day Discontinued Reason: Doctor's Order 4 grams topical QID 100 grams 4RF M1 5.4 - Erosive (osteo)arthritis Coding Level of Care Code Est Pt Level 3 (22818) Complex EM visit Add On G2211 Diagnoses Erosive osteoarthritis of both hands M15.4 Primary osteoarthritis of both knees M17.0 CPT Codes Coding - 32904 Large joint: 18051 - Large joint ([id number]) Coding - 06502 Large joint: 16820 - Large joint ([id number])
[2024-11-08 11:42] VITALS: BP 142/100; PULSE 75; O2SAT 95; BMI 41.9
== END 2024-11-08 12:30 | disposition home or self-care (01) ==
LOC: HO.RHE 10:41
PROVIDERS: PCP Family Medicine; Visit Provider Student in an Organized Health Care Education/Training Program
DX: M15.4 Erosive (osteo)arthritis (principal); M17.0 Bilateral primary osteoarthritis of knee
CPT/HCPCS: 20610; 99213

== ENCOUNTER → 2024-11-08 10:40 | Outpatient (BNVA) | payer OTHER, SELFPAY | PROVIDERS: PCP Family Medicine; Visit Provider Student in an Organized Health Care Education/Training Program | DX: M17.0 Bilateral primary osteoarthritis of knee (principal); M15.4 Erosive (osteo)arthritis | CPT/HCPCS: 20610; 99212; J2003; J3300 ==

== ENCOUNTER 2024-12-13 12:58 | Outpatient (AMB) | payer OTHER, SELFPAY ==
--- NOTE | 2024-12-13 13:39 | MHC.OFFVIS ---
Vital Signs 12/13/24 13:41 Height 5 ft 3 in Weight 226 lb BMI 40.0 BP 130/80 Intake Visit Reasons: PMB Telemarketer Supervisor Required: Yes Telemarketer Supervisor Language: Retail Delivery Driver Services: Telemarketer Supervisor Present (in person) Telemarketer Supervisor Name: Nila ZAMORANO Information Interpreted: non-clinical & clinical Butter Wrapper: Butter Wrapper Present (Nila ZAMORANO) Accompanied by: Self / Same As Patient Allergies Penicillins (PENICILLINS) Allergy (Unknown, Verified 12/13/24 13:43) Unknown Post menopausal: Yes HPI Comments Details: Presenting complaining of an episode of vaginal bleeding after year and a half of amenorrhea. No other associated symptoms Last co testing in 02/11 was negative Last screening mammogram in 08/18 was BI-RADS 1 PFS Medical History Bilateral shoulder pain Erosive osteoarthritis of both hands Diabetes Inflammatory arthritis GERD (gastroesophageal reflux disease) Migraine HTN (hypertension) Surgical History Hx of dilation and curettage H/O colonoscopy Hx of section Family History Maternal Grandfather Stomach cancer Social History Household Members Other:: daughter Housing: Apartment Alcohol intake: never Patient Tobacco Use Status: Never used Tobacco Second Hand Smoke Exposure: No Current occupational status: employed Current occupation: [employer] Sexual orientation: Straight/Heterosexual Gender identity: Female Review of Systems Const All systems reviewed & are unremarkable except as noted in HPI and below Physical Exam Vital Signs: Last Vital Signs BP 130/80 12/13/24 13:41 BMI result Body Mass Index 40.0 General: Yes no CVA tenderness External Female Exam: normal external appearance and normal appearance of the urethra Speculum Exam - Vagina: normal appearance of the vagina, normal palpation, no lesions and no masses Speculum Exam - Cervix: normal appearance of the cervix, normal palpation, no lesions, no masses and nontender Bimanual exam- vagina & uterus: normal bimanual exam, normal palpation, uterine size normal, normal palpation, uterine shape normal, No Cervical tenderness present and non-tender Bimanual Exam- Adnexa, other: normal adnexae Back/Spine/Pelvis Back: no CVA tenderness Assessment & Plan Assessment & Plan (1) Postmenopausal bleeding: Code(s): N95.0 - Postmenopausal bleeding Category: Medical Plan: Discussed with the patient the differential diagnosis of post menopausal bleeding with normal pelvic exam including but not limited to, endometrial hyperplasia, cancer, polyps and other causes; co testing done, recommended ultrasound to measure the endometrial stripe; discussed with the patient that if the endometrial thickness is 4 mm or less the negative predictive value of endometrial pathology is 99%, otherwise If endometrial thickness is more than 4 mm will proceed with endometrial sampling versus hysteroscopy D&C polypectomy depending on the ultrasound findings. Instructed the patient to schedule an ultrasound with a follow-up appointment in 2 weeks. All questions answered, the patient verbalized understanding and agreed with the plan. This note was generated with a voice recognition program. Some errors may have been overlooked during the review of this note. Sometimes these errors may affect the content or meaning of a given sentence. Orders: Orders US pelvic and transvaginal Today N95.0 - Postmenopausal bleeding Coding Level of Care Code Est Pt Level 3 (17737) Diagnoses Postmenopausal bleeding N95.0
[2024-12-13 13:41] VITALS: BP 130/80; BMI 40.0
--- OUTSIDE RECORDS SUMMARY | 2024-12-13 13:50 | XMS_ITS | Clinical Summary ---
Author Organization [employer] Address [address] [facility] [address] [place] [address] Care Team Providers Care Anchorer Name Role Phone Halley Hill DO Primary Care Provider + [phone] Allergies Active Allergy Reactions Criticality Noted Date Comments Penicillins Unknown 09/23/2022 Oxycodone-Acetaminophen Dizziness 09/23/2022 Medications * This document contains information received from the source organization and may not represent a complete record from that organization. esomeprazole (NexIUM) [address] capsuleIndications:C hronic gastroesophageal reflux disease Take 1 capsule (40 mg) by mouth before breakfast. Do not open capsule. 90 capsule 1 09/22/19 24 Active Blood Glucose Monitoring Suppl (FreeStyle [place] Lite) w/Device kit Use to test blood sugar 1 times daily 1 kit 10/15/19 Active Alcohol Swabs 70 % pads Use to test blood sugar 1 times daily 100 each 11 10/15/19 24 Active Lancets misc Use to test blood [...] per day. 1 each 03/13/20 24 Active Dulaglutide 0.75 MG/0.5ML solution auto-injectorIndicat ions:New [...] BEDTIME 90 tablet 1 06/13/19 25 Active fluticasone (Flonase) 50 MCG/ACT nasal spray INSTILL 2 SPRAYS IN EACH NOSTRIL ONCE DAILY, SHAKE GENTLY 48 g 3 10/14/19 25 Active cetirizine (ZyrTEC) 10 MG tablet TAKE 1 TABLET BY MOUTH EVERY DAY 90 tablet 3 10/14/19 25 Active lisinopril 5 MG tabletIndications:Es sential hypertension Take 1 tablet (5 mg) by mouth Once per day. Take 1 tab po daily with 2.5mg lisinopril dose for total of 7.5mg 30 tablet 10/27/19 25 026 Active lisinopril 2.5 MG tabletIndications:Es sential hypertension Take 1 tab po daily with 5mg lisinopril dose for total of 7.5mg 30 tablet 10/27/19 25 Active Active Problems Problem Noted Date Diagnosed Date Type 2 diabetes mellitus 10/15/2023 Healthcare maintenance 09/22/2023 Assessment & Plan (09/22/2023 1:06 PM EDT): -she declines flu vaccine -she declines COVID vaccine -s/p Tdap Jan 2010 -s/p Td August 2022 -encouraged shingrix vaccine -Hep A/B immune -mammo BIRADS 26 JUL 2023 -pap wnl/HPV neg Jan 2019, repeat scheduled with [facility] -awaiting colonoscopy/EGD with GI -A1c 5.9% September [...] Collaborative Drug Therapy Managment Program with our PharmDREJI 10/25/24 -ER precautions discussed. -Seek medical attention [...] is nml EKG in chart -referred to [facility] for eval Assessment & Plan (05/08/2023 [...] Encounters Date Type Department Care Team Description 11/27/2024 Telephone [facility] [address] [place] [address] Halley Hill DO 11/10/2024 Telephone [facility] [address] [place] [address] Sofy Bautista OD 10/26/2024 1:40 PM EDT Office Visit [facility] [address] [place] [address] Zoya Berg MD Essential hypertension (Primary Dx) 10/26/2024 Telephone [facility] [address] [place] [address] Halley Hill DO Nurse Triage 10/13/2024 Refill [facility] [address] [place] [address] Halley Hill DO 10/03/2024 Telephone [facility] [address] [place] [address] Deepti Addison, CHANEL provider out 10/02/2024 Telephone [facility] [address] [place], [place] [phone] Halley Hill DO Chart Prep 09/29/2024 Telephone [facility] [address] [place] [address] Halley Hill DO Nurse Triage 09/27/2024 Orders Only [facility] External Provider, [facility] 09/12/2024 3:15 PM EDT Office Visit [facility] [address] [place] [address] Lily Sofy, OD Type 2 diabetes mellitus without ophthalmic [...] is your housing situation today? I have doloresradha granger 09/22/[address] you [...] Vaccine (3 - season) 2023 10/25/2020, 10/04/2020 Depression Monitoring [...] 2 diabetes mellitus without complication, unspecified whether jail insulin use (CMS/HCC) LIPID PANEL, STANDARD Routine [...] Laterality Modality Lower Extremities, Knee Right Radiogra phic Imaging 09/27/2024 11:2 1 AM EDT Narrative 09/27/2024 1:02 PM EDT [address] [address] XRay Report Signed Patient: Annabelle Bang I MR#: [id number] : 1970 Acct:[id number] Age/Sex: 54 / F ADM Date: 09/27/24 Loc: HO.ED Attending Dr: Ordering Physician: Alberta Anne Date of Service: 09/27/24 Procedure(s): XR knee RT 4V Accession Number(s): [id number] cc: Halley Hill DO; Alberta Anne EXAMINATION: [...] William Carrizales MD 09/27/2024 01:00 PM EDT Dictated By: William Carrizales MD Signed By: <Electronically signed by William Carrizales MD in OV> 09/27/24 1300 DD/ 1121 TD/TT: 09/27/24 1132 Guide Foreign Tour: Procedure Note Donotuseinterpreter, Image - 09/27/[address] [address] XRay Report Signed Patient: Annabelle Bang#: [id number] : 1970Acct:[id number] Age/Sex: 54 / FADM Date: 09/27/24 Loc: HO.ED Attending Dr: Ordering Physician: Alberta Anne Date of Service: 09/27/24 Procedure(s): XR knee RT 4V Accession Number(s): [id number] cc: Halley Hill DO; Alberta Anne EXAMINATION: [...] William Carrizales MD 09/27/2024 01:00 PM EDT Dictated By: William Carrizales MD Signed By: <Electronically signed by William Carrizales MD in OV> 09/27/24 1300 DD/ 1121 TD/TT: 09/27/24 1132 Guide Foreign Tour: [facility] External Provider IMG XR PROCEDURES Final Result * OCT, Optic Nerve - OU - Both Eyes (09/12/2024 3:55 PM EDT) Narrative Sofy Bautista, OD - 09/12/2024 3:55 PM EDT OCT [...] PM EDT Narrative 08/27/2024 7:11 PM EDT [facility] [address] [place], [place] [address] Mammography Report Signed Patient: Annabelle Bang I MR#: [id number] : 1970 Acct:[id number] Age/Sex: 54 / F ADM Date: 08/22/24 Loc: HO.MAMMO Attending Dr: Halley Hill DO Ordering Physician: Halley Hill DO Results: 1N egative Date of Service: 08/22/24 Follow Up: 1 Year From [facility] Mammogram Procedure(s): MM tomosynthesis screening BI Accession Number(s): [id number] cc: Halley Hill DO EXAMINATION: MM SCREENING [...] Chantel Mehta DO 08/27/2024 07:07 PM EDT Dictated By: Chantel Mehta DO Signed By: <Electronically signed by Chantel Mehta DO in OV> 08/27/24 1907 DD/ 1500 TD/TT: 08/22/24 1515 Guide Foreign Tour: Procedure Note Donotrobyninterpreter, Image - 08/27/[facility] [address] [place] [address] Mammography Report Signed Patient: Annabelle Bang [facility]#: [id number] : 1970Acct:[id number] Age/Sex: 54 / FADM Date: 08/22/24 Loc: HO.MAMMO Attending Dr: Halley Hill DO Ordering Physician: Halley Hillults: 1N egative Date of Service: 08/22/24Follow Up: 1 Year From Orig inal Mammogram Procedure(s): MM tomosynthesis screening BI Accession Number(s): [id number] cc: Halley Hill DO EXAMINATION: MM SCREENING [...] 08/27/24 1907 DD/ 1500 TD/TT: 08/22/24 1515 Guide Foreign Tour: Halley Hill DO IMG BI PROCEDURES Edited Res ult - Final * (ABNORMAL) POCT HGB A1C (06/02/2024 12:08 PM EST) Hemoglobin A1C 6.3(A) 4.0 - 6.0 % QC Media Lot # [id number] Lot# Expiration Date [id number] Blood 06/02/2024 12:0 8 PM EST Halley Hill DO POINT OF CARE TEST ENTER/ANALI T ORDERABLES Final Result * (ABNORMAL) Lipid Panel, Standard (12/18/2023 9:29 AM EDT) Triglycerides 188(H) <150 mg/dL [facility] Comment:Desirable Triglyceri de: less than 150 mg/dLBorderline High Triglyceride 150-199 mg/dLHigh Triglyceride: 200-499 mg/dLVery High Triglyceride: greater than or equal to 5OO mg/dL Cholesterol 255(H) <200 mg/dL [facility] Comment:Desirable Cholestero l: less than 200 mg/dLBorderline High Cholesterol: 200-239 mg/dLHigh Cholesterol: greater than 239 mg/dL LDL Cholesterol Calculated 183(H) <100 mg/dL [facility] Comment:Desirable LDL: less than 100 mg/dLNear Optimal/Above Optimal LDL: 110- 129 mg/dLBorderline High LDL: 130-159 mg/dLHigh LDL: 160-189 mg/dLVery High LDL: greater than or equal to 190 mg/dL HDL Cholesterol 35(L) >40 mg/dL [facility] Comment:Desirable HDL: great er than 40 mg/dL Note: This HDL assay may give artificially low results in patients with liver disease. Blood Venous blood specimen / Unknown 12/18/2023 9:29 AM EDT 12/18/2023 9:29 AM EDT Halley Hill LAB BLOOD ORDERABLES Final R esult Performing Organization Address City/[facility]/ZIP Co de Phone Number [facility] [address] [place] [phone] * Hepatitis C Antibody with Reflex to HCV, RNA, Quantitative, Real-Time PCR (10/12/2023 10:33 AM EDT) Hepatitis C Antibody Nonreactive Nonreactive [facility] Comment:Antibodies to HCV no t detected; does not exclude early acuteHCV infection. Blood Venous blood specimen / Unknown 10/12/2023 10:33 AM EDT 10/12/2023 12:58 PM EDT Halley Hill DO LAB BLOOD ORDERABLES Final R [facility] Performing Organization Address [facility] Co de Phone Number [facility] [address] [place] [phone] * HIV-1/2 Antigen and Antibodies, Fourth Generation, with Reflexes (10/12/2023 10:33 AM EDT) HIV AB/AG Nonreactive Nonreactive [facility] Comment:HIV-1 p24 Ag and/or HIV-1/HIV-2 Ab not detected.A test result that is nonreactive does not exclude thepossibility of exposure to or infection with HIV-1 and/orHIV-2. Nonreactive results in this assay for individualswith prior exposure to HIV-1 and/or HIV-2 may be due toantigen and antibody levels that are below the limit ofdetection of this assay.The Mod[employer] HIV Ag/Ab Combo assay result andsupplemental assay results should be interpreted inconjunction with the patient's clinical presentation,history and other laboratory results. If the results areinconsistent with clinical evidence, additional testing issuggested to confirm the result. Blood Venous blood specimen / Unknown 10/12/2023 10:33 AM EDT 10/12/2023 12:58 PM EDT Halley Hill DO LAB BLOOD ORDERABLES Final R esult Performing Organization Address [facility] Co de Phone Number [facility] [address] [place] [phone] * Albumin, Random Urine W/Creatinine (10/12/2023 10:03 AM EDT) Creatinine, Urine 113.26 mg/dL [facility] Microalbumin Urine 31.0 mg/L [facility] Microalbum Creatinine Ratio Ur 27.3 <30 ug/mg cr [facility] Comment:Albumin/Creatinine R atio Reference Ranges: Normal: < 30 ug/mg creatinine Microalbuminuria: 30 - 300 ug/mg creatinineClinical Albuminuria: > 300 ug/mg creatinine Urine (Urine, Random) 10/12/2023 10:03 AM EDT 10/12/2023 11:23 AM EDT Halley Liz DO LAB URINE ORDERABLES Final R esult Performing Organization Address [facility] Co de Phone Number [facility] [address] [place] [phone] * HPV E6/E7 RFLX ALESSANDRA 16 18/45 (02/10/2019 12:00 AM EDT) ADDITIONAL TESTING Not indicated () [facility] Comment: Test Performed by [employer], [employer] [facility], [address] [place] [address] Tony Abel M.D., Ph.D., Director of Laboratories , [place] [id number] HPV 16 RNA Test not performed [facility] HPV 18/45 RNA Test not performed [facility] HPV mRNA E6/E7 Not Detected NOT DETECTED [facility] Comment: This test was performed using the APTIMA(R) HPV Assay ([employer] This assay detects E6/E7 viral messenger RNA (mRNA) from 14 high-risk HPV types (16,18,31,33,35,39,45,51, 52,56,58,59,66,68). For additional information please refer to: http://education.[employer]/faq/NVH569o2 (This link is being provided for informational/ educational purposes only.) The analytical performance characteristics of this assay have been determined by [employer] [place], [place]. The modifications have not been cleared or approved by the FDA. This assay has been validated pursuant to the CLIA regulations and is used for clinical purposes. Please note: Effective 01/06/2016, HPV testing will be performed using [employer]'s APTIMA test which targets mRNA. Detecting mRNA instead of DNA, as in older methods, offers significant improvements in specificity. 02/10/2019 us Halley Hill DO HISTORICAL/NON ORDERABLE LAB S Final Result [facility] Anywhere [address] from Last 3 Months or Most Recently Relevant to Health Maintenance Insurance [facility] 2 Care Teams Anchorer Relationship Specialty Start Date End Date Halley Hill DO [address] [place] [phone] PCP - General Family Medicine 04/26/18
== END 2024-12-13 14:13 | disposition home or self-care (01) ==
PROVIDERS: PCP Family Medicine; Visit Provider Obstetrics & Gynecology
DX: N95.0 Postmenopausal bleeding (principal)
CPT/HCPCS: 99213

== ENCOUNTER 2024-12-13 12:58 | Outpatient (REF) | payer OTHER, SELFPAY | END 2024-12-13 12:59 | disposition home or self-care (01) | LOC: HO.LNP 12:58 | PROVIDERS: PCP Family Medicine; Visit Provider Obstetrics & Gynecology | DX: N93.9 Abnormal uterine and vaginal bleeding, unspecified (principal); Z11.51 Encounter for screening for human papillomavirus (HPV) | CPT/HCPCS: 87626; 88175; 99212 ==

== ENCOUNTER 2024-12-27 08:00 | Outpatient (REF) | payer OTHER, SELFPAY ==
--- NOTE | ~2024-12-27 | US_ITS ---
EXAMINATION: US PELVIS CLINICAL INFORMATION: Postmenopausal bleeding. COMPARISON: May 21, 2022 reporting a 1 cm uterine fibroid.. TECHNIQUE: Ultrasound of the pelvis is performed using both transabdominal and transvaginal transducers along with Doppler. Transvaginal imaging is performed due to inadequate visualization transabdominally. FINDINGS: Uterus: The uterus is anteversion flexion and measures 9 x 5 x 6 cm. Cervix is closed with small nabothian cysts. The double wall endometrial thickness is 2 mm. Heterogeneous morphology of the uterine parenchyma. There is a 1.3 cm ovoid shaped heterogeneous hypoechoic nodule in the posterior body of the myometrium. Adnexa: The right ovary is not identified.. The left ovary is identified with flow on color Doppler interrogation. No free fluid in the cul-de-sac. Left ovary measures 2 x 2 x 2 cm. Volume: 3.2 cc. No gross solid or cystic lesion. US/US pelvic and transvaginal IMPRESSION: 1.3 cm uterine fibroid. Normal endometrial stripe, 2 mm. Right ovary is not identified. Left ovary is normal. Electronically signed by: Hema Duenas MD 12/27/2024 09:41 AM EDT
== END 2024-12-27 08:01 | disposition home or self-care (01) ==
LOC: HO.US 08:00
PROVIDERS: PCP Family Medicine; Visit Provider Obstetrics & Gynecology
DX: N95.0 Postmenopausal bleeding (principal)
CPT/HCPCS: 76830; 76856

== ENCOUNTER → 2024-12-27 08:02 | Outpatient (BNV) | payer OTHER, SELFPAY | PROVIDERS: PCP Family Medicine; Visit Provider Radiology Diagnostic Radiology | DX: N95.0 Postmenopausal bleeding (principal) | CPT/HCPCS: 76830; 76856 ==

== ENCOUNTER 2025-01-03 08:26 | Outpatient (AMB) | payer OTHER, SELFPAY ==
--- NOTE | 2025-01-03 09:29 | A.OFFVIS_ITS ---
Vital Signs 01/03/25 09:30 Height 5 ft 3 in Weight 226 lb BMI 40.0 BP 120/74 Intake Visit Reasons: ultrasound results Java Application Developer Required: Yes Java Application Developer Language: Sr. Strategic Sourcing Manager Services: Java Application Developer Present (in person) Java Application Developer Name: Nila ZAMORANO Information Interpreted: non-clinical & clinical Protector Plate Attacher: Protector Plate Attacher Present Accompanied by: Self / Same As Patient Allergies Penicillins (PENICILLINS) Allergy (Unknown, Verified 01/03/25 09:32) Unknown HPI Comments Details: Presenting for pelvic ultrasound follow-up regarding postmenopausal bleeding. Pelvic ultrasound showed the following: Uterus: The uterus is anteversion flexion and measures 9 x 5 x 6 cm. Cervix is closed with small nabothian cysts. The double wall endometrial thickness is 2 mm. Heterogeneous morphology of the uterine parenchyma. There is a 1.3 cm ovoid shaped heterogeneous hypoechoic nodule in the posterior body of the myometrium. Adnexa: The right ovary is not identified.. The left ovary is identified with flow on color Doppler interrogation. No free fluid in the cul-de-sac. Left ovary measures 2 x 2 x 2 cm. Volume: 3.2 cc. No gross solid or cystic lesion. US/US pelvic and transvaginal IMPRESSION: 1.3 cm uterine fibroid. Normal endometrial stripe, 2 mm. Right ovary is not identified. Left ovary is normal. [facility] Medical History Bilateral shoulder pain Erosive osteoarthritis of both hands Diabetes Inflammatory arthritis GERD (gastroesophageal reflux disease) Migraine HTN (hypertension) Surgical History Hx of dilation and curettage H/O colonoscopy Hx of section Family History Maternal Grandfather Stomach cancer Social History Household Members Other:: daughter Housing: Apartment Alcohol intake: never Patient Tobacco Use Status: Never used Tobacco Second Hand Smoke Exposure: No Current occupational status: employed Current occupation: [employer] Sexual orientation: Straight/Heterosexual Gender identity: Female Review of Systems Const All systems reviewed & are unremarkable except as noted in HPI and below Reports as per HPI and Reports no additional complaints GI Reports no additional complaints Reports no additional complaints Physical Exam Vital Signs: Last Vital Signs BP 120/74 01/03/25 09:30 BMI result Body Mass Index 40.0 Assessment & Plan Assessment & Plan (1) Postmenopausal bleeding: Code(s): N95.0 - Postmenopausal bleeding Category: Medical Plan: Discussed with the patient the results of the pelvic ultrasound showing an endometrial stripe thickness of 3 mm. Explained to the patient with an endometrial stripe of 4 mm &/or less, there is a high negative predictive value in detecting endometrial pathology including endometrial hyperplasia, polyps or malignancy. Therefore, there is no indication for endometrial sampling. Discussed with the patient the sensitivity, specificity, and positive and the negative predictive value of using ultrasound in detecting endometrial pathology. The patient was instructed to call if bleeding recurs, will proceed with endometrial sampling out endometrial pathology. All questions were answered and the patient verbalized understanding and agreed with the plan. (2) Uterine myoma: Code(s): D25.9 - Leiomyoma of uterus, unspecified Category: Medical Plan: Discussed with the patient the findings on pelvic ultrasound & the risk of myosarcoma; in addition reviewed with the patient that malignancy and pre malignancy cannot be ruled out without hysterectomy for pathological evaluation ; furthermore, explained to the patient the limitation of pelvic ultrasound and endometrial biopsy in the setting. Discussed with the patient the options of treatment including expectant man agement versus hysterectomy; the pros and cons, risks benefits of each approach were discussed with the patient including the fact that in cases of myosarcoma, surgical treatment can lead to early diagnosis and positively affects the prognosis; after further discussion, the patient decided to proceed with expectant management. Will repeat pelvic ultrasound periodically. Instructions given to patient to call in case any of the following occurs: pressure symptoms, abnormal uterine bleeding, pelvic pain; and to schedule a twelve months pelvic ultrasound (order placed) and a follow-up appointment . All questions answered, the patient verbalized understanding and agreed with the plan . Orders: Orders US pelvic and transvaginal 1 Year D25.9 - Leiomyoma of uterus, unspecified Coding Level of Care Code Est Pt Level 3 (37201) Diagnoses Postmenopausal bleeding N95.0 Uterine myoma D25.9
[2025-01-03 09:30] VITALS: BP 120/74; BMI 40.0
== END 2025-01-03 10:06 | disposition home or self-care (01) ==
LOC: HO.HWS 08:27
PROVIDERS: PCP Family Medicine; Visit Provider Obstetrics & Gynecology
DX: N95.0 Postmenopausal bleeding (principal); D25.9 Leiomyoma of uterus, unspecified
CPT/HCPCS: 99213

== ENCOUNTER → 2025-01-03 08:26 | Outpatient (BNVA) | payer OTHER, SELFPAY | PROVIDERS: PCP Family Medicine; Visit Provider Obstetrics & Gynecology | DX: N95.0 Postmenopausal bleeding (principal); D25.9 Leiomyoma of uterus, unspecified | CPT/HCPCS: 99212 ==

== ENCOUNTER 2025-02-09 11:15 | Outpatient (REF) | payer OTHER, SELFPAY ==
--- NOTE | ~2025-02-09 | XR_ITS ---
EXAMINATION: XR CHEST CLINICAL INFORMATION: cough x 2 mos COMPARISON: Previous chest x-ray July 2022 TECHNIQUE: 2 views of the chest were obtained. FINDINGS: Slightly elevated right hemidiaphragm similar to previous exam. Lungs are clear. No pleural effusion or pneumothorax. Cardiac and mediastinal contours are stable. Degenerative changes of the spine. XR/XR chest 2V IMPRESSION: No evidence for acute disease in the chest. Electronically signed by: Valentina Lackey MD 02/09/2025 12:45 PM EDT
--- NOTE | ~2025-02-09 | XR_ITS ---
EXAMINATION: XR ELBOW, LEFT CLINICAL INFORMATION: L lateral elbow pain and tenderness COMPARISON: None available. TECHNIQUE: AP, lateral, and oblique views of the left elbow. FINDINGS: The bones and soft tissues are normal. No fracture or joint effusion. Alignment is anatomic. Joint spaces are maintained. XR/XR elbow LT min 3V IMPRESSION: Normal left elbow. Electronically signed by: Valentina Lackey MD 02/09/2025 12:47 PM EDT
--- OUTSIDE RECORDS SUMMARY | 2025-02-09 10:00 | XMS_ITS | Encounter Summary ---
Author Organization [employer] Address [address] [place] [address] [place] [address] Care Team Providers Care Beverage Specialist Name Role Phone Halley Hill DO Primary Care Provider + [phone] Reason for Referral * PFT (Routine) - Authorized Specialty Diagnoses / Procedures Referred By Contac t Referred To Contact Diagnoses Subacute cough Procedures Pulmonary Function Test Halley Hill DO [address] [place] [address] Phone: tel: fax: [address] Phone: tel: fax: Referral ID Status Reason Start Date Expiration Date V isits Requested Visits Authorized [id number] Authorized 02/09/2025 02/09/2026 1 1 Encounter Details Date Type Department Care Team (Latest Contact Info) Description 02/09/2025 10:00 AM EDT Office Visit [facility] [address] [place], [place] [phone] Halley Hill DO [address], [place] [phone] Type 2 diabetes mellitus without complications, unspecified whether salvage determiner insulin use (HCC) (Primary Dx); Essential hypertension; Other hyperlipidemia; Fatty liver; Chronic gastroesophageal reflux disease; Major depression, recurrent, chronic (CMS/HCC); Polyarthralgia; Left elbow pain; Subacute cough; Healthcare maintenance Social History Tobacco Use Types Packs/Day Years Used Date Smoking Tobacco: Never Smokeless Tobacco: Never Alcohol Use Standard Drinks/Week Comments Never 0 (1 standard drink = 0.6 oz pur e alcohol) Depression Answer Date Recorded Patient Health Questionnaire-9 Score 16 02/09/2025 Patient Health Questionnaire-9 Score 16 02/09/2025 Last PHQ-9: Questionnaire Data Not on file 1 Housing Stability Answer Date Recorded What is [...] Date Recorded Patient Health Questionnaire-2 Score 6 02/09/2025 Comments No Sex and Gender Information Value Date Recorded Sex Assigned at Female 02/23/2022 10:21 AM EDT Legal Sex Female 10:21 AM EDT Gender Identity Female 02/23/2022 10:21 AM EDT Sexual Orientation Straight 02/23/2022 10 :21 AM EDT documented as of this encounter Last Filed Vital Signs Vital Sign Reading Time Taken Comments Blood Pressure 132/80 02/09/2025 10:07 AM EDT Pulse 82 02/09/2025 10:07 AM EDT Temperature 36.9 C (98.4 F) 02/09/2025 10:07 AM EDT Respiratory Rate 19 02/09/2025 10:07 AM EDT Oxygen Saturation 97% 02/09/2025 10:07 AM EDT Inhaled Oxygen Concentration - - Weight 104 kg (230 lb) 02/09/2025 10:07 AM EDT Height 160 cm (5' 3 ) 02/09/2025 10:07 AM EDT Body Mass Index 40.74 02/09/2025 10:07 AM EDT documented in this encounter Functional Status * Over the past 2 weeks, how often have you been bothered by any of the following problems? Question Answer Date of Assessment Author Patient Health Questionnaire -2 Score 6 02/09/2025 10:13 AM EDT Maryanne Fair MA * Little interest or pleasure in doing things Answer Date of Assessment Author Nearly every day 02/09/2025 10:13 AM EDT Maryanne Fair MA * Feeling down, depressed, or hopeless Answer Date of Assessment Author Nearly every day 02/09/2025 10:13 AM ASHT Maryanne Fair MA * Trouble falling or staying asleep, or sleeping too much Answer Date of Assessment Author Not at all 02/09/2025 10:13 AM Maryanne Huber MA * Feeling tired or having little energy Answer Date of Assessment Author More than half the days 02/09/2025 10:13 AM ASHT Maryanne Fair MA * Poor appetite or overeating Answer Date of Assessment Author Nearly every day 02/09/2025 10:13 AM Maryanne Huber MA * Feeling bad about yourself - or that you are a failure or have let yourself or your family down Answer Date of Assessment Author Nearly every day 02/09/2025 10:13 AM Maryanne Huber MA * Trouble concentrating on things, such as reading the newspaper or watching television Answer Date of Assessment Author Not at all 02/09/2025 10:13 AM Maryanne Huber MA * Moving or speaking so slowly that other people could have noticed? Or the opposite - being so fidgety or restless that you have been moving around a lot more than usual. Answer Date of Assessment Author More than half the days 02/09/2025 10:13 AM Maryanne Huber MA * Thoughts that you would be better off or hurting yourself in some way Answer Date of Assessment Author Not at all 02/09/2025 10:13 AM ASHT Maryanne Fair MA * Patient Health Questionnaire-9 Score Answer Date of Assessment Author 16 02/09/2025 10:13 AM EDT Maryanne Fair MA * How difficult have these problems made it for you to do your work, take care of things at home, or get along with other people? Answer Date of Assessment Author Somewhat difficult 02/09/2025 10:13 AM EDT Maryanne Pratt MA * Over the last 2 weeks, how often have you been bothered by any of the following problems? Question Answer Date of Assessment Author Feeling nervous, anxious, or on edge 0 02/09/2025 10:15 AM EDT Maryanne Fair MA Not being able to stop or co ntrol worrying 2 02/09/2025 10:15 AM Maryanne Huber MA Worrying too much about diff erent things 3 02/09/2025 10:15 AM ASHT Maryanne Fair MA Trouble relaxing 3 02/09/2025 10:15 AM ASHT Maryanne Fair MA Being so restless that it is hard to sit still 1 02/09/2025 10:15 AM Maryanne Huber MA Becoming easily annoyed or irritable 2 02/09/2025 10:15 AM Maryanne Huber MA Feeling afraid as if somethi ng awful might happen 1 02/09/2025 10:15 AM Maryanne Huber MA DEBBIE-7 Total Score 12 02/09/2025 10:15 AM Maryanne Huber MA documented as of this encounter Plan of Treatment Scheduled Orders Name Type Priority Associated Diagnoses Orde r Schedule Pulmonary Function Test PFT Routine Subacute cough Expected: 02/09/2025, Expires: 08/10/2025 T4, Free Lab Routine Type 2 diabetes mellitus without complications, unspecified whether salvage determiner insulin use (HCC) Other hyperlipidemia Fatty liver Chronic gastroesophageal reflux disease Major depression, recurrent, chronic (CMS/HCC) Polyarthralgia Healthcare maintenance Subacute cough Left elbow pain Expected: 02/09/2025 (Approximate), Expires: 02/09/2026 Vitamin D, 25-Hydroxy, Total, Immunoassay Lab Routine Type 2 diabetes mellitus without complications, unspecified whether salvage determiner insulin use (HCC) Other hyperlipidemia Fatty liver Chronic gastroesophageal reflux disease Major depression, recurrent, chronic (CMS/HCC) Polyarthralgia Healthcare maintenance Subacute cough Left elbow pain Expected: 02/09/2025 (Approximate), Expires: 02/09/2026 Lipid Panel, Standard Lab Routine Type 2 diabetes mellitus without complications, unspecified whether salvage determiner insulin use (HCC) Other hyperlipidemia Fatty liver Chronic gastroesophageal reflux disease Major depression, recurrent, chronic (CMS/HCC) Polyarthralgia Healthcare maintenance Subacute cough Left elbow pain Expected: 02/09/2025 (Approximate), Expires: 02/09/2026 TSH Lab Routine Type 2 diabetes mellitus without complications, unspecified whether salvage determiner insulin use (HCC) Other hyperlipidemia Fatty liver Chronic gastroesophageal reflux disease Major depression, recurrent, chronic (CMS/HCC) Polyarthralgia Healthcare maintenance Subacute cough Left elbow pain Expected: 02/09/2025 (Approximate), Expires: 02/09/2026 Hepatic Function Panel Lab Routine Type 2 diabetes mellitus without complications, unspecified whether mcc insulin use (HCC) Other hyperlipidemia Fatty liver Chronic gastroesophageal reflux disease Major depression, recurrent, chronic (CMS/HCC) Polyarthralgia Healthcare maintenance Subacute cough Left elbow pain Expected: 02/09/2025 (Approximate), Expires: 02/09/2026 Hemoglobin A1c Lab Routine Type 2 diabetes mellitus without complications, unspecified whether salvage determiner insulin use (HCC) Other hyperlipidemia Fatty liver Chronic gastroesophageal reflux disease Major depression, recurrent, chronic (CMS/HCC) Polyarthralgia Healthcare maintenance Subacute cough Left elbow pain Expected: 02/09/2025 (Approximate), Expires: 02/09/2026 Basic Metabolic Panel Lab Routine Type 2 diabetes mellitus without complications, unspecified whether mcc insulin use (HCC) Other hyperlipidemia Fatty liver Chronic gastroesophageal reflux disease Major depression, recurrent, chronic (CMS/HCC) Polyarthralgia Healthcare maintenance Subacute cough Left elbow pain Expected: 02/09/2025 (Approximate), Expires: 02/09/2026 CBC Lab Routine Type 2 diabetes mellitus without complications, unspecified whether mcc insulin use (HCC) Other hyperlipidemia Fatty liver Chronic gastroesophageal reflux disease Major depression, recurrent, chronic (CMS/HCC) Polyarthralgia Healthcare maintenance Subacute cough Left elbow pain Expected: 02/09/2025, Expires: 02/09/2026 Albumin, Random Urine W/Creatinine Lab Routine Type 2 diabetes mellitus without complications, unspecified whether salvage determiner insulin use (HCC) Other hyperlipidemia Fatty liver Chronic gastroesophageal reflux disease Major depression, recurrent, chronic (CMS/HCC) Polyarthralgia Healthcare maintenance Subacute cough Left elbow pain Expected: 02/09/2025 (Approximate), Expires: 02/09/2026 Chlamydia/N. Gonorrhoeae RNA, TMA, Urogenitial Microbiology Routine Type 2 diabetes mellitus without complications, unspecified whether mcc insulin use (HCC) Other hyperlipidemia Fatty liver Chronic gastroesophageal reflux disease Major depression, recurrent, chronic (CMS/HCC) Polyarthralgia Healthcare maintenance Subacute cough Left elbow pain Ordered: 02/09/2025 HIV-1/2 Antigen and Antibodies, Fourth Generation, with Reflexes Lab Routine Type 2 diabetes mellitus without complications, unspecified whether mcc insulin use (HCC) Other hyperlipidemia Fatty liver Chronic gastroesophageal reflux disease Major depression, recurrent, chronic (CMS/HCC) Polyarthralgia Healthcare maintenance Subacute cough Left elbow pain Expected: 02/09/2025 (Approximate), Expires: 02/09/2026 Hepatitis C Antibody with Reflex to HCV, RNA, Quantitative, Real-Time PCR Lab Routine Type 2 diabetes mellitus without complications, unspecified whether mcc insulin use (HCC) Other hyperlipidemia Fatty liver Chronic gastroesophageal reflux disease Major depression, recurrent, chronic (CMS/HCC) Polyarthralgia Healthcare maintenance Subacute cough Left elbow pain Expected: 02/09/2025, Expires: 02/09/2026 RPR (Monitor) with Reflex to Titer Lab Routine Type 2 diabetes mellitus without complications, unspecified whether mcc insulin use (HCC) Other hyperlipidemia Fatty liver Chronic gastroesophageal reflux disease Major depression, recurrent, chronic (CMS/HCC) Polyarthralgia Healthcare maintenance Subacute cough Left elbow pain Expected: 02/09/2025, Expires: 02/09/2026 Alpha-Fetoprotein, Tumor Marker Lab Routine Type 2 diabetes mellitus without complications, unspecified whether mcc insulin use (HCC) Other hyperlipidemia Fatty liver Chronic gastroesophageal reflux disease Major depression, recurrent, chronic (CMS/HCC) Polyarthralgia Healthcare maintenance Subacute cough Left elbow pain Expected: 02/09/2025 (Approximate), Expires: 02/09/2026 documented as of this encounter Procedures Procedure Name Priority Date/Time Associated Diagnosis Comments XR ELBOW 3+ VIEWS LEFT Routine 02/09/2025 12:30 PM EDT Left elbow pain XR CHEST 2 VIEWS Urgent 02/09/2025 12:0 0 PM EDT Subacute cough POCT GLYCATED HEMOGLOBIN, TOTAL Routine 02/09/2025 10:20 AM EDT Type 2 diabetes mellitus without complications, unspecified whether mcc insulin use (HCC) POCT GLUCOSE Routine 02/09/2025 10:18 AM EDT Type 2 diabetes mellitus without complications, unspecified whether mcc insulin use (HCC) documented in this encounter Results * XR Elbow 3+ Views Left (02/09/2025 12:30 PM EDT) Anatomical Region Laterality Modality Upper Extremities, Elbow Left Radiogr aphic Imaging 02/09/2025 12:3 0 PM EDT Narrative 02/09/2025 12:49 PM EDT [address] [address] XRay Report Signed Patient: Annabelle Bang I MR#: [id number] : 1970 Acct:[id number] Age/Sex: 54 / F ADM Date: 02/09/25 Loc: [facility] Attending Dr: Halley Hill DO Ordering Physician: Halley Hill DO Date of Service: 02/09/25 Procedure(s): XR elbow LT min 3V Accession Number(s): [id number] cc: Halley Hill DO Reason for Exam: L lateral elbow pain and tenderness EXAMINATION: XR ELBOW, LEFT CLINICAL INFORMATION: L lateral elbow pain and tenderness COMPARISON: None available. TECHNIQUE: AP, lateral, and oblique views of the left elbow. FINDINGS: The bones and soft tissues are normal. No fracture or joint effusion. Alignment is anatomic. Joint spaces are maintained. XR/XR elbow LT min 3V IMPRESSION: Normal left elbow. Electronically signed by: Valentina Lackey MD 02/09/2025 12:47 PM EDT RP Dictated By: Valentina Lackey MD Signed By: <Electronically signed by Valentina Lackey MD in OV> 02/09/25 1247 DD/ 1230 TD/TT: 02/09/251234 Thermostat Mechanic: KAROLINA Procedure Note Donotuseinterpreter, Image - 02/09/[address] [address] XRay Report Signed Patient: Annabelle Bang [facility]#: [id number] : 1970Acct:[id number] Age/Sex: 54 / FADM Date: 02/09/25 [facility]: Halley Hill DO Ordering Physician: Halley Hill DO Date of Service: 02/09/25 Procedure(s): XR elbow LT min 3V Accession Number(s): [id number] cc: Halley Hill DO Reason for Exam: L lateral elbow pain and tenderness EXAMINATION: XR ELBOW, LEFT CLINICAL INFORMATION: L lateral elbow pain and tenderness COMPARISON: None available. TECHNIQUE: AP, lateral, and oblique views of the left elbow. FINDINGS: The bones and soft tissues are normal. No fracture or joint effusion. Alignment is anatomic. Joint spaces are maintained. XR/XR elbow LT min 3V IMPRESSION: Normal left elbow. Electronically signed by: Valentina Lackey MD 02/09/2025 12:47 PM EDT RP Dictated By: Valentina Lackey MD Signed By: <Electronically signed by Valentina Lackey MD in OV> 02/09/25 1247 DD/ 1230 TD/TT: 02/09/251234 Thermostat Mechanic: KAROLINA Halley Hill DO IMG XR PROCEDURES Final Resu lt * XR Chest 2 Views (02/09/2025 12:00 PM EDT) Anatomical Region Laterality Modality Chest Radiographic Michelle ging 02/09/2025 12:0 0 PM EDT Narrative 02/09/2025 12:48 PM EDT [address] [address] XRay Report Signed Patient: Annabelle Bang I MR#: [id number] : 1970 Acct:[id number] Age/Sex: 54 / F ADM Date: 02/09/25 Loc: [facility] Attending Dr: Halley Hill DO Ordering Physician: Halley Hill DO Date of Service: 02/09/25 Procedure(s): XR chest 2V Accession Number(s): [id number] cc: Halley Hill DO Reason for Exam: cough x 2 mos EXAMINATION: XR CHEST CLINICAL INFORMATION: cough x 2 mos COMPARISON: Previous chest x-ray July 2022 TECHNIQUE: 2 views of the chest were obtained. FINDINGS: Slightly elevated right hemidiaphragm similar to previous exam. Lungs are clear. No pleural effusion or pneumothorax. Cardiac and mediastinal contours are stable. Degenerative changes of the spine. XR/XR chest 2V IMPRESSION: No evidence for acute disease in the chest. Electronically signed by: Valentina Lackey MD 02/09/2025 12:45 PM EDT Dictated By: Valentina Lackey MD Signed By: <Electronically signed by Valentina Lackey MD in OV> 02/09/25 1245 DD/ 1200 TD/TT: 02/09/25 1235 Thermostat Mechanic: KAROLINA Procedure Note Donotuseinterpreter, Image - 02/09/[address] [address] XRay Report Signed Patient: Annabelle Bang IMR#: [id number] : 1970Acct:[id number] Age/Sex: 54 / FADM Date: 02/09/25 Loc: [facility] Attending Dr: Halley Hill DO Ordering Physician: Halley Hill DO Date of Service: 02/09/25 Procedure(s): XR chest 2V Accession Number(s): [id number] cc: Halley Hill DO Reason for Exam: cough x 2 mos EXAMINATION: XR CHEST CLINICAL INFORMATION: cough x 2 mos COMPARISON: Previous chest x-ray July 2022 TECHNIQUE: 2 views of the chest were obtained. FINDINGS: Slightly elevated right hemidiaphragm similar to previous exam. Lungs are clear. No pleural effusion or pneumothorax. Cardiac and mediastinal contours are stable. Degenerative changes of the spine. XR/XR chest 2V IMPRESSION: No evidence for acute disease in the chest. Electronically signed by: Valentina Lackey MD 02/09/2025 12:45 PM EDT RP Dictated By: Valentina Lackey MD Signed By: <Electronically signed by Valentina Lackey MD in OV> 02/09/25 1245 DD/ 1200 TD/TT: 02/09/25 1235 Thermostat Mechanic: KAROLINA Halley Hill DO IMG XR PROCEDURES Final Resu lt * POCT Hgb A1c (02/09/2025 10:20 AM EDT) Hemoglobin A1C 5.6 4.0 - 5.7 % QC Media Lot # [id number] Lot# Expiration Date [id number] Blood 02/09/2025 10:2 0 AM EDT Halley Hill DO POINT OF CARE TEST ENTER/ANALI T ORDERABLES Final Result * POCT Glucose (02/09/2025 10:18 AM EDT) Glucose Blood, POC 95 60 - 200 mg/dL QC Media Lot # [id number] Lot# Expiration Date [id number] Blood Capillary blood specimen / Unknown 02/09/2025 10:18 AM EDT Halley Hill DO POINT OF CARE TEST ENTER/ANALI T ORDERABLES Final Result documented in this encounter Visit Diagnoses Diagnosis Type 2 diabetes mellitus without complications, unspecified whether salvage determiner insulin use (HCC)- Primary Essential hypertension Unspecified essential hypertension Other hyperlipidemia Fatty liver Other chronic nonalcoholic liver disease Chronic gastroesophageal reflux disease Major depression, recurrent, chronic (CMS/HCC) Polyarthralgia Pain in joint, multiple sites Left elbow pain Pain in joint, upper arm Subacute cough Healthcare maintenance documented in this encounter Additional Health Concerns Assessment Noted Time PHQ-9 Depression Total Score: 16 02/09/ 025 10:13 AM EDT documented as of this encounter Care Teams Beverage Specialist Relationship Specialty Start Date End Date Halley Hill DO [address] [place] [place] [id number] PCP - General Family Medicine 04/26/18 documented as of this encounter
--- OUTSIDE RECORDS SUMMARY | 2025-02-09 14:03 | XMS_ITS | Clinical Summary ---
Author Organization [employer] Address [address] [facility] [address] [place] [address] Care Team Providers Care Cloth Cutting Inspector Name Role Phone Halley Hill DO Primary Care Provider [phone] Allergies Active Allergy Reactions Criticality Noted Date Comments Penicillins Unknown 09/23/2022 Oxycodone-Acetaminophen Dizziness 09/23/2022 Medications * This document contains information received from the source organization and may not represent a complete record from that organization. Blood Glucose Monitoring Suppl (ZetaRx BiosciencesStyle Ridgely Lite) w/Device kit Use to test blood sugar 1 times daily 1 kit 024 Active Alcohol Swabs 70 % pads Use to test blood sugar 1 times daily 100 each 11 024 Active Lancets misc Use to test blood sugar 1 times daily 100 each 11 024 Active Blood Pressure Monitoring (Blood Pressure Cuff) misc 1 each Once per day. 1 each 024 Active acetaminophen (Tylenol 8 Hour) 650 MG ER tablet Take 1 tablet (650 mg) by mouth every 8 (eight) hours if needed for mild pain. Do not crush, chew, or split. 60 tablet 3 025 Active fluticasone (Flonase) 50 MCG/ACT nasal spray INSTILL 2 SPRAYS IN EACH NOSTRIL ONCE DAILY, SHAKE GENTLY 48 g 3 025 Active cetirizine (ZyrTEC) 10 MG tablet TAKE 1 TABLET BY MOUTH EVERY DAY 90 tablet 3 025 Active lisinopril 5 MG tabletIndications: Essential hypertension Take 1 tablet (5 mg) by mouth Once per day. Take 1 tab po daily with 2.5mg lisinopril dose for total of 7.5mg 30 tablet 10/26 Active lisinopril 2.5 MG tabletIndications: Essential hypertension Take 1 tab po daily with 5mg lisinopril dose for total of 7.5mg 30 tablet 11 Active Trulicity 0.75 MG/0.5ML solution auto-injectorIndic ations:New onset type 2 diabetes mellitus (HCC) INJECT ONE PEN (=0.75MG) SUBCUTANEOUSLY ONCE A WEEK DIRECTED 2 mL 3 Active predniSONE (Deltasone) 20 MG tablet Take 1 tablet (20 mg) by mouth 2 times daily for 5 days. 10 tablet 02/14 Active omeprazole OTC (PriLOSEC OTC) 20 MG EC tablet Take 1 tablet (20 mg) by mouth before breakfast. Do not crush, chew, or split. 90 tablet 3 02/09 Active naproxen (Naprosyn) 500 MG tablet Take 1 tablet (500 mg) by mouth if needed in the morning and at bedtime for mild pain. 40 tablet 1 02/09 Active baclofen (Lioresal) 10 MG tablet Take 1 tablet (10 mg) by mouth if needed in the morning, at noon, and at bedtime for muscle spasms. 60 tablet 1 04/10 Active Diclofenac Sodium 1 % gel Apply 2 g topically if needed in the morning, at noon, in the evening, and at bedtime (pain). 150 g 3 Active atorvastatin (Lipitor) 10 MG tablet Take 1 tablet (10 mg) by mouth at bedtime. 90 tablet 3 02/09 Active albuterol 108 (90 Base) MCG/ACT inhaler Inhale 2 puffs every 4 (four) hours if needed for wheezing or shortness of breath. 18 g 02/09 Active benzonatate (Tessalon Perles) 100 MG capsule Take 1 capsule (100 mg) by mouth if needed in the morning, at noon, and at bedtime for cough for up to 10 days. Do not crush or chew. 30 capsule 025 02/19 Active Spacer/Aero-Holdin g Chambers (AeroChamber MV) inhaler Use as instructed with albuterol MDI 1 each 025 02/09 Active esomeprazole (NexIUM) [address] capsuleIndications :Chronic gastroesophageal reflux disease Take 1 capsule (40 mg) by mouth before breakfast. Do not open capsule. 90 capsule 1 024 02/09 Discontinued empagliflozin (Jardiance) 10 MG Take 1 tablet (10 mg) by mouth Once per day. 90 tablet 3 024 02/09 Discontinued atorvastatin (Lipitor) 10 MG tablet Take 1 tablet (10 mg) by mouth at bedtime. 90 tablet 3 024 02/09 Discontinued( Reorder (will not trigger notification to Pharmacy)) Diclofenac Sodium 1 % gel Apply 2 g topically if needed in the morning, at noon, in the evening, and at bedtime (pain). 150 g 3 024 02/09 Discontinued( Reorder (will not trigger notification to Pharmacy)) Dulaglutide 0.75 MG/0.5ML solution auto-injectorIndic ations:New onset type 2 diabetes mellitus (HCC) Inject 0.75 mg under the skin 1 (one) time per week. 2 mL 3 025 02/06 Discontinued famotidine (Pepcid) 40 MG tablet TAKE 1 TABLET BY MOUTH EVERY DAY AT BEDTIME 90 tablet 1 025 02/09 Discontinued Active Problems Problem Noted Date Diagnosed Date Type 2 diabetes mellitus 10/15/2023 Healthcare maintenance 09/22/2023 Assessment & Plan (09/22/2023 1:06 PM EDT): -she declines flu vaccine -she declines COVID vaccine -s/p Tdap Jan 2010 -s/p Td August 2022 -encouraged shingrix vaccine -Hep A/B immune -mammo BIRADS 26 JUL 2023 -pap wnl/HPV neg Jan 2019, repeat scheduled with [facility] -awaiting colonoscopy/EGD with GI -A1c 5.9% September [...] labs -Hep A/B immune BMI 40.0-44.9, adult (CMS/HCC) 05/09/2015 Irritable bowel syndrome 05/09/2015 Essential hypertension [...] nml EKG in chart -referred to [facility] for eval Assessment & Plan (05/08/2023 [...] Encounters Date Type Department Care Team Description 02/09/2025 10:00 AM EDT Office Visit [facility] [address] [place] [phone] Halley Hill DO Type 2 diabetes mellitus without complications, unspecified whether fci insulin use (HCC) (Primary Dx); Essential hypertension; Other hyperlipidemia; Fatty liver; Chronic gastroesophageal reflux disease; Major depression, recurrent, chronic (CMS/HCC); Polyarthralgia; Left elbow pain; Subacute cough; Healthcare maintenance 02/09/2025 Travel 02/06/2025 Refill [facility] [address] [place] [address] Halley Hill DO New onset type 2 diabetes mellitus (HCC) 02/01/2025 Telephone [facility] [address] [place] [phone] Halley Hill DO Chart Prep 01/26/2025 Telephone [facility] [address] [place] [address] Halley Hill DO 12/13/2024 Orders Only GENERIC EXTERNAL DATA DEPARTMENT Provider, Generic External Data 11/27/2024 Telephone [facility] [address] [place] [phone] Halley Hill DO 11/10/2024 Telephone [facility] [address] [place], [place] [phone] Sofy Bautista OD from Last 3 Months Immunizations Immunization Administration [...] Mass Index 40.74 02/09/2025 10:07 AM EDT Plan of Treatment Health Maintenance Due Date Last Done Comments CT Colonography 1972 Colonoscopy 1972 Colorectal Cancer Screening 1972 FIT DNA/Cologuard 1972 FIT 1972 FOBT 1972 Sigmoidoscopy 1972 Disability Screening 1972 Diabetes: Foot Exam 1982 Family Planning (PISQ) 1987 Pneumococcal Vaccine: 50+ Years (1 of 2 - PCV) 1991 Hepatitis A Vaccines (2 of 2 - Risk 2-dose series) 02/18/2011 08/19/2010 Zoster Vaccines (1 of 2) 2022 SDOH Screening 09/21/2024 09/22/2023 Diabetes: Urine Protein Screening 10/11/2024 10/12/2023, 10/07/2022 Lipid Panel 12/17/2024 12/18/2023, 09/24, 10/07/2022, Additional history exists COVID-19 Vaccine ( season) 2024 10/25/2020, 10/04/2020 Influenza Vaccine (#1) 2024 2, 01/08/2011, 02/21/2010 Depression Monitoring 08/10/2025 02/09/2025, 025 Diabetes: Hemoglobin A1C 08/10/2025 025, 06/02/2024, 10/12/2023, Additional history exists Mammogram 08/22/2025 08/22/2024, 07/26, 08/11/2022, Additional history exists Alcohol/Substance Use Screening 02/09/2026 02/09/2025 Tobacco Screening 02/09/2026 02/09/2025 Eye Exam 09/12/2026 09/12/2024, 08/25, 09/12/2024, Additional history exists Pap Smear 12/14/2027 12/13/2024 Cervical Cancer Screening 12/13/2029 HPV/Cotest 12/13/2029 12/13/2024, 01/24, 02/14/2016 DTaP/Tdap/Td Vaccines (3 - Td or Tdap) [...] 2 diabetes mellitus without complications, unspecified whether fci insulin use (HCC) POCT GLUCOSE Routine 02/09/2025 10:18 AM EDT Type 2 diabetes mellitus without complications, unspecified whether terminal system operator insulin use (HCC) US PELVIS TRANSVAGINAL Routine 12/27/2024 8:28 AM EDT PAP SMEAR Routine 12/13/2024 2:25 PM EDT HPV DNA, LOW/HIGH RISK Routine 12/13/2024 2:25 PM EDT BI MAMMOGRAM SCREENING TOMOSYNTHESIS BILATERAL Routine 08/22/2024 3:00 PM EDT LIPID PANEL, STANDARD Routine 12/18/2023 9:29 AM [...] pain, right Decreased visual acuity Healthcare maintenance from Last 3 Months or Most Recently Relevant to Health Maintenance Results * XR Elbow 3+ Views Left (02/09/2025 12:30 PM EDT) Anatomical Region Laterality Modality Upper Extremities, Elbow Left Radiogr aphic Imaging 02/09/2025 12:3 0 PM EDT Narrative 02/09/2025 12:49 PM EDT [address] [address] XRay Report Signed Patient: Annabelle Bang I MR#: [id number] : 1970 Acct:[id number] Age/Sex: 54 / F ADM Date: 02/09/25 Loc: HO.HHCX Attending Dr: Halley Hill DO Ordering Physician: Halley Hill DO Date of Service: 02/09/25 Procedure(s): XR elbow LT min 3V Accession Number(s): [id number] cc: Halley Hill DO Reason for Exam: [...] Valentina Lackey MD 02/09/2025 12:47 PM EDT Dictated By: Valentina Lackey MD Signed By: <Electronically signed by Valentina Lackey MD in OV> 02/09/25 1247 DD/ 1230 TD/TT: 02/09/25 1235 Staff Radiographer: KAROLINA Procedure Note Donotuseinterpreter, Image - 02/09/[address] [address] XRay Report Signed Patient: Annabelle Bang IMR#: [id number] : 1970Acct:[id number] Age/Sex: 54 / FADM Date: 02/09/25 [facility]: Halley Hill DO Ordering Physician: Halley Hill DO Date of Service: 02/09/25 Procedure(s): XR elbow LT min 3V Accession Number(s): [id number] cc: Halley Hill DO Reason for Exam: [...] Valentina Lackey MD 02/09/2025 12:47 PM EDT Dictated By: Valentina Lackey MD Signed By: <Electronically signed by Valentina Lackey MD in OV> 02/09/25 1247 DD/ 1230 TD/TT: 02/09/25 1235 Staff Radiographer: KAROLINA us Halley Hill DO IMG XR PROCEDURES Final Resu lt * XR Chest 2 Views (02/09/2025 12:00 PM EDT) Anatomical Region Laterality Modality Chest Radiographic Michelle ging 02/09/2025 12:0 0 PM EDT Narrative 02/09/2025 12:48 PM EDT [address] [address] XRay Report Signed Patient: Annabelle Bang I MR#: [id number] : 1970 Acct:[id number] Age/Sex: 54 / F ADM Date: 02/09/25 Loc: PETRAX Attending Dr: Halley Hill DO Ordering Physician: Halley Hill DO Date of Service: 02/09/25 Procedure(s): XR chest 2V Accession Number(s): [id number] cc: Halley Hill DO Reason for Exam: [...] 02/09/25 1245 DD/ 1200 TD/TT: 02/09/25 1235 Staff Radiographer: KAROLINA Procedure Note Donotuseinterpreter, Image - 02/09/2025 [place] [address] XRay Report Signed Patient: Annabelle Bang IMR#: [id number] : 1970Acct:[id number] Age/Sex: 54 / FADM Date: 02/09/25 Loc: MELANY Attending Dr: Halley Hill DO Ordering Physician: Halley Hill DO Date of Service: 02/09/25 Procedure(s): XR chest 2V Accession Number(s): [id number] cc: Halley Hill DO Reason for Exam: [...] 02/09/25 1245 DD/ 1200 TD/TT: 02/09/25 1235 Staff Radiographer: KAROLINA Halley Liz DO IMG XR PROCEDURES Final Resu lt * POCT Hgb A1c (02/09/2025 10:20 AM EDT) Hemoglobin A1C 5.6 4.0 - 5.7 % QC Media Lot # [id number] Lot# Expiration Date 5,027 Blood 02/09/2025 10:2 0 AM EDT Halley Hill DO POINT OF CARE TEST ENTER/ANALI T ORDERABLES Final Result * POCT Glucose (02/09/2025 10:18 AM EDT) Glucose Blood, POC 95 60 - 200 mg/dL QC Media Lot # [id number] Lot# Expiration Date 3,026 Blood Capillary blood specimen / Unknown 02/09/2025 10:18 AM EDT Halley Hill DO POINT OF CARE TEST ENTER/ANALI T ORDERABLES Final Result * US Pelvis Transvaginal (12/27/2024 8:28 AM EDT) Anatomical Region Laterality Modality Pelvis Ultrasound 12/27/2024 8:28 AM EDT Narrative 12/27/2024 9:44 AM EDT [address] [address] Ultrasound Report Signed Patient: Annabelle Bang I MR#: [id number] : 1970 Acct:[id number] Age/Sex: 54 / F ADM Date: 12/27/24 Loc: HO.US Attending Dr: Orlando Wilson MD Ordering Physician: Orlando Wilson MD Date of Service: 12/27/24 Procedure(s): US pelvic and transvaginal Accession Number(s): [id number] cc: Halley Hill DO; Orlando Wilson MD Reason for Exam: N95.0 - Postmenopausal bleeding EXAMINATION: US PELVIS CLINICAL INFORMATION: Postmenopausal bleeding. COMPARISON: May 21, 2022 reporting a 1 cm uterine fibroid.. TECHNIQUE: Ultrasound of the pelvis is performed using both transabdominal and transvaginal transducers along with Doppler. Transvaginal imaging is performed due to inadequate visualization transabdominally. FINDINGS: Uterus: The uterus is anteversion flexion and measures 9 x 5 x 6 cm. Cervix is closed with small nabothian cysts. The double wall endometrial thickness is 2 mm. Heterogeneous morphology of the uterine parenchyma. There is a 1.3 cm ovoid shaped heterogeneous hypoechoic nodule in the posterior body of the myometrium. Adnexa: The right ovary is not identified.. The left ovary is identified with flow on color Doppler interrogation. No free fluid in the cul-de-sac. Left ovary measures 2 x 2 x 2 cm. Volume: 3.2 cc. No gross solid or cystic lesion. US/US pelvic and transvaginal IMPRESSION: 1.3 cm uterine fibroid. Normal endometrial stripe, 2 mm. Right ovary is not identified. Left ovary is normal. Electronically signed by: Hema Duenas MD 12/27/2024 09:41 AM EDT Dictated By: Hema Ambrosio MD Signed By: <Electronically signed by Hema Esparza MD in OV> 12/27/2441 DD/ 7 TD/TT: 12/27/24904 Staff Radiographer: Procedure Note Donotuseinterpreter, Image - 12/27/[address] [address] Ultrasound Report Signed Patient: Annabelle Bang [facility]#: [id number] : 1970Acct:[id number] Age/Sex: 54 / FADM Date: 12/27/24 Loc: HO.US Attending Dr: Orlando Wilson MD Ordering Physician: Orlando Wilson MD Date of Service: 12/27/24 Procedure(s): US pelvic and transvaginal Accession Number(s): [id number] cc: Halley Hill DO; Orlando Wilson MD Reason for Exam: N95.0 - Postmenopausal bleeding EXAMINATION: US PELVIS CLINICAL INFORMATION: Postmenopausal bleeding. COMPARISON: May 21, 2022 reporting a 1 cm uterine fibroid.. TECHNIQUE: Ultrasound of the pelvis is performed using both transabdominal and transvaginal transducers along with Doppler. Transvaginal imaging is performed due to inadequate visualization transabdominally. FINDINGS: Uterus: The uterus is anteversion flexion and measures 9 x 5 x 6 cm. Cervix is closed with small nabothian cysts. The double wall endometrial thickness is 2 mm. Heterogeneous morphology of the uterine parenchyma. There is a 1.3 cm ovoid shaped heterogeneous hypoechoic nodule in the posterior body of the myometrium. Adnexa: The right ovary is not identified.. The left ovary is identified with flow on color Doppler interrogation. No free fluid in the cul-de-sac. Left ovary measures 2 x 2 x 2 cm. Volume: 3.2 cc. No gross solid or cystic lesion. US/US pelvic and transvaginal IMPRESSION: 1.3 cm uterine fibroid. Normal endometrial stripe, 2 mm. Right ovary is not identified. Left ovary is normal. Electronically signed by: Hema Duenas MD 12/27/2024 09:41 AM EDT Dictated By: Hema Ambrosio MD Signed By: <Electronically signed by Hema Esparza MDin OV> 12/27/2441 DD/ 7 TD/TT: 12/27/24 09 Staff Radiographer: us [facility] External Provider IMG US PROCEDURES Final Result * HPV DNA, Low/High Risk (12/13/2024 2:25 PM EDT) HPV High Risk Negative Negative [facility] HPV Genotype 16 Negative Negative [facility] HPV Genotype 18 Negative Negative [facility] Comment:HPV testing performe d at [facility] (CLIA#[id number]), [address] [place] [phone].Testing for HPV was performed using the [employer] DEYA 6800system. The presence of HPV in the female genital tract isassociated with a number of diseases, including cervicalcarcinoma. The HPV DNA high risk pool tests for HPV 31, 33,35, 39, 45, 51, 52, 56, 58, 59, 66 and 68. The testing forHPV 16 and 18 genotypes has also been performed. A positiveresult indicates detection of nucleic acid sequences fromone or more subtypes, whereas a negative result indicatessuch sequences were not detected. 12/13/2024 2:25 PM EDT 12/14/2024 8:03 AM EDT us Generic External Data Provider LAB BLOOD ORDERAB LES Final Result [facility] [address] [place] [phone] * Pap Smear (12/13/2024 2:25 PM EDT) 12/13/2024 2:25 PM EDT 12/14/2024 8:03 AM EDT Narrative [facility] - 12/19/2024 7:41 AM EDT ----- ------- Name: Annabelle Bang I Age/Sex: 54/F : 1970 Unit#: [id number] Attend Dr: Orlando Wilson MD Re12/13/24 Status: [facility] Disch: ----- ------- SPEC : [id number] RECD: 12/14/24 STATUS: BRANDON ASCENCIO NUM: [id number] ANA: 12/13/24-[address]: Orlando Wilson MD ENTERED: 12/14/24 SP TYPE: Pap Smr OTHR DR: Halley Hill DO ORDERED: Pap Smear Interpretation Satisfactory for evaluation. Negative for intraepithelial lesion or malignancy. No endocervical cells seen. HPV High Risk: Negative HPV Genotyping 16: Negative HPV Genotyping 18: Negative Clinical Information LMP:Unknown date Previous PAP test:Unknown date/findings Material Received ThinPrep-Cervical PAP Disclaimer As of February 16, 2024, the technical services to include automated prescreening performed by the ThinPrep Imaging System, PAP screening and HPV testing will be performed at [facility] (CLIA #[id number]), [address] [place] [address]. Testing for HPV was performed using the Ana DEYA 6800 system. The presence of HPV in the female genital tract is associated with a number of diseases, including cervical carcinoma. The HPV DNA high risk pool tests for HPV 31, 33, 35, 39, 45, 51, 52, 56, 58, 59, 66 and 68. The testing for HPV 16 and 18 genotypes has also been performed. A positive result indicates detection of nucleic acid sequences from one or more subtypes, whereas a negative result indicates such sequences were not detected. All professional services are performed by [facility] ([address] [place] [address], [place] [address]; ; CLIA #[id number]). The PAP Test is a screening procedure with the inherent possibility of both false negative and false positive results. Results should be interpreted in the context of historic and current clinical findings. Reliability of the PAP Test is enhanced by performing the test on a regular repetitive basis. CONTINUED ON NEXT PAGE ----- ------- Name: Isaias EsparzaAnnabelle Barnes Age/Sex: 54/F : 1970 Unit#: [id number] Attend Dr: Orlando Wilson MD Re12/13/24 Status: [facility] REF Location: [facility] Disch: ----- ------- SPEC : [id number] RECD: 12/14/24 STATUS: BRANDON JOHNSTONPilo NUM: [id number] ANA: 12/13/[address] [facility] [address]: Orlando Wilson MD ENTERED: 12/14/24 SP TYPE: Pap Smr OTHR DR: Halley Hill DO ORDERED: Pap Smear Copies To: Halley Hill DO [address] [phone] Orlando Wilson MD [facility] [address] [place] [address] [place] [phone] ----- ------- Signed (signature on file) [facility] ([facility]) 12/19/24 0741 ----- ------- END OF REPORT Generic External Data Provider LAB CYTOLOGY [place]ART[place] Final Result Performing Organization Address City/State/[facility] Co de Phone Number [facility] [address] [place] [phone] * BI Mammogram Screening Tomosynthesis Bilateral (08/22/2024 3:00 PM EDT) Anatomical Region Laterality Modality Breast Bilateral Mammography 08/22/2024 3:00 PM EDT Narrative 08/27/2024 7:11 PM EDT [facility] [address] [place] [address] Mammography Report Signed Patient: Annabelle Bang I MR#: [id number] : 1970 Acct:[id number] Age/Sex: 54 / F ADM Date: 08/22/24 Loc: AURELIO Attending Dr: Halley Hill DO Ordering Physician: Halley Hill DO Results: 1N egative Date of Service: 08/22/24 Follow Up: 1 Year From Orig inal Mammogram Procedure(s): MM tomosynthesis screening BI Accession Number(s): [id number] cc: Halley Hill DO EXAMINATION: MM SCREENING [...] 08/27/24 1907 DD/ 1500 TD/TT: 08/22/24 1515 Staff Radiographer: Procedure Note Donotuseinterpreter, Image - 08/27/2024 [facility] [address] [place] [address] Mammography Report Signed Patient: Annabelle Bang [facility]#: [id number] : 1970Acct:[id number] Age/Sex: 54 / FADM Date: 08/22/24 Loc: HO.MAMMO Attending Dr: Halley Hill DO Ordering Physician: Halley Hillesults: 1N egative Date of Service: 08/22/24Follow Up: 1 Year From Orig inal Mammogram Procedure(s): MM tomosynthesis screening BI Accession Number(s): [id number] cc: Halley Hill DO EXAMINATION: MM SCREENING [...] 08/27/24 1907 DD/ 1500 TD/TT: 08/22/24 1515 Staff Radiographer: us Halley Hill DO IMG BI PROCEDURES Edited Res ult - Final * (ABNORMAL) Lipid Panel, Standard (12/18/2023 9:29 AM EDT) Triglycerides 188(H) <150 mg/dL [facility] Comment:Desirable Triglyceri de: less than [...] 190 mg/dL HDL Cholesterol 35(L) >40 mg/dL [facility] Comment:Desirable HDL: great er than 40 mg/dL Note: This HDL assay may give artificially low results in patients with liver disease. Blood Venous blood specimen / Unknown 12/18/2023 9:29 AM EDT 12/18/2023 9:29 AM EDT Halley Slaughterlance DO LAB BLOOD ORDERABLES Final R esult Performing Organization Address City/[facility] Co de Phone Number [facility] [address] [place] [phone] * Hepatitis C Antibody with Reflex to HCV, RNA, Quantitative, Real-Time PCR (10/12/2023 10:33 AM EDT) Hepatitis C Antibody Nonreactive Nonreactive [facility] Comment:Antibodies to HCV no t detected; does not exclude early acuteHCV infection. Blood Venous blood specimen / Unknown 10/12/2023 10:33 AM EDT 10/12/2023 12:58 PM EDT Halley Jurlance DO LAB BLOOD ORDERABLES Final R esult Performing Organization Address [facility] Co de Phone Number [facility] [address] [place] [phone] * HIV-1/2 Antigen and Antibodies, Fourth Generation, with Reflexes (10/12/2023 10:33 AM EDT) HIV AB/AG Nonreactive Nonreactive [facility] Comment:HIV-1 p24 Ag and/or HIV-1/HIV-2 Ab not detected.A test result that is nonreactive does not exclude thepossibility of exposure to or infection with HIV-1 and/orHIV-2. Nonreactive results in this assay for individualswith prior exposure to HIV-1 and/or HIV-2 may be due toantigen and antibody levels that are below the limit ofdetection of this assay.The YupiCallniTripda HIV Ag/Ab Combo assay result andsupplemental assay results should be interpreted inconjunction with the patient's clinical presentation,history and other laboratory results. If the results areinconsistent with clinical evidence, additional testing issuggested to confirm the result. Blood Venous blood specimen / Unknown 10/12/2023 10:33 AM EDT 10/12/2023 12:58 PM EDT Halley Hill DO LAB BLOOD ORDERABLES Final R esult Performing Organization Address City/[facility] Co de Phone Number [facility] [address] [place] [phone] * Albumin, Random Urine W/Creatinine (10/12/2023 10:03 AM EDT) Creatinine, Urine 113.26 mg/dL [facility] Microalbumin Urine 31.0 mg/L [facility] Microalbum Creatinine Ratio Ur 27.3 <30 ug/mg cr [facility] Comment:Albumin/Creatinine R atio Reference Ranges: Normal: < 30 ug/mg creatinine Microalbuminuria: 30 - 300 ug/mg creatinineClinical Albuminuria: > 300 ug/mg creatinine Urine (Urine, Random) 10/12/2023 10:03 AM EDT 10/12/2023 11:23 AM EDT Halley Hill DO LAB URINE ORDERABLES Final R esult Performing Organization Address City/[facility] Co de Phone Number [facility] [address] [place] [phone] from Last 3 Months or Most Recently Relevant to Health Maintenance Insurance [facility] 2 Care Teams Cloth Cutting Inspector Relationship Specialty Start Date End Date Halley Hill DO [address] [place] [phone] PCP - General Family Medicine 04/26/18
--- OUTSIDE RECORDS SUMMARY | 2025-02-09 14:03 | XMS_ITS | Encounter Summary ---
Author Organization [employer] Address [address] [facility] 7 [place] [address] Care Team Providers Care Roller Engraver Name Role Phone Halley Hill DO Primary Care Provider + [phone] Reason for Visit * Reason Comments Med Refill Encounter Details Date Type Department Care Team ([facility] st Contact Info) Description 07/26/2023 Refill [facility] [address] [place] [id number] Lillian Dunn MD [address] [place] [address] Epigastric pain Social History Tobacco Use Types [...] enough money to get more: Never True 10/ Transportation Answer Date Recorded In the past [...] documented as of this encounter Care Teams Roller Engraver Relationship Specialty Start Date End Date Halley Hill DO [address] [place] [address] PCP - General Family Medicine 04/26/18 documented as of this encounter
--- OUTSIDE RECORDS SUMMARY | 2025-02-09 14:03 | XMS_ITS | Encounter Summary ---
Author Organization [employer] Address [address] [facility] 7t [place] [address] Care Team Providers Care Bus Driver/Monitor Name Role Phone Halley Hill DO Primary Care Provider + [phone] Reason for Visit * Reason Comments Med Refill Encounter Details Date Type Department Care Team ([facility] st Contact Info) Description 05/07/2023 Refill [facility] [address] [place] [id number] Lillian Dunn MD [address] [place] [address] Epigastric pain Social History Tobacco Use Types [...] documented as of this encounter Care Teams Bus Driver/Monitor Relationship Specialty Start Date End Date Halley Hill DO [address] [place] [id number] PCP - General Family Medicine 04/26/18 documented as of this encounter
--- OUTSIDE RECORDS SUMMARY | 2025-02-09 14:03 | XMS_ITS | Encounter Summary ---
Author Organization [employer] Address [address] [facility] 7t [place] [address] Care Team Providers Care Trench Digger Helper Name Role Phone Halley Hill DO Primary Care Provider + [phone] Reason for Visit * Reason Comments Med Refill Encounter Details Date Type Department Care Team ([facility] st Contact Info) Description 02/06/2025 Refill [facility] [address] [place] [address] Halley Hill DO [address] [place] [address] New onset type 2 diabetes mellitus (HCC) Social History Tobacco Use Types Packs/Day Years [...] as of this encounter Visit Diagnoses Diagnosis New onset type 2 diabetes mellitus (HCC) documented in this encounter Additional Health Concerns Assessment Noted Time PHQ-9 Depression Total Score: 18 024 10:21 AM EDT documented as of this encounter Care Teams Trench Digger Helper Relationship Specialty Start Date End Date Halley Hill DO [address] [place] [address] PCP - General Family Medicine 04/26/18 documented as of this encounter
--- OUTSIDE RECORDS SUMMARY | 2025-02-09 14:03 | XMS_ITS | Encounter Summary ---
Author Organization [employer] Address [address] [facility] 7t [place] [address] Care Team Providers Care Net Developer With [employer] Name Role Phone Liz Halley Primary Care Provider + [phone] Encounter Details Date Type Department Care Team (Latest Contact Info) Description 02/09/2025 Travel Social History Tobacco Use Types Packs/Day [...] AM EDT documented as of this encounter Functional Status * Over the [...] Author Not at all 02/09/2025 10:13 AM EDT Maryanne Fair [place] * Feeling tired or having little energy Answer Date of Assessment Author More than half the days 02/09/2025 10:13 AM ASHT Maryanne Fair [place] * Poor appetite or overeating Answer Date of Assessment Author Nearly every day 02/09/2025 10:13 AM ASHT Maryanne Fair MA * Feeling bad about yourself - [...] 10:13 AM ASHT Maryanne Fair MA * Moving or speaking so slowly that other people could have noticed? Or the opposite - being so fidgety or restless that you have been moving around a lot more than usual. Answer Date of Assessment Author More than half the days 02/09/2025 10:13 AM EDT Maryanne Fair MA * Thoughts that you would be better off or hurting yourself in some way Answer Date of Assessment Author Not at all 02/09/2025 10:13 AM EDT Maryanne Fair MA * Patient Health Questionnaire-9 Score Answer Date of Assessment Author 16 02/09/2025 10:13 AM ASHT Maryanne Fair MA * How difficult have [...] co ntrol worrying 2 02/09/2025 10:15 AM EDT Maryanne Fair MA Worrying too much about diff erent things 3 02/09/2025 10:15 AM EDT Maryanne Fair MA Trouble relaxing 3 02/09/2025 10:15 AM EDT Maryanne Fair MA Being so restless that it is hard to sit still 1 02/09/2025 10:15 AM EDT Maryanne Fair MA Becoming easily annoyed or irritable 2 02/09/2025 10:15 AM EDT Maryanne Fair MA Feeling afraid as if somethi ng awful might happen 1 02/09/2025 10:15 AM EDT Maryanne Fair MA DEBBIE-7 Total Score 12 02/09/2025 10:15 AM ASHT Maryanne Fair MA documented as of this encounter Plan of Treatment Not on file documented as of this encounter Visit Diagnoses Not on filedocumented in this encounter Additional Health Concerns Assessment Noted Time PHQ-9 Depression Total Score: 16 2 025 10:13 AM EDT documented as of this encounter Care Teams Net Developer With [employer] Relationship Specialty Start Date End Date Halley Hill DO [address] [place] [address] PCP - General Family Medicine 04/26/18 documented as of this encounter
== END 2025-02-09 11:16 | disposition home or self-care (01) ==
LOC: HO.HHCX 11:15
PROVIDERS: PCP Family Medicine; Visit Provider Family Medicine
DX: M25.522 Pain in left elbow (principal); R05.2 Subacute cough; R10.13 Epigastric pain; R14.0 Abdominal distension (gaseous); K57.90 Diverticulosis of intestine, part unspecified, without perforation or abscess without bleeding
CPT/HCPCS: 71046; 73080; 99212

== ENCOUNTER → 2025-02-09 11:37 | Outpatient (BNV) | payer OTHER, SELFPAY | PROVIDERS: PCP Family Medicine; Visit Provider Radiology Diagnostic Radiology | DX: R05.9 Cough, unspecified (principal); M25.522 Pain in left elbow | CPT/HCPCS: 71046; 73080 ==

== ENCOUNTER 2025-02-09 14:32 | Outpatient (AMB) | payer OTHER, SELFPAY ==
[2025-02-09 14:33] VITALS: BP 128/64; PULSE 89; O2SAT 94; BMI 40.6
--- NOTE | 2025-02-09 14:33 | MHC.OFFVIS ---
Vital Signs 02/09/25 14:33 Height 5 ft 3 in Weight 229 lb BMI 40.6 BP 128/64 Blood Pressure Location Lt brachial Position Sitting Pulse 89 Pulse Source Pulse Oximeter Pulse Oximetry (%) 94 Oxygen Delivery Method Room Air Intake Visit Reasons: 6 MO F/U Intake Note: Pt c/o; reports she feels gassy, reports no constipation or acid reflux, denies other GI symptoms. Sewer Separation Designer Required: Yes Sewer Separation Designer Language: Solar Lab Technician Services: Sewer Separation Designer Present Information Interpreted: non-clinical & clinical Accompanied by: Self / Same As Patient Allergies Penicillins (PENICILLINS) Allergy (Unknown, Verified 02/09/25 14:38) Unknown HPI HPI 6 MO F/U: Details: LAST VISIT: GERD (gastroesophageal reflux disease) Status post colonoscopy Diverticulosis Postprandial abdominal bloating Plan Currently not on any PPI. Patient would like to avoid and try with food changes. Avoid dietary triggers a late night snacking. Staying upright for minimal 3 hours after meals discussed with patient. Patient was encouraged to increase fiber in her diet. Moderate diverticulosis in the left side of her colon. Colonoscopy in 2-3 years, sooner if clinically necessary. Occasional postprandial abdominal bloating. Patient will take Senokot as needed. Follow-up in the office in 6 months, sooner on as needed basis. She is agreeable to this plan and verbalizes understanding of instructions. She was given the opportunity to ask questions and all questions answered. ? Thank you for allowing me to participate in her care New simethicone 125 mg PO BID-QID PRN 120 caps 3RF abdominal distention K21.9 TODAY'S VISIT Patient is here today for follow-up. Patient reports ongoing symptoms of bloating. Patient used simethicone in the past and reports that it works. Will need an another refill. Patient started Trulicity 2 months ago. However reports that symptoms not new, experience them before starting Trulicity. Patient reports that she is moving her bowels daily. Denies acid reflux, however sometimes patient reports epigastric pain when she does not eat for several hours. Patient denies any nausea or vomiting. Denies any dyspepsia, dysphagia or odynophagia. Denies melena, hematochezia, unintentional weight loss or ribbon like stools. Patient denies any other GI concerning symptoms PFSH Medical History Bilateral shoulder pain Erosive osteoarthritis of both hands Diabetes Inflammatory arthritis GERD (gastroesophageal reflux disease) Migraine HTN (hypertension) Surgical History Hx of dilation and curettage H/O colonoscopy Hx of section Family History Maternal Grandfather Stomach cancer Social History Household Members Other:: daughter Housing: Apartment Alcohol intake: never Patient Tobacco Use Status: Never used Tobacco Second Hand Smoke Exposure: No Current occupational status: employed Current occupation: [employer] Sexual orientation: Straight/Heterosexual Gender identity: Female Review of Systems Const Denies weight gain and Denies weight loss ENT Reports no additional complaints, Denies dysphagia and Denies odynophagia Card Reports no additional complaints Resp Reports no additional complaints GI Reports abdominal pain (Epigastric, occasional), Denies belching, Denies melena, Reports bloating (occasional), Denies change in bowel habits, Denies dysphagia, Denies excessive flatus, Reports dyspepsia, Denies heartburn, Denies diarrhea, Denies loose stools, Denies nausea, Denies odynophagia and Denies vomiting Reports no additional complaints Musc Reports no additional complaints Neuro Reports no additional complaints Psych Reports no additional complaints Endo Reports no additional complaints Physical Exam Vital Signs: Last Vital Signs Pulse 89 02/09/25 14:33 BP 128/64 02/09/25 14:33 Pulse Ox 94 02/09/25 14:33 Oxygen Delivery Method Room Air 02/09/25 14:33 BMI result Body Mass Index 40.6 Const General: healthy appearing and no acute distress Nutritional Appearance: obese Orientation/consciousness: patient oriented x3 Resp Effort & Inspection: normal respiratory effort, able to speak in complete sentences, no tracheal deviation and symmetric chest movement Auscultation: clear to auscultation bilaterally Cardio Rate: regular rate GI Inspection: Yes normal to inspection, No distended and Yes obesity Palpation (GI): Soft to palpation, not firm, nontender and No hepatosplenomegaly present Auscultation: normal bowel sounds General: Yes no CVA tenderness Back/Spine/Pelvis Back: no CVA tenderness Skin General skin exam: elasticity normal, turgor normal and dry skin Neuro General: patient oriented x3 Psych Appearance: grossly normal Mental Status: mental status grossly normal Assessment & Plan Assessment & Plan (1) Epigastric pain: Code(s): R10.13 - Epigastric pain (2) Postprandial abdominal bloating: Code(s): R14.0 - Abdominal distension (gaseous) (3) Diverticular disease: Code(s): K57.90 - Diverticulosis of intestine, part unspecified, without perforation or abscess without bleeding Plan Patient will continue simethicone. She can try [id number] digestive enzymes to see if she will have less bloating. Patient was encouraged to eat smaller meals and more often. Avoid dietary triggers and late night snacking. Staying upright for minimum 3 hours after meals discussed with patient. Increase fluid intake and activity to promote better bowel motility. Discussed with patient low FODMAP diet. List of food recommended as well as list of food to avoid given to patient. Patient will follow-up in our office in 4 months, sooner on as needed basis. She is agreeable to this plan and verbalizes understanding of instructions. She was given the opportunity to ask questions and all questions answered. Thank you for allowing me to participate in her care Medications: Refilled simethicone 125 mg PO BID-QID PRN 120 caps 3RF abdominal distention K21.9 - Gastro-esophageal reflux disease without esophagitis simethicone 125 mg PO BID-QID PRN 120 caps 3RF abdominal distention K21.9 - Gastro-esophageal reflux disease without esophagitis Coding Level of Care Code Est Pt Level 3 (37057) Diagnoses Epigastric pain R10.13 Postprandial abdominal bloating R14.0 Diverticular disease K57.90 Time Spent (min) 30 Comment 20 minutes spent with patient and additional 10 minutes spent reviewing her records
== END 2025-02-09 15:03 | disposition home or self-care (01) ==
LOC: HO.HGI 14:32
PROVIDERS: PCP Family Medicine; Visit Provider Nurse Practitioner Family
DX: R10.13 Epigastric pain (principal); R14.0 Abdominal distension (gaseous); K57.90 Diverticulosis of intestine, part unspecified, without perforation or abscess without bleeding
CPT/HCPCS: 99213